=== PATIENT | male | born 1965 | race Hispanic/Latino ===

== ENCOUNTER 2018-10-14 06:51 | Emergency (ER) | payer MEDICARE ==
[2018-10-14] MEDS ORDERED: MIDAZOLAM HCL 2 MG/2 ML INJ ONE (07:15)
--- NOTE | 2018-10-14 07:24 | ER ---
Nurse's Notes [facility] Name: Deric Sheriff Age: 52 yrs Sex: Male : 1965 Arrival Date: 10/14/2018 Time: 06:52 Bed 4 Private MD: Diagnosis: Epileptic seizures related to external causes;Type 2 diabetes mellitus;Unspecified kidney failure;Essential (primary) hypertension;Fever, unspecified Presentation: 10/14 07:07 Presenting complaint: EMS states: Family was unable to wake up patient this morning, tl2 EMS reported pt may have had a seizure, given 2 mg Ativan. Pt unresponsive with snoring respirations. Transition of care: patient was not received from another setting of care. Onset of symptoms was October 14, 2018 at 06:00. Risk Assessment: Do you want to hurt yourself or someone else? Patient reports no desire to harm self or others. Initial Sepsis Screen: Does the patient meet any 2 criteria? Altered Mental Status. HR > 90 bpm. Does the patient have a suspected source of infection? No. Patient's initial sepsis screen is negative. Care prior to arrival: Placed on backboard. Medication(s) given: 2 mg ativan IV initiated. IO right humerus Glucose check: 167. 07:07 Method Of Arrival: EMS: [facility] tl2 07:07 Acuity: HODAN 1 tl2 Triage Assessment: 07:10 General: Appears ill, Behavior is unresponsive. Pain: Unable to use pain scale. Patient tl2 is unresponsive. Neuro: Level of Consciousness is unresponsive, Reaction to noxious stimuli is none. Neuro: Seizure activity noted at this time. Cardiovascular: Patient's skin is warm and dry. Rhythm is sinus tachycardia. Respiratory: Airway is compromised Respiratory effort is shallow, Respiratory pattern is snoring. GI: No signs and/or symptoms were reported involving the gastrointestinal system. Derm: Skin is pale. Historical: - Allergies: 07:10 lotril; tl2 - Home Meds: 09:00 tamsulosin 0.4 mg oral cp24 1 cap once daily [Active]; metoprolol tartrate 50 mg Oral sv tab 1 tab 2 times per day [Active]; enalapril maleate 20 mg Oral tab 1 tab once daily [Active]; baclofen 10 mg Oral tab 1 tab 3 times per day [Active]; clonidine HCl 0.1 mg Oral tab 1 tab 3 times per day [Active]; Plavix 75 mg Oral tab 1 tab once daily [Active]; atorvastatin 40 mg oral tab 1 tab once daily [Active]; citalopram 20 mg tab 1 tab once daily [Active]; aspirin 81 mg Oral chew 1 tab once daily [Active]; Natural Laxative oral 8.6 mg daily oral [Active]; - PMHx: 07:10 CVA; Diabetes - NIDDM; Hypertension; tl2 - Immunization history:: Adult Immunizations up to date. - Social history:: The patient lives with family, Patient/guardian denies using alcohol, street drugs, Smoking status: unknown. - Family history:: not pertinent. - Ebola Screening: : No symptoms or risks identified at this time. Screenin:22 Abuse screen: Denies threats or abuse. Nutritional screening: No deficits noted. tl2 Tuberculosis screening: No symptoms or risk factors identified. Fall Risk Secondary diagnosis (15 points) seizures, CVA, Assessment: 07:25 General: Appears unkempt, Behavior is unresponsive. General: Spouse reports that she sv tried to get him up around 0000 and he wasn't able to get up at that time. She went back to sleep and tried to get him up again around 0500 and still couldn't get him up and called 911. Spouse reports that he normally is A\T\O x3 and is able to walk and do things on his own but he walks with a cane at home since he's had left sided deficits.. Pain: Unable to use pain scale. Patient is intubated. Patient is unresponsive. Neuro: Level of Consciousness is unresponsive. Respiratory: Airway via oral intubation Respiratory effort is even, unlabored, Respiratory pattern is regular, symmetrical. GI: Parent/caregiver reports the patient having vomiting yesterday. : No signs and/or symptoms were reported regarding the genitourinary system. EENT: No signs and/or symptoms were reported regarding the EENT system. Derm: Skin is normal, Skin temperature is hot. Musculoskeletal: No signs and/or symptoms reported regarding the musculoskeletal system. Musculoskeletal: Parent/caregiver report the patient having left sided deficits from 2 CVAs in the past. 08:10 Reassessment: Patient appears in no apparent distress at this time. No changes from sv previously documented assessment. Pt remains intubated. 09:00 Reassessment: Patient appears in no apparent distress at this time. No changes from sv previously documented assessment. Pt remains intubated. 09:13 Reassessment: Patient appears in no apparent distress at this time. No changes from sv previously documented assessment. Spouse remains at the bedside. Pt remains intubated. 09:36 Reassessment: Patient appears in no apparent distress at this time. No changes from sv previously documented assessment. Pt remains intubated. Report given to León from EMS. Vital Signs: 06:50 BP 148 / 97; Pulse 100; Resp 18 A; Temp 99.9(C); Pulse Ox 98% on Non-rebreather mask; tl2 Weight 81.65 kg; Height 5 ft. 8 in. (172.72 cm); 06:56 BP 153 / 106; Pulse 108; Resp 20 A; Temp 99.9(C); Pulse Ox 99% on BVM; tl2 07:01 BP 124 / 84; Pulse 99; Resp 20 A; Pulse Ox 100% on ETT ambu; tl2 07:25 BP 103 / 72; Pulse 94; Resp 27; Temp 100.5(C); Pulse Ox 100% on ETT ambu; sv 07:40 BP 124 / 86; Pulse 108; Resp 27; Temp 100.6; Pulse Ox 100% on 100% FiO2 ETT vent; sv 07:50 BP 98 / 67; Pulse 96; Resp 26; Temp 100.6; Pulse Ox 100% on 100% FiO2 ETT vent; sv 08:05 BP 91 / 61; Pulse 88; Resp 22; Pulse Ox 100% on 100% FiO2 ETT vent; sv 08:15 BP 104 / 66; Pulse 91; Resp 22; Pulse Ox 100% on 100% FiO2 ETT vent; sv 08:30 BP 112 / 71; Pulse 95; Resp 23; Temp 100.3(C); Pulse Ox 100% on 100% FiO2 ETT vent; sv 08:45 BP 96 / 60; Pulse 98; Resp 25; Temp 99.8(C); Pulse Ox 100% on 100% FiO2 ETT vent; sv 09:00 BP 101 / 68; Pulse 98; Resp 22; Temp 99.7; Pulse Ox 100% on 100% FiO2 ETT vent; sv 09:15 BP 103 / 61; Pulse 95; Resp 21; Temp 99.9; Pulse Ox 96% on 100% FiO2 ETT vent; sv 09:25 BP 95 / 63; Pulse 91; Resp 22; Temp 100; Pulse Ox 97% on 60% FiO2 ETT vent; sv 06:50 Body Mass Index 27.37 (81.65 kg, 172.72 cm) tl2 [place] Coma Score: 07:10 Eye Response: none(1). Verbal Response: none(1). Motor Response: none(1). Total: 3. tl2 ED Course: 06:52 Patient arrived in ED. ds1 06:52 Inserted saline lock: 20 gauge in right antecubital area, using aseptic technique. ea Blood collected. 06:54 Inserted saline lock: 20 gauge in right antecubital area, using aseptic technique. tl2 Blood collected. placed by ASHLEY Gamboa. 06:55 Maintain EMS IV. Dressing intact. Site clean \T\ dry. Gauge \T\ site: IO to right humerus. tl 2 06:58 Assisted provider with intubation using 7.5 mm ETT via oral route. ET tube secured at tl2 24cm at the teeth. Set up intubation tray. Intubated by Millie Cazares MD Placement verified by CO2 detector w/ + color change, auscultating bilateral breath sounds. 07:00 Millie Cazares MD is Attending Physician. ma2 07:01 NGT: inserted 16 Fr. other orally verified placement of air over stomach, verified tl2 return of gastric contents, to intermittent suction. Returned gastric contents. 07:02 Elliott cath inserted, using sterile technique, 16 Fr., by ED staff, balloon inflated, to tl2 gravity drainage, urine specimen collected. 07:10 Triage completed. tl2 07:10 Arm band placed on right wrist. tl2 07:10 Seizure precautions initiated. tl2 07:18 Attending Physician role handed off by Millie Cazares MD alpesh 07:18 Gm Shaikh MD is Attending Physician. alpesh 07:22 Patient has correct armband on for positive identification. Bed in low position. Call tl2 light in reach. Side rails up X2. 07:24 CT Stroke Brain w/o Contrast In Process Unspecified. EDMS 07:24 C Spine Wo Con In Process Unspecified. EDMS 07:58 EKG done, by ED staff, reviewed by Gm Shaikh MD. [facility] 08:[address] Shaikh with Diego Willett RN decal transferrer at the [facility]/. 08:[address] Shaikh connected with for patient transfer consultation. 08:12 Chest Single View XRAY In Process Unspecified. EDMS 08:20 Rebecca Mayer, ASHLEY is Primary Nurse. sv 08:23 Flu Sent. sv 08:26 administrative approval given by Sarahy Duenas RN decal transferrer/ Dr. Najera has accepted the patient in transfer/ pt going to [address] [place] [address] bed 7516/ report to be called to [phone]. 09:38 Patient transferred, IV remains in place. intact. sv Administered Medications: 06:54 Drug: Etomidate 20 mg Route: IVP; Site: right antecubital; tl2 07:10 Follow up: Response: No adverse reaction sv 06:54 Drug: Succinylcholine 120 mg Route: IVP; Site: right antecubital; tl2 07:10 Follow up: Response: No adverse reaction sv 07:10 Drug: Versed 5 mg Route: IVP; Site: right antecubital; tl2 07:30 Follow up: Response: No adverse reaction sv 07:35 Drug: ProTONIX 80 mg Route: IVP; Site: left antecubital; iw 08:00 Follow up: Response: No adverse reaction sv 07:40 Drug: Thiamine 100 mg Route: IV; Rate: bolus; Site: left antecubital; iw 07:45 Follow up: Response: No adverse reaction; IV Status: Completed infusion sv 07:46 Drug: Fosphenytoin 1 grams Route: IVPB; Site: left antecubital; iw 08:05 Follow up: Response: No adverse reaction; IV Status: Completed infusion; IV Intake: sv 100ml 07:49 Not Given (Physician Discretion): Cefepime 1 grams IVPB at 200 ml/hr once over 30 mins; iw (mix in NS 100 mL) 08:01 Drug: Ativan 2 mg Route: IVP; Site: left upper arm; sv 09:15 Follow up: Response: No adverse reaction sv 08:20 Drug: Cefepime 2 grams Route: IVPB; Rate: 200 ml/hr; Infused Over: 30 mins; Site: right sv femoral; 09:12 Follow up: Response: No adverse reaction; IV Status: Completed infusion; IV Intake: sv 250ml 08:21 Drug: NS 0.9% (30 ml/kg) 30 ml/kg Route: IV; Rate: bolus; Site: right femoral; sv 08:21 Drug: vancoMYCIN 1 grams Route: IVPB; Infused Over: 2 hrs; Site: right femoral; sv 10:08 Follow up: Response: No adverse reaction; IV Status: Infusion continued upon transfer sv 08:25 CANCELLED (changed to MD): Acetaminophen 1000 mg PO once sv 08:29 Drug: Tylenol Suppository 650 mg Route: MD; la1 09:12 Follow up: Response: No adverse reaction; Temperature is decreased sv 09:12 Drug: NS 0.9% 1000 ml Route: IV; Rate: 125 ml/hr; Site: right femoral; sv 10:08 Follow up: Response: No adverse reaction; IV Status: Infusion continued upon transfer sv Point of Care Testing: Blood Glucose: 07:12 Blood Glucose: 169 mg/dL; ea 09:11 Blood Glucose: 148 mg/dL; sv Ranges: Intake: 08:05 IV: 100ml; Total: 100ml. sv 09:12 IV: 250ml; Total: 350ml. sv Outcome: 07:24 ER care complete, transfer ordered by . [facility] 09:15 Transferred by ground EMS to [facility], Transfer form completed. sv X-rays sent w/ patient. Note: [facility] to [facility] 09:15 Condition: stable 09:15 Instructed on the need for transfer. 10:08 Patient left the ED. eb Signatures: Dispatcher [employer] EDMS Rebecca Mayer RN RN sv Anderson, Corey, MD MD cha Sanford, Demi ds1 Indira Patel RN RN iw Attema, Lee, RN RN la1 Knox, Taylor, RN RN tl2 Martinez, Maria [facility] Bee Cabrera RN RN ea Alzahri, Mohammad, MD MD ma2 Botello, Elizabeth eb Corrections: (The following items were deleted from the chart) 07:17 06:50 Inserted saline lock: 20 gauge in right antecubital area, using aseptic ea technique. Blood collected. ea 07:22 07:10 BP 148 / 97; Pulse 100bpm; Resp 18bpm; Assisted; Pulse Ox 98% Non-rebreather tl2 mask; Temp 99.9F Catheter; 81.65 kg; Height 5 ft. 8 in.; BMI: 27.3; tl2
--- NOTE | 2018-10-14 07:24 | EDPHYS ---
Physician Documentation [facility] Name: Deric Sheriff Age: 52 yrs Sex: Male : 1965 Arrival Date: 10/14/2018 Time: 06:52 Bed 4 Private MD: ED Physician Gm Shaikh HPI: 10/14 07:04 This 52 yrs old Male presents to ER via Unassigned with complaints of Seizure. ri2 07:04 The patient presents with a history of multiple seizures. Seizure onset: just prior to [facility] arrival. Seizure Hx: it is unknown whether or not the patient has a previous seizure history. EMS care: Ativan. Current symptoms: confusion. The patient has experienced a previous episode. Historical: - Allergies: 07:10 lotril; tl2 - Home Meds: 09:00 tamsulosin 0.4 mg oral cp24 1 cap once daily [Active]; metoprolol tartrate 50 mg Oral sv tab 1 tab 2 times per day [Active]; enalapril maleate 20 mg Oral tab 1 tab once daily [Active]; baclofen 10 mg Oral tab 1 tab 3 times per day [Active]; clonidine HCl 0.1 mg Oral tab 1 tab 3 times per day [Active]; Plavix 75 mg Oral tab 1 tab once daily [Active]; atorvastatin 40 mg oral tab 1 tab once daily [Active]; citalopram 20 mg tab 1 tab once daily [Active]; aspirin 81 mg Oral chew 1 tab once daily [Active]; Natural Laxative oral 8.6 mg daily oral [Active]; - PMHx: 07:10 CVA; Diabetes - NIDDM; Hypertension; tl2 - Immunization history:: Adult Immunizations up to date. - Social history:: The patient lives with family, Patient/guardian denies using alcohol, street drugs, Smoking status: unknown. - Family history:: not pertinent. - Ebola Screening: : No symptoms or risks identified at this time. ROS: 08:55 Unable to obtain ROS due to obtunded state. alpesh Exam: 07:04 ENT: Nares patent. No nasal discharge, no septal abnormalities noted. Tympanic ma2 membranes are normal and external auditory canals are clear. Oropharynx with no redness, swelling, or masses, exudates, or evidence of obstruction, uvula midline. Mucous membranes moist. Chest/axilla: Normal chest wall appearance and motion. Nontender with no deformity. No lesions are appreciated. Cardiovascular: Regular rate and rhythm with a normal S1 and S2. No gallops, murmurs, or rubs. Normal PMI, no JVD. No pulse deficits. 07:04 Respiratory: Respirations: intubated for airway protection . 07:04 Neuro: Mentation: seizure activity, grand mal type is displayed, focal in nature is displayed by patient, Abnormal movements: pill rolling tremor, gcs 7. Vital Signs: 06:50 BP 148 / 97; Pulse 100; Resp 18 A; Temp 99.9(C); Pulse Ox 98% on Non-rebreather mask; tl2 Weight 81.65 kg; Height 5 ft. 8 in. (172.72 cm); 06:56 BP 153 / 106; Pulse 108; Resp 20 A; Temp 99.9(C); Pulse Ox 99% on BVM; tl2 07:01 BP 124 / 84; Pulse 99; Resp 20 A; Pulse Ox 100% on ETT ambu; tl2 07:25 BP 103 / 72; Pulse 94; Resp 27; Temp 100.5(C); Pulse Ox 100% on ETT ambu; sv 07:40 BP 124 / 86; Pulse 108; Resp 27; Temp 100.6; Pulse Ox 100% on 100% FiO2 ETT vent; sv 07:50 BP 98 / 67; Pulse 96; Resp 26; Temp 100.6; Pulse Ox 100% on 100% FiO2 ETT vent; sv 08:05 BP 91 / 61; Pulse 88; Resp 22; Pulse Ox 100% on 100% FiO2 ETT vent; sv 08:15 BP 104 / 66; Pulse 91; Resp 22; Pulse Ox 100% on 100% FiO2 ETT vent; sv 08:30 BP 112 / 71; Pulse 95; Resp 23; Temp 100.3(C); Pulse Ox 100% on 100% FiO2 ETT vent; sv 08:45 BP 96 / 60; Pulse 98; Resp 25; Temp 99.8(C); Pulse Ox 100% on 100% FiO2 ETT vent; sv 09:00 BP 101 / 68; Pulse 98; Resp 22; Temp 99.7; Pulse Ox 100% on 100% FiO2 ETT vent; sv 09:15 BP 103 / 61; Pulse 95; Resp 21; Temp 99.9; Pulse Ox 96% on 100% FiO2 ETT vent; sv 09:25 BP 95 / 63; Pulse 91; Resp 22; Temp 100; Pulse Ox 97% on 60% FiO2 ETT vent; sv 06:50 Body Mass Index 27.37 (81.65 kg, 172.72 cm) tl2 Winkelman Coma Score: 07:10 Eye Response: none(1). Verbal Response: none(1). Motor Response: none(1). Total: 3. tl2 Procedures: 07:04 Intubation: Ventilated with 100% NRB prior to procedure. with 7.5 mm ETT. Ventilated ma2 with Ambu bag. ventilator. Cricoid pressure applied during procedure. Tube secured with tape with ETT oropeza Placement verified by CO2 detector with (+) color change, Patient tolerated well. 07:22 Central Line: the site was prepped with Betadine, in sterile fashion, a triple lumen alpesh catheter was inserted, in the right femoral vein, in 1 attempts. placement was verified, by blood return, the site was dressed with using sterile technique, the patient tolerated the procedure, well. MDM: 07:04 Differential diagnosis: cerebral vascular accident, drug overdose, cardiac arrhythmia, ri2 seizure. 07:18 Patient medically screened. [facility] 07:22 Data reviewed: vital signs, nurses notes, lab test result(s), EKG, radiologic studies. [facility] 10/14 07:04 Order name: Bilirubin, Direct [facility] 10/14 07:04 Order name: C-Reactive Protein [facility] 10/14 07:04 Order name: D-Dimer [facility] 10/14 07:04 Order name: Sed Rate [facility] 10/14 07:04 Order name: Basic Metabolic Panel [facility] 10/14 07:04 Order name: Blood Culture Adult (2) [facility] 10/14 07:04 Order name: CBC with Diff [facility] 10/14 07:04 Order name: Ckmb; Complete Time: 08:05 [facility] 10/14 07:04 Order name: CPK; Complete Time: 08:05 [facility] 10/14 07:04 Order name: Lactate; Complete Time: 08:54 [facility] 10/14 07:04 Order name: LFT's; Complete Time: 08:05 [facility] 10/14 07:04 Order name: Lipase; Complete Time: 08:05 [facility] 10/14 07:04 Order name: Procalcitonin; Complete Time: 08:54 [facility] 10/14 07:04 Order name: Protime (+inr); Complete Time: 08:05 [facility] 10/14 07:04 Order name: Ptt, Activated; Complete Time: 08:05 [facility] 10/14 07:04 Order name: Troponin (emerg Dept Use Only); Complete Time: 08:05 [facility] 10/14 07:04 Order name: Urine Microscopic Only [facility] 10/14 07:04 Order name: Magnesium; Complete Time: 08:05 [facility] 10/14 07:04 Order name: Amylase, Serum; Complete Time: 08:05 [facility] 10/14 07:04 Order name: UDS [facility] 10/14 07:05 Order name: C-Reactive Protein; Complete Time: 08:05 [facility] 10/14 07:05 Order name: Sedimentation Rate, Westergren; Complete Time: 08:54 [facility] 10/14 07:05 Order name: Basic Metabolic Panel; Complete Time: 08:05 [facility] 10/14 07:05 Order name: Blood Culture [facility] 10/14 07:05 Order name: CBC with Automated Diff; Complete Time: 08:54 [facility] 10/14 07:21 Order name: NT PRO-BNP; Complete Time: 08:54 [facility] 10/14 07:25 Order name: Type And Screen [facility] 10/14 07:25 Order name: Acetaminophen; Complete Time: 08:54 [facility] 10/14 07:04 Order name: Chest Single View XRAY [facility] 10/14 07:04 Order name: Accucheck; Complete Time: 07:23 [facility] 10/14 07:04 Order name: Cardiac monitoring; Complete Time: 07:23 [facility] 10/14 07:04 Order name: EKG - Nurse/Tech; Complete Time: 07:59 [facility] 10/14 07:04 Order name: CT Stroke Brain w/o Contrast; Complete Time: 08:05 [facility] 10/14 07:04 Order name: EKG; Complete Time: 07:06 [facility] 10/14 07:20 Order name: C Spine Wo Con; Complete Time: 08:05 [facility] 10/14 07:25 Order name: ETOH Level; Complete Time: 08:54 [facility] 10/14 07:25 Order name: Salicylate; Complete Time: 08:54 [facility] 10/14 07:39 Order name: ABG; Complete Time: 08:54 10/14 07:49 Order name: Flu 10/14 07:49 Order name: Influenza Screen (A ; Complete Time: 08:54 [facility] 10/14 08:39 Order name: ABO/RH no charge; Complete Time: 08:54 [facility] 10/14 09:12 Order name: Glucose, Ancillary Testing [facility] 10/14 09:12 Order name: Glucose, Ancillary Testing [facility] 10/14 09:43 Order name: Urine Dipstick--Ancillary (enter results) 10/14 09:49 Order name: Urine Culture [facility] 10/14 07:04 Order name: IV Saline Lock - Large Bore; Complete Time: 07:23 [facility] 10/14 07:04 Order name: Labs collected and sent; Complete Time: 07:23 [facility] 10/14 07:04 Order name: O2 Per Protocol; Complete Time: 07:23 [facility] 10/14 07:04 Order name: O2 Sat Monitoring; Complete Time: 07:23 [facility] 10/14 07:04 Order name: Urine Dipstick-Ancillary (obtain specimen); Complete Time: 12:56 [facility] 10/14 07:04 Order name: IV Saline Lock; Complete Time: 08:25 [facility] 10/14 07:04 Order name: NPO; Complete Time: 12:56 [facility] 10/14 07:21 Order name: Elliott; Complete Time: 07:23 [facility] 10/14 09:06 Order name: Blood Glucose Level; Complete Time: 12:56 [facility] Administered Medications: 06:54 Drug: Etomidate 20 mg Route: IVP; Site: right antecubital; tl2 07:10 Follow up: Response: No adverse reaction sv 06:54 Drug: Succinylcholine 120 mg Route: IVP; Site: right antecubital; tl2 07:10 Follow up: Response: No adverse reaction sv 07:10 Drug: Versed 5 mg Route: IVP; Site: right antecubital; tl2 07:30 Follow up: Response: No adverse reaction sv 07:35 Drug: ProTONIX 80 mg Route: IVP; Site: left antecubital; iw 08:00 Follow up: Response: No adverse reaction sv 07:40 Drug: Thiamine 100 mg Route: IV; Rate: bolus; Site: left antecubital; iw 07:45 Follow up: Response: No adverse reaction; IV Status: Completed infusion sv 07:46 Drug: Fosphenytoin 1 grams Route: IVPB; Site: left antecubital; iw 08:05 Follow up: Response: No adverse reaction; IV Status: Completed infusion; IV Intake: sv 100ml 07:49 Not Given (Physician Discretion): Cefepime 1 grams IVPB at 200 ml/hr once over 30 mins; iw (mix in NS 100 mL) 08:01 Drug: Ativan 2 mg Route: IVP; Site: left upper arm; sv 09:15 Follow up: Response: No adverse reaction sv 08:20 Drug: Cefepime 2 grams Route: IVPB; Rate: 200 ml/hr; Infused Over: 30 mins; Site: right sv femoral; 09:12 Follow up: Response: No adverse reaction; IV Status: Completed infusion; IV Intake: sv 250ml 08:21 Drug: NS 0.9% (30 ml/kg) 30 ml/kg Route: IV; Rate: bolus; Site: right femoral; sv 08:21 Drug: vancoMYCIN 1 grams Route: IVPB; Infused Over: 2 hrs; Site: right femoral; sv 10:08 Follow up: Response: No adverse reaction; IV Status: Infusion continued upon transfer sv 08:25 CANCELLED (changed to NH): Acetaminophen 1000 mg PO once sv 08:29 Drug: Tylenol Suppository 650 mg Route: NH; la1 09:12 Follow up: Response: No adverse reaction; Temperature is decreased sv 09:12 Drug: NS 0.9% 1000 ml Route: IV; Rate: 125 ml/hr; Site: right femoral; sv 10:08 Follow up: Response: No adverse reaction; IV Status: Infusion continued upon transfer sv Point of Care Testing: Blood Glucose: 07:12 Blood Glucose: 169 mg/dL; ea 09:11 Blood Glucose: 148 mg/dL; sv Ranges: Critical Glucose Levels:Adult <50 mg/dl or >400 mg/dl <40 mg/dl or >180 mg/dl Disposition: 10/14/18 07:24 Transfer ordered to [facility]. Diagnosis are Epileptic seizures related to external causes, Type 2 diabetes mellitus, Unspecified kidney failure, Essential (primary) hypertension, Fever, unspecified. - Reason for transfer: Higher level of care. - Accepting physician is to [facility]. - Condition is Serious. - Problem is new. - Symptoms have improved. Signatures: Dispatcher [employer] EDMS Rebecca Mayer RN RN Gm Maynard MD MD cha Williams, Irene, RN RN iw Attema, Lee, RN RN la1 Janet Acosta RN RN tl2 Millie Cazares MD MD ma2 Botello, Elizabeth eb Corrections: (The following items were deleted from the chart) 07:07 07:05 Bilirubin Direct ordered. EDMS EDMS 07:20 07:06 Head C Spine MPR Wo Con+CT.RAD.BRZ ordered. EDMS EDMS 07:25 07:05 D-Dimer ordered. EDMS EDMS 08:06 07:24 10/14/2018 07:24 Transfer ordered to [facility]. Diagnosis is alpesh Epileptic seizures related to external causes; Type 2 diabetes mellitus. Reason for transfer: Higher level of care. Accepting physician is to [facility]. Condition is Serious. Problem is new. Symptoms have improved. [facility] 08:25 07:04 Acetaminophen 1000 mg PO once ordered. ri2 sv 08:25 07:04 Stroke Swallow Screen ordered. [facility] 08:55 08:06 10/14/2018 07:24 Transfer ordered to [facility]. Diagnosis is alpesh Epileptic seizures related to external causes; Type 2 diabetes mellitus; Unspecified kidney failure; Essential (primary) hypertension. Reason for transfer: Higher level of care. Accepting physician is to [facility]. Condition is Serious. Problem is new. Symptoms have improved. [facility] 10:08 08:55 10/14/2018 07:24 Transfer ordered to [facility]. Diagnosis is eb Epileptic seizures related to external causes; Type 2 diabetes mellitus; Unspecified kidney failure; Essential (primary) hypertension; Fever, unspecified. Reason for transfer: Higher level of care. Accepting physician is to [facility]. Condition is Serious. Problem is new. Symptoms have improved. alpesh
[2018-10-14 07:28] LABS: Absolute Lymphocytes (CBC) 1.1 K/uL (0.7-4.9); Absolute Monocytes 1.1 K/uL (0.1-1.3); Absolute Neutrophil 10.7 K/uL (1.8-8.0); Basophils % 0.3 % (0-1.3); Hematocrit 41.4 % (39.6-49.0); Lymphocytes % 8.6 % (15.3-44.8); MCH 29.7 pg (27.0-35.0); MCV 88.4 fL (80-100); MPV 10.1 fL (7.6-11.3); Monocytes % 8.9 % (3.3-12.3); RBC Red Blood Cell Count 4.68 M/uL (4.33-5.43)
--- NOTE | 2018-10-14 07:35 | RAD REPORT ---
EXAM DESCRIPTION: CT - Ct Stroke Brain Wo Cont - 10/14/2018 7:24 am CLINICAL HISTORY: PAIN CVA COMPARISON: Head Brain Wo Cont dated 12/12/2016 TECHNIQUE: All CT scans are performed using dose optimization technique as appropriate and may inclu de automated exposure control or mA/KV adjustment according to patient size. 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 The calvarium is intact. IMPRESSION: No acute intracranial abnormality. If there is continued clinical concern for CVA, MR i maging of the brain would be recommended.
--- NOTE | 2018-10-14 07:36 | RAD REPORT ---
EXAM DESCRIPTION: CT - C Spine Wo Con - 10/14/2018 7:24 am CLINICAL HISTORY: PAIN Neck pain, radiculopathy seizure COMPARISON: No comparisons FINDINGS: The cervical vertebral body heights and disc spaces are maintained. No evidence of acute cervical spine fracture or subluxation. Prevertebral soft tissues are normal in thickness. Endotracheal intubation noted. IMPRESSION: Negative for acute cervical spine abnormality. All CT scans are performed using dose optimization technique as appropriate and may include automated exposure control or mA/KV adjustment according to patient size.
[2018-10-14 07:39] LABS: Protime INR 1.13
[2018-10-14] MEDS ORDERED: NA CHLORIDE 0.9% 100 ML IV ONE (07:39)
[2018-10-14] MEDS ORDERED: PANTOPRAZOLE 40 MG INJ ONE (07:40)
[2018-10-14] MEDS ORDERED: FOSPHENYTOIN PE 500 MG/10 ML VIAL ONE (07:40)
[2018-10-14] MEDS ORDERED: THIAMINE 200 MG/2 ML INJ ONE (07:40)
[2018-10-14 07:51] LABS: ALT/SGPT 25 U/L (12-78); AST/SGOT 21 U/L (15-37); Albumin 3.2 g/dL (3.4-5.0); Alkaline Phosphatase 82 U/L (45-117); Amylase Level 103 U/L (25-115); BUN Blood Urea Nitrogen 26 mg/dL (7-18); Bicarbonate 21 mmol/L (21-32); Bilirubin Direct < 0.1 mg/dL (0-0.2); Bilirubin Total 0.4 mg/dL (0.2-1.0); CKMB Creatine Kinase MB < 1.0 ng/mL (0.3-3.6); Creatine Phosphokinase 73 U/L (39-308); Glucose Level 165 mg/dL (74-106); Lipase 101 U/L (73-393); Magnesium 1.8 mg/dL (1.8-2.4); Potassium 3.9 mmol/L (3.5-5.1); Protein, Total 7.6 g/dL (6.4-8.2); Sodium Level 141 mmol/L (136-145); Troponin (Emerg Dept Use Only) 0.03 ng/mL (0.0-0.045)
[2018-10-14] MEDS ORDERED: VANCOMYCIN 1 GM/250 ML BAG ONE (07:51)
[2018-10-14 07:57] LABS: Arterial Blood Carboxyhemoglob 0.4 % (0-1.5); Blood Gas Oxyhemoglobin 97.8 % (94-97); Blood O2 Saturation 99.4 % (92-98.5)
[2018-10-14] MEDS ORDERED: CEFEPIME 2 GM VIAL ONE (07:58)
[2018-10-14] MEDS ORDERED: NA CHLORIDE 0.9% 250 ML ONE (07:58)
[2018-10-14] MEDS ORDERED: LORazepam 2 MG/ML VIAL ONE (08:00)
[2018-10-14] MEDS ORDERED: ACETAMINOPHEN 650MG/RECT SUPP PR ONE (08:30)
[2018-10-14] MEDS ORDERED: NA CHLORIDE 0.9% 1,000 ML ONE (09:12)
[2018-10-14 09:47] LABS: Urine Bacteria >50 /HPF (NONE SEEN); Urine RBC <5 /HPF (NONE SEEN)
[2018-10-14 09:48] LABS: Urine Culture Reflex Order REFLEXED; Urine Sperm PRESENT (NONE SEEN)
[2018-10-14 10:42] LABS: Barbiturates NEGATIVE (NEGATIVE); Benzodiazepines POSITIVE (NEGATIVE); Cocaine NEGATIVE (NEGATIVE); METHAMPHETAM NEGATIVE (NEGATIVE); Methadone NEGATIVE (NEGATIVE); Opiates NEGATIVE (NEGATIVE); Phencyclidine NEGATIVE (NEGATIVE); THC Cannibis NEGATIVE (NEGATIVE)
[2018-10-14 11:21] LABS: Urine Blood 1+ (NEG); Urine Glucose NEGATIVE (NEG); Urine Protein 2+ (NEG); Urine pH 7.5 (5.0-7.0)
--- NOTE | 2018-10-14 13:16 | RAD REPORT ---
EXAM DESCRIPTION: RAD - Chest Single View - 10/14/2018 8:12 am CLINICAL HISTORY: COUGH Chest pain. COMPARISON: Chest Single View dated 12/12/2016; CHEST SINGLE VIEW dated 02/21/2011; CHEST SINGLE VIEW d ated 06/16/2010; CHEST SINGLE VIEW dated 07/29/2009 FINDINGS: Portable technique limits examination quality. The lungs are grossly clear. Tip the ET tube is above the schuyler. Enteric tube descends in the stomac h. The heart is mildly prominent in size.
--- NOTE | 2018-10-15 07:38 | EKG ---
Test Date: 2018-10-14 Test Time: 07:30:35 Site Controller: KUMAR MEASUREMENT RESULTS: Intervals: Rate: 98 MI: 114 QRSD: 74 QT: 406 QTc: 518 [place]: P: 61 MI: 114 QRS: -7 T: 22 INTERPRETIVE STATEMENTS: Normal sinus rhythm Possible Left atrial enlargement Inferior infarct, age undetermined Prolonged QT Abnormal ECG Compared to ECG 02/21/2011 10:45:25 Prolonged QT interval now present Myocardial infarct finding still present Electronically Signed On 10-15-18 07:38:09 ANESTHESIOLOGY RESIDENT by Kadeem Barnett
== END 2018-10-14 10:08 | disposition short-term general hospital (02) ==
LOC: ER 06:51
PROC: 06HM33Z Insertion of Infusion Device into Right Femoral Vein, Percutaneous Approach (ICD-10-PCS; principal; 2018-10-14)
DX: G40.509 Epileptic seizures related to external causes, not intractable, without status epilepticus (principal); R50.9 Fever, unspecified; I10 Essential (primary) hypertension; N19 Unspecified kidney failure; E11.9 Type 2 diabetes mellitus without complications; Z79.01 Long term (current) use of anticoagulants; Z79.82 Long term (current) use of aspirin; Z88.8 Allergy status to other drugs, medicaments and biological substances; Z86.73 Personal history of transient ischemic attack (TIA), and cerebral infarction without residual deficits
CPT/HCPCS: 31500; 36415; 36556; 51702; 70450; 71045; 72125; 80048; 80076; 80307 ×8; 80320; 80329 ×2; 82150; 82550; 82553; 82805; 82962 ×2; 83605; 83690; 83735; 83880; 84145; 84484; 85025; 85610; 85652; 85730; 86140; 86850; 86900; 86901; 87040 ×2; 87077; 87086; 87088; 87186; 87804 ×2; 93005; 94002; 99285; C9113; J0692; J2250; J3370; J3411; J7030; Q2009; 81003; 81015

== ENCOUNTER 2020-01-23 10:54 | Emergency (ER) | payer MEDICARE ==
--- OUTSIDE RECORDS SUMMARY | 2020-01-23 11:02 | XMS REPORT ---
:1965 [facility] [address] [place] [address] Care Team Providers Name Role Phone DONI CONWAY Unavailable Unavailable Problems This patient has no known problems. Allergies, Adverse Reactions, Alerts This patient has no known allergies or adverse reactions. Medications This patient has no known medications. Results Test Description Test Time Test Comments Text Results Atomic Results Result Comments VIRUS CULTURE 2018-11-05 07:31:00 Test Item Value Reference Range Comments CULTURE (BEAKER) (test dguc=1257) No virus isolated POCT-GLUCOSE [id number] 11:50:00 Test Item Value Reference Range Comments POC-GLUCOSE METER (BEAKER) 155 mg/dL 70-110 TESTED AT [address] (test ojra=8250) [facility] [address] POCT-GLUCOSE [id number] 08:22:00 Test Item Value Reference Range Comments POC-GLUCOSE METER (BEAKER) 124 mg/dL 70-110 TESTED AT [address] (test kzuo=4368) [facility] [address] BASIC METABOLIC [id number] 06:33:00 Test Item Value Reference Range Comments SODIUM (BEAKER) (test 139 meq/L 136-145 tjrg=457) POTASSIUM (BEAKER) (test 3.8 meq/L 3.5-5.1 cwxv=946) CHLORIDE (BEAKER) (test 109 meq/L 98-107 iwkp=245) CO2 (BEAKER) (test 23 meq/L 22-29 izvu=561) BLOOD UREA NITROGEN 14 mg/dL 7-21 (BEAKER) (test llwz=647) CREATININE (BEAKER) (test 0.79 mg/dL 0.57-1.25 vesl=231) GLUCOSE RANDOM (BEAKER) 114 mg/dL 70-105 (test naey=166) CALCIUM (BEAKER) (test 8.8 mg/dL 8.4-10.2 kssh=862) EGFR (BEAKER) (test 103 mL/min/1.73 sq m ESTIMATED GFR IS NOT tpie=6080) ACCURATE CREATININE CLEARANCE IN PREDICTING GLOMERULAR FILTRATION RATE. ESTIMATED GFR IS NOT APPLICABLE FOR DIALYSIS PATIENTS. CBC W/PLT COUNT & AUTO [id number] 05:27:00 Test Item Value Reference Range Comments WHITE BLOOD CELL COUNT (BEAKER) (test wfby=405) 8.7 K/ L 3.5-10.5 RED BLOOD CELL COUNT (BEAKER) (test qxye=512) 3.95 M/ L 4.63-6.08 HEMOGLOBIN (BEAKER) (test mgpj=708) 11.7 GM/DL 13.7-17.5 HEMATOCRIT (BEAKER) (test wntx=692) 35.6 % 40.1-51.0 MEAN CORPUSCULAR VOLUME (BEAKER) (test lumu=499) 90.1 fL 79.0-92.2 MEAN CORPUSCULAR HEMOGLOBIN (BEAKER) (test 29.6 pg 25.7-32.2 jbwe=413) MEAN CORPUSCULAR HEMOGLOBIN CONC (BEAKER) (test 32.9 GM/DL 32.3-36.5 wwvy=319) RED CELL DISTRIBUTION WIDTH (BEAKER) (test 14.3 % 11.6-14.4 cjsd=534) PLATELET COUNT (BEAKER) (test vjpy=175) 345 K/CU MM 150-450 MEAN PLATELET VOLUME (BEAKER) (test holr=007) 10.6 fL 9.4-12.4 NUCLEATED RED BLOOD CELLS (BEAKER) (test 0 /100 WBC 0-0 hgsy=615) NEUTROPHILS RELATIVE PERCENT (BEAKER) (test 56 % dusn=513) LYMPHOCYTES RELATIVE PERCENT (BEAKER) (test 31 % tadu=160) MONOCYTES RELATIVE PERCENT (BEAKER) (test 10 % umjl=212) EOSINOPHILS RELATIVE PERCENT (BEAKER) (test 2 % nuhx=326) BASOPHILS RELATIVE PERCENT (BEAKER) (test 0 % gtgz=985) NEUTROPHILS ABSOLUTE COUNT (BEAKER) (test 4.81 K/ L 1.78-5.38 dcch=268) LYMPHOCYTES ABSOLUTE COUNT (BEAKER) (test 2.65 K/ L 1.32-3.57 ksni=084) MONOCYTES ABSOLUTE COUNT (BEAKER) (test 0.90 K/ L 0.30-0.82 hseq=250) EOSINOPHILS ABSOLUTE COUNT (BEAKER) (test 0.19 K/ L 0.04-0.54 ngwz=799) BASOPHILS ABSOLUTE COUNT (BEAKER) (test 0.03 K/ L 0.01-0.08 plwf=203) IMMATURE GRANULOCYTES-RELATIVE PERCENT (BEAKER) 1 % 0-1 (test ynag=9273) POCT-GLUCOSE [id number] 22:10:00 Test Item Value Reference Range Comments POC-GLUCOSE METER (BEAKER) 149 mg/dL 70-110 TESTED AT [address] (test uvgn=4253) [place] [address] POCT-GLUCOSE [id number] 17:37:00 Test Item Value Reference Range Comments POC-GLUCOSE METER (BEAKER) 167 mg/dL 70-110 TESTED AT [address] (test chjj=4917) [place] [address] POCT-GLUCOSE [id number] 13:43:00 Test Item Value Reference Range Comments POC-GLUCOSE METER (BEAKER) 152 mg/dL 70-110 TESTED AT [address] (test ouup=8496) [place] [address] FL, ESOPH, SWALLOW FUNCTION, WITH CINE OR [id number] 10:29:00Reason for exam:->dysphagiaFINAL REPORT Modified barium swallow with speech pathology History: dysphagiaTechnique: Modified barium swallow was performed in conjunction with speech pathology. Examination utilized various textures of barium. Fluoroscopic observation was performed during swallowing. Total fluoroscopy time: 3.5 minutes Total number of films: 5 IMPRESSION: There is spillage of contrast into the piriform sinuses. There is no evidence of laryngeal penetration or aspiration. Please refer to the speech pathology report for further details. Signed: Ronnell Smith MDReport Verified Date/Time: 01/2018 10:29:46 Reading Location: [facility] Consult Reading Room BASIC METABOLIC [id number] 06:43:00 Test Item Value Reference Range Comments SODIUM (BEAKER) (test 138 meq/L 136-145 vzuz=688) POTASSIUM (BEAKER) (test 3.7 meq/L 3.5-5.1 baeo=053) CHLORIDE (BEAKER) (test 108 meq/L 98-107 swmw=059) CO2 (BEAKER) (test 22 meq/L 22-29 egzb=715) BLOOD UREA NITROGEN 15 mg/dL 7-21 (BEAKER) (test rhem=162) CREATININE (BEAKER) (test 0.75 mg/dL 0.57-1.25 dobw=883) GLUCOSE RANDOM (BEAKER) 126 mg/dL 70-105 (test pudw=350) CALCIUM (BEAKER) (test 8.9 mg/dL 8.4-10.2 kgcz=870) EGFR (BEAKER) (test 109 mL/min/1.73 sq m ESTIMATED GFR IS NOT bpjw=4733) ACCURATE CREATININE CLEARANCE IN PREDICTING GLOMERULAR FILTRATION RATE. ESTIMATED GFR IS NOT APPLICABLE FOR DIALYSIS PATIENTS. CBC W/PLT COUNT & AUTO [id number] 06:22:00 Test Item Value Reference Range Comments WHITE BLOOD CELL COUNT (BEAKER) (test mufk=092) 8.3 K/ L 3.5-10.5 RED BLOOD CELL COUNT (BEAKER) (test mrpj=852) 4.13 M/ L 4.63-6.08 HEMOGLOBIN (BEAKER) (test nvbl=554) 12.2 GM/DL 13.7-17.5 HEMATOCRIT (BEAKER) (test bcuv=784) 37.1 % 40.1-51.0 MEAN CORPUSCULAR VOLUME (BEAKER) (test icii=378) 89.8 fL 79.0-92.2 MEAN CORPUSCULAR HEMOGLOBIN (BEAKER) (test 29.5 pg 25.7-32.2 hfrs=184) MEAN CORPUSCULAR HEMOGLOBIN CONC (BEAKER) (test 32.9 GM/DL 32.3-36.5 axdl=499) RED CELL DISTRIBUTION WIDTH (BEAKER) (test 13.9 % 11.6-14.4 ctzn=201) PLATELET COUNT (BEAKER) (test nvry=516) 310 K/CU MM 150-450 MEAN PLATELET VOLUME (BEAKER) (test kaya=866) 10.5 fL 9.4-12.4 NUCLEATED RED BLOOD CELLS (BEAKER) (test 0 /100 WBC 0-0 ulbm=291) NEUTROPHILS RELATIVE PERCENT (BEAKER) (test 53 % vmpe=059) LYMPHOCYTES RELATIVE PERCENT (BEAKER) (test 33 % hvfs=012) MONOCYTES RELATIVE PERCENT (BEAKER) (test 11 % urdg=318) EOSINOPHILS RELATIVE PERCENT (BEAKER) (test 2 % koow=892) BASOPHILS RELATIVE PERCENT (BEAKER) (test 0 % seri=664) NEUTROPHILS ABSOLUTE COUNT (BEAKER) (test 4.41 K/ L 1.78-5.38 ptkk=608) LYMPHOCYTES ABSOLUTE COUNT (BEAKER) (test 2.69 K/ L 1.32-3.57 yltf=941) MONOCYTES ABSOLUTE COUNT (BEAKER) (test 0.89 K/ L 0.30-0.82 chzt=173) EOSINOPHILS ABSOLUTE COUNT (BEAKER) (test 0.20 K/ L 0.04-0.54 llrc=979) BASOPHILS ABSOLUTE COUNT (BEAKER) (test 0.03 K/ L 0.01-0.08 eyxu=623) IMMATURE GRANULOCYTES-RELATIVE PERCENT (BEAKER) 1 % 0-1 (test kyrn=0788) POCT-GLUCOSE [id number] 05:41:00 Test Item Value Reference Range Comments POC-GLUCOSE METER (BEAKER) 129 mg/dL 70-110 TESTED AT [address] (test seon=1648) [place] [address] POCT-GLUCOSE [id number] 00:06:00 Test Item Value Reference Range Comments POC-GLUCOSE METER (BEAKER) 151 mg/dL 70-110 TESTED AT [address] (test ebpg=2199) [place] [address] POCT-GLUCOSE [id number] 18:38:00 Test Item Value Reference Range Comments POC-GLUCOSE METER (BEAKER) 131 mg/dL 70-110 TESTED AT [address] (test bzbp=7918) [place] [address] POCT-GLUCOSE [id number] 13:34:00 Test Item Value Reference Range Comments POC-GLUCOSE METER (BEAKER) 134 mg/dL 70-110 TESTED AT [address] (test ubwq=9190) [place] [id number] HEMOGLOBIN [id number] 08:11:00 Test Item Value Reference Range Comments HEMOGLOBIN A1C (BEAKER) (test jylx=195) 6.5 % 4.3-6.1 BASIC METABOLIC [id number] 07:28:00 Test Item Value Reference Range Comments SODIUM (BEAKER) (test 138 meq/L 136-145 sksz=705) POTASSIUM (BEAKER) (test 3.5 meq/L 3.5-5.1 abyt=185) CHLORIDE (BEAKER) (test 108 meq/L 98-107 popw=780) CO2 (BEAKER) (test 23 meq/L 22-29 katf=728) BLOOD UREA NITROGEN 12 mg/dL 7-21 (BEAKER) (test ioqm=538) CREATININE (BEAKER) (test 0.72 mg/dL 0.57-1.25 axyo=600) GLUCOSE RANDOM (BEAKER) 136 mg/dL 70-105 (test fafa=578) CALCIUM (BEAKER) (test 8.4 mg/dL 8.4-10.2 lhio=771) EGFR (BEAKER) (test 114 mL/min/1.73 sq m ESTIMATED GFR IS NOT egsz=3421) ACCURATE CREATININE CLEARANCE IN PREDICTING GLOMERULAR FILTRATION RATE. ESTIMATED GFR IS NOT APPLICABLE FOR DIALYSIS PATIENTS. IRON, TIBC, % SAT. (WITHOUT FERRITIN)2018-10-21 06:43:00 Test Item Value Reference Range Comments IRON (BEAKER) (test bjrl=541) 44 ug/dL 40-160 TOTAL IRON BINDING CAPACITY (BEAKER) (test 190 ug/dL 250-450 mrbm=527) IRON % SATURATION (2) (BEAKER) (test jlhk=3157) 23 % 20-55 CBC W/PLT COUNT & AUTO [id number] 06:05:00 Test Item Value Reference Range Comments WHITE BLOOD CELL COUNT (BEAKER) (test numr=693) 8.1 K/ L 3.5-10.5 RED BLOOD CELL COUNT (BEAKER) (test fetd=437) 4.13 M/ L 4.63-6.08 HEMOGLOBIN (BEAKER) (test ycyq=075) 11.9 GM/DL 13.7-17.5 HEMATOCRIT (BEAKER) (test htij=712) 36.2 % 40.1-51.0 MEAN CORPUSCULAR VOLUME (BEAKER) (test fziy=789) 87.7 fL 79.0-92.2 MEAN CORPUSCULAR HEMOGLOBIN (BEAKER) (test 28.8 pg 25.7-32.2 lvdx=154) MEAN CORPUSCULAR HEMOGLOBIN CONC (BEAKER) (test 32.9 GM/DL 32.3-36.5 faio=992) RED CELL DISTRIBUTION WIDTH (BEAKER) (test 13.7 % 11.6-14.4 tflf=041) PLATELET COUNT (BEAKER) (test kglt=480) 279 K/CU MM 150-450 MEAN PLATELET VOLUME (BEAKER) (test yoef=657) 10.3 fL 9.4-12.4 NUCLEATED RED BLOOD CELLS (BEAKER) (test 0 /100 WBC 0-0 qmhx=274) NEUTROPHILS RELATIVE PERCENT (BEAKER) (test 57 % ywbc=128) LYMPHOCYTES RELATIVE PERCENT (BEAKER) (test 30 % yelh=127) MONOCYTES RELATIVE PERCENT (BEAKER) (test 10 % jarf=235) EOSINOPHILS RELATIVE PERCENT (BEAKER) (test 2 % ybkp=649) BASOPHILS RELATIVE PERCENT (BEAKER) (test 0 % coel=086) NEUTROPHILS ABSOLUTE COUNT (BEAKER) (test 4.62 K/ L 1.78-5.38 cmdd=939) LYMPHOCYTES ABSOLUTE COUNT (BEAKER) (test 2.41 K/ L 1.32-3.57 owka=787) MONOCYTES ABSOLUTE COUNT (BEAKER) (test 0.84 K/ L 0.30-0.82 bega=187) EOSINOPHILS ABSOLUTE COUNT (BEAKER) (test 0.14 K/ L 0.04-0.54 midw=390) BASOPHILS ABSOLUTE COUNT (BEAKER) (test 0.02 K/ L 0.01-0.08 lkwk=347) IMMATURE GRANULOCYTES-RELATIVE PERCENT (BEAKER) 0 % 0-1 (test ngzt=4255) POCT-GLUCOSE [id number] 05:52:00 Test Item Value Reference Range Comments POC-GLUCOSE METER (BEAKER) 139 mg/dL 70-110 TESTED AT [address] (test svom=3559) [facility] [address] POCT-GLUCOSE [id number] 00:36:00 Test Item Value Reference Range Comments POC-GLUCOSE METER (BEAKER) 130 mg/dL 70-110 TESTED AT [address] (test jgek=4905) [facility] [address] POCT-GLUCOSE [id number] 17:43:00 Test Item Value Reference Range Comments POC-GLUCOSE METER (BEAKER) 141 mg/dL 70-[address] [facility] [address] (test qwyz=8639) [place] [address] (CELLAVISION MANUAL DIFF)2018-10-20 14:30:00 Test Item Value Reference Range Comments NEUTROPHILS - REL (CELLAVISION)(BEAKER) (test 59 % dhwl=6037) LYMPHOCYTES - REL (CELLAVISION)(BEAKER) (test 26 % vxdl=4141) MONOCYTES - REL (CELLAVISION)(BEAKER) (test 8 % rwzo=5755) EOSINOPHILS - REL (CELLAVISION)(BEAKER) (test 3 % fvlx=1021) ATYPICAL LYMPHOCYTES - REL (CELLAVISION)(BEAKER) 4 % 0-0 (test owyw=1009) NEUTROPHILS - ABS (CELLAVISION)(BEAKER) (test 4.78 K/ul 1.78-5.38 qwpk=3856) LYMPHOCYTES - ABS (CELLAVISION)(BEAKER) (test 2.11 K/ul 1.32-3.57 zube=5884) MONOCYTES - ABS (CELLAVISION)(BEAKER) (test 0.65 K/uL 0.30-0.82 dhyf=6199) EOSINOPHILS - ABS (CELLAVISION)(BEAKER) (test 0.24 K/uL 0.04-0.54 wcld=0144) ATYPICAL LYMPHOCYTES - ABS (CELLAVISION)(BEAKER) 0.32 K/uL 0.00-0.00 (test cmzx=6229) TOTAL COUNTED (BEAKER) (test cdik=1609) 100 RBC MORPHOLOGY (BEAKER) (test zxfg=110) Normal WBC MORPHOLOGY (BEAKER) (test xwaf=299) Normal LARGE PLT(BEAKER) (test ufkk=0681) Present ARTIFACT (CELLAVISION)(BEAKER) (test jlcz=6935) Present PLATELET CONCENTRATION (CELLAVISION)(BEAKER) (test Adequate gnno=7530) Received comment: User comments: Slide comments:CBC W/PLT COUNT & AUTO [id number] 14:30:00 Test Item Value Reference Range Comments WHITE BLOOD CELL COUNT (BEAKER) (test bgoe=442) 8.1 K/ L 3.5-10.5 RED BLOOD CELL COUNT (BEAKER) (test aler=889) 4.10 M/ L 4.63-6.08 HEMOGLOBIN (BEAKER) (test kydf=698) 11.9 GM/DL 13.7-17.5 HEMATOCRIT (BEAKER) (test pwpq=767) 36.3 % 40.1-51.0 MEAN CORPUSCULAR VOLUME (BEAKER) (test bjra=731) 88.5 fL 79.0-92.2 MEAN CORPUSCULAR HEMOGLOBIN (BEAKER) (test 29.0 pg 25.7-32.2 wmvn=642) MEAN CORPUSCULAR HEMOGLOBIN CONC (BEAKER) (test 32.8 GM/DL 32.3-36.5 zdnl=987) RED CELL DISTRIBUTION WIDTH (BEAKER) (test 14.0 % 11.6-14.4 unfh=265) PLATELET COUNT (BEAKER) (test zrdw=610) 250 K/CU MM 150-450 MEAN PLATELET VOLUME (BEAKER) (test obcn=378) 10.8 fL 9.4-12.4 NUCLEATED RED BLOOD CELLS (BEAKER) (test 0 /100 WBC 0-0 thkm=086) POCT-GLUCOSE [id number] 12:27:00 Test Item Value Reference Range Comments POC-GLUCOSE METER (BEAKER) 162 mg/dL 70-[address] [facility] [address] [facility] (test xvyd=3859) [facility] [address] BASIC METABOLIC [id number] 08:34:00 Test Item Value Reference Range Comments SODIUM (BEAKER) (test 139 meq/L 136-145 jmum=944) POTASSIUM (BEAKER) (test 3.4 meq/L 3.5-5.1 nfkl=959) CHLORIDE (BEAKER) (test 108 meq/L 98-107 puqi=577) CO2 (BEAKER) (test 24 meq/L 22-29 yccg=089) BLOOD UREA NITROGEN 8 mg/dL 7-21 (BEAKER) (test mrbi=782) CREATININE (BEAKER) (test 0.68 mg/dL 0.57-1.25 uonb=278) GLUCOSE RANDOM (BEAKER) 115 mg/dL 70-105 (test rohq=179) CALCIUM (BEAKER) (test 8.5 mg/dL 8.4-10.2 ddlm=736) EGFR (BEAKER) (test 122 mL/min/1.73 sq m ESTIMATED GFR IS NOT eitw=1813) ACCURATE CREATININE CLEARANCE IN PREDICTING GLOMERULAR FILTRATION RATE. ESTIMATED GFR IS NOT APPLICABLE FOR DIALYSIS PATIENTS. POCT-GLUCOSE [id number] 06:02:00 Test Item Value Reference Range Comments POC-GLUCOSE METER (BEAKER) 147 mg/dL 70-110 TESTED AT [address] (test yloz=9555) [place] [address] POCT-GLUCOSE [id number] 00:43:00 Test Item Value Reference Range Comments POC-GLUCOSE METER (BEAKER) 122 mg/dL 70-110 TESTED AT [address] (test qxlx=5820) [place] [address] RAD, ABDOMEN/KUB, 1 VIEW [id number] 23:27:00Reason for exam:->feeding tube placementFINAL REPORT CLINICAL HISTORY: feeding tube placement TECHNIQUE: RAD, ABDOMEN/KUB, 1 VIEW AP COMPARISON: AP radiograph of the abdomen dated 10/16/2018. FINDINGS: Interval advancement of the weighted tip feeding tube now terminating in the first portion of the duodenum.Nonobstructive bowel gas pattern without distended loops of bowel. Otherwise unchanged appearance of the abdomen. Signed: Jose Antonio Rosales Verified Date/Time: 10/19/2018 23:27:13 Reading Location: [address] Transitional Reading Room CSF CULTURE + GRAM [id number] 18:01:00 Test Item Value Reference Range Comments CULTURE (BEAKER) (test ezov=4009) No growth GRAM STAIN RESULT (BEAKER) (test No WBCs odny=0616) GRAM STAIN RESULT (BEAKER) (test No organisms seen cvns=46851) POCT-GLUCOSE [id number] 17:33:00 Test Item Value Reference Range Comments POC-GLUCOSE METER (BEAKER) 105 mg/dL 70-110 TESTED AT [address] (test uoea=7190) [place] [address] BLOOD [id number] 17:01:00 Test Item Value Reference Range Comments CULTURE (BEAKER) (test icag=0628) No growth in 5 days BLOOD [id number] 17:01:00 Test Item Value Reference Range Comments CULTURE (BEAKER) (test dqfu=9505) No growth in 5 days HSV 1/2 PCR, [id number] 13:20:00 Test Item Value Reference Range Comments HSV BY PCR (BEAKER) (test roqu=529) NEGATIVE NEGATIVE Herpes Simplex Virus (HSV) not detected.These assays were performed by real- time PCR utilizing fluorogenic hydrolysis probe technology for the detection of Herpes Simplex Virus-1 and/or Herpes Simplex Virus-2 in approved specimens. A 154 base pair region of the HSV-1 and HSV-2 UL5 gene is amplified, and typing is achieved by using type specific probes. An internal control is used to confirm PCR amplification. Genetic variation and other factors can affect the accuracy of nucleic acid testing; therefore, the results should be interpreted in light of clinical data.This test was developed and its performance characteristics determined by the [facility] Pathology Department, Section of Molecular Pathology. It has not been cleared or approved by the U.S. Food and Drug Administration (FDA), as FDA approval is not required for clinical use of the test. Validation was done as required by the Clinical Laboratory Amendments of 1988.POCT-GLUCOSE [id number] 12:33:00 Test Item Value Reference Range Comments POC-GLUCOSE METER (BEAKER) 129 mg/dL 70-110 TESTED AT [address] (test sinm=9810) [facility] [address] CBC W/PLT COUNT & AUTO [id number] 08:06:00 Test Item Value Reference Range Comments WHITE BLOOD CELL COUNT (BEAKER) (test cjdc=916) 8.0 K/ L 3.5-10.5 RED BLOOD CELL COUNT (BEAKER) (test fahw=556) 3.72 M/ L 4.63-6.08 HEMOGLOBIN (BEAKER) (test moyi=766) 10.8 GM/DL 13.7-17.5 HEMATOCRIT (BEAKER) (test rnsm=245) 32.5 % 40.1-51.0 MEAN CORPUSCULAR VOLUME (BEAKER) (test qnek=615) 87.4 fL 79.0-92.2 MEAN CORPUSCULAR HEMOGLOBIN (BEAKER) (test 29.0 pg 25.7-32.2 ksyi=406) MEAN CORPUSCULAR HEMOGLOBIN CONC (BEAKER) (test 33.2 GM/DL 32.3-36.5 bgrd=209) RED CELL DISTRIBUTION WIDTH (BEAKER) (test 13.9 % 11.6-14.4 ssoh=365) PLATELET COUNT (BEAKER) (test fgyy=975) 214 K/CU MM 150-450 MEAN PLATELET VOLUME (BEAKER) (test acjj=066) 10.4 fL 9.4-12.4 NUCLEATED RED BLOOD CELLS (BEAKER) (test 0 /100 WBC 0-0 glqu=777) (CELLAVISION MANUAL DIFF)2018-10-19 08:06:00 Test Item Value Reference Range Comments NEUTROPHILS - REL (CELLAVISION)(BEAKER) (test 70 % jcxp=1333) LYMPHOCYTES - REL (CELLAVISION)(BEAKER) (test 24 % vggd=8126) MONOCYTES - REL (CELLAVISION)(BEAKER) (test 4 % upmx=8406) BANDS - REL (CELLAVISION)(BEAKER) (test hhgp=5714) 2 % 0-10 NEUTROPHILS - ABS (CELLAVISION)(BEAKER) (test 5.60 K/ul 1.78-5.38 gdqo=0324) LYMPHOCYTES - ABS (CELLAVISION)(BEAKER) (test 1.92 K/ul 1.32-3.57 cwks=6592) MONOCYTES - ABS (CELLAVISION)(BEAKER) (test 0.32 K/uL 0.30-0.82 wikm=6328) BANDS - ABS (CELLAVISION)(BEAKER) (test vodx=3935) 0.16 K/uL 0.00-0.80 TOTAL COUNTED (BEAKER) (test xgkz=2355) 100 RBC MORPHOLOGY (BEAKER) (test ijpa=750) Normal SMUDGE CELLS (BEAKER) (test qjad=8146) Present GIANT PLATELETS (BEAKER) (test yuhu=958) Present ARTIFACT (CELLAVISION)(BEAKER) (test rerg=1346) Present PLATELET CONCENTRATION (CELLAVISION)(BEAKER) (test Adequate cayp=9182) Received comment: User comments: Slide comments:POCT-GLUCOSE [id number] 06: 21:00 Test Item Value Reference Range Comments POC-GLUCOSE METER (BEAKER) 113 mg/dL 70-110 TESTED AT [address] (test osiu=6043) [facility] [address] [id number] 04:04:00 Test Item Value Reference Range Comments PHOSPHORUS (BEAKER) (test oflk=627) 2.0 mg/dL 2.3-4.7 [id number] 04:04:00 Test Item Value Reference Range Comments MAGNESIUM (BEAKER) (test lhgs=426) 2.1 mg/dL 1.6-2.6 BASIC METABOLIC [id number] 04:04:00 Test Item Value Reference Range Comments SODIUM (BEAKER) (test 143 meq/L 136-145 xsgw=559) POTASSIUM (BEAKER) (test 3.2 meq/L 3.5-5.1 xozl=336) CHLORIDE (BEAKER) (test 112 meq/L 98-107 rxab=707) CO2 (BEAKER) (test 26 meq/L 22-29 koyr=616) BLOOD UREA NITROGEN 9 mg/dL 7-21 (BEAKER) (test drln=131) CREATININE (BEAKER) (test 0.75 mg/dL 0.57-1.25 apnz=298) GLUCOSE RANDOM (BEAKER) 119 mg/dL 70-105 (test irgy=131) CALCIUM (BEAKER) (test 8.2 mg/dL 8.4-10.2 ufgv=340) EGFR (BEAKER) (test 109 mL/min/1.73 sq m ESTIMATED GFR IS NOT wbmq=2616) ACCURATE CREATININE CLEARANCE IN PREDICTING GLOMERULAR FILTRATION RATE. ESTIMATED GFR IS NOT APPLICABLE FOR DIALYSIS PATIENTS. POCT-GLUCOSE [id number] 23:53:00 Test Item Value Reference Range Comments POC-GLUCOSE METER (BEAKER) 122 mg/dL 70-110 TESTED AT [address] (test obqb=1516) [facility] [id number] POCT-GLUCOSE [id number] 18:17:00 Test Item Value Reference Range Comments POC-GLUCOSE METER (BEAKER) 110 mg/dL 70-110 TESTED AT [address] (test whqt=9443) [facility] [id number] POCT-GLUCOSE [id number] 12:36:00 Test Item Value Reference Range Comments POC-GLUCOSE METER (BEAKER) 80 mg/dL 70-110 TESTED AT [address] (test pera=7299) [facility] [address] CBC W/PLT COUNT & AUTO [id number] 10:31:00 Test Item Value Reference Range Comments WHITE BLOOD CELL COUNT (BEAKER) (test uysi=752) 7.4 K/ L 3.5-10.5 RED BLOOD CELL COUNT (BEAKER) (test uezh=572) 3.73 M/ L 4.63-6.08 HEMOGLOBIN (BEAKER) (test ldkv=268) 10.9 GM/DL 13.7-17.5 HEMATOCRIT (BEAKER) (test ibbc=904) 32.8 % 40.1-51.0 MEAN CORPUSCULAR VOLUME (BEAKER) (test rzsz=309) 87.9 fL 79.0-92.2 MEAN CORPUSCULAR HEMOGLOBIN (BEAKER) (test 29.2 pg 25.7-32.2 vmla=927) MEAN CORPUSCULAR HEMOGLOBIN CONC (BEAKER) (test 33.2 GM/DL 32.3-36.5 ytyo=732) RED CELL DISTRIBUTION WIDTH (BEAKER) (test 14.1 % 11.6-14.4 maah=406) PLATELET COUNT (BEAKER) (test elym=677) 192 K/CU MM 150-450 MEAN PLATELET VOLUME (BEAKER) (test crdt=624) 11.0 fL 9.4-12.4 NUCLEATED RED BLOOD CELLS (BEAKER) (test 0 /100 WBC 0-0 xzez=912) (CELLAVISION MANUAL DIFF)[id number] 10:31:00 Test Item Value Reference Range Comments NEUTROPHILS - REL (CELLAVISION)(BEAKER) (test 74 % nifh=6380) LYMPHOCYTES - REL (CELLAVISION)(BEAKER) (test 19 % mtwi=3184) MONOCYTES - REL (CELLAVISION)(BEAKER) (test 3 % kwhz=9824) EOSINOPHILS - REL (CELLAVISION)(BEAKER) (test 1 % lliq=0544) BANDS - REL (CELLAVISION)(BEAKER) (test ucer=7241) 2 % 0-10 ATYPICAL LYMPHOCYTES - REL (CELLAVISION)(BEAKER) 1 % 0-0 (test tjma=9729) NEUTROPHILS - ABS (CELLAVISION)(BEAKER) (test 5.48 K/ul 1.78-5.38 ltqn=8327) LYMPHOCYTES - ABS (CELLAVISION)(BEAKER) (test 1.41 K/ul 1.32-3.57 cxlm=9919) MONOCYTES - ABS (CELLAVISION)(BEAKER) (test 0.22 K/uL 0.30-0.82 zjjx=1048) EOSINOPHILS - ABS (CELLAVISION)(BEAKER) (test 0.07 K/uL 0.04-0.54 hyoh=9451) BANDS - ABS (CELLAVISION)(BEAKER) (test bbyp=0451) 0.15 K/uL 0.00-0.80 ATYPICAL LYMPHOCYTES - ABS (CELLAVISION)(BEAKER) 0.07 K/uL 0.00-0.00 (test ehxq=0735) TOTAL COUNTED (BEAKER) (test kcwy=0378) 100 RBC MORPHOLOGY (BEAKER) (test qizg=856) Normal WBC MORPHOLOGY (BEAKER) (test thub=860) Normal PLT MORPHOLOGY (BEAKER) (test obsw=523) Normal ARTIFACT (CELLAVISION)(BEAKER) (test tbfh=9528) Present PLATELET CONCENTRATION (CELLAVISION)(BEAKER) (test Adequate clvu=8224) Received comment: User comments: Slide comments:POCT-GLUCOSE [id number] 06: 27:00 Test Item Value Reference Range Comments POC-GLUCOSE METER (BEAKER) 96 mg/dL 70-[address] [facility] [address] [facility] (test rgjp=0432) [facility] [address] [id number] 05:32:00 Test Item Value Reference Range Comments PHOSPHORUS (BEAKER) (test yzdt=880) 2.8 mg/dL 2.3-4.7 [id number] 05:32:00 Test Item Value Reference Range Comments MAGNESIUM (BEAKER) (test drbs=692) 1.9 mg/dL 1.6-2.6 BASIC METABOLIC [id number] 05:32:00 Test Item Value Reference Range Comments SODIUM (BEAKER) (test 147 meq/L 136-145 iqzp=047) POTASSIUM (BEAKER) (test 3.2 meq/L 3.5-5.1 dfrc=008) CHLORIDE (BEAKER) (test 114 meq/L 98-107 rzbp=900) CO2 (BEAKER) (test 23 meq/L 22-29 cjex=412) BLOOD UREA NITROGEN 11 mg/dL 7-21 (BEAKER) (test jfxb=279) CREATININE (BEAKER) (test 0.75 mg/dL 0.57-1.25 pvke=463) GLUCOSE RANDOM (BEAKER) 80 mg/dL 70-105 (test peoh=585) CALCIUM (BEAKER) (test 8.2 mg/dL 8.4-10.2 ardq=974) EGFR (BEAKER) (test 109 mL/min/1.73 sq m ESTIMATED GFR IS NOT vwxq=1057) ACCURATE CREATININE CLEARANCE IN PREDICTING GLOMERULAR FILTRATION RATE. ESTIMATED GFR IS NOT APPLICABLE FOR DIALYSIS PATIENTS. BLOOD GAS, [id number] 05:08:00 Test Item Value Reference Range Comments PH ARTERIAL (BEAKER) (test vkvg=847) 7.46 7.35-7.45 PCO2 ARTERIAL (BEAKER) (test uzku=448) 30 mmHg 35-45 PO2 ARTERIAL (BEAKER) (test tjom=639) 91 mmHg 80-90 O2 SATURATION ARTERIAL (BEAKER) (test fmiy=138) 97.3 % 96.0-97.0 HCO3 ARTERIAL (BEAKER) (test piqr=161) 21 mmol/L 21-29 BASE EXCESS ARTERIAL (BEAKER) (test iade=265) -1.9 mmol/L -2.0-3.0 PATIENT TEMPERATURE (BEAKER) (test pagj=4411) 37.5 C FIO2 (BEAKER) (test jxfi=2093) 35.0 % POCT-GLUCOSE [id number] 00:02:00 Test Item Value Reference Range Comments POC-GLUCOSE METER (BEAKER) 98 mg/dL 70-110 TESTED AT [address] (test kwnb=9394) [facility] [address] VANCOMYCIN LEVEL, [id number] 19:23:00 Test Item Value Reference Range Comments VANCOMYCIN TROUGH (BEAKER) (test jlpg=832) 17.8 ug/mL 10.0-20.0 POCT-GLUCOSE [id number] 18:19:00 Test Item Value Reference Range Comments POC-GLUCOSE METER (BEAKER) 101 mg/dL 70-110 TESTED AT [address] (test cmos=5896) [place] [address] [id number] 17:29:00 Test Item Value Reference Range Comments POTASSIUM (BEAKER) (test ygcp=763) 3.4 meq/L 3.5-5.1 Check Serum Phosphorus level 4 hours after IV phosphorus replacement or 8 hours after PO replacementcompleted.Check Serum Potassium level 2 hours after oral potassium replacement completed or 30 min after intravenous potassium replacement.[id number] 17:29:00 Test Item Value Reference Range Comments PHOSPHORUS (BEAKER) (test zfyn=794) 1.9 mg/dL 2.3-4.7 Check Serum Phosphorus level 4 hours after IV phosphorus replacement or 8 hours after PO replacementcompleted.Check Serum Potassium level 2 hours after oral potassium replacement completed or 30 min after intravenous potassium replacement.[id number] 13:55:00 Test Item Value Reference Range Comments POTASSIUM (BEAKER) (test ahkv=229) 3.4 meq/L 3.5-5.1 POCT-GLUCOSE [id number] 13:13:00 Test Item Value Reference Range Comments POC-GLUCOSE METER (BEAKER) 95 mg/dL 70-110 TESTED AT [address] (test fcdm=4189) [place] [address] SPUTUM CULTURE + GRAM [id number] 11:07:00 Test Item Value Reference Range Comments CULTURE (BEAKER) (test STAPHYLOCOCCUS AUREUS 1+ Staphylococcus wjch=4699) aureus Clindamycin (test code=10) Erythromycin (test code=4) Linezolid (test code=40) Nitrofurantoin (test code=23) Oxacillin (test code=14) Rifampin (test code=43) Tetracycline (test code=2) Trimethoprim + Sulfamethoxazole (test code=47) Vancomycin (test code=13) GRAM STAIN RESULT 4+ WBCs (BEAKER) (test zudd=5275) GRAM STAIN RESULT 0-5 epithelial cells (BEAKER) (test facu=889525) GRAM STAIN RESULT 2+ gram positive cocci (BEAKER) (test in chains and pairs dfqq=485771) 4+ normal respiratory romelia presentPOCT-GLUCOSE [id number] 06:37:00 Test Item Value Reference Range Comments POC-GLUCOSE METER (BEAKER) 105 mg/dL 70-[address] [facility] [address] (test dzwj=0208) [facility] [address] RAD, CHEST, 1 VIEW, NON [id number] 03:39:00Reason for exam:-> intubatedShould this be performed at the bedside?->YesFINAL REPORT CLINICAL INDICATION: Support lines. Comparison: 10/16/2018 at 1147 hours The patient is rotated to the left. The cardiomediastinal contours are stable. Central pulmonary vascular congestion and bilateral parenchymal opacities are similar within variation of acquisition technique. There is no pneumothorax. A feeding tube traverses examination to the upper abdomen. Support lines are otherwise stable. Signed: Anirudh Ferrell MDReport Verified Date /Time: 10/17/2018 03:39:58 Reading Location: [address] Reading Room BLOOD GAS, [id number] 03:37:00 Test Item Value Reference Range Comments PH ARTERIAL (BEAKER) (test dftd=370) 7.46 7.35-7.45 PCO2 ARTERIAL (BEAKER) (test coop=253) 33 mmHg 35-45 PO2 ARTERIAL (BEAKER) (test pfll=973) 156 mmHg 80-90 O2 SATURATION ARTERIAL (BEAKER) (test xqxm=027) 99.1 % 96.0-97.0 HCO3 ARTERIAL (BEAKER) (test eyfg=524) 23 mmol/L 21-29 BASE EXCESS ARTERIAL (BEAKER) (test nwsb=528) -0.5 mmol/L -2.0-3.0 PATIENT TEMPERATURE (BEAKER) (test olhf=7831) 37.0 C FIO2 (BEAKER) (test tany=7524) 35.0 % [id number] 03:22:00 Test Item Value Reference Range Comments PHOSPHORUS (BEAKER) (test pfef=540) 0.8 mg/dL 2.3-4.7 BASIC METABOLIC [id number] 03:20:00 Test Item Value Reference Range Comments SODIUM (BEAKER) (test 144 meq/L 136-145 xyne=454) POTASSIUM (BEAKER) (test 3.4 meq/L 3.5-5.1 mtoe=345) CHLORIDE (BEAKER) (test 117 meq/L 98-107 htdv=775) CO2 (BEAKER) (test 20 meq/L 22-29 ewyj=936) BLOOD UREA NITROGEN 11 mg/dL 7-21 (BEAKER) (test uejy=200) CREATININE (BEAKER) (test 0.84 mg/dL 0.57-1.25 ynpx=448) GLUCOSE RANDOM (BEAKER) 112 mg/dL 70-105 (test unyp=070) CALCIUM (BEAKER) (test 7.8 mg/dL 8.4-10.2 qaqv=760) EGFR (BEAKER) (test 96 mL/min/1.73 sq m ESTIMATED GFR IS NOT zyth=7711) ACCURATE CREATININE CLEARANCE IN PREDICTING GLOMERULAR FILTRATION RATE. ESTIMATED GFR IS NOT APPLICABLE FOR DIALYSIS PATIENTS. [id number] 03:18:00 Test Item Value Reference Range Comments MAGNESIUM (BEAKER) (test jhtr=709) 1.8 mg/dL 1.6-2.6 CBC W/PLT COUNT & AUTO [id number] 03:02:00 Test Item Value Reference Range Comments WHITE BLOOD CELL COUNT (BEAKER) (test zwek=332) 7.7 K/ L 3.5-10.5 RED BLOOD CELL COUNT (BEAKER) (test snhy=899) 3.40 M/ L 4.63-6.08 HEMOGLOBIN (BEAKER) (test zeon=829) 10.1 GM/DL 13.7-17.5 HEMATOCRIT (BEAKER) (test kvdf=032) 30.1 % 40.1-51.0 MEAN CORPUSCULAR VOLUME (BEAKER) (test fyfu=131) 88.5 fL 79.0-92.2 MEAN CORPUSCULAR HEMOGLOBIN (BEAKER) (test 29.7 pg 25.7-32.2 jesj=085) MEAN CORPUSCULAR HEMOGLOBIN CONC (BEAKER) (test 33.6 GM/DL 32.3-36.5 gplk=535) RED CELL DISTRIBUTION WIDTH (BEAKER) (test 14.0 % 11.6-14.4 audw=633) PLATELET COUNT (BEAKER) (test mqzr=681) 161 K/CU MM 150-450 MEAN PLATELET VOLUME (BEAKER) (test bugc=953) 11.0 fL 9.4-12.4 NUCLEATED RED BLOOD CELLS (BEAKER) (test 0 /100 WBC 0-0 nhts=770) NEUTROPHILS RELATIVE PERCENT (BEAKER) (test 79 % ncay=196) LYMPHOCYTES RELATIVE PERCENT (BEAKER) (test 12 % smeh=762) MONOCYTES RELATIVE PERCENT (BEAKER) (test 8 % afji=741) EOSINOPHILS RELATIVE PERCENT (BEAKER) (test 0 % cpac=676) BASOPHILS RELATIVE PERCENT (BEAKER) (test 0 % dpbl=777) NEUTROPHILS ABSOLUTE COUNT (BEAKER) (test 6.07 K/ L 1.78-5.38 zsvt=078) LYMPHOCYTES ABSOLUTE COUNT (BEAKER) (test 0.94 K/ L 1.32-3.57 heqc=832) MONOCYTES ABSOLUTE COUNT (BEAKER) (test 0.60 K/ L 0.30-0.82 hvqk=108) EOSINOPHILS ABSOLUTE COUNT (BEAKER) (test 0.01 K/ L 0.04-0.54 hpra=179) BASOPHILS ABSOLUTE COUNT (BEAKER) (test 0.02 K/ L 0.01-0.08 lgog=448) IMMATURE GRANULOCYTES-RELATIVE PERCENT (BEAKER) 1 % 0-1 (test ssou=0430) POCT-GLUCOSE [id number] 23:37:00 Test Item Value Reference Range Comments POC-GLUCOSE METER (BEAKER) 106 mg/dL 70-[address] [facility] [address] [facility] (test unna=6615) [facility] [address] RAD, ABDOMEN/KUB, 1 VIEW [id number] 22:14:00Reason for exam:->Confirm corpak placementShould this be performed at the bedside?->YesFINAL REPORT Abdomen one view Comparison: Abdominal radiograph 2017.. Reason for exam: Confirm corpak placement Findings: Supine view of the abdomen demonstrates a Corpak tube with tip in the mid gastric body. There is no bowel obstruction. There is left lower lobe opacity which may represent pneumonia and/or atelectasis. There is a small left pleural effusion. There has been interval removal of right inferior approach central venous catheter. Surgical clips overlie the pelvis. There are vascular calcifications in the pelvis. Signed: Messi Ibarra MDReport Verified Date/Time: 10/16/2018 22:14:17 Reading [facility] CT Body Reading Room [id number] 21:14:00 Test Item Value Reference Range Comments POTASSIUM (BEAKER) (test bpun=391) 3.5 meq/L 3.5-5.1 [id number] 19:12:00 Test Item Value Reference Range Comments PROCALCITONIN (BEAKER) (test izjg=3056) 0.99 ng/mL <0.05 SEPSIS RISK (ng/mL)Low: 0.05-0.50Intermediate: 0.51-2.00High: & gt;=2.01POCT-GLUCOSE [id number] 18:15:00 Test Item Value Reference Range Comments POC-GLUCOSE METER (BEAKER) 124 mg/dL 70-[address] [facility] [address] [facility] (test rnct=2615) [facility] [address] CSF CELL COUNT [id number] 15:55:00 Test Item Value Reference Range Comments APPEARANCE CSF (BEAKER) (test suxy=783) Clear Clear COLOR CSF (BEAKER) (test kbvk=057) Colorless Colorless RBC CSF (BEAKER) (test lsqj=159) 190 /cu mm 0-5 WBC CSF (BEAKER) (test cgfn=6766) 1 /cu mm <=5 RBCS FRESH (BEAKER) (test gmtp=6118) 100% Fresh NUMBER OF CELLS DIFF'D (BEAKER) (test ucrc=1953) 50 NEUTROPHIL, CSF (BEAKER) (test jjqk=998) 6 % 0-5 LYMPHS CSF (BEAKER) (test paso=428) 78 % 40-80 MONO/MACROPHAGE CSF (BEAKER) (test xywl=901) 16 % 15-45 EOSINOPHILS CSF (BEAKER) (test rydk=096) 0 % <=0 BASO CSF (BEAKER) (test lxhn=693) 0 % <=0 TUBE NUMBER CSF (BEAKER) (test zlcc=2209) 2 GLUCOSE, [id number] 15:37:00 Test Item Value Reference Range Comments GLUCOSE CSF (BEAKER) (test sacu=718) 75 mg/dL 40-70 Save tube for future studies if neededSave tubes for further studies if neededPROTEIN, [id number] 15:37:00 Test Item Value Reference Range Comments PROTEIN CSF (BEAKER) (test hsqa=996) 41 mg/dL 15-45 Save tube for future studies if neededSave tubes for further studies if neededPOCT-GLUCOSE [id number] 12:32:00 Test Item Value Reference Range Comments POC-GLUCOSE METER (BEAKER) 118 mg/dL 70-[address] [facility] [address] (test mkbv=5490) [facility] [address] RAD, CHEST, 1 VIEW, NON [id number] 12:07:00Reason for exam:->ETT positionShould this be performed at the bedside?->YesFINAL REPORT RAD, CHEST, 1 VIEW, NON DEPT INDICATION: ETT position COMPARISON: Eight hours prior FINDINGS: Portable frontal view of the chest. IMPRESSION: Support Lines: Endotracheal tube has been advanced, now terminating 3 cm above the schuyler. Remaining support hardware is stable. Lungs and pleura: No new consolidation. Subsegmental atelectasis at the left base and/or small effusion. No pneumothorax.Heart and mediastinum: Stable contours. Additional findings: None. Signed: JR Ana Lilia, Phoebe Maurer Verified Date/Time: 10/16/2018 12:07:46 Reading Location: [facility] Radiology Reading Room MR, BRAIN , WITHOUT [id number] 11:28:00FINAL REPORT MRI Brain without contrast Clinical History: Decreased alertnessTechnique: MRI of the brain utilizing axial T2, FLAIR, GRE, DWI; sagittal and coronal T1-weighted images. Comparisons: None Findings: There is a punctate acute infarct in the left frontal centrum semiovale. There is a punctate acute infarct in the posterior left cingulate gyrus. There is a punctate acute infarct in the dorsal right medulla. There is no acute hemorrhage. There is a large chronic encephalomalacic infarct involving the right frontal, parietal, and temporal occipital lobes with hemosiderin staining. There are chronic bilateral basal ganglia and thalamic infarcts with hemosiderin staining. There are small chronic right cerebellar infarcts. There is moderate periventricular and subcortical white matter T2 hyperintensity, which is nonspecific but compatible with chronic microvascular ischemic change, including in the zari. There is asymmetric volume loss of the right-sided corticospinal tracts, compatible with Wallerian degeneration. There is generalized parenchymal volume loss without hydrocephalus or midline shift. There are no extra-axial fluid collections. There is loss of the right intradural vertebral artery flow void. IMPRESSION: Punctate acute infarcts in the deep left frontal white matter, left posterior cingulate gyrus, and dorsal right medulla. No acute hemorrhage. Multifocal chronic infarction with remote hemorrhage. Loss of the right vertebral artery flow void. Further evaluation with MRA head and neck may be helpful for further evaluation Signed: Teodoro Yee MDReport Verified Date/Time: 10/16/2018 11:28: 39 Reading Location: [facility] Neuro Reading Room URINE [id number] 09:42:00 Test Item Value Reference Range Comments CULTURE (BEAKER) (test lccs=9982) No growth POCT-GLUCOSE [id number] 06:44:00 Test Item Value Reference Range Comments POC-GLUCOSE METER (BEAKER) 128 mg/dL 70-[address] [facility] [address] [facility] (test rrbe=5579) [facility] [address] BASIC METABOLIC [id number] 06:11:00 Test Item Value Reference Range Comments SODIUM (BEAKER) (test 145 meq/L 136-145 rwha=111) POTASSIUM (BEAKER) (test 3.3 meq/L 3.5-5.1 bomn=856) CHLORIDE (BEAKER) (test 116 meq/L 98-107 dluo=094) CO2 (BEAKER) (test 22 meq/L 22-29 gpdh=104) BLOOD UREA NITROGEN 13 mg/dL 7-21 (BEAKER) (test ciug=693) CREATININE (BEAKER) (test 1.02 mg/dL 0.57-1.25 mvaz=432) GLUCOSE RANDOM (BEAKER) 114 mg/dL 70-105 (test ijfa=495) CALCIUM (BEAKER) (test 8.4 mg/dL 8.4-10.2 kgir=006) EGFR (BEAKER) (test 76 mL/min/1.73 sq m ESTIMATED GFR IS NOT vlhn=7904) ACCURATE CREATININE CLEARANCE IN PREDICTING GLOMERULAR FILTRATION RATE. ESTIMATED GFR IS NOT APPLICABLE FOR DIALYSIS PATIENTS. LACTIC ACID, VENOUS, WHOLE [id number] 06:11:00 Test Item Value Reference Range Comments LACTATE BLOOD VENOUS (2) 1.3 mmol/L 0.5-2.2 Specimen slightly hemolyzed (BEAKER) (test wypb=7814) VANCOMYCIN LEVEL, [id number] 06:10:00 Test Item Value Reference Range Comments VANCOMYCIN TROUGH (BEAKER) (test mgzb=968) 16.7 ug/mL 10.0-20.0 Draw 30 min prior to scheduled dose, HOLD if level > 20 mcg/mL, inform MD.CBC W/PLT COUNT & AUTO [id number] 06:09:00 Test Item Value Reference Range Comments WHITE BLOOD CELL COUNT (BEAKER) (test rkog=830) 15.0 K/ L 3.5-10.5 RED BLOOD CELL COUNT (BEAKER) (test ywod=011) 3.72 M/ L 4.63-6.08 HEMOGLOBIN (BEAKER) (test xdqz=675) 10.9 GM/DL 13.7-17.5 HEMATOCRIT (BEAKER) (test afii=920) 32.7 % 40.1-51.0 MEAN CORPUSCULAR VOLUME (BEAKER) (test vyep=483) 87.9 fL 79.0-92.2 MEAN CORPUSCULAR HEMOGLOBIN (BEAKER) (test 29.3 pg 25.7-32.2 byze=326) MEAN CORPUSCULAR HEMOGLOBIN CONC (BEAKER) (test 33.3 GM/DL 32.3-36.5 bepm=421) RED CELL DISTRIBUTION WIDTH (BEAKER) (test 13.6 % 11.6-14.4 ywek=679) PLATELET COUNT (BEAKER) (test hjos=295) 187 K/CU MM 150-450 MEAN PLATELET VOLUME (BEAKER) (test kour=408) 11.6 fL 9.4-12.4 NUCLEATED RED BLOOD CELLS (BEAKER) (test 0 /100 WBC 0-0 whtq=517) NEUTROPHILS RELATIVE PERCENT (BEAKER) (test 88 % erux=852) LYMPHOCYTES RELATIVE PERCENT (BEAKER) (test 7 % czdq=363) MONOCYTES RELATIVE PERCENT (BEAKER) (test 5 % cwpw=782) EOSINOPHILS RELATIVE PERCENT (BEAKER) (test 0 % ffbr=307) BASOPHILS RELATIVE PERCENT (BEAKER) (test 0 % wdlj=322) NEUTROPHILS ABSOLUTE COUNT (BEAKER) (test 13.13 K/ L 1.78-5.38 qayh=720) LYMPHOCYTES ABSOLUTE COUNT (BEAKER) (test 1.04 K/ L 1.32-3.57 wroy=192) MONOCYTES ABSOLUTE COUNT (BEAKER) (test 0.69 K/ L 0.30-0.82 uswd=229) EOSINOPHILS ABSOLUTE COUNT (BEAKER) (test 0.00 K/ L 0.04-0.54 tbah=915) BASOPHILS ABSOLUTE COUNT (BEAKER) (test 0.03 K/ L 0.01-0.08 xgvw=653) IMMATURE GRANULOCYTES-RELATIVE PERCENT (BEAKER) 1 % 0-1 (test pacv=5018) BLOOD GAS, [id number] 05:49:00 Test Item Value Reference Range Comments PH ARTERIAL (BEAKER) (test eqak=474) 7.41 7.35-7.45 PCO2 ARTERIAL (BEAKER) (test rlzj=425) 37 mmHg 35-45 PO2 ARTERIAL (BEAKER) (test fafr=182) 68 mmHg 80-90 O2 SATURATION ARTERIAL (BEAKER) (test zsbk=647) 93.4 % 96.0-97.0 HCO3 ARTERIAL (BEAKER) (test jfft=545) 23 mmol/L 21-29 BASE EXCESS ARTERIAL (BEAKER) (test wgmk=238) -1.2 mmol/L -2.0-3.0 PATIENT TEMPERATURE (BEAKER) (test hikw=5045) 37.5 C FIO2 (BEAKER) (test bkyn=7193) 40.0 % RAD, CHEST, 1 VIEW, NON [id number] 03:52:00Reason for exam:-> intubatedShould this be performed at the bedside?->YesFINAL REPORT Chest one view. Clinical history: intubated Comparison: Chest radiograph 10/15/2018. Technique: A single frontal view of the chest was obtained. Findings:Endotracheal and feeding tubes are in satisfactory positions. Again seen is a left PICC line with tip in the right atrium which should be retracted approximately 4 cm.The heart is normal in size. The aorta is atherosclerotic. There is a left lower lobe opacity which may represent pneumonia and/or atelectasis. There is a small left pleural effusion. There is no pneumothorax. Signed: Messi Ibarra MDRfreemanort Verified Date/Time: 10/16/2018 03:52:10 Reading Location: [facility] B1 C013Y CT Body Reading Room POCT-GLUCOSE [id number] 02:45:00 Test Item Value Reference Range Comments POC-GLUCOSE METER (BEAKER) 115 mg/dL 70-110 TESTED AT [address] (test bkof=1391) [place] [address] RAD, CHEST, 1 VIEW, NON [id number] 20:47:00Reason for exam:->check picc placement Should this be performed at the bedside?->YesFINAL REPORT Chest one view AP 10/15/2018 8:46 PM CLINICAL INDICATION: check picc placement COMPARISON: 10/15/2018 at 0449 IMPRESSION: The tip of a left PICC projects over the right atrium and should be retracted 3 cm. Remaining support catheters are in satisfactory radiographicposition. Cardiomediastinal contours are stable. There is central pulmonary vasculature congestion without remarkable peripheral edema. Patchy opacity in the left lung base is concerning for pneumonia.There is a suspected trace left pleural effusion. There is linear atelectasis in the right lung base. Signed: Blaine Floyd Verified Date/Time: 10/15/2018 20:47:08 Reading Location: [facility] Radiology Reading Room POCT-GLUCOSE [id number] 17:50:00 Test Item Value Reference Range Comments POC-GLUCOSE METER (BEAKER) 141 mg/dL 70-110 TESTED AT [address] (test iqbl=0888) [place] [address] BASIC METABOLIC [id number] 17:22:00 Test Item Value Reference Range Comments SODIUM (BEAKER) (test 143 meq/L 136-145 rovx=274) POTASSIUM (BEAKER) (test 3.3 meq/L 3.5-5.1 timu=153) CHLORIDE (BEAKER) (test 115 meq/L 98-107 iisx=020) CO2 (BEAKER) (test 22 meq/L 22-29 yxcr=595) BLOOD UREA NITROGEN 15 mg/dL 7-21 (BEAKER) (test lkef=563) CREATININE (BEAKER) (test 1.17 mg/dL 0.57-1.25 evep=786) GLUCOSE RANDOM (BEAKER) 138 mg/dL 70-105 (test htle=631) CALCIUM (BEAKER) (test 8.2 mg/dL 8.4-10.2 qxki=638) EGFR (BEAKER) (test 65 mL/min/1.73 sq m ESTIMATED GFR IS NOT kerb=5110) ACCURATE CREATININE CLEARANCE IN PREDICTING GLOMERULAR FILTRATION RATE. ESTIMATED GFR IS NOT APPLICABLE FOR DIALYSIS PATIENTS. CORTISOL,60 [id number] 16:54:00 Test Item Value Reference Range Comments CORTISOL BASELINE NETWORKED (BEAKER) (test 16.3 mcg/dL daoi=2899) CORTISOL 30 MINUTE NETWORKED (BEAKER) (test 24.1 mcg/dL yckb=1088) CORTISOL, 60 MINUTE (BEAKER) (test xzhz=4215) 29.7 ug/dL ACTH STIMULATION TEST INTERPRETATION GUIDELINES(Synonyms: Cortrosyn Test, Cosyntropin or Corticotropin Stimulation Test)Adenocorticotropic hormone (ACTH) is a tropic hormone, made in the pituitary gland, which travels trhough the bloodstream and stimulates the cortex of the adrenal glands to release cortisol. Cortisol is a primary hormone, which aids the body's metabolism of fats, carbohydrates, and protein as well as sodium and potassium regulation.ACTH Stimulation Test: Exogenous administrationof biologically active ACTH stimulates the secretion of cortisol from the adrenal gland. This test is used to evaluate adrenal function by measuring cortisol levels at baseline and at 30 and 60 minutesafter the administration of 250 micrograms of cosyntropin (Cortrosyn). Patients who have received exogenous corticosteroids immediately prior to performing the ACTH Stimulation Test will often have elevated baseline cortisol levels, which may lead to erroneous interpretation of test results. The notable exception is with dexamethasone.Normal Response: An increase in cortisol after stimulation by ACTHis normal. Post-stimulation cortisol concentration should be greater than 20 mcg/dL or the rate of rise from baseline cortisol should be greater than or equal to 9 mcg/dL.Patients with sepsis or septicshock: According to a study by Peng et al (RONI 2000,283( 8):4738-45), the ACTH Stimulation Test provides important prognostic information. This study defined 3 groups of patients with sepsis or septic shock : 1. Good Survival: Low basal cortisol (<or=34 mcg/dL) and high ACTH response (>9mcg/dL) 2. Intermediate Survival: Low basal cortisol (< 34 mcg/dL) and low response to ACTH (<or=9 mcg/dL) OR High basal cortisol (>34 mcg/dL) or high ACTH response (>9 mcg/dL) 3.Poor Survival: High basal cortisol (>34 mcg/dL) and low ACTH response (<or=9 mcg/dL) .Treatment of patients with relative adrenal dysfunction may be indicated based on test results and the clinical condition of the patient. Additional information, including treatment recommendations, is available in critically ill patients, approved by the Pharmacy, Nutrition, and Therapeutics Committee on 10/29/2004 and available through the Pharmacy Policy and Procedure Section on The Source.Do not run this test if systemic hydrocortisone, methylprednisolone, prednisolone or prednisone has been administered within the past 24 hours. Draw baseline cortisol level just prior to cosyntropin administration. Administer cosyntropin 0.25 mg diluted in 2-5 mL of normal saline slow IV Push over a period of 2 minutes. Draw serum cortisol level 30 minutes after cosyntropin administration. Draw serum cortisollevel 60 minutes after cosyntropin administration.CORTISOL,30 [id number] 16:07:00 Test Item Value Reference Range Comments CORTISOL BASELINE NETWORKED (BEAKER) (test 16.3 mcg/dL dywv=9975) CORTISOL, 30 MINUTE (BEAKER) (test xdxq=9783) 24.1 ug/dL ACTH STIMULATION TEST INTERPRETATION GUIDELINES(Synonyms: Cortrosyn Test, Cosyntropin or Corticotropin Stimulation Test)Adenocorticotropic hormone (ACTH) is a tropic hormone, made in the pituitary gland, which travels trhough the bloodstream and stimulates the cortex of the adrenal glands to release cortisol. Cortisol is a primary hormone, which aids the body's metabolism of fats, carbohydrates, and protein as well as sodium and potassium regulation.ACTH Stimulation Test: Exogenous administrationof biologically active ACTH stimulates the secretion of cortisol from the adrenal gland. This test is used to evaluate adrenal function by measuring cortisol levels at baseline and at 30 and 60 minutesafter the administration of 250 micrograms of cosyntropin (Cortrosyn). Patients who have received exogenous corticosteroids immediately prior to performing the ACTH Stimulation Test will often have elevated baseline cortisol levels, which may lead to erroneous interpretation of test results. The notable exception is with dexamethasone.Normal Response: An increase in cortisol after stimulation by ACTHis normal. Post-stimulation cortisol concentration should be greater than 20 mcg/dL or the rate of rise from baseline cortisol should be greater than or equal to 9 mcg/dL.Patients with sepsis or septicshock: According to a study by Peng et al (RONI 2000,283( 8):1038-45), the ACTH Stimulation Test provides important prognostic information. This study defined 3 groups of patients with sepsis or septic shock : 1. Good Survival: Low basal cortisol (<or=34 mcg/dL) and high ACTH response (>9mcg/dL) 2. Intermediate Survival: Low basal cortisol (< 34 mcg/dL) and low response to ACTH (<or=9 mcg/dL) OR High basal cortisol (>34 mcg/dL) or high ACTH response (>9 mcg/dL) 3.Poor Survival: High basal cortisol (>34 mcg/dL) and low ACTH response (<or=9 mcg/dL) .Treatment of patients with relative adrenal dysfunction may be indicated based on test results and the clinical condition of the patient. Additional information, including treatment recommendations, is available in critically ill patients, approved by the Pharmacy, Nutrition, and Therapeutics Committee on 10/29/2004 and available through the Pharmacy Policy and Procedure Section on The Source.Do not run this test if systemic hydrocortisone, methylprednisolone, prednisolone or prednisone has been administered within the past 24 hours. Draw baseline cortisol level just prior to cosyntropin administration. Administer cosyntropin 0.25 mg diluted in 2-5 mL of normal saline slow IV Push over a period of 2 minutes. Draw serum cortisol level 30 minutes after cosyntropin administration. Draw serum cortisollevel 60 minutes after cosyntropin administration.CORTISOL,[id number] 15:25:00 Test Item Value Reference Range Comments CORTISOL, BASELINE (MISSY) (test vqgi=7126) 16.3 ug/dL ACTH STIMULATION TEST INTERPRETATION GUIDELINES(Synonyms: Cortrosyn Test, Cosyntropin or Corticotropin Stimulation Test)Adenocorticotropic hormone (ACTH) is a tropic hormone, made in the pituitary gland, which travels trhough the bloodstream and stimulates the cortex of the adrenal glands to release cortisol. Cortisol is a primary hormone, which aids the body's metabolism of fats, carbohydrates, and protein as well as sodium and potassium regulation.ACTH Stimulation Test: Exogenous administrationof biologically active ACTH stimulates the secretion of cortisol from the adrenal gland. This test is used to evaluate adrenal function by measuring cortisol levels at baseline and at 30 and 60 minutesafter the administration of 250 micrograms of cosyntropin (Cortrosyn). Patients who have received exogenous corticosteroids immediately prior to performing the ACTH Stimulation Test will often have elevated baseline cortisol levels, which may lead to erroneous interpretation of test results. The notable exception is with dexamethasone.Normal Response: An increase in cortisol after stimulation by ACTHis normal. Post-stimulation cortisol concentration should be greater than 20 mcg/dL or the rate of rise from baseline cortisol should be greater than or equal to 9 mcg/dL.Patients with sepsis or septicshock: According to a study by Peng et al (RONI 2000,283( 8):1038-45), the ACTH Stimulation Test provides important prognostic information. This study defined 3 groups of patients with sepsis or septic shock : 1. Good Survival: Low basal cortisol (<or=34 mcg/dL) and high ACTH response (>9mcg/dL) 2. Intermediate Survival: Low basal cortisol (< 34 mcg/dL) and low response to ACTH (<or=9 mcg/dL) OR High basal cortisol (>34 mcg/dL) or high ACTH response (>9 mcg/dL) 3.Poor Survival: High basal cortisol (>34 mcg/dL) and low ACTH response (<or=9 mcg/dL) .Treatment of patients with relative adrenal dysfunction may be indicated based on test results and the clinical condition of the patient. Additional information, including treatment recommendations, is available in critically ill patients, approved by the Pharmacy, Nutrition, and Therapeutics Committee on 10/29/2004 and available through the Pharmacy Policy and Procedure Section on The Source.Do not run this test if systemic hydrocortisone, methylprednisolone, prednisolone or prednisone has been administered within the past 24 hours. Draw baseline cortisol level just prior to cosyntropin administration. Administer cosyntropin 0.25 mg diluted in 2-5 mL of normal saline slow IV Push over a period of 2 minutes. Draw serum cortisol level 30 minutes after cosyntropin administration. Draw serum cortisollevel 60 minutes after cosyntropin administration.BASIC METABOLIC [id number] 15:04:00 Test Item Value Reference Range Comments SODIUM (BEAKER) (test 144 meq/L 136-145 ebfk=816) POTASSIUM (BEAKER) (test 3.2 meq/L 3.5-5.1 yqxa=227) CHLORIDE (BEAKER) (test 115 meq/L 98-107 ngft=358) CO2 (BEAKER) (test 22 meq/L 22-29 esvl=723) BLOOD UREA NITROGEN 16 mg/dL 7-21 (BEAKER) (test lxcu=364) CREATININE (BEAKER) (test 1.22 mg/dL 0.57-1.25 hacr=883) GLUCOSE RANDOM (BEAKER) 144 mg/dL 70-105 (test twoi=072) CALCIUM (BEAKER) (test 8.0 mg/dL 8.4-10.2 haiq=680) EGFR (BEAKER) (test mL/min/1.73 sq m INSUFFICIENT CLINICAL DATA wphe=2413) TO CALCULATE ESTIMATED GFR. 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 MEDICATIONS THAT COULD AFFECT EEG: aspirin, citalopram, levetiracetam, metoprolol TECHNICAL SUMMARY: This is a digital EEG recorded with 32 input channels reviewed with bipolar and referential montages using the modified combinatorial systemnomenclature. DESCRIPTION OF RECORD: During the maximally alert state , there is neither a posterior dominant rhythm nor an anterior to posterior amplitude or frequency gradient. The background primarily consists of generalized 4-6 Hz theta activity with intermittent admixed 1.5-3 Hz delta activitywhich is minimally reactive spontaneously or to external stimulation. There is some admixed diffuse 8-14 Hz activity. There are frequent electrode artifacts over both fronto-temporal leads that at times appear as 1.5-3 Hz polymorphic delta activity which at times becomes nearly continuous and more prominent on the left. Stage II sleep architecture was not recorded. HV: Hyperventilation was not performed. PHOTIC STIMULATION: Flash stimulation was not done. IMPRESSION: Abnormal EEG in coma/sleep due to: 1. Moderate to severe generalized theta and delta slowing of background rhythms with minimal reactivity. CLINICAL CORRELATION: Moderate to severe generalized slowing is consistent with severe degree of encephalopathy could be secondary to non-specific etiology (hypoxia, structural injury, medications). Absence of epileptiform discharges including electrographic seizure does not preclude the diagnosis of epilepsy. This EEG study is similar to baseline study done on . Kristel Boyd MDNeurophysiology Fellow Felice Pinedo M.D., [facility] Professor of Neurology [facility] [employer] Director, [facility] Head, [facility] RAD, PELVIS, 1 OR 2 [id number] 14:11:00Reason for exam:->MRI clearanceShould this be performed at the bedside?->YesFINAL REPORT RAD, PELVIS , 1 OR 2 VIEWS CLINICAL INDICATION: MRI clearance COMPARISON: None TECHNIQUE: Single frontal view of the pelvis. IMPRESSION:No fracture is identified. 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 Periarticular fat stripes are in place. Moderate stool burden noted in the rectal vault. Right femoral central venous catheter terminates at the L4-5 level. Signed: JR Sung Robert MDReport Verified Date/Time: 2017 14:11:06 Reading Location: [facility] Consult Reading Room RAD, SKULL, LESS THAN 4 [id number] 14:08:00Reason for exam:->MRI clearanceShould this be performed at the bedside?->YesFINAL REPORT RAD, SKULL, LESS THAN 4 VIEWS INDICATION: MRI clearance COMPARISON : None TECHNIQUE: Frontal and lateral views of the skull. IMPRESSION: There is no radiopaque or metallic foreign object within the calvarium, skull base or orbits. Included paranasal sinuses are grossly clear. Mandible is intact. Signed : JR Sung Robert MDReport Verified Date/Time: 10/15/2018 14:08:11 Reading Location: [address] Consult Reading Room RAD, ABDOMEN/KUB, 1 VIEW [id number] 14:05:00Reason for exam:->clear for MRIShould this be performed at the bedside?->YesFINAL REPORT RAD, ABDOMEN/KUB, 1 VIEW AP CLINICAL INDICATION: clear for MRI COMPARISON: None TECHNIQUE: Two frontal radiographs of the abdomen. IMPRESSION:The bowel gas pattern is nonspecific, but nonobstructive. No abnormal mass or ascites is detected. Enteric tube is appropriately positioned. The regional skeleton is intact. A femoral approach central venous catheter terminates at the level of the lumbosacral junction. Signed: JR Sung Robert MDReport Verified Date/Time: 10/15/2018 14:05: 30 Reading Location: [address] Consult Reading Room TROPONIN [id number] 13:07:00 Test Item Value Reference Range Comments TROPONIN I (BEAKER) (test rkoy=339) 0.05 ng/mL 0.00-0.03 POCT-GLUCOSE [id number] 12:51:00 Test Item Value Reference Range Comments POC-GLUCOSE METER (BEAKER) 166 mg/dL 70-[address] [facility] [address] [place] [address] (test amot=2687) [facility] [address] U/S, RENAL, [id number] 12:22:00Reason for exam:->alayna, UTI, sepsisShould this be performed at the bedside?->YesFINAL REPORT History: Acute kidney injury, urinary tract infection, sepsis. FINDINGS: No comparisons are available. Real-time sonographic examination reveals normal size kidneys measuring up to 9.8 x 5.0 x 4.8 and 11.1 x 6.2 x 4.7 cm in greatest dimensions on the right and left,respectively. Renal echogenicity appears normal. There are no sonographically detectable masses, cysts, stones or evidence for obstruction. No perinephric fluid collections are identified. Renal cortical thickness measures 12 mm on the right and 17 mm on the left. Urinary bladder contains a Elliott catheter balloon is decompressed but otherwise unremarkable. IMPRESSION: 1. Normal renal sonogram. If there is a strong clinical suspicion for pyelonephritis, CT would be a more sensitive examination. Signed: Linda Hooverort Verified Date/Time: 10/15/2018 12: 22:41 Reading Location: [address] Ultrasound Reading Room RESPIRATORY PANEL [id number] 12:09:00 Test Item Value Reference Range Comments HUMAN METAPNEUMOVIRUS Not detected Not detected, (BEAKER) (test yyzx=4797) Equivocal RHINOVIRUS (BEAKER) (test Not detected Not detected, yeyu=5850) Equivocal INFLUENZA A (BEAKER) (test Not detected Not detected, cssj=2151) Equivocal INFLUENZA A (NO SUBTYPE) Not detected, (test hets=1655) Equivocal INFLUENZA A SUBTYPE H1 Not detected, (BEAKER) (test uxom=4216) Equivocal INFLUENZA A SUBTYPE H3 Not detected, (BEAKER) (test jrbx=0093) Equivocal INFLUENZA A SUBTYPE Not detected, H1-2009 (BEAKER) (test Equivocal jwjt=5365) INFLUENZA B (BEAKER) (test Not detected Not detected, ecky=3179) Equivocal RESPIRATORY SYNCYTIAL Detected Not detected, Assay is not able VIRUS (BEAKER) (test Equivocal differentiate between RSV zohy=3593) A and RSV B.Contact isolation if immunosuppressed or young children. Consider stopping antibiotics. PARAINFLUENZA VIRUS 1 Not detected Not detected, (BEAKER) (test humi=0727) Equivocal PARAINFLUENZA VIRUS 2 Not detected Not detected, (BEAKER) (test askx=6198) Equivocal PARAINFLUENZA VIRUS 3 Not detected Not detected, (BEAKER) (test mdel=7925) Equivocal PARAINFLUENZA VIRUS 4 Not detected Not detected, (BEAKER) (test rear=5665) Equivocal ADENOVIRUS (BEAKER) (test Not detected Not detected, ksij=2755) Equivocal CORONAVIRUS 229E (BEAKER) Not detected Not detected, (test jlne=1437) Equivocal CORONAVIRUS HKU1 (BEAKER) Not detected Not detected, (test ppdp=2920) Equivocal CORONAVIRUS NL63 (BEAKER) Not detected Not detected, (test poux=5052) Equivocal CORONAVIRUS OC43 (BEAKER) Not detected Not detected, (test cfix=3098) Equivocal BORDETELLA PERTUSSIS Not detected Not detected, (BEAKER) (test cbin=7717) Equivocal CHLAMYDOPHILA PNEUMONIAE Not detected Not detected, (BEAKER) (test lpnk=1466) Equivocal MYCOPLASMA PNEUMONIAE Not detected Not detected, (BEAKER) (test qxwd=0607) Equivocal Other viruses and bacteria not targeted by this PCR panel cannot be excluded; therefore clinical correlation and follow up of serology, culture results, and other molecular studies is required. The results are not intended to be used as the sole means for clinical diagnosis or patient management decisions. This sample was tested at the [facility] Molecular Diagnostics Laboratory using the ApogenixArray Respiratory Panel. It is FDA cleared and has been verified and approved by the [facility] Molecular Diagnostics Laboratory for clinical use on nasal swab specimens. It is not FDA-cleared for use on bronchial wash/lavage samples. However, for this sample type, validation was performed and test characteristics were determined and approved, by [facility] laboratory for clinical use under the Clinical Laboratory Improvement Amendments (CLIA) of 1988 requirements. Therefore, FDA clearance isnot required. This laboratory is CLIA-certified and [employer] (CAP)-accredited to perform high complexity testing.CREATINE KINASE (CK)2018-10-15 09:33:00 Test Item Value Reference Range Comments CREATINE KINASE TOTAL (BEAKER) (test dzzr=415) 1362 U/L 29-200 BLOOD GAS, [id number] 09:14:00 Test Item Value Reference Range Comments PH VENOUS (BEAKER) (test tepu=143) 7.39 7.32-7.42 PCO2 VENOUS (BEAKER) (test skww=006) 36 mmHg 41-51 PO2 VENOUS (BEAKER) (test jvxl=241) 66 mmHg 25-40 O2 SATURATION VENOUS (BEAKER) (test uhmz=805) 93.1 % 40.0-70.0 HCO3 VENOUS (BEAKER) (test qocx=810) 21 mmol/L 21-29 BASE EXCESS VENOUS (BEAKER) (test gksl=316) -3.3 mmol/L -2.0-3.0 PATIENT TEMPERATURE (BEAKER) (test wrjm=7000) 37.0 C FIO2 (BEAKER) (test stai=4489) 21.0 % RAPID DRUG SCREEN, [id number] 08:24:00 Test Item Value Reference Range Comments BARBITURATE URINE (BEAKER) (test uybi=207) Negative Negative BENZODIAZEPINE SCREEN URINE (BEAKER) (test Positive Negative epkr=555) COCAINE (METAB.) SCREEN (BEAKER) (test tify=1503) Negative Negative METHADONE SCREEN (BEAKER) (test mmmw=3646) Negative Negative OPIATE SCREEN URINE (BEAKER) (test wukn=135) Negative Negative CANNABINOID SCREEN URINE (BEAKER) (test ttwi=823) Negative Negative AMPH/METHAMPH SCREEN (BEAKER) (test uimg=2002) Negative Negative PHENCYCLIDINE SCREEN URINE (BEAKER) (test jjtl=499) Negative Negative OXYCODONE SCREEN URINE (BEAKER) (test ncrr=9144) Negative Negative DRUG CUTOFF CONC.Cocaine 300 ng/mL Cannabinoid 50 ng/mL Benzodiazepine 200 ng/mLBarbiturate 200 ng/ mLPhencyclidine 25 ng/mLOpiate 300 ng/mLMethadone 300 ng/mLAmphetamine/ 1000 ng/mL MethamphetamineOxycodone 300 ng/mLThis assay provides an unconfirmed qualitative test result for the clinical management of patients in emergency situations. Chain of custody not maintained. Some rzie-ehl-dhqzyuc medications, as well as adulterants, may cause inaccurate results. Clinical correlation should be applied. A more comprehensive drug screen or confirmation of a detected drug may be performed upon request.RAD, CHEST, 1 VIEW, NON [id number] 06:31:00Reason for exam:-&gt ;intubatedShould this be performed at the bedside?->YesFINAL REPORT Chest one view. Clinical history: intubated Comparison: Chest radiograph 10/14/18 Technique: A single frontal view of the chest was obtained. Findings:Endotrachealand feeding tubes are in satisfactory positions. The heart is normal in size. The aorta is tortuous and atherosclerotic.The cardiomediastinal contours are normal. There is a persistent small left pleural effusion. There is a persistent retrocardiac opacity which may represent pneumonia and/or atelectasis. Again seen is a right infrahilar opacity which may represent atelectasis and/or pneumonia however a mass cannot be excluded. There is no pneumothorax. Signed: Messi Ibarra MDReport Verified Date/Time : 10/15/2018 06:31:32 Reading Location: [facility] C013Y CT Body Reading Room LEGIONELLA ANTIGEN, [id number] 05:37:00 Test Item Value Reference Range Comments L. PNEUMOPHILA SEROGP 1 Negative - see Negative for L. UR AG (BEAKER) (test comment pneumophila serogroup 1 ldxb=9395) antigen, suggesting no recent or current infection with this serogroup. Legionellosis cannot be ruled out since other serogroups and species may cause disease. STREP PNEUMONIAE [id number] 05:36:00 Test Item Value Reference Range Comments STREP PNEUMONIAE ANTIGEN Presumptive negative for Presumptive negative for (BEAKER) (test pneumococcal pneumonia - pneumococcal pneumonia - kqru=2582) see comment see commen Presumptive negative for pneumococcal pneumonia, suggesting no current or recent pneumococcal infection. Infection due to S. pneumoniae cannot be ruled out since the antigen present in the sample may be below the detection limit of the test.BLOOD GAS, [id number] 05:18:00 Test Item Value Reference Range Comments PH ARTERIAL (BEAKER) (test gyxl=150) 7.41 7.35-7.45 PCO2 ARTERIAL (BEAKER) (test fbgq=624) 36 mmHg 35-45 PO2 ARTERIAL (BEAKER) (test piaj=580) 114 mmHg 80-90 O2 SATURATION ARTERIAL (BEAKER) (test gqft=580) 98.1 % 96.0-97.0 HCO3 ARTERIAL (BEAKER) (test ngsw=861) 22 mmol/L 21-29 BASE EXCESS ARTERIAL (BEAKER) (test qiyq=168) -1.9 mmol/L -2.0-3.0 PATIENT TEMPERATURE (BEAKER) (test ohjw=2592) 38.0 C FIO2 (BEAKER) (test cpsw=7052) 40.0 % TROPONIN [id number] 04:26:00 Test Item Value Reference Range Comments TROPONIN I (BEAKER) (test vhfu=005) 0.05 ng/mL 0.00-0.03 BASIC METABOLIC [id number] 04:23:00 Test Item Value Reference Range Comments SODIUM (BEAKER) (test 140 meq/L 136-145 sfmw=059) POTASSIUM (BEAKER) (test 3.4 meq/L 3.5-5.1 msyh=028) CHLORIDE (BEAKER) (test 112 meq/L 98-107 uwjt=499) CO2 (BEAKER) (test 20 meq/L 22-29 digl=523) BLOOD UREA NITROGEN 20 mg/dL 7-21 (BEAKER) (test bapb=931) CREATININE (BEAKER) (test 1.55 mg/dL 0.57-1.25 rpyo=963) GLUCOSE RANDOM (BEAKER) 154 mg/dL 70-105 (test tjwg=951) CALCIUM (BEAKER) (test 7.9 mg/dL 8.4-10.2 ommp=565) EGFR (BEAKER) (test mL/min/1.73 sq m INSUFFICIENT CLINICAL DATA biyr=1891) TO CALCULATE ESTIMATED GFR. [id number] 04:23:00 Test Item Value Reference Range Comments LIPASE (BEAKER) (test ssid=448) < U/L 8-78 B-TYPE NATRIURETIC FACTOR (BNP)2018-10-15 04:21:00 Test Item Value Reference Range Comments B-TYPE NATRIURETIC PEPTIDE (BEAKER) (test 136 pg/mL 0-100 pvxk=596) [id number] 04:19:00 Test Item Value Reference Range Comments MAGNESIUM (BEAKER) (test hcga=143) 1.4 mg/dL 1.6-2.6 [id number] 04:19:00 Test Item Value Reference Range Comments PHOSPHORUS (BEAKER) (test qalj=046) 2.2 mg/dL 2.3-4.7 HEPATIC FUNCTION [id number] 04:19:00 Test Item Value Reference Range Comments TOTAL PROTEIN (BEAKER) (test ksmr=609) 6.0 gm/dL 6.0-8.3 ALBUMIN (BEAKER) (test gsfm=9887) 3.0 g/dL 3.5-5.0 BILIRUBIN TOTAL (BEAKER) (test hdou=794) 0.5 mg/dL 0.2-1.2 BILIRUBIN DIRECT (BEAKER) (test cejm=821) 0.3 mg/dL 0.1-0.5 ALKALINE PHOSPHATASE (BEAKER) (test gxtj=237) 60 U/L 40-150 AST (SGOT) (BEAKER) (test wdlf=296) 36 U/L 5-34 ALT (SGPT) (BEAKER) (test knlj=937) 19 U/L 6-55 VANCOMYCIN LEVEL, [id number] 04:18:00 Test Item Value Reference Range Comments VANCOMYCIN RANDOM (BEAKER) (test djaw=836) 11.8 ug/mL Reference Range: No NormalsLACTIC ACID, VENOUS, WHOLE [id number] 04:12:00 Test Item Value Reference Range Comments LACTATE BLOOD VENOUS (2) (BEAKER) (test 1.4 mmol/L 0.5-2.2 dqmo=9358) CBC W/PLT COUNT & AUTO [id number] 04:02:00 Test Item Value Reference Range Comments WHITE BLOOD CELL COUNT (BEAKER) (test drzs=741) 22.0 K/ L 3.5-10.5 RED BLOOD CELL COUNT (BEAKER) (test dwdx=667) 3.81 M/ L 4.63-6.08 HEMOGLOBIN (BEAKER) (test hbjl=018) 11.2 GM/DL 13.7-17.5 HEMATOCRIT (BEAKER) (test jfjs=171) 33.8 % 40.1-51.0 MEAN CORPUSCULAR VOLUME (BEAKER) (test pzhg=382) 88.7 fL 79.0-92.2 MEAN CORPUSCULAR HEMOGLOBIN (BEAKER) (test 29.4 pg 25.7-32.2 egzc=570) MEAN CORPUSCULAR HEMOGLOBIN CONC (BEAKER) (test 33.1 GM/DL 32.3-36.5 qlkn=613) RED CELL DISTRIBUTION WIDTH (BEAKER) (test 13.3 % 11.6-14.4 bnsp=745) PLATELET COUNT (BEAKER) (test uczf=446) 165 K/CU MM 150-450 MEAN PLATELET VOLUME (BEAKER) (test gtli=090) 11.2 fL 9.4-12.4 NUCLEATED RED BLOOD CELLS (BEAKER) (test 0 /100 WBC 0-0 abqr=072) NEUTROPHILS RELATIVE PERCENT (BEAKER) (test 87 % yfmk=628) LYMPHOCYTES RELATIVE PERCENT (BEAKER) (test 7 % wbxf=058) MONOCYTES RELATIVE PERCENT (BEAKER) (test 5 % mpma=182) EOSINOPHILS RELATIVE PERCENT (BEAKER) (test 0 % zfka=237) BASOPHILS RELATIVE PERCENT (BEAKER) (test 0 % xrpa=268) NEUTROPHILS ABSOLUTE COUNT (BEAKER) (test 19.12 K/ L 1.78-5.38 ltsj=071) LYMPHOCYTES ABSOLUTE COUNT (BEAKER) (test 1.61 K/ L 1.32-3.57 jsvp=573) MONOCYTES ABSOLUTE COUNT (BEAKER) (test 1.05 K/ L 0.30-0.82 wuyx=376) EOSINOPHILS ABSOLUTE COUNT (BEAKER) (test 0.00 K/ L 0.04-0.54 tfzt=592) BASOPHILS ABSOLUTE COUNT (BEAKER) (test 0.04 K/ L 0.01-0.08 keaw=461) IMMATURE GRANULOCYTES-RELATIVE PERCENT (BEAKER) 1 % 0-1 (test xxoc=8986) POCT-GLUCOSE [id number] 00:56:00 Test Item Value Reference Range Comments POC-GLUCOSE METER (BEAKER) 149 mg/dL 70-[address] [facility] [address] [facility] (test eczp=8750) [facility] [address] TROPONIN [id number] 21:23:00 Test Item Value Reference Range Comments TROPONIN I (BEAKER) (test yrnn=297) 0.06 ng/mL 0.00-0.03 LACTIC ACID, VENOUS, WHOLE [id number] 18:53:00 Test Item Value Reference Range Comments LACTATE BLOOD VENOUS (2) 1.7 mmol/L 0.5-2.2 Specimen slightly hemolyzed (BEAKER) (test olmx=9675) EEG RECORDING IN COMA/SLEEP [id number] 18:51:00Reason for exam:->concern for seizuresShould this be performed at the bedside?->YesDATE OF REPORT: ACC: [id number] Start time: 17:28 Stop time: 17:48 ICD-10: R56.9 CPT Code: 23259 HISTORY: 52 yo male with DM, HTN, prior strokes with left sided deficits presented with alteration of mental status. MEDICATIONS THAT COULD AFFECT EEG: aspirin, citalopram, levetiracetam,metoprolol TECHNICAL SUMMARY: This is a digital EEG recorded with 32 input channels reviewed with bipolar and referential montages using the modified combinatorial system nomenclature. DESCRIPTION OF RECORD: During the maximally alert state , there is no posterior dominant rhythm. The background consists of generalized 4-6 Hz theta activity with intermittent admixed 1.5-3Hz delta activity which is minimally reactive spontaneously or to external stimulation. There is some admixed generalized 8-14 Hz alpha activity. There is superimposed bilateral fronto-temporal 1.5-3 Hz polymorphic delta activity which at times is near continuous and more prominent on the left. Stage II sleep architecture was not recorded. HV: Hyperventilation was not performed. PHOTIC STIMULATION: Flash stimulation was not done. IMPRESSION: Abnormal EEG in coma/sleep due to : 1. Severe generalized slowing of background rhythm 2. Superimposed bilateral fronto-temporal focal slowing, more prominent on left. 3. Absent posterior dominant rhythm CLINICAL CORRELATION: Severe generalized slowing is consistent with severe degree of encephalopathy could be secondary to non- specific etiology (hypoxia, structural injury, medications). Superimposed bilateral fronto-temporal focal slowing is consistent with underlying structural cortical dysfunction. Absence of epileptiform discharges does not preclude the diagnosis of epilepsy. If suspicion for epilepsy persists, consider further EEG recording. Filiberto Underwood MD Neurophysiology Fellow Felice Pinedo M.D., R[facility] Professor of Neurology [facility] [employer] [facility] Director, [facility] Head, [facility] Electronically signed by: FELICE PINEDO on 10/14 06:51 PMPOCT-GLUCOSE [id number] 17:46:00 Test Item Value Reference Range Comments POC-GLUCOSE METER (BEAKER) 130 mg/dL 70-[address] [facility] [address] [place] [address] (test unsq=6285) [facility] [address] LACTIC ACID, VENOUS, WHOLE [id number] 16:36:00 Test Item Value Reference Range Comments LACTATE BLOOD VENOUS (2) 2.4 mmol/L 0.5-2.2 Specimen slightly hemolyzed (BEAKER) (test cxyl=6737) FIBRIN SOLUBLE [id number] 15:35:00 Test Item Value Reference Range Comments FIBRIN SOLUBLE MONOMER (BEAKER) (test kipk=6834) Negative [id number] 14:51:00 Test Item Value Reference Range Comments PROCALCITONIN (BEAKER) (test slit=3644) 1.71 ng/mL <0.05 SEPSIS RISK (ng/mL)Low: 0.05-0.50Intermediate: 0.51-2.00High: & gt;=2.01TROPONIN [id number] 14:44:00 Test Item Value Reference Range Comments TROPONIN I (BEAKER) (test vyul=023) 0.04 ng/mL 0.00-0.03 BASIC METABOLIC [id number] 14:39:00 Test Item Value Reference Range Comments SODIUM (BEAKER) (test 142 meq/L 136-145 ertc=839) POTASSIUM (BEAKER) (test 3.5 meq/L 3.5-5.1 yxzc=342) CHLORIDE (BEAKER) (test 112 meq/L 98-107 rcgs=872) CO2 (BEAKER) (test 20 meq/L 22-29 gudm=649) BLOOD UREA NITROGEN 23 mg/dL 7-21 (BEAKER) (test sepe=649) CREATININE (BEAKER) (test 2.14 mg/dL 0.57-1.25 igjq=104) GLUCOSE RANDOM (BEAKER) 177 mg/dL 70-105 (test vxil=882) CALCIUM (BEAKER) (test 8.1 mg/dL 8.4-10.2 oslz=953) EGFR (BEAKER) (test mL/min/1.73 sq m INSUFFICIENT CLINICAL DATA svlu=5976) TO CALCULATE ESTIMATED GFR. [id number] 14:38:00 Test Item Value Reference Range Comments PHOSPHORUS (BEAKER) (test xhix=417) 2.4 mg/dL 2.3-4.7 [id number] 14:38:00 Test Item Value Reference Range Comments MAGNESIUM (BEAKER) (test dxwa=395) 1.6 mg/dL 1.6-2.6 HEPATIC FUNCTION [id number] 14:38:00 Test Item Value Reference Range Comments TOTAL PROTEIN (BEAKER) (test qqql=651) 6.5 gm/dL 6.0-8.3 ALBUMIN (BEAKER) (test diwh=9255) 3.3 g/dL 3.5-5.0 BILIRUBIN TOTAL (BEAKER) (test nsci=346) 0.6 mg/dL 0.2-1.2 BILIRUBIN DIRECT (BEAKER) (test nyow=463) 0.3 mg/dL 0.1-0.5 ALKALINE PHOSPHATASE (BEAKER) (test jnqw=130) 64 U/L 40-150 AST (SGOT) (BEAKER) (test tehl=561) 24 U/L 5-34 ALT (SGPT) (BEAKER) (test tidb=371) 18 U/L 6-55 [id number] 14:38:00 Test Item Value Reference Range Comments LIPASE (BEAKER) (test sbid=791) 8 U/L 8-78 LACTIC ACID, VENOUS, WHOLE [id number] 14:32:00 Test Item Value Reference Range Comments LACTATE BLOOD VENOUS (2) (BEAKER) (test 1.6 mmol/L 0.5-2.2 tmrf=1535) PROTHROMBIN TIME/[id number] 14:24:00 Test Item Value Reference Range Comments PROTIME (BEAKER) (test bbtv=948) 15.3 seconds 11.7-14.7 INR (BEAKER) (test quou=570) 1.2 <=5.9 RECOMMENDED COUMADIN/WARFARIN INR THERAPY RANGESSTANDARD DOSE: 2.0 - 3.0 Includes: PROPHYLAXIS forvenous thrombosis, systemic embolization; TREATMENT for venous thrombosis and/or pulmonary embolus.HIGH RISK: Target INR is 2.5-3.5 for patients with mechanical heart valves.[id number] 14:24:00 Test Item Value Reference Range Comments FIBRINOGEN LEVEL (BEAKER) (test fgvn=908) 453 mg/dl 225-434 [id number] 14:24:00 Test Item Value Reference Range Comments PARTIAL THROMBOPLASTIN TIME (BEAKER) (test 37.8 seconds 22.5-36.0 ancg=299) BLOOD GAS, [id number] 14:14:00 Test Item Value Reference Range Comments PH ARTERIAL (BEAKER) (test zxtt=668) 7.43 7.35-7.45 PCO2 ARTERIAL (BEAKER) (test adim=610) 31 mmHg 35-45 PO2 ARTERIAL (BEAKER) (test brwm=324) 105 mmHg 80-90 O2 SATURATION ARTERIAL (BEAKER) (test hsrd=236) 97.9 % 96.0-97.0 HCO3 ARTERIAL (BEAKER) (test yika=691) 20 mmol/L 21-29 BASE EXCESS ARTERIAL (BEAKER) (test vaqy=706) -3.2 mmol/L -2.0-3.0 PATIENT TEMPERATURE (BEAKER) (test lodk=9644) 37.5 C FIO2 (BEAKER) (test jblq=2871) 40.0 % OXYGEN SATURATION, [id number] 13:58:00 Test Item Value Reference Range Comments O2 SATURATION (MEASURED) (BEAKER) (test kzca=8932) 89.6 % If patient has internal jugular ( IJ) or subclavian central line or PICC line. Draw from distal port. Label as central venous oxygen.RAD, CHEST, 1 VIEW, NON [id number] 13:52:00Reason for exam:->sputum, coughShould this be performed at the bedside?->YesFINAL REPORT INDICATION : sputum, cough COMPARISON:None. TECHNIQUE: Chest radiograph, single view, portable technique. FINDINGS / IMPRESSION: There is a questionable right infrahilar opacity and a left retrocardiac opacity, pneumonia, aspiration, atelectasis, and even mass considered. Endotracheal tube appears in good position. Nasogastric tube with the tip projecting over the duodenal bulb. No pneumothorax or pulmonary venous congestion. Probable left pleural effusion. Signed: Dileep Deleon MDReport Verified Date/Time: 10/14/2018 13:52:33 Reading Location: [address] Consult Reading Room URINALYSIS W/ [id number] 12:43:00 Test Item Value Reference Range Comments COLOR (BEAKER) (test qalx=459) Yellow CLARITY (BEAKER) (test yahn=514) Hazy SPECIFIC GRAVITY UA (BEAKER) (test lxso=450) 1.016 1.001-1.035 PH UA (BEAKER) (test nzba=640) 6.0 5.0-8.0 PROTEIN UA (BEAKER) (test unet=808) 70 mg/dL Negative GLUCOSE UA (BEAKER) (test kzei=704) 50 mg/dL Negative KETONES UA (BEAKER) (test wdxm=992) Negative Negative BILIRUBIN UA (BEAKER) (test mgqy=430) Negative Negative BLOOD UA (BEAKER) (test vyqr=597) Moderate Negative NITRITE UA (BEAKER) (test mbzv=431) Negative Negative LEUKOCYTE ESTERASE UA (BEAKER) (test uunl=528) Large Negative UROBILINOGEN UA (BEAKER) (test goxe=745) 0.2 mg/dL 0.2-1.0 RBC UA (BEAKER) (test dgzj=440) 8 /HPF WBC UA (BEAKER) (test wxpd=165) 79 /HPF BACTERIA (BEAKER) (test ldjy=529) Moderate MUCUS (BEAKER) (test xgse=8443) Rare SQUAMOUS EPITHELIAL (BEAKER) (test wgqh=364) 4 /HPF CALCIUM OXALATE CRYSTALS (BEAKER) (test Rare myis=831) SOURCE(BEAKER) (test lioy=8650) Urine, Elliott
--- NOTE | 2020-01-23 11:40 | RAD REPORT ---
EXAM DESCRIPTION: Aries Single View01/23/2020 11:22 am CLINICAL HISTORY: Shortness of breath COMPARISON: 2017 FINDINGS: The lungs appear clear of acute infiltrate. The heart is borderline enlarged IMPRESSION: No acute abnormalities displayed
[2020-01-23 12:10] LABS: Absolute Lymphocytes (CBC) 1.7 K/uL (0.7-4.9); Basophils % 1.1 % (0-1.3); Hematocrit 39.1 % (39.6-49.0); Lymphocytes % 28.8 % (15.3-44.8); MPV 9.4 fL (7.6-11.3); RBC Red Blood Cell Count 4.37 M/uL (4.33-5.43)
[2020-01-23 12:21] LABS: Protime INR 0.98
[2020-01-23 12:27] LABS: ALT/SGPT 21 U/L (12-78); AST/SGOT 13 U/L (15-37); Alkaline Phosphatase 90 U/L (45-117); BUN Blood Urea Nitrogen 15 mg/dL (7-18); Bicarbonate 29 mmol/L (21-32); Bilirubin Direct < 0.1 mg/dL (0-0.2); Bilirubin Total 0.4 mg/dL (0.2-1.0); Glucose Level 98 mg/dL (74-106); Magnesium 2.4 mg/dL (1.8-2.4); NT PRO-BNP 249 pg/mL (<125); Potassium 4.6 mmol/L (3.5-5.1); Protein, Total 7.7 g/dL (6.4-8.2); Sodium Level 142 mmol/L (136-145); Troponin (Emerg Dept Use Only) < 0.02 ng/mL (0.0-0.045)
[2020-01-23 13:19] LABS: Urine Blood TRACE (NEG); Urine Glucose NEGATIVE (NEG); Urine Protein NEGATIVE (NEG)
[2020-01-23 13:36] LABS: Urine Bacteria 20-50 /HPF (NONE SEEN); Urine RBC <5 /HPF (NONE SEEN)
--- NOTE | 2020-01-23 14:10 | RAD REPORT ---
EXAM DESCRIPTION: CT - Head Brain Wo Cont - 01/23/2020 1:34 pm CLINICAL HISTORY: CVA/weakness COMPARISON: 2018 TECHNIQUE: Computed axial tomography of the head was obtained. IV contrast was not requested. All CT scans are performed using dose optimization technique as appropriate and may include automated exposure control or mA/KV adjustment according to patient size. FINDINGS: An intracranial bleed is not seen . The ventricles are normal in caliber. No extra-axial fluid collection is noted. 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 The. Small old left thala nilesh infarct. Fluid within the sinuses/ mastoids is not seen. IMPRESSION: No acute intracranial abnormality is seen. If patient's symptoms persist MRI of the bra in would be recommended.
--- NOTE | 2020-01-23 14:52 | EDPHYS ---
Physician Documentation [facility] Name: Deric Sheriff Age: 54 yrs Sex: Male : 1965 Arrival Date: 01/23/2020 Time: 11:00 Bed 20 Private MD: ED Physician Bg Mckeon HPI: 01/22 11:04 This 54 yrs old Male presents to ER via Ambulatory with complaints of jmm weakness, cough. 11:04 The patient or guardian reports cough. Onset: The symptoms/episode began/occurred jmm gradually. Modifying factors: The symptoms are alleviated by nothing. the symptoms are aggravated by nothing. Associated signs and symptoms: Pertinent negatives: fever. This is a 54 year old male with a history of DM, htn, that presents to the ED with complaints of cough beginning last night with generalized weakness. Denies fever. Denies unilateral weakness. . Historical: - Allergies: 12:06 lotril; ca1 - Home Meds: 12:06 aspirin 81 mg Oral chew 1 tab once daily [Active]; atorvastatin 40 mg Oral tab 1 tab ca1 once daily [Active]; baclofen 10 mg Oral tab 1 tab 3 times per day [Active]; citalopram 20 mg tab 1 tab once daily [Active]; clonidine HCl 0.1 mg Oral tab 1 tab 3 times per day [Active]; enalapril maleate 20 mg Oral tab 1 tab once daily [Active]; metoprolol tartrate 50 mg Oral tab 1 tab 2 times per day [Active]; tamsulosin 0.4 mg Oral cp24 1 cap once daily [Active]; Plavix 75 mg Oral tab 1 tab once daily [Active]; Natural Laxative 8.6 mg daily Oral once daily [Active]; levetiracetam 750 mg oral tab 1 tab 2 times per day [Active]; lisinopril 20 mg Oral tab 1 tab twice a day [Active]; senna 8.6 mg oral cap once daily [Active]; melatonin 3 mg Oral tab 1 mg nightly [Active]; - PMHx: 12:06 CVA; Diabetes - NIDDM; Hypertension; ca1 - Immunization history:: Adult Immunizations up to date, Flu vaccine is not up to date. - Social history:: Smoking status: Patient denies any tobacco usage or history of. ROS: 11:04 Cardiovascular: Negative for chest pain, palpitations, and edema. [facility] 11:04 Constitutional: Positive for fatigue. 11:04 Respiratory: Positive for cough. 11:04 All other systems are negative. Exam: 11:04 Constitutional: This is a well developed, well nourished patient who is awake, alert, jmm and in no acute distress. Head/Face: atraumatic. ENT: Moist Mucus Membranes Neck: Trachea midline, Supple Chest/axilla: Normal chest wall appearance and motion. Cardiovascular: Regular rate and rhythm. No edema appreciated Respiratory: Normal respirations, no respiratory distress appreciated Abdomen/GI: Non distended, soft Back: Normal ROM Skin: General appearance color normal 11:04 Respiratory: the patient does not display signs of respiratory distress, Respirations: normal, Breath sounds: are clear throughout. 11:04 Musculoskeletal/extremity: LUE contracted. 11:04 Skin: Appearance: Color: normal in color. 11:04 Neuro: Orientation: is normal, Mentation: is normal, Memory: is normal. Vital Signs: 11:01 BP 147 / 103; Pulse 55; Resp 17 S; Temp 97.1(TE); Pulse Ox 100% on R/A; Weight 61.23 kg ca1 (R); Height 5 ft. 3 in. (160.02 cm) (R); Pain 0/10; 12:08 BP 179 / 114; Pulse 54; Resp 15 S; Pulse Ox 100% on R/A; ca1 13:07 BP 170 / 107; Pulse 52; Resp 13 S; Pulse Ox 100% on R/A; ca1 14:15 BP 134 / 114; Pulse 52; Resp 14 S; Pulse Ox 100% on R/A; ca1 15:18 BP 177 / 108; Pulse 62; Resp 14 S; Pulse Ox 100% on R/A; ca1 16:00 BP 184 / 121; Pulse 61; Resp 15 S; Pulse Ox 100% on R/A; ca1 16:29 BP 186 / 106; Pulse 60; Resp 16 S; Pulse Ox 100% on R/A; ca1 11:01 Body Mass Index 23.91 (61.23 kg, 160.02 cm) ca1 MDM: 11:10 Patient medically screened. [facility] 14:49 Data reviewed: vital signs, nurses notes. Counseling: I had a detailed discussion with ej the patient and/or guardian regarding: the historical points, exam findings, and any diagnostic results supporting the discharge/admit diagnosis, lab results, radiology results, the need for outpatient follow up, to return to the emergency department if symptoms worsen or persist or if there are any questions or concerns that arise at home. ED course: Patient is alert and non toxic in appearance in the ED. UA concerning for UTI. Will treat with oral abx. Patient otherwise given strict return precautions. Patient understood and agrees with the plan of care. . 01/22 11:04 Order name: Basic Metabolic Panel; Complete Time: 12:44 [facility] 01/22 11:04 Order name: CBC with Diff; Complete Time: 12:44 [facility] 01/22 11:04 Order name: LFT's; Complete Time: 12:44 [facility] 01/22 11:04 Order name: Magnesium; Complete Time: 12:44 [facility] 01/22 11:04 Order name: NT PRO-BNP; Complete Time: 12:44 [facility] 01/22 11:04 Order name: PT-INR; Complete Time: 12:44 [facility] 01/22 11:04 Order name: Troponin (emerg Dept Use Only); Complete Time: 12:44 [facility] 01/22 11:04 Order name: XRAY Chest (1 view); Complete Time: 12:01 [facility] 01/22 11:04 Order name: AMMONIA; Complete Time: 12:44 [facility] 01/22 12:06 Order name: Flu; Complete Time: 12:56 [facility] 01/22 13:05 Order name: Urine Microscopic Only; Complete Time: 13:38 [facility] 01/22 13:05 Order name: Urine Culture [facility] 01/22 13:09 Order name: Urine Dipstick--Ancillary (enter results); Complete Time: 13:34 em1 01/22 13:17 Order name: CT Head Brain wo Cont; Complete Time: 14:28 [facility] 01/22 11:04 Order name: EKG; Complete Time: 11:05 [facility] 01/22 11:04 Order name: Cardiac monitoring; Complete Time: 12:19 [facility] 01/22 11:04 Order name: EKG - Nurse/Tech; Complete Time: 12:20 [facility] 01/22 11:04 Order name: IV Saline Lock; Complete Time: 12:20 [facility] 01/22 11:04 Order name: Labs collected and sent; Complete Time: 12:20 [facility] 01/22 11:04 Order name: O2 Per Protocol; Complete Time: 12:20 [facility] 01/22 11:04 Order name: O2 Sat Monitoring; Complete Time: 12:20 [facility] 01/22 11:04 Order name: Urine Dipstick-Ancillary (obtain specimen); Complete Time: 13:07 [facility] Administered Medications: 15:08 Drug: Rocephin 1 grams Route: IV; Rate: calculated rate; Site: right antecubital; ca1 16:12 Follow up: Response: No adverse reaction; IV Status: Completed infusion ca1 16:19 Drug: cloNIDine 0.1 mg Route: PO; ca1 Disposition: 17:17 Co-signature as Attending Physician, Bg Mckeon MD I agree with the assessment and kdr plan of care. Disposition: 01/23/20 14:51 Discharged to Home. Impression: Cough, Weakness, Urinary Tract Infection. - Condition is Stable. - Discharge Instructions: Urinary Tract Infection, Adult, Cough, Adult. - Prescriptions for Cephalexin 500 mg Oral Capsule - take 1 capsule by ORAL route every 12 hours for 10 days; 20 capsule. - Medication Reconciliation Form, Thank You Letter, Antibiotic Education, Prescription Opioid Use form. - Follow up: Private Physician; When: 2 - 3 days; Reason: Recheck today's complaints, Continuance of care, Re-evaluation by your physician. Signatures: Dispatcher [employer] EDMI Bg Mckeon MD MD kdr Mickail, Joel, PA PA jmm Acob, Cheryl RN RN ca1 Corrections: (The following items were deleted from the chart) 16:44 14:51 01/23/2020 14:51 Discharged to Home. Impression: Cough; Weakness; Urinary Tract ca1 Infection. Condition is Stable. Forms are Medication Reconciliation Form, Thank You Letter, Antibiotic Education, Prescription Opioid Use. Follow up: Private Physician; When: 2 - 3 days; Reason: Recheck today's complaints, Continuance of care, Re-evaluation by your physician. [facility]
--- NOTE | 2020-01-23 14:52 | ER ---
Nurse's Notes [facility] Name: Deric Sheriff Age: 54 yrs Sex: Male : 1965 Arrival Date: 01/23/2020 Time: 11:00 Bed 20 Private MD: Diagnosis: Cough;Weakness;Urinary Tract Infection Presentation: 01/22 11:01 Chief complaint: EMS states: not feeling well today. c/o nausea. Denies vomiting. ca1 Initially called for a lift assist, pt was sliding off his wheelchair. History of CVA x 2 with obvious deficits on the L side. Coronavirus screen: The patient has NOT traveled to a country currently being monitored by the [facility] within the last 14 days. The patient has NOT had contact with any known and/or suspected case of coronavirus. Ebola Screen: Patient negative for fever greater than or equal to 101.5 degrees Fahrenheit, and additional compatible Ebola Virus Disease symptoms Patient denies exposure to infectious person. Patient denies travel to an Ebola-affected area in the 21 days before illness onset. No symptoms or risks identified at this time. Initial Sepsis Screen: Does the patient meet any 2 criteria? No. Patient's initial sepsis screen is negative. Does the patient have a suspected source of infection? No. Patient's initial sepsis screen is negative. Risk Assessment: Do you want to hurt yourself or someone else? Patient reports no desire to harm self or others. Onset of symptoms was January 23, 2020. Care prior to arrival: Medication(s) given: zofran 4 mg. 11:01 Method Of Arrival: Ambulatory ca1 11: Acuity: HODAN 3 ca1 Historical: - Allergies: 12:06 lotril; ca1 - Home Meds: 12:06 aspirin 81 mg Oral chew 1 tab once daily [Active]; atorvastatin 40 mg Oral tab 1 tab ca1 once daily [Active]; baclofen 10 mg Oral tab 1 tab 3 times per day [Active]; citalopram 20 mg tab 1 tab once daily [Active]; clonidine HCl 0.1 mg Oral tab 1 tab 3 times per day [Active]; enalapril maleate 20 mg Oral tab 1 tab once daily [Active]; metoprolol tartrate 50 mg Oral tab 1 tab 2 times per day [Active]; tamsulosin 0.4 mg Oral cp24 1 cap once daily [Active]; Plavix 75 mg Oral tab 1 tab once daily [Active]; Natural Laxative 8.6 mg daily Oral once daily [Active]; levetiracetam 750 mg oral tab 1 tab 2 times per day [Active]; lisinopril 20 mg Oral tab 1 tab twice a day [Active]; senna 8.6 mg oral cap once daily [Active]; melatonin 3 mg Oral tab 1 mg nightly [Active]; - PMHx: 12:06 CVA; Diabetes - NIDDM; Hypertension; ca1 - Immunization history:: Adult Immunizations up to date, Flu vaccine is not up to date. - Social history:: Smoking status: Patient denies any tobacco usage or history of. Screenin:10 Abuse screen: Denies threats or abuse. Denies injuries from another. Nutritional ca1 screening: No deficits noted. Tuberculosis screening: No symptoms or risk factors identified. Fall Risk Fall in past 12 months (25 points). Secondary diagnosis (15 points) impaired mobility, CVA, IV access (20 points). Ambulatory Aid- None/Bed Rest/Nurse Assist (0 pts). Gait- Impaired (20 pts.). Total Jain Fall Scale indicates High Risk Score (45 or more points). Fall prevention measures have been instituted. Side Rails Up X 2 Frequent Obs/Assessments Occuring Family Present and informed to notify staff if the need to leave the bedside As available patient and family educated on Fall Prevention Program and Strategies. Assessment: 11:10 General: Appears in no apparent distress. comfortable, Behavior is calm, cooperative, ca1 appropriate for age, Reports fatigue for 12-24 hours. Pain: Denies pain. Neuro: Level of Consciousness is awake, alert, obeys commands, Oriented to person, place, time, situation, Appropriate for age. Cardiovascular: Heart tones S1 S2 present Capillary refill < 3 seconds Patient's skin is warm and dry. Rhythm is sinus bradycardia. Respiratory: Airway is patent Respiratory effort is even, unlabored, Respiratory pattern is regular, symmetrical, Breath sounds are clear bilaterally. GI: Abdomen is round non-distended, Bowel sounds Abd is soft and non tender X 4 quads. : No signs and/or symptoms were reported regarding the genitourinary system. EENT: No signs and/or symptoms were reported regarding the EENT system. Derm: Skin is intact, Skin is pink, warm \\T\\ dry. Musculoskeletal: Circulation, motion, and sensation intact. Capillary refill < 3 seconds. 12:30 Reassessment: Patient appears in no apparent distress at this time. No changes from ca1 previously documented assessment. Patient and/or family updated on plan of care and expected duration. Pain level reassessed. Patient is alert, oriented x 3, equal unlabored respirations, skin warm/dry/pink. 13:07 Reassessment: Patient appears in no apparent distress at this time. Patient and/or ca1 family updated on plan of care and expected duration. Pain level reassessed. Patient is alert, oriented x 3, equal unlabored respirations, skin warm/dry/pink. 14:15 Reassessment: Patient appears in no apparent distress at this time. Patient and/or ca1 family updated on plan of care and expected duration. Pain level reassessed. Patient is alert, oriented x 3, equal unlabored respirations, skin warm/dry/pink. 15:18 Reassessment: Patient appears in no apparent distress at this time. Patient and/or ca1 family updated on plan of care and expected duration. Pain level reassessed. Patient is alert, oriented x 3, equal unlabored respirations, skin warm/dry/pink. 15:20 Reassessment: PO challenge completed. Able to tolerate water. ca1 16:10 Reassessment: BP elevated. Pt states, "I have not taken my BP meds today". Notified ca1 provider. Med ordered and administered. 16:38 Reassessment: Awaiting ambulance for transport to home. Reassessment: Patient appears ca1 in no apparent distress at this time. Patient is alert, oriented x 3, equal unlabored respirations, skin warm/dry/pink. Vital Signs: 11:01 BP 147 / 103; Pulse 55; Resp 17 S; Temp 97.1(TE); Pulse Ox 100% on R/A; Weight 61.23 kg ca1 (R); Height 5 ft. 3 in. (160.02 cm) (R); Pain 0/10; 12:08 BP 179 / 114; Pulse 54; Resp 15 S; Pulse Ox 100% on R/A; ca1 13:07 BP 170 / 107; Pulse 52; Resp 13 S; Pulse Ox 100% on R/A; ca1 14:15 BP 134 / 114; Pulse 52; Resp 14 S; Pulse Ox 100% on R/A; ca1 15:18 BP 177 / 108; Pulse 62; Resp 14 S; Pulse Ox 100% on R/A; ca1 16:00 BP 184 / 121; Pulse 61; Resp 15 S; Pulse Ox 100% on R/A; ca1 16:29 BP 186 / 106; Pulse 60; Resp 16 S; Pulse Ox 100% on R/A; ca1 11:01 Body Mass Index 23.91 (61.23 kg, 160.02 cm) ca1 ED Course: 11:00 Patient arrived in ED. iw 11:01 Odalys Kraft, RN is Primary Nurse. ca1 11:03 Ramsey Jeronimo PA is PHCP. jmm 11:03 Bg Mckeon MD is Attending Physician. jmm 11:05 Triage completed. ca1 11:05 Arm band placed on right wrist. ca1 11:10 Patient has correct armband on for positive identification. Placed in gown. Bed in low ca1 position. Call light in reach. Side rails up X2. Adult w/ patient. ham trimmer on. Pulse ox on. NIBP on. Warm blanket given. 11:10 No provider procedures requiring assistance completed. ca1 11:46 XRAY Chest (1 view) In Process Unspecified. EDMS 11:56 Initial lab(s) drawn, by me, sent to lab. Inserted saline lock: 20 gauge in right dh3 antecubital area, using aseptic technique. Blood collected. 13:38 CT Head Brain wo Cont In Process Unspecified. EDMS 16:41 IV discontinued, intact, bleeding controlled, No redness/swelling at site. Pressure ca1 dressing applied. Administered Medications: 15:08 Drug: Rocephin 1 grams Route: IV; Rate: calculated rate; Site: right antecubital; ca1 16:12 Follow up: Response: No adverse reaction; IV Status: Completed infusion ca1 16:19 Drug: cloNIDine 0.1 mg Route: PO; ca1 Outcome: 14:51 Discharge ordered by . [facility] 16:44 Discharged to home via ambulance, with family. ca1 16:44 Condition: stable 16:44 Discharge instructions given to patient, significant other, Instructed on discharge instructions, follow up and referral plans. medication usage, Demonstrated understanding of instructions, follow-up care, medications, Prescriptions given X 1. 16:44 Patient left the ED. ca1 Addendum: 01/26/2020 07:26 Addendum: Culture Results: Positive urine culture. No further action required. Bacteria e b sensitive to prescribed antibiotic. Signatures: Dispatcher [employer] Ramsey Shaffer PA PA jmm Williams, Irene, RN RN Kylee Muñiz 3 Christina Marcum Cheryl RN RN ca1
[2020-01-23] MEDS ORDERED: CEFTRIAXONE/SWI 1gm 0 GM/0 ML SYR ONE (15:06)
[2020-01-23] MEDS ORDERED: CEFTRIAXONE/SWI 1gm 1 GM/10 ML SYR ONE (15:12)
[2020-01-23] MEDS ORDERED: cloNIDine HCL 0.1 MG TAB ONE (16:18)
--- NOTE | 2020-01-23 16:45 | EKG ---
Test Date: 2020-01-23 Test Time: 11:52:07 Bar Roller: GARETH MEASUREMENT RESULTS: Intervals: Rate: 54 [place]: 164 QRSD: 74 QT: 428 QTc: 405 [place]: P: 43 [place]: 164 QRS: -14 T: -1 INTERPRETIVE STATEMENTS: Sinus bradycardia Moderate voltage criteria for LVH, may be normal variant Borderline ECG Compared to ECG 10/14/2018 07:30:35 Left ventricular hypertrophy now present Sinus rhythm no longer present Myocardial infarct finding no longer present Prolonged QT interval no longer present Electronically Signed On 01-23-20 16:45:02 BALL WORKER by Kadeem Barnett
[2020-01-23 16:53] VITALS: TEMP 97.1; O2SAT 100
[2020-01-23 17:02] VITALS: BP 186/106
== END 2020-01-23 16:44 | disposition home or self-care (01) ==
LOC: ER 10:54
DX: N39.0 Urinary tract infection, site not specified (principal); R51 Headache; I10 Essential (primary) hypertension; E11.9 Type 2 diabetes mellitus without complications; Z79.01 Long term (current) use of anticoagulants; Z79.82 Long term (current) use of aspirin; Z88.8 Allergy status to other drugs, medicaments and biological substances
CPT/HCPCS: 96365; 93005; 87088; 85025; 87086; 80048; 36415; 82140; 83735; 85610; 80076; 87077; 87186; 84484; 83880; 87804 ×2; 70450; 71045; 99284; J0696; 81003; 81015

== ENCOUNTER 2020-02-18 22:48 | Emergency (ER) | payer MEDICARE ==
--- OUTSIDE RECORDS SUMMARY | 2020-02-18 22:53 | XMS REPORT ---
:1965 [facility] [address] [place] [address] Care Team Providers Name Role Phone DONI CONWAY Unavailable Unavailable Problems This patient has no known problems. Allergies, Adverse Reactions, Alerts This patient has no known allergies or adverse reactions. Medications This patient has no known medications. Results Test Description Test Time Test Comments Text Results Atomic Results Result Comments VIRUS CULTURE 2018-11-05 07:31:00 Test Item Value Reference Range Comments CULTURE (BEAKER) (test ghvi=2111) No virus isolated POCT-GLUCOSE [id number] 11:50:00 Test Item Value Reference Range Comments POC-GLUCOSE METER (BEAKER) 155 mg/dL 70-110 TESTED AT [address] (test xbbr=4996) [facility] [address] POCT-GLUCOSE [id number] 08:22:00 Test Item Value Reference Range Comments POC-GLUCOSE METER (BEAKER) 124 mg/dL 70-110 TESTED AT [address] (test pthw=8695) [facility] [address] BASIC METABOLIC [id number] 06:33:00 Test Item Value Reference Range Comments SODIUM (BEAKER) (test 139 meq/L 136-145 fzyx=393) POTASSIUM (BEAKER) (test 3.8 meq/L 3.5-5.1 vyes=400) CHLORIDE (BEAKER) (test 109 meq/L 98-107 rzat=103) CO2 (BEAKER) (test 23 meq/L 22-29 cfff=977) BLOOD UREA NITROGEN 14 mg/dL 7-21 (BEAKER) (test fhhg=030) CREATININE (BEAKER) (test 0.79 mg/dL 0.57-1.25 ouer=638) GLUCOSE RANDOM (BEAKER) 114 mg/dL 70-105 (test mxic=955) CALCIUM (BEAKER) (test 8.8 mg/dL 8.4-10.2 zttn=736) EGFR (BEAKER) (test 103 mL/min/1.73 sq m ESTIMATED GFR IS NOT pwfz=9114) ACCURATE CREATININE CLEARANCE IN PREDICTING GLOMERULAR FILTRATION RATE. ESTIMATED GFR IS NOT APPLICABLE FOR DIALYSIS PATIENTS. CBC W/PLT COUNT & AUTO [id number] 05:27:00 Test Item Value Reference Range Comments WHITE BLOOD CELL COUNT (BEAKER) (test ktsc=170) 8.7 K/ L 3.5-10.5 RED BLOOD CELL COUNT (BEAKER) (test advn=526) 3.95 M/ L 4.63-6.08 HEMOGLOBIN (BEAKER) (test eadn=438) 11.7 GM/DL 13.7-17.5 HEMATOCRIT (BEAKER) (test ltyg=214) 35.6 % 40.1-51.0 MEAN CORPUSCULAR VOLUME (BEAKER) (test ptau=078) 90.1 fL 79.0-92.2 MEAN CORPUSCULAR HEMOGLOBIN (BEAKER) (test 29.6 pg 25.7-32.2 kpdv=497) MEAN CORPUSCULAR HEMOGLOBIN CONC (BEAKER) (test 32.9 GM/DL 32.3-36.5 wyig=271) RED CELL DISTRIBUTION WIDTH (BEAKER) (test 14.3 % 11.6-14.4 bjhg=012) PLATELET COUNT (BEAKER) (test epnc=982) 345 K/CU MM 150-450 MEAN PLATELET VOLUME (BEAKER) (test icid=211) 10.6 fL 9.4-12.4 NUCLEATED RED BLOOD CELLS (BEAKER) (test 0 /100 WBC 0-0 megd=340) NEUTROPHILS RELATIVE PERCENT (BEAKER) (test 56 % orlg=022) LYMPHOCYTES RELATIVE PERCENT (BEAKER) (test 31 % ciml=293) MONOCYTES RELATIVE PERCENT (BEAKER) (test 10 % ijhi=839) EOSINOPHILS RELATIVE PERCENT (BEAKER) (test 2 % zpos=357) BASOPHILS RELATIVE PERCENT (BEAKER) (test 0 % vvkj=232) NEUTROPHILS ABSOLUTE COUNT (BEAKER) (test 4.81 K/ L 1.78-5.38 etpf=996) LYMPHOCYTES ABSOLUTE COUNT (BEAKER) (test 2.65 K/ L 1.32-3.57 prvg=242) MONOCYTES ABSOLUTE COUNT (BEAKER) (test 0.90 K/ L 0.30-0.82 zozo=574) EOSINOPHILS ABSOLUTE COUNT (BEAKER) (test 0.19 K/ L 0.04-0.54 ncwj=305) BASOPHILS ABSOLUTE COUNT (BEAKER) (test 0.03 K/ L 0.01-0.08 bfxo=020) IMMATURE GRANULOCYTES-RELATIVE PERCENT (BEAKER) 1 % 0-1 (test kccz=4918) POCT-GLUCOSE [id number] 22:10:00 Test Item Value Reference Range Comments POC-GLUCOSE METER (BEAKER) 149 mg/dL 70-110 TESTED AT [address] (test mymk=5955) [place] [address] POCT-GLUCOSE [id number] 17:37:00 Test Item Value Reference Range Comments POC-GLUCOSE METER (BEAKER) 167 mg/dL 70-110 TESTED AT [address] (test duus=4703) [place] [address] POCT-GLUCOSE [id number] 13:43:00 Test Item Value Reference Range Comments POC-GLUCOSE METER (BEAKER) 152 mg/dL 70-110 TESTED AT [address] (test nlrz=8695) [place] [address] FL, ESOPH, SWALLOW FUNCTION, WITH CINE OR [id number] 10:29:00Reason for exam:->dysphagiaFINAL REPORT Modified barium swallow [...] MDReport Verified Date/Time: 01/2018 10:29:46 Reading Location: [facility] [id number] [facility] Consult Reading Room BASIC METABOLIC [id number] 06:43:00 Test Item Value Reference Range Comments SODIUM (BEAKER) (test 138 meq/L 136-145 xnvi=259) POTASSIUM (BEAKER) (test 3.7 meq/L 3.5-5.1 tnll=044) CHLORIDE (BEAKER) (test 108 meq/L 98-107 gskp=773) CO2 (BEAKER) (test 22 meq/L 22-29 baqr=627) BLOOD UREA NITROGEN 15 mg/dL 7-21 (BEAKER) (test ynby=687) CREATININE (BEAKER) (test 0.75 mg/dL 0.57-1.25 fwgu=162) GLUCOSE RANDOM (BEAKER) 126 mg/dL 70-105 (test hbuo=106) CALCIUM (BEAKER) (test 8.9 mg/dL 8.4-10.2 qkmg=502) EGFR (BEAKER) (test 109 mL/min/1.73 sq m ESTIMATED GFR IS NOT lxda=5794) ACCURATE CREATININE CLEARANCE IN PREDICTING GLOMERULAR FILTRATION RATE. ESTIMATED GFR IS NOT APPLICABLE FOR DIALYSIS PATIENTS. CBC W/PLT COUNT & AUTO [id number] 06:22:00 Test Item Value Reference Range Comments WHITE BLOOD CELL COUNT (BEAKER) (test aubj=548) 8.3 K/ L 3.5-10.5 RED BLOOD CELL COUNT (BEAKER) (test jnca=260) 4.13 M/ L 4.63-6.08 HEMOGLOBIN (BEAKER) (test cgso=822) 12.2 GM/DL 13.7-17.5 HEMATOCRIT (BEAKER) (test bsih=409) 37.1 % 40.1-51.0 MEAN CORPUSCULAR VOLUME (BEAKER) (test pefd=293) 89.8 fL 79.0-92.2 MEAN CORPUSCULAR HEMOGLOBIN (BEAKER) (test 29.5 pg 25.7-32.2 knfb=677) MEAN CORPUSCULAR HEMOGLOBIN CONC (BEAKER) (test 32.9 GM/DL 32.3-36.5 veoi=046) RED CELL DISTRIBUTION WIDTH (BEAKER) (test 13.9 % 11.6-14.4 lgqc=321) PLATELET COUNT (BEAKER) (test kkcu=466) 310 K/CU MM 150-450 MEAN PLATELET VOLUME (BEAKER) (test joev=729) 10.5 fL 9.4-12.4 NUCLEATED RED BLOOD CELLS (BEAKER) (test 0 /100 WBC 0-0 klbn=795) NEUTROPHILS RELATIVE PERCENT (BEAKER) (test 53 % ehdq=183) LYMPHOCYTES RELATIVE PERCENT (BEAKER) (test 33 % ueza=190) MONOCYTES RELATIVE PERCENT (BEAKER) (test 11 % ioxr=811) EOSINOPHILS RELATIVE PERCENT (BEAKER) (test 2 % dojn=900) BASOPHILS RELATIVE PERCENT (BEAKER) (test 0 % vnua=187) NEUTROPHILS ABSOLUTE COUNT (BEAKER) (test 4.41 K/ L 1.78-5.38 ijpa=784) LYMPHOCYTES ABSOLUTE COUNT (BEAKER) (test 2.69 K/ L 1.32-3.57 hqpt=599) MONOCYTES ABSOLUTE COUNT (BEAKER) (test 0.89 K/ L 0.30-0.82 navg=429) EOSINOPHILS ABSOLUTE COUNT (BEAKER) (test 0.20 K/ L 0.04-0.54 gsoe=541) BASOPHILS ABSOLUTE COUNT (BEAKER) (test 0.03 K/ L 0.01-0.08 ftdr=259) IMMATURE GRANULOCYTES-RELATIVE PERCENT (BEAKER) 1 % 0-1 (test jnal=4558) POCT-GLUCOSE [id number] 05:41:00 Test Item Value Reference Range Comments POC-GLUCOSE METER (BEAKER) 129 mg/dL 70-110 TESTED AT [address] (test zmry=3033) [place] [address] POCT-GLUCOSE [id number] 00:06:00 Test Item Value Reference Range Comments POC-GLUCOSE METER (BEAKER) 151 mg/dL 70-110 TESTED AT [address] (test tqum=9139) [place] [address] POCT-GLUCOSE [id number] 18:38:00 Test Item Value Reference Range Comments POC-GLUCOSE METER (BEAKER) 131 mg/dL 70-110 TESTED AT [address] (test dhtv=4266) [place] [address] POCT-GLUCOSE [id number] 13:34:00 Test Item Value Reference Range Comments POC-GLUCOSE METER (BEAKER) 134 mg/dL 70-110 TESTED AT [address] (test isdp=3711) [place] [id number] HEMOGLOBIN [id number] 08:11:00 Test Item Value Reference Range Comments HEMOGLOBIN A1C (BEAKER) (test gyoa=271) 6.5 % 4.3-6.1 BASIC METABOLIC [id number] 07:28:00 Test Item Value Reference Range Comments SODIUM (BEAKER) (test 138 meq/L 136-145 iony=786) POTASSIUM (BEAKER) (test 3.5 meq/L 3.5-5.1 wkrc=492) CHLORIDE (BEAKER) (test 108 meq/L 98-107 hqiv=485) CO2 (BEAKER) (test 23 meq/L 22-29 irje=465) BLOOD UREA NITROGEN 12 mg/dL 7-21 (BEAKER) (test zyqe=281) CREATININE (BEAKER) (test 0.72 mg/dL 0.57-1.25 tiek=753) GLUCOSE RANDOM (BEAKER) 136 mg/dL 70-105 (test kios=595) CALCIUM (BEAKER) (test 8.4 mg/dL 8.4-10.2 lqih=203) EGFR (BEAKER) (test 114 mL/min/1.73 sq m ESTIMATED GFR IS NOT yayb=9023) ACCURATE CREATININE CLEARANCE IN PREDICTING GLOMERULAR FILTRATION RATE. ESTIMATED GFR IS NOT APPLICABLE FOR DIALYSIS PATIENTS. IRON, TIBC, % SAT. (WITHOUT FERRITIN)2018-10-21 06:43:00 Test Item Value Reference Range Comments IRON (BEAKER) (test xlfd=413) 44 ug/dL 40-160 TOTAL IRON BINDING CAPACITY (BEAKER) (test 190 ug/dL 250-450 rwsm=879) IRON % SATURATION (2) (BEAKER) (test giur=9754) 23 % 20-55 CBC W/PLT COUNT & AUTO [id number] 06:05:00 Test Item Value Reference Range Comments WHITE BLOOD CELL COUNT (BEAKER) (test ujuv=474) 8.1 K/ L 3.5-10.5 RED BLOOD CELL COUNT (BEAKER) (test dqcp=957) 4.13 M/ L 4.63-6.08 HEMOGLOBIN (BEAKER) (test fdtg=858) 11.9 GM/DL 13.7-17.5 HEMATOCRIT (BEAKER) (test qeco=550) 36.2 % 40.1-51.0 MEAN CORPUSCULAR VOLUME (BEAKER) (test pmqd=363) 87.7 fL 79.0-92.2 MEAN CORPUSCULAR HEMOGLOBIN (BEAKER) (test 28.8 pg 25.7-32.2 vdjh=438) MEAN CORPUSCULAR HEMOGLOBIN CONC (BEAKER) (test 32.9 GM/DL 32.3-36.5 uskr=714) RED CELL DISTRIBUTION WIDTH (BEAKER) (test 13.7 % 11.6-14.4 tkbv=933) PLATELET COUNT (BEAKER) (test hdge=794) 279 K/CU MM 150-450 MEAN PLATELET VOLUME (BEAKER) (test vnpl=639) 10.3 fL 9.4-12.4 NUCLEATED RED BLOOD CELLS (BEAKER) (test 0 /100 WBC 0-0 xbar=117) NEUTROPHILS RELATIVE PERCENT (BEAKER) (test 57 % vejr=620) LYMPHOCYTES RELATIVE PERCENT (BEAKER) (test 30 % cvbh=273) MONOCYTES RELATIVE PERCENT (BEAKER) (test 10 % twoz=677) EOSINOPHILS RELATIVE PERCENT (BEAKER) (test 2 % qdnw=645) BASOPHILS RELATIVE PERCENT (BEAKER) (test 0 % gmul=275) NEUTROPHILS ABSOLUTE COUNT (BEAKER) (test 4.62 K/ L 1.78-5.38 giey=010) LYMPHOCYTES ABSOLUTE COUNT (BEAKER) (test 2.41 K/ L 1.32-3.57 wavi=765) MONOCYTES ABSOLUTE COUNT (BEAKER) (test 0.84 K/ L 0.30-0.82 izus=307) EOSINOPHILS ABSOLUTE COUNT (BEAKER) (test 0.14 K/ L 0.04-0.54 sdpr=832) BASOPHILS ABSOLUTE COUNT (BEAKER) (test 0.02 K/ L 0.01-0.08 pjtc=349) IMMATURE GRANULOCYTES-RELATIVE PERCENT (BEAKER) 0 % 0-1 (test xpwh=8606) POCT-GLUCOSE [id number] 05:52:00 Test Item Value Reference Range Comments POC-GLUCOSE METER (BEAKER) 139 mg/dL 70-110 TESTED AT [address] (test txht=0479) [facility] [address] POCT-GLUCOSE [id number] 00:36:00 Test Item Value Reference Range Comments POC-GLUCOSE METER (BEAKER) 130 mg/dL 70-110 TESTED AT [address] (test ddie=1364) [facility] [address] POCT-GLUCOSE [id number] 17:43:00 Test Item Value Reference Range Comments POC-GLUCOSE METER (BEAKER) 141 mg/dL 70-110 TESTED AT [facility] [address] (test pugk=8192) [place] [address] (CELLAVISION MANUAL DIFF)2018-10-20 14:30:00 Test Item Value Reference Range Comments NEUTROPHILS - REL (CELLAVISION)(BEAKER) (test 59 % jpss=5377) LYMPHOCYTES - REL (CELLAVISION)(BEAKER) (test 26 % uhfb=7065) MONOCYTES - REL (CELLAVISION)(BEAKER) (test 8 % nseq=0876) EOSINOPHILS - REL (CELLAVISION)(BEAKER) (test 3 % nled=9501) ATYPICAL LYMPHOCYTES - REL (CELLAVISION)(BEAKER) 4 % 0-0 (test lywn=7664) NEUTROPHILS - ABS (CELLAVISION)(BEAKER) (test 4.78 K/ul 1.78-5.38 scyo=7958) LYMPHOCYTES - ABS (CELLAVISION)(BEAKER) (test 2.11 K/ul 1.32-3.57 nqjk=4690) MONOCYTES - ABS (CELLAVISION)(BEAKER) (test 0.65 K/uL 0.30-0.82 fyzr=9131) EOSINOPHILS - ABS (CELLAVISION)(BEAKER) (test 0.24 K/uL 0.04-0.54 kvuh=3638) ATYPICAL LYMPHOCYTES - ABS (CELLAVISION)(BEAKER) 0.32 K/uL 0.00-0.00 (test tmgu=1633) TOTAL COUNTED (BEAKER) (test yqmn=8886) 100 RBC MORPHOLOGY (BEAKER) (test yzbc=433) Normal WBC MORPHOLOGY (BEAKER) (test bdhe=659) Normal LARGE PLT(BEAKER) (test alvw=0277) Present ARTIFACT (CELLAVISION)(BEAKER) (test kqpg=2728) Present PLATELET CONCENTRATION (CELLAVISION)(BEAKER) (test Adequate sutg=8412) Received comment: User comments: Slide comments:CBC W/PLT COUNT & AUTO [id number] 14:30:00 Test Item Value Reference Range Comments WHITE BLOOD CELL COUNT (BEAKER) (test yyzq=302) 8.1 K/ L 3.5-10.5 RED BLOOD CELL COUNT (BEAKER) (test ucvg=365) 4.10 M/ L 4.63-6.08 HEMOGLOBIN (BEAKER) (test rtup=284) 11.9 GM/DL 13.7-17.5 HEMATOCRIT (BEAKER) (test blab=491) 36.3 % 40.1-51.0 MEAN CORPUSCULAR VOLUME (BEAKER) (test yhpe=359) 88.5 fL 79.0-92.2 MEAN CORPUSCULAR HEMOGLOBIN (BEAKER) (test 29.0 pg 25.7-32.2 ipji=401) MEAN CORPUSCULAR HEMOGLOBIN CONC (BEAKER) (test 32.8 GM/DL 32.3-36.5 wnyd=415) RED CELL DISTRIBUTION WIDTH (BEAKER) (test 14.0 % 11.6-14.4 okkd=839) PLATELET COUNT (BEAKER) (test yfkd=109) 250 K/CU MM 150-450 MEAN PLATELET VOLUME (BEAKER) (test wxsu=758) 10.8 fL 9.4-12.4 NUCLEATED RED BLOOD CELLS (BEAKER) (test 0 /100 WBC 0-0 abjy=517) POCT-GLUCOSE [id number] 12:27:00 Test Item Value Reference Range Comments POC-GLUCOSE METER (BEAKER) 162 mg/dL 70-110 TESTED AT [facility] [address] [facility] (test zpjn=7528) [facility] [address] BASIC METABOLIC [id number] 08:34:00 Test Item Value Reference Range Comments SODIUM (BEAKER) (test 139 meq/L 136-145 urim=787) POTASSIUM (BEAKER) (test 3.4 meq/L 3.5-5.1 iqbg=321) CHLORIDE (BEAKER) (test 108 meq/L 98-107 qsfg=107) CO2 (BEAKER) (test 24 meq/L 22-29 wtav=195) BLOOD UREA NITROGEN 8 mg/dL 7-21 (BEAKER) (test cozc=157) CREATININE (BEAKER) (test 0.68 mg/dL 0.57-1.25 cajd=580) GLUCOSE RANDOM (BEAKER) 115 mg/dL 70-105 (test ugkk=304) CALCIUM (BEAKER) (test 8.5 mg/dL 8.4-10.2 ikpg=369) EGFR (BEAKER) (test 122 mL/min/1.73 sq m ESTIMATED GFR IS NOT ccur=5615) ACCURATE CREATININE CLEARANCE IN PREDICTING GLOMERULAR FILTRATION RATE. ESTIMATED GFR IS NOT APPLICABLE FOR DIALYSIS PATIENTS. POCT-GLUCOSE [id number] 06:02:00 Test Item Value Reference Range Comments POC-GLUCOSE METER (BEAKER) 147 mg/dL 70-110 TESTED AT [address] (test oysv=2757) [place] [address] POCT-GLUCOSE [id number] 00:43:00 Test Item Value Reference Range Comments POC-GLUCOSE METER (BEAKER) 122 mg/dL 70-110 TESTED AT [address] (test amyb=6484) [place] [address] RAD, ABDOMEN/KUB, 1 VIEW [id number] 23:27:00Reason for exam:->feeding tube placementFINAL REPORT CLINICAL [...] Rosales Verified Date/Time: 10/19/2018 23:27:13 Reading Location: [address] Transitional Reading Room CSF CULTURE + GRAM [id number] 18:01:00 Test Item Value Reference Range Comments CULTURE (BEAKER) (test qehw=6926) No growth GRAM STAIN RESULT (BEAKER) (test No WBCs wiom=7412) GRAM STAIN RESULT (BEAKER) (test No organisms seen kzyu=68814) POCT-GLUCOSE [id number] 17:33:00 Test Item Value Reference Range Comments POC-GLUCOSE METER (BEAKER) 105 mg/dL 70-110 TESTED AT [address] (test hsbw=9693) [place] [address] BLOOD [id number] 17:01:00 Test Item Value Reference Range Comments CULTURE (BEAKER) (test bbem=0988) No growth in 5 days BLOOD [id number] 17:01:00 Test Item Value Reference Range Comments CULTURE (BEAKER) (test wwfw=2899) No growth in 5 days HSV 1/2 PCR, [id number] 13:20:00 Test Item Value Reference Range Comments HSV BY PCR (BEAKER) (test xxbd=614) NEGATIVE NEGATIVE Herpes Simplex Virus (HSV) not [...] and its performance characteristics determined by the [facility] Pathology Department, Section of Molecular Pathology. It has not been cleared or approved by the U.S. Food and Drug Administration (FDA), as FDA approval is not required for clinical use of the test. Validation was done as required by the Clinical Laboratory Amendments of 1988.POCT-GLUCOSE [id number] 12:33:00 Test Item Value Reference Range Comments POC-GLUCOSE METER (BEAKER) 129 mg/dL 70-110 TESTED AT [address] (test ypht=6432) [facility] [address] CBC W/PLT COUNT & AUTO [id number] 08:06:00 Test Item Value Reference Range Comments WHITE BLOOD CELL COUNT (BEAKER) (test tvoz=861) 8.0 K/ L 3.5-10.5 RED BLOOD CELL COUNT (BEAKER) (test prgx=413) 3.72 M/ L 4.63-6.08 HEMOGLOBIN (BEAKER) (test ubym=408) 10.8 GM/DL 13.7-17.5 HEMATOCRIT (BEAKER) (test lxni=118) 32.5 % 40.1-51.0 MEAN CORPUSCULAR VOLUME (BEAKER) (test kudv=965) 87.4 fL 79.0-92.2 MEAN CORPUSCULAR HEMOGLOBIN (BEAKER) (test 29.0 pg 25.7-32.2 pdjx=887) MEAN CORPUSCULAR HEMOGLOBIN CONC (BEAKER) (test 33.2 GM/DL 32.3-36.5 ezgq=739) RED CELL DISTRIBUTION WIDTH (BEAKER) (test 13.9 % 11.6-14.4 lfdc=244) PLATELET COUNT (BEAKER) (test cabe=201) 214 K/CU MM 150-450 MEAN PLATELET VOLUME (BEAKER) (test xgan=100) 10.4 fL 9.4-12.4 NUCLEATED RED BLOOD CELLS (BEAKER) (test 0 /100 WBC 0-0 xwva=795) (CELLAVISION MANUAL DIFF)2018-10-19 08:06:00 Test Item Value Reference Range Comments NEUTROPHILS - REL (CELLAVISION)(BEAKER) (test 70 % xwsf=6147) LYMPHOCYTES - REL (CELLAVISION)(BEAKER) (test 24 % ppaz=1528) MONOCYTES - REL (CELLAVISION)(BEAKER) (test 4 % fkcc=6389) BANDS - REL (CELLAVISION)(BEAKER) (test bsiw=4049) 2 % 0-10 NEUTROPHILS - ABS (CELLAVISION)(BEAKER) (test 5.60 K/ul 1.78-5.38 dtfv=9982) LYMPHOCYTES - ABS (CELLAVISION)(BEAKER) (test 1.92 K/ul 1.32-3.57 gtwp=9416) MONOCYTES - ABS (CELLAVISION)(BEAKER) (test 0.32 K/uL 0.30-0.82 mfvg=7699) BANDS - ABS (CELLAVISION)(BEAKER) (test bjry=6461) 0.16 K/uL 0.00-0.80 TOTAL COUNTED (BEAKER) (test xoxu=2923) 100 RBC MORPHOLOGY (BEAKER) (test qiew=848) Normal SMUDGE CELLS (BEAKER) (test dvvg=3833) Present GIANT PLATELETS (BEAKER) (test ttkp=572) Present ARTIFACT (CELLAVISION)(BEAKER) (test grwg=5324) Present PLATELET CONCENTRATION (CELLAVISION)(BEAKER) (test Adequate lxlo=2756) Received comment: User comments: Slide comments:POCT-GLUCOSE [id number] 06: 21:00 Test Item Value Reference Range Comments POC-GLUCOSE METER (BEAKER) 113 mg/dL 70-110 TESTED AT [address] (test ahkq=7390) [facility] [address] [id number] 04:04:00 Test Item Value Reference Range Comments PHOSPHORUS (BEAKER) (test vela=119) 2.0 mg/dL 2.3-4.7 [id number] 04:04:00 Test Item Value Reference Range Comments MAGNESIUM (BEAKER) (test fogu=302) 2.1 mg/dL 1.6-2.6 BASIC METABOLIC [id number] 04:04:00 Test Item Value Reference Range Comments SODIUM (BEAKER) (test 143 meq/L 136-145 oaha=577) POTASSIUM (BEAKER) (test 3.2 meq/L 3.5-5.1 mugc=761) CHLORIDE (BEAKER) (test 112 meq/L 98-107 kwcj=024) CO2 (BEAKER) (test 26 meq/L 22-29 eypq=197) BLOOD UREA NITROGEN 9 mg/dL 7-21 (BEAKER) (test yxxc=112) CREATININE (BEAKER) (test 0.75 mg/dL 0.57-1.25 xlnm=241) GLUCOSE RANDOM (BEAKER) 119 mg/dL 70-105 (test vxkx=352) CALCIUM (BEAKER) (test 8.2 mg/dL 8.4-10.2 mhvj=883) EGFR (BEAKER) (test 109 mL/min/1.73 sq m ESTIMATED GFR IS NOT fiml=8831) ACCURATE CREATININE CLEARANCE IN PREDICTING GLOMERULAR FILTRATION RATE. ESTIMATED GFR IS NOT APPLICABLE FOR DIALYSIS PATIENTS. POCT-GLUCOSE [id number] 23:53:00 Test Item Value Reference Range Comments POC-GLUCOSE METER (BEAKER) 122 mg/dL 70-110 TESTED AT [address] (test iuwl=8937) [facility] [address] POCT-GLUCOSE [id number] 18:17:00 Test Item Value Reference Range Comments POC-GLUCOSE METER (BEAKER) 110 mg/dL 70-110 TESTED AT [address] (test qdsr=8460) [facility] [address] POCT-GLUCOSE [id number] 12:36:00 Test Item Value Reference Range Comments POC-GLUCOSE METER (BEAKER) 80 mg/dL 70-110 TESTED AT [address] (test xozp=6871) [facility] [address] CBC W/PLT COUNT & AUTO [id number] 10:31:00 Test Item Value Reference Range Comments WHITE BLOOD CELL COUNT (BEAKER) (test ajiv=866) 7.4 K/ L 3.5-10.5 RED BLOOD CELL COUNT (BEAKER) (test beuu=214) 3.73 M/ L 4.63-6.08 HEMOGLOBIN (BEAKER) (test nqfw=435) 10.9 GM/DL 13.7-17.5 HEMATOCRIT (BEAKER) (test ujop=271) 32.8 % 40.1-51.0 MEAN CORPUSCULAR VOLUME (BEAKER) (test lfcy=908) 87.9 fL 79.0-92.2 MEAN CORPUSCULAR HEMOGLOBIN (BEAKER) (test 29.2 pg 25.7-32.2 kwjf=426) MEAN CORPUSCULAR HEMOGLOBIN CONC (BEAKER) (test 33.2 GM/DL 32.3-36.5 ljxp=876) RED CELL DISTRIBUTION WIDTH (BEAKER) (test 14.1 % 11.6-14.4 zkcl=220) PLATELET COUNT (BEAKER) (test gzgx=832) 192 K/CU MM 150-450 MEAN PLATELET VOLUME (BEAKER) (test voon=397) 11.0 fL 9.4-12.4 NUCLEATED RED BLOOD CELLS (BEAKER) (test 0 /100 WBC 0-0 gjjl=493) (CELLAVISION MANUAL DIFF)[id number] 10:31:00 Test Item Value Reference Range Comments NEUTROPHILS - REL (CELLAVISION)(BEAKER) (test 74 % ikrf=3453) LYMPHOCYTES - REL (CELLAVISION)(BEAKER) (test 19 % rvbo=7161) MONOCYTES - REL (CELLAVISION)(BEAKER) (test 3 % ncih=3790) EOSINOPHILS - REL (CELLAVISION)(BEAKER) (test 1 % htzc=8230) BANDS - REL (CELLAVISION)(BEAKER) (test skdo=2624) 2 % 0-10 ATYPICAL LYMPHOCYTES - REL (CELLAVISION)(BEAKER) 1 % 0-0 (test kfwm=8792) NEUTROPHILS - ABS (CELLAVISION)(BEAKER) (test 5.48 K/ul 1.78-5.38 fgri=4210) LYMPHOCYTES - ABS (CELLAVISION)(BEAKER) (test 1.41 K/ul 1.32-3.57 oeaa=0795) MONOCYTES - ABS (CELLAVISION)(BEAKER) (test 0.22 K/uL 0.30-0.82 yspy=7074) EOSINOPHILS - ABS (CELLAVISION)(BEAKER) (test 0.07 K/uL 0.04-0.54 gsdl=9623) BANDS - ABS (CELLAVISION)(BEAKER) (test tudr=1793) 0.15 K/uL 0.00-0.80 ATYPICAL LYMPHOCYTES - ABS (CELLAVISION)(BEAKER) 0.07 K/uL 0.00-0.00 (test jbmc=1229) TOTAL COUNTED (BEAKER) (test xjts=4379) 100 RBC MORPHOLOGY (BEAKER) (test twdy=769) Normal WBC MORPHOLOGY (BEAKER) (test tsoq=498) Normal PLT MORPHOLOGY (BEAKER) (test hdnz=927) Normal ARTIFACT (CELLAVISION)(BEAKER) (test zgxc=1008) Present PLATELET CONCENTRATION (CELLAVISION)(BEAKER) (test Adequate fcql=6296) Received comment: User comments: Slide comments:POCT-GLUCOSE [id number] 06: 27:00 Test Item Value Reference Range Comments POC-GLUCOSE METER (BEAKER) 96 mg/dL 70-110 TESTED AT [facility] [address] [facility] (test jvus=3464) [facility] [address] [id number] 05:32:00 Test Item Value Reference Range Comments PHOSPHORUS (BEAKER) (test dobl=287) 2.8 mg/dL 2.3-4.7 [id number] 05:32:00 Test Item Value Reference Range Comments MAGNESIUM (BEAKER) (test jxki=428) 1.9 mg/dL 1.6-2.6 BASIC METABOLIC [id number] 05:32:00 Test Item Value Reference Range Comments SODIUM (BEAKER) (test 147 meq/L 136-145 zqnj=038) POTASSIUM (BEAKER) (test 3.2 meq/L 3.5-5.1 naku=221) CHLORIDE (BEAKER) (test 114 meq/L 98-107 lwgj=542) CO2 (BEAKER) (test 23 meq/L 22-29 jacp=452) BLOOD UREA NITROGEN 11 mg/dL 7-21 (BEAKER) (test uyso=654) CREATININE (BEAKER) (test 0.75 mg/dL 0.57-1.25 mebc=149) GLUCOSE RANDOM (BEAKER) 80 mg/dL 70-105 (test gmgs=000) CALCIUM (BEAKER) (test 8.2 mg/dL 8.4-10.2 trcy=797) EGFR (BEAKER) (test 109 mL/min/1.73 sq m ESTIMATED GFR IS NOT zroi=0138) ACCURATE CREATININE CLEARANCE IN PREDICTING GLOMERULAR FILTRATION RATE. ESTIMATED GFR IS NOT APPLICABLE FOR DIALYSIS PATIENTS. BLOOD GAS, [id number] 05:08:00 Test Item Value Reference Range Comments PH ARTERIAL (BEAKER) (test gxty=171) 7.46 7.35-7.45 PCO2 ARTERIAL (BEAKER) (test iwob=925) 30 mmHg 35-45 PO2 ARTERIAL (BEAKER) (test lqlg=186) 91 mmHg 80-90 O2 SATURATION ARTERIAL (BEAKER) (test webd=212) 97.3 % 96.0-97.0 HCO3 ARTERIAL (BEAKER) (test hzme=360) 21 mmol/L 21-29 BASE EXCESS ARTERIAL (BEAKER) (test bbvf=646) -1.9 mmol/L -2.0-3.0 PATIENT TEMPERATURE (BEAKER) (test ebjy=0307) 37.5 C FIO2 (BEAKER) (test wdtm=0626) 35.0 % POCT-GLUCOSE [id number] 00:02:00 Test Item Value Reference Range Comments POC-GLUCOSE METER (BEAKER) 98 mg/dL 70-110 TESTED AT [address] (test yzhd=6788) [facility] [address] VANCOMYCIN LEVEL, [id number] 19:23:00 Test Item Value Reference Range Comments VANCOMYCIN TROUGH (BEAKER) (test rbfr=782) 17.8 ug/mL 10.0-20.0 POCT-GLUCOSE [id number] 18:19:00 Test Item Value Reference Range Comments POC-GLUCOSE METER (BEAKER) 101 mg/dL 70-110 TESTED AT [address] (test uzpm=3227) [place] [address] [id number] 17:29:00 Test Item Value Reference Range Comments POTASSIUM (BEAKER) (test ahmn=636) 3.4 meq/L 3.5-5.1 Check Serum Phosphorus level 4 hours after IV phosphorus replacement or 8 hours after PO replacementcompleted.Check Serum Potassium level 2 hours after oral potassium replacement completed or 30 min after intravenous potassium replacement.[id number] 17:29:00 Test Item Value Reference Range Comments PHOSPHORUS (BEAKER) (test xcds=660) 1.9 mg/dL 2.3-4.7 Check Serum Phosphorus level 4 hours after IV phosphorus replacement or 8 hours after PO replacementcompleted.Check Serum Potassium level 2 hours after oral potassium replacement completed or 30 min after intravenous potassium replacement.[id number] 13:55:00 Test Item Value Reference Range Comments POTASSIUM (BEAKER) (test iqus=355) 3.4 meq/L 3.5-5.1 POCT-GLUCOSE [id number] 13:13:00 Test Item Value Reference Range Comments POC-GLUCOSE METER (BEAKER) 95 mg/dL 70-110 TESTED AT [address] (test lnjy=8248) [place] [address] SPUTUM CULTURE + GRAM [id number] 11:07:00 Test Item Value Reference Range Comments CULTURE (BEAKER) (test STAPHYLOCOCCUS AUREUS 1+ Staphylococcus bvrg=5220) aureus Clindamycin (test code=10) Erythromycin (test code=4) Linezolid (test code=40) Nitrofurantoin (test code=23) Oxacillin (test code=14) Rifampin (test code=43) Tetracycline (test code=2) Trimethoprim + Sulfamethoxazole (test code=47) Vancomycin (test code=13) GRAM STAIN RESULT 4+ WBCs (BEAKER) (test bvwh=8071) GRAM STAIN RESULT 0-5 epithelial cells (BEAKER) (test ghvd=111084) GRAM STAIN RESULT 2+ gram positive cocci (BEAKER) (test in chains and pairs taje=270448) 4+ normal respiratory romelia presentPOCT-GLUCOSE [id number] 06:37:00 Test Item Value Reference Range Comments POC-GLUCOSE METER (BEAKER) 105 mg/dL 70-110 TESTED AT [facility] [address] (test aiov=0838) [facility] [address] RAD, CHEST, 1 VIEW, NON [id number] 03:39:00Reason for exam:-> intubatedShould this be performed [...] Verified Date /Time: 10/17/2018 03:39:58 Reading Location: [address] Reading Room BLOOD GAS, [id number] 03:37:00 Test Item Value Reference Range Comments PH ARTERIAL (BEAKER) (test bcel=412) 7.46 7.35-7.45 PCO2 ARTERIAL (BEAKER) (test vepl=857) 33 mmHg 35-45 PO2 ARTERIAL (BEAKER) (test vitv=936) 156 mmHg 80-90 O2 SATURATION ARTERIAL (BEAKER) (test obbx=199) 99.1 % 96.0-97.0 HCO3 ARTERIAL (BEAKER) (test yduq=783) 23 mmol/L 21-29 BASE EXCESS ARTERIAL (BEAKER) (test fhcs=766) -0.5 mmol/L -2.0-3.0 PATIENT TEMPERATURE (BEAKER) (test hxyw=6386) 37.0 C FIO2 (BEAKER) (test wvgd=8820) 35.0 % [id number] 03:22:00 Test Item Value Reference Range Comments PHOSPHORUS (BEAKER) (test cvhg=513) 0.8 mg/dL 2.3-4.7 BASIC METABOLIC [id number] 03:20:00 Test Item Value Reference Range Comments SODIUM (BEAKER) (test 144 meq/L 136-145 fril=645) POTASSIUM (BEAKER) (test 3.4 meq/L 3.5-5.1 auxk=814) CHLORIDE (BEAKER) (test 117 meq/L 98-107 uleo=673) CO2 (BEAKER) (test 20 meq/L 22-29 kohu=312) BLOOD UREA NITROGEN 11 mg/dL 7-21 (BEAKER) (test oyrk=191) CREATININE (BEAKER) (test 0.84 mg/dL 0.57-1.25 sdfw=005) GLUCOSE RANDOM (BEAKER) 112 mg/dL 70-105 (test bgjs=648) CALCIUM (BEAKER) (test 7.8 mg/dL 8.4-10.2 sgfe=537) EGFR (BEAKER) (test 96 mL/min/1.73 sq m ESTIMATED GFR IS NOT dfom=1542) ACCURATE CREATININE CLEARANCE IN PREDICTING GLOMERULAR FILTRATION RATE. ESTIMATED GFR IS NOT APPLICABLE FOR DIALYSIS PATIENTS. [id number] 03:18:00 Test Item Value Reference Range Comments MAGNESIUM (BEAKER) (test eegp=266) 1.8 mg/dL 1.6-2.6 CBC W/PLT COUNT & AUTO [id number] 03:02:00 Test Item Value Reference Range Comments WHITE BLOOD CELL COUNT (BEAKER) (test osdw=033) 7.7 K/ L 3.5-10.5 RED BLOOD CELL COUNT (BEAKER) (test isyc=066) 3.40 M/ L 4.63-6.08 HEMOGLOBIN (BEAKER) (test gnqd=604) 10.1 GM/DL 13.7-17.5 HEMATOCRIT (BEAKER) (test jawi=471) 30.1 % 40.1-51.0 MEAN CORPUSCULAR VOLUME (BEAKER) (test ibku=636) 88.5 fL 79.0-92.2 MEAN CORPUSCULAR HEMOGLOBIN (BEAKER) (test 29.7 pg 25.7-32.2 xfwb=271) MEAN CORPUSCULAR HEMOGLOBIN CONC (BEAKER) (test 33.6 GM/DL 32.3-36.5 iuae=613) RED CELL DISTRIBUTION WIDTH (BEAKER) (test 14.0 % 11.6-14.4 muqj=968) PLATELET COUNT (BEAKER) (test rxxg=380) 161 K/CU MM 150-450 MEAN PLATELET VOLUME (BEAKER) (test fmrz=500) 11.0 fL 9.4-12.4 NUCLEATED RED BLOOD CELLS (BEAKER) (test 0 /100 WBC 0-0 nyrx=344) NEUTROPHILS RELATIVE PERCENT (BEAKER) (test 79 % kovh=025) LYMPHOCYTES RELATIVE PERCENT (BEAKER) (test 12 % xjso=214) MONOCYTES RELATIVE PERCENT (BEAKER) (test 8 % qboo=350) EOSINOPHILS RELATIVE PERCENT (BEAKER) (test 0 % mlmm=194) BASOPHILS RELATIVE PERCENT (BEAKER) (test 0 % xyfg=170) NEUTROPHILS ABSOLUTE COUNT (BEAKER) (test 6.07 K/ L 1.78-5.38 egvt=981) LYMPHOCYTES ABSOLUTE COUNT (BEAKER) (test 0.94 K/ L 1.32-3.57 tqsx=352) MONOCYTES ABSOLUTE COUNT (BEAKER) (test 0.60 K/ L 0.30-0.82 ntgw=571) EOSINOPHILS ABSOLUTE COUNT (BEAKER) (test 0.01 K/ L 0.04-0.54 jdva=470) BASOPHILS ABSOLUTE COUNT (BEAKER) (test 0.02 K/ L 0.01-0.08 xdbh=014) IMMATURE GRANULOCYTES-RELATIVE PERCENT (BEAKER) 1 % 0-1 (test mfyv=6474) POCT-GLUCOSE [id number] 23:37:00 Test Item Value Reference Range Comments POC-GLUCOSE METER (BEAKER) 106 mg/dL 70-110 TESTED AT [facility] [address] [facility] (test yhtu=2353) [facility] [address] RAD, ABDOMEN/KUB, 1 VIEW [id number] 22:14:00Reason for exam:->Confirm corpak placementShould this be [...] MDReport Verified Date/Time: 10/16/2018 22:14:17 Reading Location: [facility] C0[facility] CT Body Reading Room [id number] 21:14:00 Test Item Value Reference Range Comments POTASSIUM (BEAKER) (test efuw=566) 3.5 meq/L 3.5-5.1 [id number] 19:12:00 Test Item Value Reference Range Comments PROCALCITONIN (BEAKER) (test rjss=1811) 0.99 ng/mL <0.05 SEPSIS RISK (ng/mL)Low: 0.05-0.50Intermediate: 0.51-2.00High: & gt;=2.01POCT-GLUCOSE [id number] 18:15:00 Test Item Value Reference Range Comments POC-GLUCOSE METER (BEAKER) 124 mg/dL 70-110 TESTED AT [facility] [address] [facility] (test aqvj=4973) [facility] [address] CSF CELL COUNT [id number] 15:55:00 Test Item Value Reference Range Comments APPEARANCE CSF (BEAKER) (test rxvt=571) Clear Clear COLOR CSF (BEAKER) (test aqbz=263) Colorless Colorless RBC CSF (BEAKER) (test vpig=067) 190 /cu mm 0-5 WBC CSF (BEAKER) (test yxzo=9276) 1 /cu mm <=5 RBCS FRESH (BEAKER) (test zvlc=4338) 100% Fresh NUMBER OF CELLS DIFF'D (BEAKER) (test efak=3278) 50 NEUTROPHIL, CSF (BEAKER) (test njso=977) 6 % 0-5 LYMPHS CSF (BEAKER) (test lxxj=674) 78 % 40-80 MONO/MACROPHAGE CSF (BEAKER) (test fjyd=332) 16 % 15-45 EOSINOPHILS CSF (BEAKER) (test ketv=242) 0 % <=0 BASO CSF (BEAKER) (test mhir=897) 0 % <=0 TUBE NUMBER CSF (BEAKER) (test tjkd=2759) 2 GLUCOSE, [id number] 15:37:00 Test Item Value Reference Range Comments GLUCOSE CSF (BEAKER) (test ajcq=425) 75 mg/dL 40-70 Save tube for future studies if neededSave tubes for further studies if neededPROTEIN, [id number] 15:37:00 Test Item Value Reference Range Comments PROTEIN CSF (BEAKER) (test qezp=523) 41 mg/dL 15-45 Save tube for future studies if neededSave tubes for further studies if neededPOCT-GLUCOSE [id number] 12:32:00 Test Item Value Reference Range Comments POC-GLUCOSE METER (BEAKER) 118 mg/dL 70-110 TESTED AT [facility] [address] (test bxhe=9988) [facility] [address] RAD, CHEST, 1 VIEW, NON [id number] 12:07:00Reason for exam:->ETT positionShould this be performed [...] Radiology Reading Room MR, BRAIN , WITHOUT [id number] 11:28:00FINAL REPORT MRI Brain without contrast Clinical [...] Verified Date/Time: 10/16/2018 11:28: 39 Reading Location: [facility] C0[facility] Neuro Reading Room URINE [id number] 09:42:00 Test Item Value Reference Range Comments CULTURE (BEAKER) (test kfls=4456) No growth POCT-GLUCOSE [id number] 06:44:00 Test Item Value Reference Range Comments POC-GLUCOSE METER (BEAKER) 128 mg/dL 70-110 TESTED AT [facility] [address] [facility] (test qzeq=4913) [facility] [address] BASIC METABOLIC [id number] 06:11:00 Test Item Value Reference Range Comments SODIUM (BEAKER) (test 145 meq/L 136-145 cwhc=101) POTASSIUM (BEAKER) (test 3.3 meq/L 3.5-5.1 oemb=734) CHLORIDE (BEAKER) (test 116 meq/L 98-107 wcdc=243) CO2 (BEAKER) (test 22 meq/L 22-29 qmlu=292) BLOOD UREA NITROGEN 13 mg/dL 7-21 (BEAKER) (test iupp=083) CREATININE (BEAKER) (test 1.02 mg/dL 0.57-1.25 uvkw=545) GLUCOSE RANDOM (BEAKER) 114 mg/dL 70-105 (test syqr=008) CALCIUM (BEAKER) (test 8.4 mg/dL 8.4-10.2 viqm=900) EGFR (BEAKER) (test 76 mL/min/1.73 sq m ESTIMATED GFR IS NOT edgx=0495) ACCURATE CREATININE CLEARANCE IN PREDICTING GLOMERULAR FILTRATION RATE. ESTIMATED GFR IS NOT APPLICABLE FOR DIALYSIS PATIENTS. LACTIC ACID, VENOUS, WHOLE [id number] 06:11:00 Test Item Value Reference Range Comments LACTATE BLOOD VENOUS (2) 1.3 mmol/L 0.5-2.2 Specimen slightly hemolyzed (BEAKER) (test pbxp=1243) VANCOMYCIN LEVEL, [id number] 06:10:00 Test Item Value Reference Range Comments VANCOMYCIN TROUGH (BEAKER) (test cszw=365) 16.7 ug/mL 10.0-20.0 Draw 30 min prior to scheduled dose, HOLD if level > 20 mcg/mL, inform MD.CBC W/PLT COUNT & AUTO [id number] 06:09:00 Test Item Value Reference Range Comments WHITE BLOOD CELL COUNT (BEAKER) (test nqya=064) 15.0 K/ L 3.5-10.5 RED BLOOD CELL COUNT (BEAKER) (test tuxh=854) 3.72 M/ L 4.63-6.08 HEMOGLOBIN (BEAKER) (test gwrb=427) 10.9 GM/DL 13.7-17.5 HEMATOCRIT (BEAKER) (test soyv=461) 32.7 % 40.1-51.0 MEAN CORPUSCULAR VOLUME (BEAKER) (test vtoi=690) 87.9 fL 79.0-92.2 MEAN CORPUSCULAR HEMOGLOBIN (BEAKER) (test 29.3 pg 25.7-32.2 avfu=286) MEAN CORPUSCULAR HEMOGLOBIN CONC (BEAKER) (test 33.3 GM/DL 32.3-36.5 hdwi=553) RED CELL DISTRIBUTION WIDTH (BEAKER) (test 13.6 % 11.6-14.4 ujxw=692) PLATELET COUNT (BEAKER) (test urgc=595) 187 K/CU MM 150-450 MEAN PLATELET VOLUME (BEAKER) (test qnak=692) 11.6 fL 9.4-12.4 NUCLEATED RED BLOOD CELLS (BEAKER) (test 0 /100 WBC 0-0 rnvx=810) NEUTROPHILS RELATIVE PERCENT (BEAKER) (test 88 % imbz=913) LYMPHOCYTES RELATIVE PERCENT (BEAKER) (test 7 % ktlb=946) MONOCYTES RELATIVE PERCENT (BEAKER) (test 5 % nkgx=608) EOSINOPHILS RELATIVE PERCENT (BEAKER) (test 0 % iguq=517) BASOPHILS RELATIVE PERCENT (BEAKER) (test 0 % oqif=400) NEUTROPHILS ABSOLUTE COUNT (BEAKER) (test 13.13 K/ L 1.78-5.38 gjcj=331) LYMPHOCYTES ABSOLUTE COUNT (BEAKER) (test 1.04 K/ L 1.32-3.57 soqj=890) MONOCYTES ABSOLUTE COUNT (BEAKER) (test 0.69 K/ L 0.30-0.82 juld=232) EOSINOPHILS ABSOLUTE COUNT (BEAKER) (test 0.00 K/ L 0.04-0.54 skal=167) BASOPHILS ABSOLUTE COUNT (BEAKER) (test 0.03 K/ L 0.01-0.08 kkye=693) IMMATURE GRANULOCYTES-RELATIVE PERCENT (BEAKER) 1 % 0-1 (test nvyy=0458) BLOOD GAS, [id number] 05:49:00 Test Item Value Reference Range Comments PH ARTERIAL (BEAKER) (test wsch=576) 7.41 7.35-7.45 PCO2 ARTERIAL (BEAKER) (test vspd=834) 37 mmHg 35-45 PO2 ARTERIAL (BEAKER) (test uuat=100) 68 mmHg 80-90 O2 SATURATION ARTERIAL (BEAKER) (test dxoo=466) 93.4 % 96.0-97.0 HCO3 ARTERIAL (BEAKER) (test lnrj=546) 23 mmol/L 21-29 BASE EXCESS ARTERIAL (BEAKER) (test rwhl=651) -1.2 mmol/L -2.0-3.0 PATIENT TEMPERATURE (BEAKER) (test gvja=9900) 37.5 C FIO2 (BEAKER) (test wmrb=8419) 40.0 % RAD, CHEST, 1 VIEW, NON [id number] 03:52:00Reason for exam:-> intubatedShould this be performed [...] MDRfreemanort Verified Date/Time: 10/16/2018 03:52:10 Reading Location: [facility] B1 C013Y CT Body Reading Room POCT-GLUCOSE [id number] 02:45:00 Test Item Value Reference Range Comments POC-GLUCOSE METER (BEAKER) 115 mg/dL 70-110 TESTED AT [address] (test hsel=8475) [place] [address] RAD, CHEST, 1 VIEW, NON [id number] 20:47:00Reason for exam:->check picc placement Should this [...] [facility] Radiology Reading Room POCT-GLUCOSE [id number] 17:50:00 Test Item Value Reference Range Comments POC-GLUCOSE METER (BEAKER) 141 mg/dL 70-110 TESTED AT [address] (test mpnx=2554) [place] [address] BASIC METABOLIC [id number] 17:22:00 Test Item Value Reference Range Comments SODIUM (BEAKER) (test 143 meq/L 136-145 hcoz=849) POTASSIUM (BEAKER) (test 3.3 meq/L 3.5-5.1 fzmb=163) CHLORIDE (BEAKER) (test 115 meq/L 98-107 kpim=228) CO2 (BEAKER) (test 22 meq/L 22-29 ezeq=739) BLOOD UREA NITROGEN 15 mg/dL 7-21 (BEAKER) (test roiv=657) CREATININE (BEAKER) (test 1.17 mg/dL 0.57-1.25 gqiq=735) GLUCOSE RANDOM (BEAKER) 138 mg/dL 70-105 (test ehqj=844) CALCIUM (BEAKER) (test 8.2 mg/dL 8.4-10.2 vzsu=387) EGFR (BEAKER) (test 65 mL/min/1.73 sq m ESTIMATED GFR IS NOT ugcr=1621) ACCURATE CREATININE CLEARANCE IN PREDICTING GLOMERULAR FILTRATION RATE. ESTIMATED GFR IS NOT APPLICABLE FOR DIALYSIS PATIENTS. CORTISOL,60 [id number] 16:54:00 Test Item Value Reference Range Comments CORTISOL BASELINE NETWORKED (BEAKER) (test 16.3 mcg/dL nbyj=8347) CORTISOL 30 MINUTE NETWORKED (BEAKER) (test 24.1 mcg/dL breb=4318) CORTISOL, 60 MINUTE (BEAKER) (test swwf=2120) 29.7 ug/dL ACTH STIMULATION TEST INTERPRETATION GUIDELINES(Synonyms: [...] study by Peng et al (RONI 2000,283( 8):7635-45), the ACTH Stimulation Test provides important prognostic [...] serum cortisollevel 60 minutes after cosyntropin administration.CORTISOL,30 [id number] 16:07:00 Test Item Value Reference Range Comments CORTISOL BASELINE NETWORKED (BEAKER) (test 16.3 mcg/dL ksjd=3937) CORTISOL, 30 MINUTE (BEAKER) (test cyyx=3940) 24.1 ug/dL ACTH STIMULATION TEST INTERPRETATION GUIDELINES(Synonyms: [...] Draw serum cortisollevel 60 minutes after cosyntropin administration.CORTISOL,[id number] 15:25:00 Test Item Value Reference Range Comments CORTISOL, BASELINE (MISSY) (test pxvd=2480) 16.3 ug/dL ACTH STIMULATION TEST INTERPRETATION GUIDELINES(Synonyms: [...] cortisollevel 60 minutes after cosyntropin administration.BASIC METABOLIC [id number] 15:04:00 Test Item Value Reference Range Comments SODIUM (BEAKER) (test 144 meq/L 136-145 dlaf=671) POTASSIUM (BEAKER) (test 3.2 meq/L 3.5-5.1 aoyk=376) CHLORIDE (BEAKER) (test 115 meq/L 98-107 dydj=589) CO2 (BEAKER) (test 22 meq/L 22-29 cvtf=285) BLOOD UREA NITROGEN 16 mg/dL 7-21 (BEAKER) (test suqt=404) CREATININE (BEAKER) (test 1.22 mg/dL 0.57-1.25 jdij=208) GLUCOSE RANDOM (BEAKER) 144 mg/dL 70-105 (test hnon=612) CALCIUM (BEAKER) (test 8.0 mg/dL 8.4-10.2 iuex=177) EGFR (BEAKER) (test mL/min/1.73 sq m INSUFFICIENT CLINICAL DATA avaq=2771) TO CALCULATE ESTIMATED GFR. EEG MONITORING WITH VIDEO RECORDING EACH 24 [id number] 14:33:00For STAT EEG - after 5 PM weekdays, weekends and holidays, page the on-call knockdown man Reason for exam:->concern for seizuresDATE OF REPORT: 10/15/2018 ACC: [id number]: [id number] time: 17:48 on 10/14/18top time: 09:44 on10/15/18ICD-10: R56.9 CPT Code: 70252 HISTORY: 52 y/o male with DM, HTN, [...] Kristel Boyd MDNeurophysiology Fellow Felice Pinedo M.D., [facility] Professor of Neurology [facility] [employer] Director, [facility] Head, [facility] Neurophysiology Lab RAD, PELVIS, 1 OR 2 [id number] 14:11:00Reason for exam:->MRI clearanceShould this be performed [...] MDReport Verified Date/Time: 2017 14:11:06 Reading Location: [facility] C013W Consult Reading Room RAD, SKULL, LESS THAN 4 [id number] 14:08:00Reason for exam:->MRI clearanceShould this be performed [...] MDReport Verified Date/Time: 10/15/2018 14:08:11 Reading Location: [address] Consult Reading Room RAD, ABDOMEN/KUB, 1 VIEW [id number] 14:05:00Reason for exam:->clear for MRIShould this be [...] Verified Date/Time: 10/15/2018 14:05: 30 Reading Location: [address] Consult Reading Room TROPONIN [id number] 13:07:00 Test Item Value Reference Range Comments TROPONIN I (BEAKER) (test fpqf=328) 0.05 ng/mL 0.00-0.03 POCT-GLUCOSE [id number] 12:51:00 Test Item Value Reference Range Comments POC-GLUCOSE METER (BEAKER) 166 mg/dL 70-110 TESTED AT [facility] [address] [place] [address] (test gitx=6625) [facility] [address] U/S, RENAL, [id number] 12:22:00Reason for exam:->alayna, UTI, sepsisShould this be [...] Verified Date/Time: 10/15/2018 12: 22:41 Reading Location: [address] Ultrasound Reading Room RESPIRATORY PANEL [id number] 12:09:00 Test Item Value Reference Range Comments HUMAN METAPNEUMOVIRUS Not detected Not detected, (BEAKER) (test whbj=3568) Equivocal RHINOVIRUS (BEAKER) (test Not detected Not detected, rxih=8613) Equivocal INFLUENZA A (BEAKER) (test Not detected Not detected, ahxh=6401) Equivocal INFLUENZA A (NO SUBTYPE) Not detected, (test iehp=8502) Equivocal INFLUENZA A SUBTYPE H1 Not detected, (BEAKER) (test xguz=9224) Equivocal INFLUENZA A SUBTYPE H3 Not detected, (BEAKER) (test etpw=4024) Equivocal INFLUENZA A SUBTYPE Not detected, H1-2009 (BEAKER) (test Equivocal mdrz=8484) INFLUENZA B (BEAKER) (test Not detected Not detected, euuj=0867) Equivocal RESPIRATORY SYNCYTIAL Detected Not detected, Assay is not able VIRUS (BEAKER) (test Equivocal differentiate between RSV atsl=5975) A and RSV B.Contact isolation if immunosuppressed or young children. Consider stopping antibiotics. PARAINFLUENZA VIRUS 1 Not detected Not detected, (BEAKER) (test dqik=8329) Equivocal PARAINFLUENZA VIRUS 2 Not detected Not detected, (BEAKER) (test buwg=0628) Equivocal PARAINFLUENZA VIRUS 3 Not detected Not detected, (BEAKER) (test aqms=4647) Equivocal PARAINFLUENZA VIRUS 4 Not detected Not detected, (BEAKER) (test fagm=6516) Equivocal ADENOVIRUS (BEAKER) (test Not detected Not detected, hgek=1129) Equivocal CORONAVIRUS 229E (BEAKER) Not detected Not detected, (test jrll=0876) Equivocal CORONAVIRUS HKU1 (BEAKER) Not detected Not detected, (test ahlg=1461) Equivocal CORONAVIRUS NL63 (BEAKER) Not detected Not detected, (test nynu=1792) Equivocal CORONAVIRUS OC43 (BEAKER) Not detected Not detected, (test poec=2507) Equivocal BORDETELLA PERTUSSIS Not detected Not detected, (BEAKER) (test oijp=0369) Equivocal CHLAMYDOPHILA PNEUMONIAE Not detected Not detected, (BEAKER) (test wgvm=1161) Equivocal MYCOPLASMA PNEUMONIAE Not detected Not detected, (BEAKER) (test yzdz=5310) Equivocal Other viruses and bacteria not targeted by this PCR panel cannot be excluded; therefore clinical correlation and follow up of serology, culture results, and other molecular studies is required. The results are not intended to be used as the sole means for clinical diagnosis or patient management decisions. This sample was tested at the [facility] Molecular Diagnostics Laboratory using the [employer] Respiratory Panel. It is FDA cleared and has been verified and approved by the [facility] for clinical use on nasal swab specimens. It is not FDA-cleared for use on bronchial wash/lavage samples. However, for this sample type, validation was performed and test characteristics were determined and approved, by [facility] [employer] [facility] laboratory for clinical use under the Clinical Laboratory Improvement Amendments (CLIA) of 1988 requirements. Therefore, FDA clearance isnot required. This laboratory is CLIA-certified and [employer] [place] [employer] (CAP)-accredited to perform high complexity testing.CREATINE KINASE (CK)2018-10-15 09:33:00 Test Item Value Reference Range Comments CREATINE KINASE TOTAL (BEAKER) (test wniv=579) 1362 U/L 29-200 BLOOD GAS, [id number] 09:14:00 Test Item Value Reference Range Comments PH VENOUS (BEAKER) (test dnua=059) 7.39 7.32-7.42 PCO2 VENOUS (BEAKER) (test ymiq=912) 36 mmHg 41-51 PO2 VENOUS (BEAKER) (test bhzu=531) 66 mmHg 25-40 O2 SATURATION VENOUS (BEAKER) (test hsyj=988) 93.1 % 40.0-70.0 HCO3 VENOUS (BEAKER) (test ryth=306) 21 mmol/L 21-29 BASE EXCESS VENOUS (BEAKER) (test zcci=538) -3.3 mmol/L -2.0-3.0 PATIENT TEMPERATURE (BEAKER) (test kolo=1628) 37.0 C FIO2 (BEAKER) (test gxdo=7909) 21.0 % RAPID DRUG SCREEN, [id number] 08:24:00 Test Item Value Reference Range Comments BARBITURATE URINE (BEAKER) (test vmzd=731) Negative Negative BENZODIAZEPINE SCREEN URINE (BEAKER) (test Positive Negative dzio=652) COCAINE (METAB.) SCREEN (BEAKER) (test xqsl=9573) Negative Negative METHADONE SCREEN (BEAKER) (test thur=5606) Negative Negative OPIATE SCREEN URINE (BEAKER) (test mypg=991) Negative Negative CANNABINOID SCREEN URINE (BEAKER) (test ogbg=285) Negative Negative AMPH/METHAMPH SCREEN (BEAKER) (test pkuy=3645) Negative Negative PHENCYCLIDINE SCREEN URINE (BEAKER) (test kfax=461) Negative Negative OXYCODONE SCREEN URINE (BEAKER) (test xjqb=2619) Negative Negative DRUG CUTOFF CONC.Cocaine 300 ng/mL Cannabinoid 50 ng/mL Benzodiazepine 200 ng/mLBarbiturate 200 ng/ mLPhencyclidine 25 ng/mLOpiate 300 ng/mLMethadone 300 ng/mLAmphetamine/ 1000 ng/mL MethamphetamineOxycodone 300 ng/mLThis assay provides an unconfirmed qualitative test result for the clinical management of patients in emergency situations. Chain of custody not maintained. Some vkkv-opu-vnybiin medications, as well as adulterants, may cause inaccurate results. Clinical correlation should be applied. A more comprehensive drug screen or confirmation of a detected drug may be performed upon request.RAD, CHEST, 1 VIEW, NON [id number] 06:31:00Reason for exam:-&gt ;intubatedShould this be performed [...] Verified Date/Time : 10/15/2018 06:31:32 Reading Location: [facility] C013Y CT Body Reading Room LEGIONELLA ANTIGEN, [id number] 05:37:00 Test Item Value Reference Range Comments L. PNEUMOPHILA SEROGP 1 Negative - see Negative for L. UR AG (BEAKER) (test comment pneumophila serogroup 1 flux=8884) antigen, suggesting no recent or current infection with this serogroup. Legionellosis cannot be ruled out since other serogroups and species may cause disease. STREP PNEUMONIAE [id number] 05:36:00 Test Item Value Reference Range Comments STREP PNEUMONIAE ANTIGEN Presumptive negative for Presumptive negative for (BEAKER) (test pneumococcal pneumonia - pneumococcal pneumonia - rzpk=6752) see comment see commen Presumptive negative for pneumococcal pneumonia, suggesting no current or recent pneumococcal infection. Infection due to S. pneumoniae cannot be ruled out since the antigen present in the sample may be below the detection limit of the test.BLOOD GAS, [id number] 05:18:00 Test Item Value Reference Range Comments PH ARTERIAL (BEAKER) (test cwgc=930) 7.41 7.35-7.45 PCO2 ARTERIAL (BEAKER) (test dhoh=484) 36 mmHg 35-45 PO2 ARTERIAL (BEAKER) (test vljt=398) 114 mmHg 80-90 O2 SATURATION ARTERIAL (BEAKER) (test cnih=915) 98.1 % 96.0-97.0 HCO3 ARTERIAL (BEAKER) (test lyrz=989) 22 mmol/L 21-29 BASE EXCESS ARTERIAL (BEAKER) (test uwgb=266) -1.9 mmol/L -2.0-3.0 PATIENT TEMPERATURE (BEAKER) (test knes=4662) 38.0 C FIO2 (BEAKER) (test bene=7266) 40.0 % TROPONIN [id number] 04:26:00 Test Item Value Reference Range Comments TROPONIN I (BEAKER) (test huhm=101) 0.05 ng/mL 0.00-0.03 BASIC METABOLIC [id number] 04:23:00 Test Item Value Reference Range Comments SODIUM (BEAKER) (test 140 meq/L 136-145 buda=331) POTASSIUM (BEAKER) (test 3.4 meq/L 3.5-5.1 rstv=836) CHLORIDE (BEAKER) (test 112 meq/L 98-107 rkhu=466) CO2 (BEAKER) (test 20 meq/L 22-29 btam=883) BLOOD UREA NITROGEN 20 mg/dL 7-21 (BEAKER) (test dsjd=623) CREATININE (BEAKER) (test 1.55 mg/dL 0.57-1.25 aafd=742) GLUCOSE RANDOM (BEAKER) 154 mg/dL 70-105 (test ujkp=829) CALCIUM (BEAKER) (test 7.9 mg/dL 8.4-10.2 lpag=851) EGFR (BEAKER) (test mL/min/1.73 sq m INSUFFICIENT CLINICAL DATA yxns=7081) TO CALCULATE ESTIMATED GFR. [id number] 04:23:00 Test Item Value Reference Range Comments LIPASE (BEAKER) (test gofj=461) < U/L 8-78 B-TYPE NATRIURETIC FACTOR (BNP)2018-10-15 04:21:00 Test Item Value Reference Range Comments B-TYPE NATRIURETIC PEPTIDE (BEAKER) (test 136 pg/mL 0-100 fwyn=875) [id number] 04:19:00 Test Item Value Reference Range Comments MAGNESIUM (BEAKER) (test ujuj=789) 1.4 mg/dL 1.6-2.6 [id number] 04:19:00 Test Item Value Reference Range Comments PHOSPHORUS (BEAKER) (test qecc=891) 2.2 mg/dL 2.3-4.7 HEPATIC FUNCTION [id number] 04:19:00 Test Item Value Reference Range Comments TOTAL PROTEIN (BEAKER) (test peco=060) 6.0 gm/dL 6.0-8.3 ALBUMIN (BEAKER) (test zgrk=5690) 3.0 g/dL 3.5-5.0 BILIRUBIN TOTAL (BEAKER) (test tuhv=836) 0.5 mg/dL 0.2-1.2 BILIRUBIN DIRECT (BEAKER) (test ozff=798) 0.3 mg/dL 0.1-0.5 ALKALINE PHOSPHATASE (BEAKER) (test hhlo=140) 60 U/L 40-150 AST (SGOT) (BEAKER) (test krhx=671) 36 U/L 5-34 ALT (SGPT) (BEAKER) (test ilec=720) 19 U/L 6-55 VANCOMYCIN LEVEL, [id number] 04:18:00 Test Item Value Reference Range Comments VANCOMYCIN RANDOM (BEAKER) (test ukxp=052) 11.8 ug/mL Reference Range: No NormalsLACTIC ACID, VENOUS, WHOLE [id number] 04:12:00 Test Item Value Reference Range Comments LACTATE BLOOD VENOUS (2) (BEAKER) (test 1.4 mmol/L 0.5-2.2 mtre=5703) CBC W/PLT COUNT & AUTO [id number] 04:02:00 Test Item Value Reference Range Comments WHITE BLOOD CELL COUNT (BEAKER) (test vkyn=023) 22.0 K/ L 3.5-10.5 RED BLOOD CELL COUNT (BEAKER) (test khou=517) 3.81 M/ L 4.63-6.08 HEMOGLOBIN (BEAKER) (test rhex=405) 11.2 GM/DL 13.7-17.5 HEMATOCRIT (BEAKER) (test vohc=614) 33.8 % 40.1-51.0 MEAN CORPUSCULAR VOLUME (BEAKER) (test eiln=828) 88.7 fL 79.0-92.2 MEAN CORPUSCULAR HEMOGLOBIN (BEAKER) (test 29.4 pg 25.7-32.2 fopt=939) MEAN CORPUSCULAR HEMOGLOBIN CONC (BEAKER) (test 33.1 GM/DL 32.3-36.5 tmkz=868) RED CELL DISTRIBUTION WIDTH (BEAKER) (test 13.3 % 11.6-14.4 zfro=488) PLATELET COUNT (BEAKER) (test cwin=334) 165 K/CU MM 150-450 MEAN PLATELET VOLUME (BEAKER) (test gssr=784) 11.2 fL 9.4-12.4 NUCLEATED RED BLOOD CELLS (BEAKER) (test 0 /100 WBC 0-0 ahqa=317) NEUTROPHILS RELATIVE PERCENT (BEAKER) (test 87 % rhye=552) LYMPHOCYTES RELATIVE PERCENT (BEAKER) (test 7 % itvq=508) MONOCYTES RELATIVE PERCENT (BEAKER) (test 5 % bpjo=102) EOSINOPHILS RELATIVE PERCENT (BEAKER) (test 0 % hjvb=008) BASOPHILS RELATIVE PERCENT (BEAKER) (test 0 % vhoy=265) NEUTROPHILS ABSOLUTE COUNT (BEAKER) (test 19.12 K/ L 1.78-5.38 rwqo=543) LYMPHOCYTES ABSOLUTE COUNT (BEAKER) (test 1.61 K/ L 1.32-3.57 jnxh=908) MONOCYTES ABSOLUTE COUNT (BEAKER) (test 1.05 K/ L 0.30-0.82 gpdi=610) EOSINOPHILS ABSOLUTE COUNT (BEAKER) (test 0.00 K/ L 0.04-0.54 qqcg=424) BASOPHILS ABSOLUTE COUNT (BEAKER) (test 0.04 K/ L 0.01-0.08 uxcs=859) IMMATURE GRANULOCYTES-RELATIVE PERCENT (BEAKER) 1 % 0-1 (test jugv=2889) POCT-GLUCOSE [id number] 00:56:00 Test Item Value Reference Range Comments POC-GLUCOSE METER (BEAKER) 149 mg/dL 70-110 TESTED AT [facility] [address] [facility] (test bdgr=3039) [facility] [address] TROPONIN [id number] 21:23:00 Test Item Value Reference Range Comments TROPONIN I (BEAKER) (test fnwk=656) 0.06 ng/mL 0.00-0.03 LACTIC ACID, VENOUS, WHOLE [id number] 18:53:00 Test Item Value Reference Range Comments LACTATE BLOOD VENOUS (2) 1.7 mmol/L 0.5-2.2 Specimen slightly hemolyzed (BEAKER) (test qklr=5498) EEG RECORDING IN COMA/SLEEP [id number] 18:51:00Reason for exam:->concern for seizuresShould this be performed at the bedside?->YesDATE OF REPORT: ACC: [id number] Start time: 17:28 Stop time: 17:48 ICD-10: R56.9 CPT Code: 44384 HISTORY: 52 yo male with DM, HTN, [...] Felice Pinedo M.D., RICH Professor of Neurology [facility] [employer] [facility] Director, [facility] Head, [facility] Electronically signed by: FELICE PINEDO on 10/14 06:51 PMPOCT-GLUCOSE [id number] 17:46:00 Test Item Value Reference Range Comments POC-GLUCOSE METER (BEAKER) 130 mg/dL 70-110 TESTED AT [facility] [address] [place] [address] (test bbqx=4521) [facility] [address] LACTIC ACID, VENOUS, WHOLE [id number] 16:36:00 Test Item Value Reference Range Comments LACTATE BLOOD VENOUS (2) 2.4 mmol/L 0.5-2.2 Specimen slightly hemolyzed (BEAKER) (test pfme=4576) FIBRIN SOLUBLE [id number] 15:35:00 Test Item Value Reference Range Comments FIBRIN SOLUBLE MONOMER (BEAKER) (test wtev=9563) Negative [id number] 14:51:00 Test Item Value Reference Range Comments PROCALCITONIN (BEAKER) (test imrn=3004) 1.71 ng/mL <0.05 SEPSIS RISK (ng/mL)Low: 0.05-0.50Intermediate: 0.51-2.00High: & gt;=2.01TROPONIN [id number] 14:44:00 Test Item Value Reference Range Comments TROPONIN I (BEAKER) (test zgjy=506) 0.04 ng/mL 0.00-0.03 BASIC METABOLIC [id number] 14:39:00 Test Item Value Reference Range Comments SODIUM (BEAKER) (test 142 meq/L 136-145 rabu=694) POTASSIUM (BEAKER) (test 3.5 meq/L 3.5-5.1 ssfy=417) CHLORIDE (BEAKER) (test 112 meq/L 98-107 jyyp=942) CO2 (BEAKER) (test 20 meq/L 22-29 xsiu=928) BLOOD UREA NITROGEN 23 mg/dL 7-21 (BEAKER) (test wxlz=877) CREATININE (BEAKER) (test 2.14 mg/dL 0.57-1.25 duch=698) GLUCOSE RANDOM (BEAKER) 177 mg/dL 70-105 (test vqnf=177) CALCIUM (BEAKER) (test 8.1 mg/dL 8.4-10.2 dyaz=751) EGFR (BEAKER) (test mL/min/1.73 sq m INSUFFICIENT CLINICAL DATA utdo=5974) TO CALCULATE ESTIMATED GFR. [id number] 14:38:00 Test Item Value Reference Range Comments PHOSPHORUS (BEAKER) (test ezak=518) 2.4 mg/dL 2.3-4.7 [id number] 14:38:00 Test Item Value Reference Range Comments MAGNESIUM (BEAKER) (test vakh=412) 1.6 mg/dL 1.6-2.6 HEPATIC FUNCTION [id number] 14:38:00 Test Item Value Reference Range Comments TOTAL PROTEIN (BEAKER) (test znfy=765) 6.5 gm/dL 6.0-8.3 ALBUMIN (BEAKER) (test snrb=2025) 3.3 g/dL 3.5-5.0 BILIRUBIN TOTAL (BEAKER) (test wqjy=400) 0.6 mg/dL 0.2-1.2 BILIRUBIN DIRECT (BEAKER) (test gabo=116) 0.3 mg/dL 0.1-0.5 ALKALINE PHOSPHATASE (BEAKER) (test wpkv=505) 64 U/L 40-150 AST (SGOT) (BEAKER) (test mtll=139) 24 U/L 5-34 ALT (SGPT) (BEAKER) (test ijfv=197) 18 U/L 6-55 [id number] 14:38:00 Test Item Value Reference Range Comments LIPASE (BEAKER) (test hlic=152) 8 U/L 8-78 LACTIC ACID, VENOUS, WHOLE [id number] 14:32:00 Test Item Value Reference Range Comments LACTATE BLOOD VENOUS (2) (BEAKER) (test 1.6 mmol/L 0.5-2.2 aqhn=7471) PROTHROMBIN [id number] 14:24:00 Test Item Value Reference Range Comments PROTIME (BEAKER) (test kgkr=242) 15.3 seconds 11.7-14.7 INR (BEAKER) (test iwph=722) 1.2 <=5.9 RECOMMENDED COUMADIN/WARFARIN INR THERAPY RANGESSTANDARD DOSE: 2.0 - 3.0 Includes: PROPHYLAXIS forvenous thrombosis, systemic embolization; TREATMENT for venous thrombosis and/or pulmonary embolus.HIGH RISK: Target INR is 2.5-3.5 for patients with mechanical heart valves.[id number] 14:24:00 Test Item Value Reference Range Comments FIBRINOGEN LEVEL (BEAKER) (test peeu=477) 453 mg/dl 225-434 [id number] 14:24:00 Test Item Value Reference Range Comments PARTIAL THROMBOPLASTIN TIME (BEAKER) (test 37.8 seconds 22.5-36.0 nood=111) BLOOD GAS, [id number] 14:14:00 Test Item Value Reference Range Comments PH ARTERIAL (BEAKER) (test rdae=719) 7.43 7.35-7.45 PCO2 ARTERIAL (BEAKER) (test czkc=865) 31 mmHg 35-45 PO2 ARTERIAL (BEAKER) (test hekt=421) 105 mmHg 80-90 O2 SATURATION ARTERIAL (BEAKER) (test nthp=751) 97.9 % 96.0-97.0 HCO3 ARTERIAL (BEAKER) (test lwgh=474) 20 mmol/L 21-29 BASE EXCESS ARTERIAL (BEAKER) (test xpvc=351) -3.2 mmol/L -2.0-3.0 PATIENT TEMPERATURE (BEAKER) (test yuwk=3835) 37.5 C FIO2 (BEAKER) (test ibxz=3097) 40.0 % OXYGEN SATURATION, [id number] 13:58:00 Test Item Value Reference Range Comments O2 SATURATION (MEASURED) (BEAKER) (test uxtp=6165) 89.6 % If patient has internal jugular ( IJ) or subclavian central line or PICC line. Draw from distal port. Label as central venous oxygen.RAD, CHEST, 1 VIEW, NON [id number] 13:52:00Reason for exam:->sputum, coughShould this be performed [...] MDReport Verified Date/Time: 10/14/2018 13:52:33 Reading Location: [address] Consult Reading Room URINALYSIS W/ [id number] 12:43:00 Test Item Value Reference Range Comments COLOR (BEAKER) (test fvba=781) Yellow CLARITY (BEAKER) (test lacp=052) Hazy SPECIFIC GRAVITY UA (BEAKER) (test pahz=626) 1.016 1.001-1.035 PH UA (BEAKER) (test umma=771) 6.0 5.0-8.0 PROTEIN UA (BEAKER) (test zfzz=162) 70 mg/dL Negative GLUCOSE UA (BEAKER) (test ktcw=672) 50 mg/dL Negative KETONES UA (BEAKER) (test bpdu=486) Negative Negative BILIRUBIN UA (BEAKER) (test emeb=081) Negative Negative BLOOD UA (BEAKER) (test whcl=907) Moderate Negative NITRITE UA (BEAKER) (test vhjc=641) Negative Negative LEUKOCYTE ESTERASE UA (BEAKER) (test jqsx=263) Large Negative UROBILINOGEN UA (BEAKER) (test ukqy=235) 0.2 mg/dL 0.2-1.0 RBC UA (BEAKER) (test zykx=238) 8 /HPF WBC UA (BEAKER) (test tphn=404) 79 /HPF BACTERIA (BEAKER) (test pryq=802) Moderate MUCUS (BEAKER) (test cbgh=1313) Rare SQUAMOUS EPITHELIAL (BEAKER) (test ngdo=559) 4 /HPF CALCIUM OXALATE CRYSTALS (BEAKER) (test Rare rgqt=440) SOURCE(BEAKER) (test pegn=2674) Urine, Elliott
[2020-02-18] MEDS ORDERED: NA CHLORIDE 0.9% 1,000 ML ONE (23:26)
[2020-02-18] MEDS ORDERED: cloNIDine HCL 0.1 MG TAB ONE (23:26)
[2020-02-18 23:38] LABS: Basophils % 0.8 % (0-1.3); Hematocrit 38.1 % (39.6-49.0); Lymphocytes % 27.3 % (15.3-44.8); MPV 9.7 fL (7.6-11.3); RBC Red Blood Cell Count 4.28 M/uL (4.33-5.43)
[2020-02-18 23:48] LABS: Albumin 3.3 g/dL (3.4-5.0); Bilirubin Direct 0.1 mg/dL (0-0.2); Bilirubin Total 0.4 mg/dL (0.2-1.0); Potassium 3.2 mmol/L (3.5-5.1)
--- NOTE | 2020-02-18 23:56 | EDPHYS ---
Physician Documentation [facility] Name: Deric Sheriff Age: 54 yrs Sex: Male : 1965 Arrival Date: 02/18/2020 Time: 22:49 Bed 7 Private MD: ED Physician Ernesto Dominguez HPI: 02/18 03:46 This 54 yrs old Male presents to ER via EMS with complaints of Diarrhea. tw4 03:46 The patient presents to the emergency department with diarrhea. Onset: The tw4 symptoms/episode began/occurred yesterday. Possible causes: unknown. The symptoms are aggravated by nothing. The symptoms are alleviated by nothing. Associated signs and symptoms: The patient has no apparent associated signs or symptoms. Severity of symptoms: At their worst the symptoms were moderate in the emergency department the symptoms are unchanged. The patient has not experienced similar symptoms in the past. Historical: - Allergies: 02/17 23:09 Lotrel; lp1 - Home Meds: 23:09 tamsulosin 0.4 mg Oral cp24 1 cap nightly [Active]; metoprolol tartrate 50 mg Oral tab lp1 1 tab 2 times per day [Active]; enalapril maleate 20 mg Oral tab 1 tab once daily [Active]; baclofen 10 mg Oral tab 1 tab 3 times per day [Active]; clonidine HCl 0.1 mg Oral tab 1 tab 3 times per day [Active]; Plavix 75 mg Oral tab 1 tab once daily [Active]; atorvastatin 40 mg Oral tab 1 tab nightly [Active]; citalopram 20 mg tab 1 tab once daily [Active]; aspirin 81 mg Oral chew 1 tab once daily [Active]; levetiracetam 750 mg Oral tab 1 tab 2 times per day [Active]; lisinopril 20 mg Oral tab 1 tab twice a day [Active]; senna 8.6 mg Oral cap nightly [Active]; - PMHx: 23:09 CVA; Diabetes - NIDDM; Hypertension; Seizures; lp1 - Immunization history:: Adult Immunizations unknown. - Social history:: Smoking status: Patient denies any tobacco usage or history of. ROS: 02/18 03:46 Constitutional: Negative for fever, chills, and weight loss, Eyes: Negative for injury, tw4 pain, redness, and discharge, Cardiovascular: Negative for chest pain, palpitations, and edema, Respiratory: Negative for shortness of breath, cough, wheezing, and pleuritic chest pain, Back: Negative for injury and pain, MS/Extremity: Negative for injury and deformity, Skin: Negative for injury, rash, and discoloration, Neuro: Negative for headache, weakness, numbness, tingling, and seizure. Abdomen/GI: Positive for diarrhea, Negative for abdominal pain, nausea and vomiting, nausea, vomiting, and diarrhea, nausea, vomiting, constipation, abdominal cramps, abdominal distension, anorexia, dysphagia, hematemesis, black/tarry stool, rectal pain, rectal bleeding. Exam: 03:46 Constitutional: This is a well developed, well nourished patient who is awake, alert, tw4 and in no acute distress. Head/Face: Normocephalic, atraumatic. Chest/axilla: Normal chest wall appearance and motion. Nontender with no deformity. No lesions are appreciated. Cardiovascular: Regular rate and rhythm with a normal S1 and S2. No gallops, murmurs, or rubs. Normal PMI, no JVD. No pulse deficits. Respiratory: Lungs have equal breath sounds bilaterally, clear to auscultation and percussion. No rales, rhonchi or wheezes noted. No increased work of breathing, no retractions or nasal flaring. Abdomen/GI: Soft, non-tender, with normal bowel sounds. No distension or tympany. No guarding or rebound. No evidence of tenderness throughout. Back: No spinal tenderness. No costovertebral tenderness. Full range of motion. MS/ Extremity: Pulses equal, no cyanosis. Neurovascular intact. Full, normal range of motion. Neuro: Awake and alert, GCS 15, oriented to person, place, time, and situation. Cranial nerves II-XII grossly intact. Motor strength 5/5 in all extremities. Sensory grossly intact. Cerebellar exam normal. Normal gait. Vital Signs: 02/17 22:59 BP 190 / 112; Pulse 89; Resp 16; Temp 98.5(O); Pulse Ox 100% on R/A; Weight 65.77 kg; lp1 23:11 BP 183 / 117; Pulse 74; Resp 17; Pulse Ox 98% on R/A; lp1 23:30 BP 195 / 111; Pulse 75; Resp 20; Pulse Ox 100% on R/A; lp1 02/18 00:00 BP 185 / 111; Pulse 81; Resp 20; Pulse Ox 96% on R/A; lp1 00:30 BP 176 / 110; Pulse 80; Resp 16; Pulse Ox 97% on R/A; lp1 00:45 BP 163 / 101; Pulse 77; Resp 19; Pulse Ox 97% on R/A; lp1 01:05 BP 146 / 98; Pulse 84; Resp 20; Pulse Ox 97% on R/A; lp1 01:35 BP 157 / 97; Pulse 76; Resp 16; Pulse Ox 98% on R/A; lp1 02:15 BP 147 / 92; Pulse 71; Resp 13; Pulse Ox 97% ; Pain 0/10; lp1 MDM: 02/17 22:52 Patient medically screened. tw4 02/18 03:46 Differential diagnosis: Nonspecific abd pain, gastritis, cholecystitis, pancreatitis. tw4 Data reviewed: vital signs, nurses notes. Data interpreted: Pulse oximetry: Interpretation: normal. Counseling: I had a detailed discussion with the patient and/or guardian regarding: the historical points, exam findings, and any diagnostic results supporting the discharge/admit diagnosis. Medication response: lomotil. Response to treatment: the patient's symptoms have markedly improved after treatment, and as a result, I will discharge patient. Special discussion: I discussed with the patient/guardian in detail that at this point there is no indication for admission to the hospital. It is understood, however, that if the symptoms persist or worsen the patient needs to return immediately for re-evaluation. 06:46 Data reviewed: lab test result(s), CBC, electrolytes, urinalysis. Test interpretation: tw4 by ED physician or midlevel provider: not applicable. 02/17 23:08 Order name: Basic Metabolic Panel; Complete Time: 23:50 tw4 02/17 23:50 Interpretation: Normal except: NA 148; K 3.2; CL 113; GLUC 107; BUN 25; GFR 76. tw4 02/17 23:08 Order name: CBC with Diff; Complete Time: 23:53 tw4 02/17 23:53 Interpretation: Normal except: RBC 4.28; HCT 38.1; HGB 12.5. tw4 02/17 23:08 Order name: Creatinine for Radiology; Complete Time: 23:50 tw4 02/17 23:50 Interpretation: Normal except: CRE 0.95. tw4 02/17 23:08 Order name: Hepatic Function; Complete Time: 23:50 tw4 02/17 23:50 Interpretation: Normal except: ALB 3.3; GLOB 4.7; A/G 0.7; AST 50. tw4 02/17 23:08 Order name: Lipase; Complete Time: 23:50 tw4 02/17 23:50 Interpretation: Within normal limits: LIP 132. tw4 02/17 23:30 Order name: Glucose, Ancillary Testing; Complete Time: 23:50 EDMS 02/17 23:08 Order name: IV Saline Lock; Complete Time: 23:25 tw4 02/17 23:08 Order name: Labs collected and sent; Complete Time: 23:25 tw4 Administered Medications: 02/17 23:28 Drug: NS 0.9% 1000 ml Route: IV; Rate: 1 bolus; Site: right antecubital; lp1 02/18 00:45 Follow up: IV Status: Completed infusion; IV Intake: 1000ml lp1 02/17 23:29 Drug: cloNIDine 0.2 mg Route: PO; lp1 02/18 00:30 Follow up: Response: No change in condition lp1 00:43 Drug: hydrALAZINE 10 mg Route: IV; Rate: bolus; Site: right antecubital; lp1 01:06 Follow up: Response: Blood pressure is lowered; IV Status: Completed infusion lp1 01:20 Drug: Potassium Effervescent Tablet 50 mEq Route: PO; lp1 02:43 Follow up: Response: No adverse reaction lp1 01:35 Not Given (Patient denies diarrhea ): LoMOTIL 2 tabs PO once lp1 Disposition: 02/18/20 23:54 Discharged to Home. Impression: Diarrhea, unspecified. - Condition is Stable. - Discharge Instructions: Food Choices to Help Relieve Diarrhea, Adult, Diarrhea, Adult. - Prescriptions for Lomotil 2.5- 0.025 mg Oral Tablet - take 2 tablet by ORAL route once daily As needed; 20 tablet. - Medication Reconciliation Form, Thank You Letter, Antibiotic Education, Prescription Opioid Use form. - Follow up: Private Physician; When: Upon discharge from the Emergency Department; Reason: Recheck today's complaints, Continuance of care, Re-evaluation by your physician. - Problem is new. - Symptoms have improved. Signatures: Dispatcher [employer] EDMS Janina Price RN RN lp1 Lucia Flynn RN RN Ernesto Dominguez MD MD tw4 Corrections: (The following items were deleted from the chart) 09:43 02/17 23:54 02/18/2020 23:54 Discharged to Home. Impression: Diarrhea, unspecified. hb Condition is Stable. Forms are Medication Reconciliation Form, Thank You Letter, Antibiotic Education, Prescription Opioid Use. Follow up: Private Physician; When: Upon discharge from the Emergency Department; Reason: Recheck today's complaints, Continuance of care, Re-evaluation by your physician. Problem is new. Symptoms have improved. tw4
--- NOTE | 2020-02-18 23:56 | ER ---
Nurse's Notes [facility] Name: Deric Sheriff Age: 54 yrs Sex: Male : 1965 Arrival Date: 02/18/2020 Time: 22:49 Bed 7 Private MD: Diagnosis: Diarrhea, unspecified Presentation: 02/17 22:59 Chief complaint: EMS states: Called for patient not feeling well; complaint of lp1 diarrhea; Denies any cough, shortness of breath, pain; Per EMS, patient hypertensive at 200/123; Patient is paraplegic due to CVA. Coronavirus screen: Patient denies fever greater than 100.4F, cough, shortness of breath, or difficulty breathing. Ebola Screen: No symptoms or risks identified at this time. Initial Sepsis Screen: Does the patient meet any 2 criteria? No. Patient's initial sepsis screen is negative. Does the patient have a suspected source of infection? No. Patient's initial sepsis screen is negative. Risk Assessment: Do you want to hurt yourself or someone else? Patient reports no desire to harm self or others. Onset of symptoms was February 18, 2020. Care prior to arrival: IV initiated. 20 GA, in the right antecubital area. 22:59 Method Of Arrival: EMS: [facility] lp1 22:59 Acuity: HODAN 3 lp1 Historical: - Allergies: 23:09 Lotrel; lp1 - Home Meds: 23:09 tamsulosin 0.4 mg Oral cp24 1 cap nightly [Active]; metoprolol tartrate 50 mg Oral tab lp1 1 tab 2 times per day [Active]; enalapril maleate 20 mg Oral tab 1 tab once daily [Active]; baclofen 10 mg Oral tab 1 tab 3 times per day [Active]; clonidine HCl 0.1 mg Oral tab 1 tab 3 times per day [Active]; Plavix 75 mg Oral tab 1 tab once daily [Active]; atorvastatin 40 mg Oral tab 1 tab nightly [Active]; citalopram 20 mg tab 1 tab once daily [Active]; aspirin 81 mg Oral chew 1 tab once daily [Active]; levetiracetam 750 mg Oral tab 1 tab 2 times per day [Active]; lisinopril 20 mg Oral tab 1 tab twice a day [Active]; senna 8.6 mg Oral cap nightly [Active]; - PMHx: 23:09 CVA; Diabetes - NIDDM; Hypertension; Seizures; lp1 - Immunization history:: Adult Immunizations unknown. - Social history:: Smoking status: Patient denies any tobacco usage or history of. Screenin:11 Abuse screen: Denies threats or abuse. Denies injuries from another. Nutritional lp1 screening: No deficits noted. Tuberculosis screening: No symptoms or risk factors identified. Fall Risk Total Jain Fall Scale indicates High Risk Score (45 or more points). Fall prevention measures have been instituted. Side Rails Up X 2 Frequent Obs/Assessments Occuring. Assessment: 23:09 General: Appears in no apparent distress. Behavior is calm, cooperative. Pain: Denies lp1 pain. Neuro: Level of Consciousness is awake, alert, obeys commands, Oriented to person, place, Blue Print Control Clerk are weak on left Paralysis in left leg(s) Speech is normal, Pupils are PERRLA. Cardiovascular: Capillary refill < 3 seconds in bilateral fingers Patient's skin is warm and dry. Respiratory: Airway is patent Respiratory effort is even, unlabored, Breath sounds are clear bilaterally. GI: Abdomen is flat, Bowel sounds present X 4 quads. Abd is soft and non tender X 4 quads. Reports diarrhea. : No signs and/or symptoms were reported regarding the genitourinary system. EENT: No signs and/or symptoms were reported regarding the EENT system. Derm: Skin is intact, Skin is dry, Skin is normal. Musculoskeletal: Capillary refill < 3 seconds, in bilateral fingers. toes. 23:15 Reassessment: Patient states having diarrhea yesterday, denies any episodes today. lp1 02/18 00:31 Reassessment: Patient resting, eyes closed, respirations even, unlabored; continuing to lp1 monitor BP. 01:00 Reassessment: Patient given orange juice at this time. lp1 01:00 Neuro: Level of Consciousness is awake, alert, obeys commands. lp1 01:30 Reassessment: Patient's brief changed at this time; urine noted; Skin breakdown to left lp1 lower buttock and upper posterior left thigh, stage 1;. 02:30 Reassessment: called for patient for discharge; states she does not have lp1 transportation to picker/puller patient, can come to get patient at 0800 in the morning. 04:00 Reassessment: Patient appears in no apparent distress at this time. Patient resting, lp1 comfortably, juice given; no further needs. 06:40 Reassessment: Patient resting, eyes closed, respirations even, unlabored. lp1 Vital Signs: 02/17 22:59 BP 190 / 112; Pulse 89; Resp 16; Temp 98.5(O); Pulse Ox 100% on R/A; Weight 65.77 kg; lp1 23:11 BP 183 / 117; Pulse 74; Resp 17; Pulse Ox 98% on R/A; lp1 23:30 BP 195 / 111; Pulse 75; Resp 20; Pulse Ox 100% on R/A; lp1 02/18 00:00 BP 185 / 111; Pulse 81; Resp 20; Pulse Ox 96% on R/A; lp1 00:30 BP 176 / 110; Pulse 80; Resp 16; Pulse Ox 97% on R/A; lp1 00:45 BP 163 / 101; Pulse 77; Resp 19; Pulse Ox 97% on R/A; lp1 01:05 BP 146 / 98; Pulse 84; Resp 20; Pulse Ox 97% on R/A; lp1 01:35 BP 157 / 97; Pulse 76; Resp 16; Pulse Ox 98% on R/A; lp1 02:15 BP 147 / 92; Pulse 71; Resp 13; Pulse Ox 97% ; Pain 0/10; lp1 ED Course: 02/17 22:49 Patient arrived in ED. ds1 22:52 Ernesto Dominguez MD is Attending Physician. tw4 22:59 Janina Price, ASHLEY is Primary Nurse. lp1 23:02 Triage completed. lp1 23:02 Arm band placed on right wrist. lp1 23:09 Patient has correct armband on for positive identification. Placed in gown. Bed in low lp1 position. Call light in reach. Side rails up X2. court monitor on. Pulse ox on. NIBP on. 23:15 Maintain EMS IV. Dressing intact. Good blood return noted. Site clean \T\ dry. Gauge \T\ lp 1 site: 20g to R AC. 23:25 Basic Metabolic Panel Sent. ds4 23:25 CBC with Diff Sent. ds4 23:26 Hepatic Function Sent. ds4 23:26 Lipase Sent. ds4 23:26 Creatinine for Radiology Sent. ds4 02/18 00:55 No provider procedures requiring assistance completed. lp1 02:15 IV discontinued, No redness/swelling at site. Pressure dressing applied. lp1 Administered Medications: 02/17 23:28 Drug: NS 0.9% 1000 ml Route: IV; Rate: 1 bolus; Site: right antecubital; lp1 02/18 00:45 Follow up: IV Status: Completed infusion; IV Intake: 1000ml lp1 02/17 23:29 Drug: cloNIDine 0.2 mg Route: PO; lp1 02/18 00:30 Follow up: Response: No change in condition lp1 00:43 Drug: hydrALAZINE 10 mg Route: IV; Rate: bolus; Site: right antecubital; lp1 01:06 Follow up: Response: Blood pressure is lowered; IV Status: Completed infusion lp1 01:20 Drug: Potassium Effervescent Tablet 50 mEq Route: PO; lp1 02:43 Follow up: Response: No adverse reaction lp1 01:35 Not Given (Patient denies diarrhea ): LoMOTIL 2 tabs PO once lp1 Intake: 00:45 IV: 1000ml; Total: 1000ml. lp1 Outcome: 02/17 23:54 Discharge ordered by . tw4 02/18 02:20 Condition: good lp1 Discharge instructions given to patient. 09:43 Patient left the ED. Signatures: Swetha Allison ds1 Janina Price RN RN lp1 Markell Porter ds4 Lucia Flynn RN RN Ernesto Dominguez MD MD tw4
[2020-02-19] MEDS ORDERED: HYDRALAZINE HCL 20 MG/ML VIAL ONE (00:45)
[2020-02-19] MEDS ORDERED: POTASSIUM 25 MEQ EFFERV TAB ONE (01:15)
[2020-02-19] MEDS ORDERED: DIPHENOX/ATROP SULF 1 TAB PO ONE (01:15)
[2020-02-19 10:05] VITALS: TEMP 98.5
[2020-02-19 10:18] VITALS: BP 147/92; O2SAT 97
== END 2020-02-19 09:43 | disposition home or self-care (01) ==
LOC: ER 22:48
DX: R19.7 Diarrhea, unspecified (principal); I10 Essential (primary) hypertension; G40.909 Epilepsy, unspecified, not intractable, without status epilepticus; E11.9 Type 2 diabetes mellitus without complications; Z79.01 Long term (current) use of anticoagulants; Z79.82 Long term (current) use of aspirin; Z88.8 Allergy status to other drugs, medicaments and biological substances
CPT/HCPCS: 96365; 96361; 85025; 80048; 36415; 82947; 80076; 83690; 99284; J0360; J7030

== ENCOUNTER 2020-02-22 10:40 | Inpatient (IN) | payer MEDICARE ==
--- OUTSIDE RECORDS SUMMARY | 2020-02-22 10:47 | XMS REPORT ---
:1965 [facility] Address [address] [place] [address] Care Team Providers Name Role Phone DONI CONWAY Unavailable Unavailable Problems This patient has no known problems. Allergies, Adverse Reactions, Alerts This patient has no known allergies or adverse reactions. Medications This patient has no known medications. Results Test Description Test Time Test Comments Text Results Atomic Results Result Comments VIRUS CULTURE 2018-11-05 07:31:00 Test Item Value Reference Range Comments CULTURE (BEAKER) (test tmle=5536) No virus isolated POCT-GLUCOSE [id number] 11:50:00 Test Item Value Reference Range Comments POC-GLUCOSE METER (BEAKER) 155 mg/dL 70-110 TESTED AT [address] (test zdep=3923) [facility] [address] POCT-GLUCOSE [id number] 08:22:00 Test Item Value Reference Range Comments POC-GLUCOSE METER (BEAKER) 124 mg/dL 70-110 TESTED AT [address] (test dylq=1463) [facility] [address] BASIC METABOLIC [id number] 06:33:00 Test Item Value Reference Range Comments SODIUM (BEAKER) (test 139 meq/L 136-145 ycgx=989) POTASSIUM (BEAKER) (test 3.8 meq/L 3.5-5.1 hqkq=519) CHLORIDE (BEAKER) (test 109 meq/L 98-107 iasc=850) CO2 (BEAKER) (test 23 meq/L 22-29 evby=878) BLOOD UREA NITROGEN 14 mg/dL 7-21 (BEAKER) (test srok=223) CREATININE (BEAKER) (test 0.79 mg/dL 0.57-1.25 pntz=808) GLUCOSE RANDOM (BEAKER) 114 mg/dL 70-105 (test vmcs=871) CALCIUM (BEAKER) (test 8.8 mg/dL 8.4-10.2 wdro=386) EGFR (BEAKER) (test 103 mL/min/1.73 sq m ESTIMATED GFR IS NOT xzwh=1051) ACCURATE CREATININE CLEARANCE IN PREDICTING GLOMERULAR FILTRATION RATE. ESTIMATED GFR IS NOT APPLICABLE FOR DIALYSIS PATIENTS. CBC W/PLT COUNT & AUTO [id number] 05:27:00 Test Item Value Reference Range Comments WHITE BLOOD CELL COUNT (BEAKER) (test caxu=893) 8.7 K/ L 3.5-10.5 RED BLOOD CELL COUNT (BEAKER) (test gbtv=808) 3.95 M/ L 4.63-6.08 HEMOGLOBIN (BEAKER) (test oeaw=323) 11.7 GM/DL 13.7-17.5 HEMATOCRIT (BEAKER) (test kxss=514) 35.6 % 40.1-51.0 MEAN CORPUSCULAR VOLUME (BEAKER) (test tpea=274) 90.1 fL 79.0-92.2 MEAN CORPUSCULAR HEMOGLOBIN (BEAKER) (test 29.6 pg 25.7-32.2 whrr=348) MEAN CORPUSCULAR HEMOGLOBIN CONC (BEAKER) (test 32.9 GM/DL 32.3-36.5 exvw=877) RED CELL DISTRIBUTION WIDTH (BEAKER) (test 14.3 % 11.6-14.4 aksk=736) PLATELET COUNT (BEAKER) (test yrqy=774) 345 K/CU MM 150-450 MEAN PLATELET VOLUME (BEAKER) (test oijk=598) 10.6 fL 9.4-12.4 NUCLEATED RED BLOOD CELLS (BEAKER) (test 0 /100 WBC 0-0 kabu=295) NEUTROPHILS RELATIVE PERCENT (BEAKER) (test 56 % lawf=171) LYMPHOCYTES RELATIVE PERCENT (BEAKER) (test 31 % ebdk=584) MONOCYTES RELATIVE PERCENT (BEAKER) (test 10 % mfwc=748) EOSINOPHILS RELATIVE PERCENT (BEAKER) (test 2 % ggmm=742) BASOPHILS RELATIVE PERCENT (BEAKER) (test 0 % kwki=647) NEUTROPHILS ABSOLUTE COUNT (BEAKER) (test 4.81 K/ L 1.78-5.38 ixys=385) LYMPHOCYTES ABSOLUTE COUNT (BEAKER) (test 2.65 K/ L 1.32-3.57 vdii=536) MONOCYTES ABSOLUTE COUNT (BEAKER) (test 0.90 K/ L 0.30-0.82 verq=742) EOSINOPHILS ABSOLUTE COUNT (BEAKER) (test 0.19 K/ L 0.04-0.54 lkyb=532) BASOPHILS ABSOLUTE COUNT (BEAKER) (test 0.03 K/ L 0.01-0.08 lrui=053) IMMATURE GRANULOCYTES-RELATIVE PERCENT (BEAKER) 1 % 0-1 (test kkef=5189) POCT-GLUCOSE [id number] 22:10:00 Test Item Value Reference Range Comments POC-GLUCOSE METER (BEAKER) 149 mg/dL 70-110 TESTED AT [address] (test mbdd=2726) [place] [address] POCT-GLUCOSE [id number] 17:37:00 Test Item Value Reference Range Comments POC-GLUCOSE METER (BEAKER) 167 mg/dL 70-110 TESTED AT [address] (test iutm=5675) [place] [address] POCT-GLUCOSE [id number] 13:43:00 Test Item Value Reference Range Comments POC-GLUCOSE METER (BEAKER) 152 mg/dL 70-110 TESTED AT [address] (test pdal=7851) [place] [address] FL, ESOPH, SWALLOW FUNCTION, WITH CINE OR [id number] 10:29:00Reason for exam:->dysphagiaFINAL REPORT Modified barium swallow [...] MDReport Verified Date/Time: 01/2018 10:29:46 Reading Location: [facility] C013X [facility] Consult Reading Room BASIC METABOLIC [id number] 06:43:00 Test Item Value Reference Range Comments SODIUM (BEAKER) (test 138 meq/L 136-145 jkny=978) POTASSIUM (BEAKER) (test 3.7 meq/L 3.5-5.1 qiov=073) CHLORIDE (BEAKER) (test 108 meq/L 98-107 kubr=275) CO2 (BEAKER) (test 22 meq/L 22-29 djbg=964) BLOOD UREA NITROGEN 15 mg/dL 7-21 (BEAKER) (test bkki=085) CREATININE (BEAKER) (test 0.75 mg/dL 0.57-1.25 xlfc=441) GLUCOSE RANDOM (BEAKER) 126 mg/dL 70-105 (test vbro=167) CALCIUM (BEAKER) (test 8.9 mg/dL 8.4-10.2 usmg=842) EGFR (BEAKER) (test 109 mL/min/1.73 sq m ESTIMATED GFR IS NOT vclh=1764) ACCURATE CREATININE CLEARANCE IN PREDICTING GLOMERULAR FILTRATION RATE. ESTIMATED GFR IS NOT APPLICABLE FOR DIALYSIS PATIENTS. CBC W/PLT COUNT & AUTO [id number] 06:22:00 Test Item Value Reference Range Comments WHITE BLOOD CELL COUNT (BEAKER) (test vsad=015) 8.3 K/ L 3.5-10.5 RED BLOOD CELL COUNT (BEAKER) (test rksf=887) 4.13 M/ L 4.63-6.08 HEMOGLOBIN (BEAKER) (test grdz=529) 12.2 GM/DL 13.7-17.5 HEMATOCRIT (BEAKER) (test xazj=045) 37.1 % 40.1-51.0 MEAN CORPUSCULAR VOLUME (BEAKER) (test cxdu=915) 89.8 fL 79.0-92.2 MEAN CORPUSCULAR HEMOGLOBIN (BEAKER) (test 29.5 pg 25.7-32.2 tfdc=255) MEAN CORPUSCULAR HEMOGLOBIN CONC (BEAKER) (test 32.9 GM/DL 32.3-36.5 vtcw=927) RED CELL DISTRIBUTION WIDTH (BEAKER) (test 13.9 % 11.6-14.4 iqsq=371) PLATELET COUNT (BEAKER) (test hrzv=464) 310 K/CU MM 150-450 MEAN PLATELET VOLUME (BEAKER) (test mglg=051) 10.5 fL 9.4-12.4 NUCLEATED RED BLOOD CELLS (BEAKER) (test 0 /100 WBC 0-0 eltf=604) NEUTROPHILS RELATIVE PERCENT (BEAKER) (test 53 % ahrd=141) LYMPHOCYTES RELATIVE PERCENT (BEAKER) (test 33 % qgyo=876) MONOCYTES RELATIVE PERCENT (BEAKER) (test 11 % iskf=335) EOSINOPHILS RELATIVE PERCENT (BEAKER) (test 2 % ubfo=218) BASOPHILS RELATIVE PERCENT (BEAKER) (test 0 % mecp=784) NEUTROPHILS ABSOLUTE COUNT (BEAKER) (test 4.41 K/ L 1.78-5.38 xhus=725) LYMPHOCYTES ABSOLUTE COUNT (BEAKER) (test 2.69 K/ L 1.32-3.57 pujz=988) MONOCYTES ABSOLUTE COUNT (BEAKER) (test 0.89 K/ L 0.30-0.82 vkah=402) EOSINOPHILS ABSOLUTE COUNT (BEAKER) (test 0.20 K/ L 0.04-0.54 qfkw=014) BASOPHILS ABSOLUTE COUNT (BEAKER) (test 0.03 K/ L 0.01-0.08 vond=864) IMMATURE GRANULOCYTES-RELATIVE PERCENT (BEAKER) 1 % 0-1 (test fvnz=5167) POCT-GLUCOSE [id number] 05:41:00 Test Item Value Reference Range Comments POC-GLUCOSE METER (BEAKER) 129 mg/dL 70-110 TESTED AT [address] (test wofn=8862) [place] [address] POCT-GLUCOSE [id number] 00:06:00 Test Item Value Reference Range Comments POC-GLUCOSE METER (BEAKER) 151 mg/dL 70-110 TESTED AT [address] (test khkn=9293) [place] [address] POCT-GLUCOSE [id number] 18:38:00 Test Item Value Reference Range Comments POC-GLUCOSE METER (BEAKER) 131 mg/dL 70-110 TESTED AT [address] (test pnmk=7189) [place] [address] POCT-GLUCOSE [id number] 13:34:00 Test Item Value Reference Range Comments POC-GLUCOSE METER (BEAKER) 134 mg/dL 70-110 TESTED AT [address] (test ptqi=1825) [place] [id number] HEMOGLOBIN [id number] 08:11:00 Test Item Value Reference Range Comments HEMOGLOBIN A1C (BEAKER) (test hxeb=563) 6.5 % 4.3-6.1 BASIC METABOLIC [id number] 07:28:00 Test Item Value Reference Range Comments SODIUM (BEAKER) (test 138 meq/L 136-145 hecs=976) POTASSIUM (BEAKER) (test 3.5 meq/L 3.5-5.1 sapa=508) CHLORIDE (BEAKER) (test 108 meq/L 98-107 mkxw=765) CO2 (BEAKER) (test 23 meq/L 22-29 gpjz=784) BLOOD UREA NITROGEN 12 mg/dL 7-21 (BEAKER) (test ufsr=897) CREATININE (BEAKER) (test 0.72 mg/dL 0.57-1.25 pdsz=440) GLUCOSE RANDOM (BEAKER) 136 mg/dL 70-105 (test qkpk=638) CALCIUM (BEAKER) (test 8.4 mg/dL 8.4-10.2 oazu=274) EGFR (BEAKER) (test 114 mL/min/1.73 sq m ESTIMATED GFR IS NOT hbpo=7682) ACCURATE CREATININE CLEARANCE IN PREDICTING GLOMERULAR FILTRATION RATE. ESTIMATED GFR IS NOT APPLICABLE FOR DIALYSIS PATIENTS. IRON, TIBC, % SAT. (WITHOUT FERRITIN)2018-10-21 06:43:00 Test Item Value Reference Range Comments IRON (BEAKER) (test daqj=042) 44 ug/dL 40-160 TOTAL IRON BINDING CAPACITY (BEAKER) (test 190 ug/dL 250-450 raur=390) IRON % SATURATION (2) (BEAKER) (test rbjg=8147) 23 % 20-55 CBC W/PLT COUNT & AUTO [id number] 06:05:00 Test Item Value Reference Range Comments WHITE BLOOD CELL COUNT (BEAKER) (test fjti=343) 8.1 K/ L 3.5-10.5 RED BLOOD CELL COUNT (BEAKER) (test nuov=359) 4.13 M/ L 4.63-6.08 HEMOGLOBIN (BEAKER) (test kmlo=197) 11.9 GM/DL 13.7-17.5 HEMATOCRIT (BEAKER) (test smol=245) 36.2 % 40.1-51.0 MEAN CORPUSCULAR VOLUME (BEAKER) (test tvof=560) 87.7 fL 79.0-92.2 MEAN CORPUSCULAR HEMOGLOBIN (BEAKER) (test 28.8 pg 25.7-32.2 axis=536) MEAN CORPUSCULAR HEMOGLOBIN CONC (BEAKER) (test 32.9 GM/DL 32.3-36.5 qmze=779) RED CELL DISTRIBUTION WIDTH (BEAKER) (test 13.7 % 11.6-14.4 wpmn=389) PLATELET COUNT (BEAKER) (test hgnp=517) 279 K/CU MM 150-450 MEAN PLATELET VOLUME (BEAKER) (test hjvg=141) 10.3 fL 9.4-12.4 NUCLEATED RED BLOOD CELLS (BEAKER) (test 0 /100 WBC 0-0 pvay=187) NEUTROPHILS RELATIVE PERCENT (BEAKER) (test 57 % dyiw=304) LYMPHOCYTES RELATIVE PERCENT (BEAKER) (test 30 % vxrw=767) MONOCYTES RELATIVE PERCENT (BEAKER) (test 10 % hdai=044) EOSINOPHILS RELATIVE PERCENT (BEAKER) (test 2 % sjfx=700) BASOPHILS RELATIVE PERCENT (BEAKER) (test 0 % dxze=366) NEUTROPHILS ABSOLUTE COUNT (BEAKER) (test 4.62 K/ L 1.78-5.38 fyei=850) LYMPHOCYTES ABSOLUTE COUNT (BEAKER) (test 2.41 K/ L 1.32-3.57 oowq=619) MONOCYTES ABSOLUTE COUNT (BEAKER) (test 0.84 K/ L 0.30-0.82 mzor=165) EOSINOPHILS ABSOLUTE COUNT (BEAKER) (test 0.14 K/ L 0.04-0.54 qnqx=678) BASOPHILS ABSOLUTE COUNT (BEAKER) (test 0.02 K/ L 0.01-0.08 eahi=770) IMMATURE GRANULOCYTES-RELATIVE PERCENT (BEAKER) 0 % 0-1 (test ufhj=8640) POCT-GLUCOSE [id number] 05:52:00 Test Item Value Reference Range Comments POC-GLUCOSE METER (BEAKER) 139 mg/dL 70-110 TESTED AT [address] (test plgs=9750) [facility] [address] POCT-GLUCOSE [id number] 00:36:00 Test Item Value Reference Range Comments POC-GLUCOSE METER (BEAKER) 130 mg/dL 70-110 TESTED AT [address] (test gfvt=5764) [facility] [address] POCT-GLUCOSE [id number] 17:43:00 Test Item Value Reference Range Comments POC-GLUCOSE METER (BEAKER) 141 mg/dL 70-110 TESTED AT [facility] [address] (test hyza=2106) [place] [address] (CELLAVISION MANUAL DIFF)2018-10-20 14:30:00 Test Item Value Reference Range Comments NEUTROPHILS - REL (CELLAVISION)(BEAKER) (test 59 % fltl=6014) LYMPHOCYTES - REL (CELLAVISION)(BEAKER) (test 26 % ileg=0357) MONOCYTES - REL (CELLAVISION)(BEAKER) (test 8 % jbyy=2190) EOSINOPHILS - REL (CELLAVISION)(BEAKER) (test 3 % fepr=8826) ATYPICAL LYMPHOCYTES - REL (CELLAVISION)(BEAKER) 4 % 0-0 (test gylx=9705) NEUTROPHILS - ABS (CELLAVISION)(BEAKER) (test 4.78 K/ul 1.78-5.38 doaq=9775) LYMPHOCYTES - ABS (CELLAVISION)(BEAKER) (test 2.11 K/ul 1.32-3.57 rmqp=4917) MONOCYTES - ABS (CELLAVISION)(BEAKER) (test 0.65 K/uL 0.30-0.82 nfpz=0393) EOSINOPHILS - ABS (CELLAVISION)(BEAKER) (test 0.24 K/uL 0.04-0.54 enra=9505) ATYPICAL LYMPHOCYTES - ABS (CELLAVISION)(BEAKER) 0.32 K/uL 0.00-0.00 (test hdps=8999) TOTAL COUNTED (BEAKER) (test rbzj=5215) 100 RBC MORPHOLOGY (BEAKER) (test mtbr=002) Normal WBC MORPHOLOGY (BEAKER) (test pvll=215) Normal LARGE PLT(BEAKER) (test mruh=9688) Present ARTIFACT (CELLAVISION)(BEAKER) (test xdov=4897) Present PLATELET CONCENTRATION (CELLAVISION)(BEAKER) (test Adequate cugw=2846) Received comment: User comments: Slide comments:CBC W/PLT COUNT & AUTO [id number] 14:30:00 Test Item Value Reference Range Comments WHITE BLOOD CELL COUNT (BEAKER) (test dcns=844) 8.1 K/ L 3.5-10.5 RED BLOOD CELL COUNT (BEAKER) (test udvp=488) 4.10 M/ L 4.63-6.08 HEMOGLOBIN (BEAKER) (test qkuv=299) 11.9 GM/DL 13.7-17.5 HEMATOCRIT (BEAKER) (test gydg=950) 36.3 % 40.1-51.0 MEAN CORPUSCULAR VOLUME (BEAKER) (test bcoc=695) 88.5 fL 79.0-92.2 MEAN CORPUSCULAR HEMOGLOBIN (BEAKER) (test 29.0 pg 25.7-32.2 fgue=506) MEAN CORPUSCULAR HEMOGLOBIN CONC (BEAKER) (test 32.8 GM/DL 32.3-36.5 gmeu=286) RED CELL DISTRIBUTION WIDTH (BEAKER) (test 14.0 % 11.6-14.4 fsjd=967) PLATELET COUNT (BEAKER) (test lrwu=414) 250 K/CU MM 150-450 MEAN PLATELET VOLUME (BEAKER) (test hxrd=306) 10.8 fL 9.4-12.4 NUCLEATED RED BLOOD CELLS (BEAKER) (test 0 /100 WBC 0-0 dxjz=151) POCT-GLUCOSE [id number] 12:27:00 Test Item Value Reference Range Comments POC-GLUCOSE METER (BEAKER) 162 mg/dL 70-110 TESTED AT [facility] [address] [facility] (test wtbt=8262) [facility] [address] BASIC METABOLIC [id number] 08:34:00 Test Item Value Reference Range Comments SODIUM (BEAKER) (test 139 meq/L 136-145 giao=184) POTASSIUM (BEAKER) (test 3.4 meq/L 3.5-5.1 dvtr=535) CHLORIDE (BEAKER) (test 108 meq/L 98-107 nkdt=565) CO2 (BEAKER) (test 24 meq/L 22-29 tjwo=021) BLOOD UREA NITROGEN 8 mg/dL 7-21 (BEAKER) (test qcqy=938) CREATININE (BEAKER) (test 0.68 mg/dL 0.57-1.25 pmen=328) GLUCOSE RANDOM (BEAKER) 115 mg/dL 70-105 (test xzzr=860) CALCIUM (BEAKER) (test 8.5 mg/dL 8.4-10.2 aaku=275) EGFR (BEAKER) (test 122 mL/min/1.73 sq m ESTIMATED GFR IS NOT dunr=3392) ACCURATE CREATININE CLEARANCE IN PREDICTING GLOMERULAR FILTRATION RATE. ESTIMATED GFR IS NOT APPLICABLE FOR DIALYSIS PATIENTS. POCT-GLUCOSE [id number] 06:02:00 Test Item Value Reference Range Comments POC-GLUCOSE METER (BEAKER) 147 mg/dL 70-110 TESTED AT [address] (test wkld=8186) [place] [address] POCT-GLUCOSE [id number] 00:43:00 Test Item Value Reference Range Comments POC-GLUCOSE METER (BEAKER) 122 mg/dL 70-110 TESTED AT [address] (test enrq=0580) [place] [address] RAD, ABDOMEN/KUB, 1 VIEW [id number] 23:27:00Reason for exam:->feeding tube placementFINAL REPORT CLINICAL [...] Rosales Verified Date/Time: 10/19/2018 23:27:13 Reading Location: [address] Transitional Reading Room CSF CULTURE + GRAM [id number] 18:01:00 Test Item Value Reference Range Comments CULTURE (BEAKER) (test dclg=6712) No growth GRAM STAIN RESULT (BEAKER) (test No WBCs eump=0766) GRAM STAIN RESULT (BEAKER) (test No organisms seen wicc=44705) POCT-GLUCOSE [id number] 17:33:00 Test Item Value Reference Range Comments POC-GLUCOSE METER (BEAKER) 105 mg/dL 70-110 TESTED AT [address] (test kwfo=4035) [place] [address] BLOOD [id number] 17:01:00 Test Item Value Reference Range Comments CULTURE (BEAKER) (test sdwc=6067) No growth in 5 days BLOOD [id number] 17:01:00 Test Item Value Reference Range Comments CULTURE (BEAKER) (test pwsq=3206) No growth in 5 days HSV 1/2 PCR, [id number] 13:20:00 Test Item Value Reference Range Comments HSV BY PCR (BEAKER) (test vbkk=688) NEGATIVE NEGATIVE Herpes Simplex Virus (HSV) not [...] and its performance characteristics determined by the [facility] Pathology Department, Section of Molecular Pathology. It has not been cleared or approved by the U.S. Food and Drug Administration (FDA), as FDA approval is not required for clinical use of the test. Validation was done as required by the Clinical Laboratory Amendments of 1988.POCT-GLUCOSE [id number] 12:33:00 Test Item Value Reference Range Comments POC-GLUCOSE METER (BEAKER) 129 mg/dL 70-110 TESTED AT [address] (test mydq=3051) [facility] [address] CBC W/PLT COUNT & AUTO [id number] 08:06:00 Test Item Value Reference Range Comments WHITE BLOOD CELL COUNT (BEAKER) (test oirp=212) 8.0 K/ L 3.5-10.5 RED BLOOD CELL COUNT (BEAKER) (test yazt=764) 3.72 M/ L 4.63-6.08 HEMOGLOBIN (BEAKER) (test tngn=032) 10.8 GM/DL 13.7-17.5 HEMATOCRIT (BEAKER) (test pomv=487) 32.5 % 40.1-51.0 MEAN CORPUSCULAR VOLUME (BEAKER) (test osaq=987) 87.4 fL 79.0-92.2 MEAN CORPUSCULAR HEMOGLOBIN (BEAKER) (test 29.0 pg 25.7-32.2 qksz=725) MEAN CORPUSCULAR HEMOGLOBIN CONC (BEAKER) (test 33.2 GM/DL 32.3-36.5 yyys=108) RED CELL DISTRIBUTION WIDTH (BEAKER) (test 13.9 % 11.6-14.4 igrx=786) PLATELET COUNT (BEAKER) (test gwlz=185) 214 K/CU MM 150-450 MEAN PLATELET VOLUME (BEAKER) (test nmpw=544) 10.4 fL 9.4-12.4 NUCLEATED RED BLOOD CELLS (BEAKER) (test 0 /100 WBC 0-0 jmss=104) (CELLAVISION MANUAL DIFF)2018-10-19 08:06:00 Test Item Value Reference Range Comments NEUTROPHILS - REL (CELLAVISION)(BEAKER) (test 70 % jkzc=7129) LYMPHOCYTES - REL (CELLAVISION)(BEAKER) (test 24 % cgux=8783) MONOCYTES - REL (CELLAVISION)(BEAKER) (test 4 % mnhe=9592) BANDS - REL (CELLAVISION)(BEAKER) (test retc=2438) 2 % 0-10 NEUTROPHILS - ABS (CELLAVISION)(BEAKER) (test 5.60 K/ul 1.78-5.38 nqmb=1940) LYMPHOCYTES - ABS (CELLAVISION)(BEAKER) (test 1.92 K/ul 1.32-3.57 hqba=8153) MONOCYTES - ABS (CELLAVISION)(BEAKER) (test 0.32 K/uL 0.30-0.82 ejmc=9696) BANDS - ABS (CELLAVISION)(BEAKER) (test gsdg=6501) 0.16 K/uL 0.00-0.80 TOTAL COUNTED (BEAKER) (test kdwg=3167) 100 RBC MORPHOLOGY (BEAKER) (test rtga=255) Normal SMUDGE CELLS (BEAKER) (test zkqy=6008) Present GIANT PLATELETS (BEAKER) (test fsok=131) Present ARTIFACT (CELLAVISION)(BEAKER) (test awcy=3872) Present PLATELET CONCENTRATION (CELLAVISION)(BEAKER) (test Adequate ggbd=7086) Received comment: User comments: Slide comments:POCT-GLUCOSE [id number] 06: 21:00 Test Item Value Reference Range Comments POC-GLUCOSE METER (BEAKER) 113 mg/dL 70-110 TESTED AT [address] (test wgow=6693) [facility] [address] [id number] 04:04:00 Test Item Value Reference Range Comments PHOSPHORUS (BEAKER) (test pcuo=965) 2.0 mg/dL 2.3-4.7 [id number] 04:04:00 Test Item Value Reference Range Comments MAGNESIUM (BEAKER) (test pbkk=316) 2.1 mg/dL 1.6-2.6 BASIC METABOLIC [id number] 04:04:00 Test Item Value Reference Range Comments SODIUM (BEAKER) (test 143 meq/L 136-145 spuo=885) POTASSIUM (BEAKER) (test 3.2 meq/L 3.5-5.1 xihh=818) CHLORIDE (BEAKER) (test 112 meq/L 98-107 lcrm=746) CO2 (BEAKER) (test 26 meq/L 22-29 tqcj=145) BLOOD UREA NITROGEN 9 mg/dL 7-21 (BEAKER) (test yblj=759) CREATININE (BEAKER) (test 0.75 mg/dL 0.57-1.25 zogm=692) GLUCOSE RANDOM (BEAKER) 119 mg/dL 70-105 (test cxtj=790) CALCIUM (BEAKER) (test 8.2 mg/dL 8.4-10.2 tzwn=966) EGFR (BEAKER) (test 109 mL/min/1.73 sq m ESTIMATED GFR IS NOT bhof=4211) ACCURATE CREATININE CLEARANCE IN PREDICTING GLOMERULAR FILTRATION RATE. ESTIMATED GFR IS NOT APPLICABLE FOR DIALYSIS PATIENTS. POCT-GLUCOSE [id number] 23:53:00 Test Item Value Reference Range Comments POC-GLUCOSE METER (BEAKER) 122 mg/dL 70-110 TESTED AT [address] (test pkhe=4462) [facility] [address] POCT-GLUCOSE [id number] 18:17:00 Test Item Value Reference Range Comments POC-GLUCOSE METER (BEAKER) 110 mg/dL 70-110 TESTED AT [address] (test otme=2470) [facility] [address] POCT-GLUCOSE [id number] 12:36:00 Test Item Value Reference Range Comments POC-GLUCOSE METER (BEAKER) 80 mg/dL 70-110 TESTED AT [address] (test ooav=1687) [facility] [address] CBC W/PLT COUNT & AUTO [id number] 10:31:00 Test Item Value Reference Range Comments WHITE BLOOD CELL COUNT (BEAKER) (test peqs=247) 7.4 K/ L 3.5-10.5 RED BLOOD CELL COUNT (BEAKER) (test wgll=649) 3.73 M/ L 4.63-6.08 HEMOGLOBIN (BEAKER) (test ensp=914) 10.9 GM/DL 13.7-17.5 HEMATOCRIT (BEAKER) (test qgzw=908) 32.8 % 40.1-51.0 MEAN CORPUSCULAR VOLUME (BEAKER) (test pznu=439) 87.9 fL 79.0-92.2 MEAN CORPUSCULAR HEMOGLOBIN (BEAKER) (test 29.2 pg 25.7-32.2 whan=007) MEAN CORPUSCULAR HEMOGLOBIN CONC (BEAKER) (test 33.2 GM/DL 32.3-36.5 zfhh=912) RED CELL DISTRIBUTION WIDTH (BEAKER) (test 14.1 % 11.6-14.4 gasu=714) PLATELET COUNT (BEAKER) (test affs=850) 192 K/CU MM 150-450 MEAN PLATELET VOLUME (BEAKER) (test wzag=655) 11.0 fL 9.4-12.4 NUCLEATED RED BLOOD CELLS (BEAKER) (test 0 /100 WBC 0-0 mctt=043) (CELLAVISION MANUAL DIFF)[id number] 10:31:00 Test Item Value Reference Range Comments NEUTROPHILS - REL (CELLAVISION)(BEAKER) (test 74 % vhvh=4660) LYMPHOCYTES - REL (CELLAVISION)(BEAKER) (test 19 % gibs=2846) MONOCYTES - REL (CELLAVISION)(BEAKER) (test 3 % csta=3415) EOSINOPHILS - REL (CELLAVISION)(BEAKER) (test 1 % mfyj=6031) BANDS - REL (CELLAVISION)(BEAKER) (test uqmq=4387) 2 % 0-10 ATYPICAL LYMPHOCYTES - REL (CELLAVISION)(BEAKER) 1 % 0-0 (test gqqc=7323) NEUTROPHILS - ABS (CELLAVISION)(BEAKER) (test 5.48 K/ul 1.78-5.38 jkhy=2552) LYMPHOCYTES - ABS (CELLAVISION)(BEAKER) (test 1.41 K/ul 1.32-3.57 hxxy=1293) MONOCYTES - ABS (CELLAVISION)(BEAKER) (test 0.22 K/uL 0.30-0.82 qgfe=3950) EOSINOPHILS - ABS (CELLAVISION)(BEAKER) (test 0.07 K/uL 0.04-0.54 lodg=6074) BANDS - ABS (CELLAVISION)(BEAKER) (test tzet=5578) 0.15 K/uL 0.00-0.80 ATYPICAL LYMPHOCYTES - ABS (CELLAVISION)(BEAKER) 0.07 K/uL 0.00-0.00 (test wdvy=2307) TOTAL COUNTED (BEAKER) (test taqq=3012) 100 RBC MORPHOLOGY (BEAKER) (test tbai=276) Normal WBC MORPHOLOGY (BEAKER) (test alht=548) Normal PLT MORPHOLOGY (BEAKER) (test abqz=744) Normal ARTIFACT (CELLAVISION)(BEAKER) (test kwki=0219) Present PLATELET CONCENTRATION (CELLAVISION)(BEAKER) (test Adequate unge=6071) Received comment: User comments: Slide comments:POCT-GLUCOSE [id number] 06: 27:00 Test Item Value Reference Range Comments POC-GLUCOSE METER (BEAKER) 96 mg/dL 70-110 TESTED AT [facility] [address] [facility] (test mfnh=1938) [facility] [address] [id number] 05:32:00 Test Item Value Reference Range Comments PHOSPHORUS (BEAKER) (test vgaf=754) 2.8 mg/dL 2.3-4.7 [id number] 05:32:00 Test Item Value Reference Range Comments MAGNESIUM (BEAKER) (test vcqt=424) 1.9 mg/dL 1.6-2.6 BASIC METABOLIC [id number] 05:32:00 Test Item Value Reference Range Comments SODIUM (BEAKER) (test 147 meq/L 136-145 hbba=099) POTASSIUM (BEAKER) (test 3.2 meq/L 3.5-5.1 utcn=547) CHLORIDE (BEAKER) (test 114 meq/L 98-107 gzop=152) CO2 (BEAKER) (test 23 meq/L 22-29 cnli=120) BLOOD UREA NITROGEN 11 mg/dL 7-21 (BEAKER) (test odsw=054) CREATININE (BEAKER) (test 0.75 mg/dL 0.57-1.25 dbib=726) GLUCOSE RANDOM (BEAKER) 80 mg/dL 70-105 (test vwpy=984) CALCIUM (BEAKER) (test 8.2 mg/dL 8.4-10.2 oqpu=463) EGFR (BEAKER) (test 109 mL/min/1.73 sq m ESTIMATED GFR IS NOT ocaa=8242) ACCURATE CREATININE CLEARANCE IN PREDICTING GLOMERULAR FILTRATION RATE. ESTIMATED GFR IS NOT APPLICABLE FOR DIALYSIS PATIENTS. BLOOD GAS, [id number] 05:08:00 Test Item Value Reference Range Comments PH ARTERIAL (BEAKER) (test mszw=127) 7.46 7.35-7.45 PCO2 ARTERIAL (BEAKER) (test tirw=879) 30 mmHg 35-45 PO2 ARTERIAL (BEAKER) (test xsie=969) 91 mmHg 80-90 O2 SATURATION ARTERIAL (BEAKER) (test zlxz=303) 97.3 % 96.0-97.0 HCO3 ARTERIAL (BEAKER) (test nsgv=025) 21 mmol/L 21-29 BASE EXCESS ARTERIAL (BEAKER) (test hcrk=002) -1.9 mmol/L -2.0-3.0 PATIENT TEMPERATURE (BEAKER) (test rtop=3151) 37.5 C FIO2 (BEAKER) (test wewf=1808) 35.0 % POCT-GLUCOSE [id number] 00:02:00 Test Item Value Reference Range Comments POC-GLUCOSE METER (BEAKER) 98 mg/dL 70-110 TESTED AT [address] (test dkix=0670) [facility] [address] VANCOMYCIN LEVEL, [id number] 19:23:00 Test Item Value Reference Range Comments VANCOMYCIN TROUGH (BEAKER) (test ubkn=889) 17.8 ug/mL 10.0-20.0 POCT-GLUCOSE [id number] 18:19:00 Test Item Value Reference Range Comments POC-GLUCOSE METER (BEAKER) 101 mg/dL 70-110 TESTED AT [address] (test dmlb=3484) [place] [address] [id number] 17:29:00 Test Item Value Reference Range Comments POTASSIUM (BEAKER) (test mmtk=903) 3.4 meq/L 3.5-5.1 Check Serum Phosphorus level 4 hours after IV phosphorus replacement or 8 hours after PO replacementcompleted.Check Serum Potassium level 2 hours after oral potassium replacement completed or 30 min after intravenous potassium replacement.[id number] 17:29:00 Test Item Value Reference Range Comments PHOSPHORUS (BEAKER) (test hjku=617) 1.9 mg/dL 2.3-4.7 Check Serum Phosphorus level 4 hours after IV phosphorus replacement or 8 hours after PO replacementcompleted.Check Serum Potassium level 2 hours after oral potassium replacement completed or 30 min after intravenous potassium replacement.[id number] 13:55:00 Test Item Value Reference Range Comments POTASSIUM (BEAKER) (test tssl=559) 3.4 meq/L 3.5-5.1 POCT-GLUCOSE [id number] 13:13:00 Test Item Value Reference Range Comments POC-GLUCOSE METER (BEAKER) 95 mg/dL 70-110 TESTED AT [address] (test jvhh=4606) [place] [address] SPUTUM CULTURE + GRAM [id number] 11:07:00 Test Item Value Reference Range Comments CULTURE (BEAKER) (test STAPHYLOCOCCUS AUREUS 1+ Staphylococcus qgva=5496) aureus Clindamycin (test code=10) Erythromycin (test code=4) Linezolid (test code=40) Nitrofurantoin (test code=23) Oxacillin (test code=14) Rifampin (test code=43) Tetracycline (test code=2) Trimethoprim + Sulfamethoxazole (test code=47) Vancomycin (test code=13) GRAM STAIN RESULT 4+ WBCs (BEAKER) (test qwxt=2785) GRAM STAIN RESULT 0-5 epithelial cells (BEAKER) (test pmaq=003398) GRAM STAIN RESULT 2+ gram positive cocci (BEAKER) (test in chains and pairs hxrb=134216) 4+ normal respiratory romelia presentPOCT-GLUCOSE [id number] 06:37:00 Test Item Value Reference Range Comments POC-GLUCOSE METER (BEAKER) 105 mg/dL 70-110 TESTED AT [facility] [address] (test mddm=1189) [facility] [address] RAD, CHEST, 1 VIEW, NON [id number] 03:39:00Reason for exam:-> intubatedShould this be performed [...] Verified Date /Time: 10/17/2018 03:39:58 Reading Location: [address] Reading Room BLOOD GAS, [id number] 03:37:00 Test Item Value Reference Range Comments PH ARTERIAL (BEAKER) (test whrh=755) 7.46 7.35-7.45 PCO2 ARTERIAL (BEAKER) (test zhuw=096) 33 mmHg 35-45 PO2 ARTERIAL (BEAKER) (test iofa=148) 156 mmHg 80-90 O2 SATURATION ARTERIAL (BEAKER) (test gilo=261) 99.1 % 96.0-97.0 HCO3 ARTERIAL (BEAKER) (test axgj=145) 23 mmol/L 21-29 BASE EXCESS ARTERIAL (BEAKER) (test ypxu=067) -0.5 mmol/L -2.0-3.0 PATIENT TEMPERATURE (BEAKER) (test dejz=2883) 37.0 C FIO2 (BEAKER) (test bmdc=5269) 35.0 % [id number] 03:22:00 Test Item Value Reference Range Comments PHOSPHORUS (BEAKER) (test bmzp=955) 0.8 mg/dL 2.3-4.7 BASIC METABOLIC [id number] 03:20:00 Test Item Value Reference Range Comments SODIUM (BEAKER) (test 144 meq/L 136-145 dttq=455) POTASSIUM (BEAKER) (test 3.4 meq/L 3.5-5.1 bqnu=818) CHLORIDE (BEAKER) (test 117 meq/L 98-107 gqoe=145) CO2 (BEAKER) (test 20 meq/L 22-29 iecy=784) BLOOD UREA NITROGEN 11 mg/dL 7-21 (BEAKER) (test cquz=878) CREATININE (BEAKER) (test 0.84 mg/dL 0.57-1.25 nggz=336) GLUCOSE RANDOM (BEAKER) 112 mg/dL 70-105 (test juey=178) CALCIUM (BEAKER) (test 7.8 mg/dL 8.4-10.2 iwbi=859) EGFR (BEAKER) (test 96 mL/min/1.73 sq m ESTIMATED GFR IS NOT tqrt=7752) ACCURATE CREATININE CLEARANCE IN PREDICTING GLOMERULAR FILTRATION RATE. ESTIMATED GFR IS NOT APPLICABLE FOR DIALYSIS PATIENTS. [id number] 03:18:00 Test Item Value Reference Range Comments MAGNESIUM (BEAKER) (test uvjt=990) 1.8 mg/dL 1.6-2.6 CBC W/PLT COUNT & AUTO [id number] 03:02:00 Test Item Value Reference Range Comments WHITE BLOOD CELL COUNT (BEAKER) (test zmbt=924) 7.7 K/ L 3.5-10.5 RED BLOOD CELL COUNT (BEAKER) (test iipq=904) 3.40 M/ L 4.63-6.08 HEMOGLOBIN (BEAKER) (test ruga=934) 10.1 GM/DL 13.7-17.5 HEMATOCRIT (BEAKER) (test yopc=606) 30.1 % 40.1-51.0 MEAN CORPUSCULAR VOLUME (BEAKER) (test weak=708) 88.5 fL 79.0-92.2 MEAN CORPUSCULAR HEMOGLOBIN (BEAKER) (test 29.7 pg 25.7-32.2 azvj=333) MEAN CORPUSCULAR HEMOGLOBIN CONC (BEAKER) (test 33.6 GM/DL 32.3-36.5 mukc=888) RED CELL DISTRIBUTION WIDTH (BEAKER) (test 14.0 % 11.6-14.4 cokq=954) PLATELET COUNT (BEAKER) (test hnhv=709) 161 K/CU MM 150-450 MEAN PLATELET VOLUME (BEAKER) (test gcuk=083) 11.0 fL 9.4-12.4 NUCLEATED RED BLOOD CELLS (BEAKER) (test 0 /100 WBC 0-0 hizv=968) NEUTROPHILS RELATIVE PERCENT (BEAKER) (test 79 % gfkf=096) LYMPHOCYTES RELATIVE PERCENT (BEAKER) (test 12 % yeuv=269) MONOCYTES RELATIVE PERCENT (BEAKER) (test 8 % psgl=016) EOSINOPHILS RELATIVE PERCENT (BEAKER) (test 0 % ldes=603) BASOPHILS RELATIVE PERCENT (BEAKER) (test 0 % lotz=715) NEUTROPHILS ABSOLUTE COUNT (BEAKER) (test 6.07 K/ L 1.78-5.38 qotd=964) LYMPHOCYTES ABSOLUTE COUNT (BEAKER) (test 0.94 K/ L 1.32-3.57 wglz=388) MONOCYTES ABSOLUTE COUNT (BEAKER) (test 0.60 K/ L 0.30-0.82 bylu=484) EOSINOPHILS ABSOLUTE COUNT (BEAKER) (test 0.01 K/ L 0.04-0.54 eudw=577) BASOPHILS ABSOLUTE COUNT (BEAKER) (test 0.02 K/ L 0.01-0.08 exmi=911) IMMATURE GRANULOCYTES-RELATIVE PERCENT (BEAKER) 1 % 0-1 (test vznz=1405) POCT-GLUCOSE [id number] 23:37:00 Test Item Value Reference Range Comments POC-GLUCOSE METER (BEAKER) 106 mg/dL 70-110 TESTED AT [facility] [address] [facility] (test lloj=8407) [facility] [address] RAD, ABDOMEN/KUB, 1 VIEW [id number] 22:14:00Reason for exam:->Confirm corpak placementShould this be [...] MDReport Verified Date/Time: 10/16/2018 22:14:17 Reading Location: [facility] C0[facility] CT Body Reading Room [id number] 21:14:00 Test Item Value Reference Range Comments POTASSIUM (BEAKER) (test wruz=019) 3.5 meq/L 3.5-5.1 [id number] 19:12:00 Test Item Value Reference Range Comments PROCALCITONIN (BEAKER) (test yrht=3718) 0.99 ng/mL <0.05 SEPSIS RISK (ng/mL)Low: 0.05-0.50Intermediate: 0.51-2.00High: & gt;=2.01POCT-GLUCOSE [id number] 18:15:00 Test Item Value Reference Range Comments POC-GLUCOSE METER (BEAKER) 124 mg/dL 70-110 TESTED AT [facility] [address] [facility] (test xswz=0588) [facility] [address] CSF CELL COUNT [id number] 15:55:00 Test Item Value Reference Range Comments APPEARANCE CSF (BEAKER) (test yyjr=957) Clear Clear COLOR CSF (BEAKER) (test gshw=028) Colorless Colorless RBC CSF (BEAKER) (test nqag=029) 190 /cu mm 0-5 WBC CSF (BEAKER) (test epzt=3412) 1 /cu mm <=5 RBCS FRESH (BEAKER) (test khdm=9526) 100% Fresh NUMBER OF CELLS DIFF'D (BEAKER) (test jszu=8053) 50 NEUTROPHIL, CSF (BEAKER) (test usfo=454) 6 % 0-5 LYMPHS CSF (BEAKER) (test anzy=117) 78 % 40-80 MONO/MACROPHAGE CSF (BEAKER) (test jnvh=658) 16 % 15-45 EOSINOPHILS CSF (BEAKER) (test cwnh=254) 0 % <=0 BASO CSF (BEAKER) (test fdbz=816) 0 % <=0 TUBE NUMBER CSF (BEAKER) (test zemc=5117) 2 GLUCOSE, [id number] 15:37:00 Test Item Value Reference Range Comments GLUCOSE CSF (BEAKER) (test xscf=592) 75 mg/dL 40-70 Save tube for future studies if neededSave tubes for further studies if neededPROTEIN, [id number] 15:37:00 Test Item Value Reference Range Comments PROTEIN CSF (BEAKER) (test tetk=305) 41 mg/dL 15-45 Save tube for future studies if neededSave tubes for further studies if neededPOCT-GLUCOSE [id number] 12:32:00 Test Item Value Reference Range Comments POC-GLUCOSE METER (BEAKER) 118 mg/dL 70-110 TESTED AT [facility] [address] (test ndeu=7630) [facility] [address] RAD, CHEST, 1 VIEW, NON [id number] 12:07:00Reason for exam:->ETT positionShould this be performed [...] Maurer Verified Date/Time: 10/16/2018 12:07:46 Reading Location: [facility] Radiology Reading Room MR, BRAIN , WITHOUT [id number] 11:28:00FINAL REPORT MRI Brain without contrast Clinical [...] Verified Date/Time: 10/16/2018 11:28: 39 Reading Location: [facility] C0[facility] Neuro Reading Room URINE [id number] 09:42:00 Test Item Value Reference Range Comments CULTURE (BEAKER) (test pfgi=5479) No growth POCT-GLUCOSE [id number] 06:44:00 Test Item Value Reference Range Comments POC-GLUCOSE METER (BEAKER) 128 mg/dL 70-110 TESTED AT [facility] [address] [facility] (test dame=8151) [facility] [address] BASIC METABOLIC [id number] 06:11:00 Test Item Value Reference Range Comments SODIUM (BEAKER) (test 145 meq/L 136-145 eyex=379) POTASSIUM (BEAKER) (test 3.3 meq/L 3.5-5.1 ydoq=482) CHLORIDE (BEAKER) (test 116 meq/L 98-107 gtlq=038) CO2 (BEAKER) (test 22 meq/L 22-29 xgzk=437) BLOOD UREA NITROGEN 13 mg/dL 7-21 (BEAKER) (test pshc=453) CREATININE (BEAKER) (test 1.02 mg/dL 0.57-1.25 ixjw=640) GLUCOSE RANDOM (BEAKER) 114 mg/dL 70-105 (test qmay=763) CALCIUM (BEAKER) (test 8.4 mg/dL 8.4-10.2 hkwa=235) EGFR (BEAKER) (test 76 mL/min/1.73 sq m ESTIMATED GFR IS NOT uipe=5697) ACCURATE CREATININE CLEARANCE IN PREDICTING GLOMERULAR FILTRATION RATE. ESTIMATED GFR IS NOT APPLICABLE FOR DIALYSIS PATIENTS. LACTIC ACID, VENOUS, WHOLE [id number] 06:11:00 Test Item Value Reference Range Comments LACTATE BLOOD VENOUS (2) 1.3 mmol/L 0.5-2.2 Specimen slightly hemolyzed (BEAKER) (test fljl=1461) VANCOMYCIN LEVEL, [id number] 06:10:00 Test Item Value Reference Range Comments VANCOMYCIN TROUGH (BEAKER) (test ytyp=107) 16.7 ug/mL 10.0-20.0 Draw 30 min prior to scheduled dose, HOLD if level > 20 mcg/mL, inform MD.CBC W/PLT COUNT & AUTO [id number] 06:09:00 Test Item Value Reference Range Comments WHITE BLOOD CELL COUNT (BEAKER) (test haqb=730) 15.0 K/ L 3.5-10.5 RED BLOOD CELL COUNT (BEAKER) (test hfnt=714) 3.72 M/ L 4.63-6.08 HEMOGLOBIN (BEAKER) (test ejaw=931) 10.9 GM/DL 13.7-17.5 HEMATOCRIT (BEAKER) (test uqvk=603) 32.7 % 40.1-51.0 MEAN CORPUSCULAR VOLUME (BEAKER) (test xhmq=439) 87.9 fL 79.0-92.2 MEAN CORPUSCULAR HEMOGLOBIN (BEAKER) (test 29.3 pg 25.7-32.2 oalo=526) MEAN CORPUSCULAR HEMOGLOBIN CONC (BEAKER) (test 33.3 GM/DL 32.3-36.5 onyw=943) RED CELL DISTRIBUTION WIDTH (BEAKER) (test 13.6 % 11.6-14.4 acxt=646) PLATELET COUNT (BEAKER) (test futj=146) 187 K/CU MM 150-450 MEAN PLATELET VOLUME (BEAKER) (test vxlc=807) 11.6 fL 9.4-12.4 NUCLEATED RED BLOOD CELLS (BEAKER) (test 0 /100 WBC 0-0 qpju=261) NEUTROPHILS RELATIVE PERCENT (BEAKER) (test 88 % jhob=611) LYMPHOCYTES RELATIVE PERCENT (BEAKER) (test 7 % yxsn=715) MONOCYTES RELATIVE PERCENT (BEAKER) (test 5 % ncxi=981) EOSINOPHILS RELATIVE PERCENT (BEAKER) (test 0 % afsx=756) BASOPHILS RELATIVE PERCENT (BEAKER) (test 0 % aqvc=938) NEUTROPHILS ABSOLUTE COUNT (BEAKER) (test 13.13 K/ L 1.78-5.38 vfoe=382) LYMPHOCYTES ABSOLUTE COUNT (BEAKER) (test 1.04 K/ L 1.32-3.57 qgin=211) MONOCYTES ABSOLUTE COUNT (BEAKER) (test 0.69 K/ L 0.30-0.82 xcxb=521) EOSINOPHILS ABSOLUTE COUNT (BEAKER) (test 0.00 K/ L 0.04-0.54 ulvs=216) BASOPHILS ABSOLUTE COUNT (BEAKER) (test 0.03 K/ L 0.01-0.08 zejm=471) IMMATURE GRANULOCYTES-RELATIVE PERCENT (BEAKER) 1 % 0-1 (test qsrf=9408) BLOOD GAS, [id number] 05:49:00 Test Item Value Reference Range Comments PH ARTERIAL (BEAKER) (test qizv=324) 7.41 7.35-7.45 PCO2 ARTERIAL (BEAKER) (test nuzp=745) 37 mmHg 35-45 PO2 ARTERIAL (BEAKER) (test bbec=080) 68 mmHg 80-90 O2 SATURATION ARTERIAL (BEAKER) (test iimk=614) 93.4 % 96.0-97.0 HCO3 ARTERIAL (BEAKER) (test sjpv=307) 23 mmol/L 21-29 BASE EXCESS ARTERIAL (BEAKER) (test qwkr=336) -1.2 mmol/L -2.0-3.0 PATIENT TEMPERATURE (BEAKER) (test hsuf=4272) 37.5 C FIO2 (BEAKER) (test rmnv=4603) 40.0 % RAD, CHEST, 1 VIEW, NON [id number] 03:52:00Reason for exam:-> intubatedShould this be performed [...] MDRfreemanort Verified Date/Time: 10/16/2018 03:52:10 Reading Location: [facility] B1 C013Y CT Body Reading Room POCT-GLUCOSE [id number] 02:45:00 Test Item Value Reference Range Comments POC-GLUCOSE METER (BEAKER) 115 mg/dL 70-110 TESTED AT [address] (test uoaw=1695) [place] [address] RAD, CHEST, 1 VIEW, NON [id number] 20:47:00Reason for exam:->check picc placement Should this [...] Floyd Verified Date/Time: 10/15/2018 20:47:08 Reading Location: [facility] Radiology Reading Room POCT-GLUCOSE [id number] 17:50:00 Test Item Value Reference Range Comments POC-GLUCOSE METER (BEAKER) 141 mg/dL 70-110 TESTED AT [address] (test yobq=4393) [place] [address] BASIC METABOLIC [id number] 17:22:00 Test Item Value Reference Range Comments SODIUM (BEAKER) (test 143 meq/L 136-145 vfug=632) POTASSIUM (BEAKER) (test 3.3 meq/L 3.5-5.1 oggp=923) CHLORIDE (BEAKER) (test 115 meq/L 98-107 wipl=389) CO2 (BEAKER) (test 22 meq/L 22-29 nzcn=239) BLOOD UREA NITROGEN 15 mg/dL 7-21 (BEAKER) (test vqhs=297) CREATININE (BEAKER) (test 1.17 mg/dL 0.57-1.25 ezck=888) GLUCOSE RANDOM (BEAKER) 138 mg/dL 70-105 (test hhaq=395) CALCIUM (BEAKER) (test 8.2 mg/dL 8.4-10.2 ktkr=785) EGFR (BEAKER) (test 65 mL/min/1.73 sq m ESTIMATED GFR IS NOT ydfk=0503) ACCURATE CREATININE CLEARANCE IN PREDICTING GLOMERULAR FILTRATION RATE. ESTIMATED GFR IS NOT APPLICABLE FOR DIALYSIS PATIENTS. CORTISOL,60 [id number] 16:54:00 Test Item Value Reference Range Comments CORTISOL BASELINE NETWORKED (BEAKER) (test 16.3 mcg/dL sqnc=7095) CORTISOL 30 MINUTE NETWORKED (BEAKER) (test 24.1 mcg/dL xbms=5295) CORTISOL, 60 MINUTE (BEAKER) (test yjdi=1873) 29.7 ug/dL ACTH STIMULATION TEST INTERPRETATION GUIDELINES(Synonyms: [...] study by Peng et al (RONI 2000,283( 8):6336-45), the ACTH Stimulation Test provides important prognostic [...] serum cortisollevel 60 minutes after cosyntropin administration.CORTISOL,30 [id number] 16:07:00 Test Item Value Reference Range Comments CORTISOL BASELINE NETWORKED (BEAKER) (test 16.3 mcg/dL tsub=4845) CORTISOL, 30 MINUTE (BEAKER) (test lmjt=4064) 24.1 ug/dL ACTH STIMULATION TEST INTERPRETATION GUIDELINES(Synonyms: [...] Draw serum cortisollevel 60 minutes after cosyntropin administration.CORTISOL,[id number] 15:25:00 Test Item Value Reference Range Comments CORTISOL, BASELINE (MISSY) (test cgti=7295) 16.3 ug/dL ACTH STIMULATION TEST INTERPRETATION GUIDELINES(Synonyms: [...] cortisollevel 60 minutes after cosyntropin administration.BASIC METABOLIC [id number] 15:04:00 Test Item Value Reference Range Comments SODIUM (BEAKER) (test 144 meq/L 136-145 wgnw=514) POTASSIUM (BEAKER) (test 3.2 meq/L 3.5-5.1 dmxi=453) CHLORIDE (BEAKER) (test 115 meq/L 98-107 dmba=380) CO2 (BEAKER) (test 22 meq/L 22-29 ffqf=523) BLOOD UREA NITROGEN 16 mg/dL 7-21 (BEAKER) (test ttgd=158) CREATININE (BEAKER) (test 1.22 mg/dL 0.57-1.25 tjpt=880) GLUCOSE RANDOM (BEAKER) 144 mg/dL 70-105 (test cduy=621) CALCIUM (BEAKER) (test 8.0 mg/dL 8.4-10.2 jasw=217) EGFR (BEAKER) (test mL/min/1.73 sq m INSUFFICIENT CLINICAL DATA hbnz=8186) TO CALCULATE ESTIMATED GFR. EEG MONITORING WITH VIDEO RECORDING EACH 24 [id number] 14:33:00For STAT EEG - after 5 PM weekdays, weekends and holidays, page the on-call profile trimmer Reason for exam:->concern for seizuresDATE OF REPORT: 10/15/2018 ACC: [id number]: [id number] time: 17:48 on 10/14/18top time: 09:44 on10/15/18ICD-10: R56.9 CPT Code: 93004 HISTORY: 52 y/o male with DM, HTN, [...] Kristel Boyd MDNeurophysiology Fellow Felice Pinedo M.D., [facility] Professor of Neurology [facility] [employer] Director, [facility] Head, [facility] Neurophysiology Lab RAD, PELVIS, 1 OR 2 [id number] 14:11:00Reason for exam:->MRI clearanceShould this be performed [...] MDReport Verified Date/Time: 2017 14:11:06 Reading Location: [facility] C013W Consult Reading Room RAD, SKULL, LESS THAN 4 [id number] 14:08:00Reason for exam:->MRI clearanceShould this be performed [...] MDReport Verified Date/Time: 10/15/2018 14:08:11 Reading Location: [address] Consult Reading Room RAD, ABDOMEN/KUB, 1 VIEW [id number] 14:05:00Reason for exam:->clear for MRIShould this be [...] Verified Date/Time: 10/15/2018 14:05: 30 Reading Location: [address] Consult Reading Room TROPONIN [id number] 13:07:00 Test Item Value Reference Range Comments TROPONIN I (BEAKER) (test hugr=713) 0.05 ng/mL 0.00-0.03 POCT-GLUCOSE [id number] 12:51:00 Test Item Value Reference Range Comments POC-GLUCOSE METER (BEAKER) 166 mg/dL 70-110 TESTED AT [facility] [address] [place] [address] (test qvrd=8435) [facility] [address] U/S, RENAL, [id number] 12:22:00Reason for exam:->alayna, UTI, sepsisShould this be [...] Verified Date/Time: 10/15/2018 12: 22:41 Reading Location: [address] Ultrasound Reading Room RESPIRATORY PANEL [id number] 12:09:00 Test Item Value Reference Range Comments HUMAN METAPNEUMOVIRUS Not detected Not detected, (BEAKER) (test qqzd=1218) Equivocal RHINOVIRUS (BEAKER) (test Not detected Not detected, uhaj=2804) Equivocal INFLUENZA A (BEAKER) (test Not detected Not detected, steb=7623) Equivocal INFLUENZA A (NO SUBTYPE) Not detected, (test bgxa=0461) Equivocal INFLUENZA A SUBTYPE H1 Not detected, (BEAKER) (test bggm=5620) Equivocal INFLUENZA A SUBTYPE H3 Not detected, (BEAKER) (test ggpu=4754) Equivocal INFLUENZA A SUBTYPE Not detected, H1-2009 (BEAKER) (test Equivocal aqau=8960) INFLUENZA B (BEAKER) (test Not detected Not detected, sibm=1483) Equivocal RESPIRATORY SYNCYTIAL Detected Not detected, Assay is not able VIRUS (BEAKER) (test Equivocal differentiate between RSV qotq=7124) A and RSV B.Contact isolation if immunosuppressed or young children. Consider stopping antibiotics. PARAINFLUENZA VIRUS 1 Not detected Not detected, (BEAKER) (test tzln=0406) Equivocal PARAINFLUENZA VIRUS 2 Not detected Not detected, (BEAKER) (test iqxn=1609) Equivocal PARAINFLUENZA VIRUS 3 Not detected Not detected, (BEAKER) (test slsz=2892) Equivocal PARAINFLUENZA VIRUS 4 Not detected Not detected, (BEAKER) (test xtfw=0460) Equivocal ADENOVIRUS (BEAKER) (test Not detected Not detected, yqhe=4783) Equivocal CORONAVIRUS 229E (BEAKER) Not detected Not detected, (test gphi=3769) Equivocal CORONAVIRUS HKU1 (BEAKER) Not detected Not detected, (test spdh=7008) Equivocal CORONAVIRUS NL63 (BEAKER) Not detected Not detected, (test nssc=7327) Equivocal CORONAVIRUS OC43 (BEAKER) Not detected Not detected, (test qnun=2666) Equivocal BORDETELLA PERTUSSIS Not detected Not detected, (BEAKER) (test dizf=4175) Equivocal CHLAMYDOPHILA PNEUMONIAE Not detected Not detected, (BEAKER) (test pfdk=5685) Equivocal MYCOPLASMA PNEUMONIAE Not detected Not detected, (BEAKER) (test jmxs=3825) Equivocal Other viruses and bacteria not targeted by this PCR panel cannot be excluded; therefore clinical correlation and follow up of serology, culture results, and other molecular studies is required. The results are not intended to be used as the sole means for clinical diagnosis or patient management decisions. This sample was tested at the [facility] Molecular Diagnostics Laboratory using the [employer] Technologies[employer] Respiratory Panel. It is FDA cleared and has been verified and approved by the [facility] Molecular Diagnostics Laboratory for clinical use on nasal swab specimens. It is not FDA-cleared for use on bronchial wash/lavage samples. However, for this sample type, validation was performed and test characteristics were determined and approved, by [facility] [employer] [facility] laboratory for clinical use under the Clinical Laboratory Improvement Amendments (CLIA) of 1988 requirements. Therefore, FDA clearance isnot required. This laboratory is CLIA-certified and [employer] (CAP)-accredited to perform high complexity testing.CREATINE KINASE (CK)2018-10-15 09:33:00 Test Item Value Reference Range Comments CREATINE KINASE TOTAL (BEAKER) (test rmtc=868) 1362 U/L 29-200 BLOOD GAS, [id number] 09:14:00 Test Item Value Reference Range Comments PH VENOUS (BEAKER) (test tugz=274) 7.39 7.32-7.42 PCO2 VENOUS (BEAKER) (test fdrl=601) 36 mmHg 41-51 PO2 VENOUS (BEAKER) (test gicq=295) 66 mmHg 25-40 O2 SATURATION VENOUS (BEAKER) (test iacm=003) 93.1 % 40.0-70.0 HCO3 VENOUS (BEAKER) (test eaxn=023) 21 mmol/L 21-29 BASE EXCESS VENOUS (BEAKER) (test ogga=500) -3.3 mmol/L -2.0-3.0 PATIENT TEMPERATURE (BEAKER) (test hodu=6256) 37.0 C FIO2 (BEAKER) (test gnkp=0215) 21.0 % RAPID DRUG SCREEN, [id number] 08:24:00 Test Item Value Reference Range Comments BARBITURATE URINE (BEAKER) (test ztqz=726) Negative Negative BENZODIAZEPINE SCREEN URINE (BEAKER) (test Positive Negative qlra=177) COCAINE (METAB.) SCREEN (BEAKER) (test lzsa=0556) Negative Negative METHADONE SCREEN (BEAKER) (test hqgu=6383) Negative Negative OPIATE SCREEN URINE (BEAKER) (test hghl=532) Negative Negative CANNABINOID SCREEN URINE (BEAKER) (test qozx=770) Negative Negative AMPH/METHAMPH SCREEN (BEAKER) (test rduv=1015) Negative Negative PHENCYCLIDINE SCREEN URINE (BEAKER) (test cyhv=017) Negative Negative OXYCODONE SCREEN URINE (BEAKER) (test exdt=2948) Negative Negative DRUG CUTOFF CONC.Cocaine 300 ng/mL Cannabinoid 50 ng/mL Benzodiazepine 200 ng/mLBarbiturate 200 ng/ mLPhencyclidine 25 ng/mLOpiate 300 ng/mLMethadone 300 ng/mLAmphetamine/ 1000 ng/mL MethamphetamineOxycodone 300 ng/mLThis assay provides an unconfirmed qualitative test result for the clinical management of patients in emergency situations. Chain of custody not maintained. Some bgda-rgv-mtjkxbe medications, as well as adulterants, may cause inaccurate results. Clinical correlation should be applied. A more comprehensive drug screen or confirmation of a detected drug may be performed upon request.RAD, CHEST, 1 VIEW, NON [id number] 06:31:00Reason for exam:-&gt ;intubatedShould this be performed [...] Verified Date/Time : 10/15/2018 06:31:32 Reading Location: [facility] C013Y CT Body Reading Room LEGIONELLA ANTIGEN, [id number] 05:37:00 Test Item Value Reference Range Comments L. PNEUMOPHILA SEROGP 1 Negative - see Negative for L. UR AG (BEAKER) (test comment pneumophila serogroup 1 wmaa=5023) antigen, suggesting no recent or current infection with this serogroup. Legionellosis cannot be ruled out since other serogroups and species may cause disease. STREP PNEUMONIAE [id number] 05:36:00 Test Item Value Reference Range Comments STREP PNEUMONIAE ANTIGEN Presumptive negative for Presumptive negative for (BEAKER) (test pneumococcal pneumonia - pneumococcal pneumonia - mjut=1034) see comment see commen Presumptive negative for pneumococcal pneumonia, suggesting no current or recent pneumococcal infection. Infection due to S. pneumoniae cannot be ruled out since the antigen present in the sample may be below the detection limit of the test.BLOOD GAS, [id number] 05:18:00 Test Item Value Reference Range Comments PH ARTERIAL (BEAKER) (test aobd=063) 7.41 7.35-7.45 PCO2 ARTERIAL (BEAKER) (test kmzw=038) 36 mmHg 35-45 PO2 ARTERIAL (BEAKER) (test yyms=344) 114 mmHg 80-90 O2 SATURATION ARTERIAL (BEAKER) (test uzmf=248) 98.1 % 96.0-97.0 HCO3 ARTERIAL (BEAKER) (test crfm=180) 22 mmol/L 21-29 BASE EXCESS ARTERIAL (BEAKER) (test ugwm=633) -1.9 mmol/L -2.0-3.0 PATIENT TEMPERATURE (BEAKER) (test ojad=7547) 38.0 C FIO2 (BEAKER) (test ouig=2463) 40.0 % TROPONIN [id number] 04:26:00 Test Item Value Reference Range Comments TROPONIN I (BEAKER) (test plie=393) 0.05 ng/mL 0.00-0.03 BASIC METABOLIC [id number] 04:23:00 Test Item Value Reference Range Comments SODIUM (BEAKER) (test 140 meq/L 136-145 eagl=912) POTASSIUM (BEAKER) (test 3.4 meq/L 3.5-5.1 vqgg=563) CHLORIDE (BEAKER) (test 112 meq/L 98-107 fntg=506) CO2 (BEAKER) (test 20 meq/L 22-29 gzgv=127) BLOOD UREA NITROGEN 20 mg/dL 7-21 (BEAKER) (test eshl=441) CREATININE (BEAKER) (test 1.55 mg/dL 0.57-1.25 dqre=046) GLUCOSE RANDOM (BEAKER) 154 mg/dL 70-105 (test ynil=461) CALCIUM (BEAKER) (test 7.9 mg/dL 8.4-10.2 xvqm=405) EGFR (BEAKER) (test mL/min/1.73 sq m INSUFFICIENT CLINICAL DATA zmbj=7684) TO CALCULATE ESTIMATED GFR. [id number] 04:23:00 Test Item Value Reference Range Comments LIPASE (BEAKER) (test wgmz=447) < U/L 8-78 B-TYPE NATRIURETIC FACTOR (BNP)2018-10-15 04:21:00 Test Item Value Reference Range Comments B-TYPE NATRIURETIC PEPTIDE (BEAKER) (test 136 pg/mL 0-100 juma=157) [id number] 04:19:00 Test Item Value Reference Range Comments MAGNESIUM (BEAKER) (test ynmj=367) 1.4 mg/dL 1.6-2.6 [id number] 04:19:00 Test Item Value Reference Range Comments PHOSPHORUS (BEAKER) (test dxlv=401) 2.2 mg/dL 2.3-4.7 HEPATIC FUNCTION [id number] 04:19:00 Test Item Value Reference Range Comments TOTAL PROTEIN (BEAKER) (test htpz=039) 6.0 gm/dL 6.0-8.3 ALBUMIN (BEAKER) (test rpzg=4821) 3.0 g/dL 3.5-5.0 BILIRUBIN TOTAL (BEAKER) (test gbbr=467) 0.5 mg/dL 0.2-1.2 BILIRUBIN DIRECT (BEAKER) (test lkmt=358) 0.3 mg/dL 0.1-0.5 ALKALINE PHOSPHATASE (BEAKER) (test dxck=931) 60 U/L 40-150 AST (SGOT) (BEAKER) (test metg=987) 36 U/L 5-34 ALT (SGPT) (BEAKER) (test qawa=838) 19 U/L 6-55 VANCOMYCIN LEVEL, [id number] 04:18:00 Test Item Value Reference Range Comments VANCOMYCIN RANDOM (BEAKER) (test ptpe=132) 11.8 ug/mL Reference Range: No NormalsLACTIC ACID, VENOUS, WHOLE [id number] 04:12:00 Test Item Value Reference Range Comments LACTATE BLOOD VENOUS (2) (BEAKER) (test 1.4 mmol/L 0.5-2.2 brma=6548) CBC W/PLT COUNT & AUTO [id number] 04:02:00 Test Item Value Reference Range Comments WHITE BLOOD CELL COUNT (BEAKER) (test qwch=389) 22.0 K/ L 3.5-10.5 RED BLOOD CELL COUNT (BEAKER) (test zdgp=044) 3.81 M/ L 4.63-6.08 HEMOGLOBIN (BEAKER) (test hdjy=210) 11.2 GM/DL 13.7-17.5 HEMATOCRIT (BEAKER) (test kjhw=550) 33.8 % 40.1-51.0 MEAN CORPUSCULAR VOLUME (BEAKER) (test ikir=877) 88.7 fL 79.0-92.2 MEAN CORPUSCULAR HEMOGLOBIN (BEAKER) (test 29.4 pg 25.7-32.2 mqdp=489) MEAN CORPUSCULAR HEMOGLOBIN CONC (BEAKER) (test 33.1 GM/DL 32.3-36.5 udpw=254) RED CELL DISTRIBUTION WIDTH (BEAKER) (test 13.3 % 11.6-14.4 emqr=444) PLATELET COUNT (BEAKER) (test dutn=917) 165 K/CU MM 150-450 MEAN PLATELET VOLUME (BEAKER) (test gvau=160) 11.2 fL 9.4-12.4 NUCLEATED RED BLOOD CELLS (BEAKER) (test 0 /100 WBC 0-0 qfib=809) NEUTROPHILS RELATIVE PERCENT (BEAKER) (test 87 % ndfv=330) LYMPHOCYTES RELATIVE PERCENT (BEAKER) (test 7 % tivl=807) MONOCYTES RELATIVE PERCENT (BEAKER) (test 5 % cfwn=903) EOSINOPHILS RELATIVE PERCENT (BEAKER) (test 0 % uzek=891) BASOPHILS RELATIVE PERCENT (BEAKER) (test 0 % tpag=740) NEUTROPHILS ABSOLUTE COUNT (BEAKER) (test 19.12 K/ L 1.78-5.38 mset=749) LYMPHOCYTES ABSOLUTE COUNT (BEAKER) (test 1.61 K/ L 1.32-3.57 jwoz=429) MONOCYTES ABSOLUTE COUNT (BEAKER) (test 1.05 K/ L 0.30-0.82 ofgp=039) EOSINOPHILS ABSOLUTE COUNT (BEAKER) (test 0.00 K/ L 0.04-0.54 gnbq=895) BASOPHILS ABSOLUTE COUNT (BEAKER) (test 0.04 K/ L 0.01-0.08 nevf=389) IMMATURE GRANULOCYTES-RELATIVE PERCENT (BEAKER) 1 % 0-1 (test xnjj=5085) POCT-GLUCOSE [id number] 00:56:00 Test Item Value Reference Range Comments POC-GLUCOSE METER (BEAKER) 149 mg/dL 70-110 TESTED AT [facility] [address] [facility] (test crcw=3380) [facility] [address] TROPONIN [id number] 21:23:00 Test Item Value Reference Range Comments TROPONIN I (BEAKER) (test bgxy=927) 0.06 ng/mL 0.00-0.03 LACTIC ACID, VENOUS, WHOLE [id number] 18:53:00 Test Item Value Reference Range Comments LACTATE BLOOD VENOUS (2) 1.7 mmol/L 0.5-2.2 Specimen slightly hemolyzed (BEAKER) (test uatw=2409) EEG RECORDING IN COMA/SLEEP [id number] 18:51:00Reason for exam:->concern for seizuresShould this be performed at the bedside?->YesDATE OF REPORT: ACC: [id number] Start time: 17:28 Stop time: 17:48 ICD-10: R56.9 CPT Code: 06120 HISTORY: 52 yo male with DM, HTN, [...] Felice Pinedo M.D., RICH Professor of Neurology [facility] [employer] [facility] Director, [facility] Head, [facility] Electronically signed by: FELICE PINEDO on 10/14 06:51 PMPOCT-GLUCOSE [id number] 17:46:00 Test Item Value Reference Range Comments POC-GLUCOSE METER (BEAKER) 130 mg/dL 70-110 TESTED AT [facility] [address] [place] [address] (test mwgf=2104) [facility] [address] LACTIC ACID, VENOUS, WHOLE [id number] 16:36:00 Test Item Value Reference Range Comments LACTATE BLOOD VENOUS (2) 2.4 mmol/L 0.5-2.2 Specimen slightly hemolyzed (BEAKER) (test qfrs=7488) FIBRIN SOLUBLE [id number] 15:35:00 Test Item Value Reference Range Comments FIBRIN SOLUBLE MONOMER (BEAKER) (test rppm=4946) Negative [id number] 14:51:00 Test Item Value Reference Range Comments PROCALCITONIN (BEAKER) (test zzhi=4349) 1.71 ng/mL <0.05 SEPSIS RISK (ng/mL)Low: 0.05-0.50Intermediate: 0.51-2.00High: & gt;=2.01TROPONIN [id number] 14:44:00 Test Item Value Reference Range Comments TROPONIN I (BEAKER) (test livi=864) 0.04 ng/mL 0.00-0.03 BASIC METABOLIC [id number] 14:39:00 Test Item Value Reference Range Comments SODIUM (BEAKER) (test 142 meq/L 136-145 yrej=593) POTASSIUM (BEAKER) (test 3.5 meq/L 3.5-5.1 neey=566) CHLORIDE (BEAKER) (test 112 meq/L 98-107 cosk=261) CO2 (BEAKER) (test 20 meq/L 22-29 gnqv=102) BLOOD UREA NITROGEN 23 mg/dL 7-21 (BEAKER) (test eywf=793) CREATININE (BEAKER) (test 2.14 mg/dL 0.57-1.25 cgyh=248) GLUCOSE RANDOM (BEAKER) 177 mg/dL 70-105 (test oqty=121) CALCIUM (BEAKER) (test 8.1 mg/dL 8.4-10.2 qcka=082) EGFR (BEAKER) (test mL/min/1.73 sq m INSUFFICIENT CLINICAL DATA mwwl=1575) TO CALCULATE ESTIMATED GFR. [id number] 14:38:00 Test Item Value Reference Range Comments PHOSPHORUS (BEAKER) (test jswe=155) 2.4 mg/dL 2.3-4.7 [id number] 14:38:00 Test Item Value Reference Range Comments MAGNESIUM (BEAKER) (test yysa=349) 1.6 mg/dL 1.6-2.6 HEPATIC FUNCTION [id number] 14:38:00 Test Item Value Reference Range Comments TOTAL PROTEIN (BEAKER) (test ucuf=267) 6.5 gm/dL 6.0-8.3 ALBUMIN (BEAKER) (test nxyf=1969) 3.3 g/dL 3.5-5.0 BILIRUBIN TOTAL (BEAKER) (test sdmd=760) 0.6 mg/dL 0.2-1.2 BILIRUBIN DIRECT (BEAKER) (test ffqw=476) 0.3 mg/dL 0.1-0.5 ALKALINE PHOSPHATASE (BEAKER) (test lkro=874) 64 U/L 40-150 AST (SGOT) (BEAKER) (test usdu=512) 24 U/L 5-34 ALT (SGPT) (BEAKER) (test kigy=945) 18 U/L 6-55 [id number] 14:38:00 Test Item Value Reference Range Comments LIPASE (BEAKER) (test vrvf=176) 8 U/L 8-78 LACTIC ACID, VENOUS, WHOLE [id number] 14:32:00 Test Item Value Reference Range Comments LACTATE BLOOD VENOUS (2) (BEAKER) (test 1.6 mmol/L 0.5-2.2 sjnc=5605) PROTHROMBIN [id number] 14:24:00 Test Item Value Reference Range Comments PROTIME (BEAKER) (test eyao=628) 15.3 seconds 11.7-14.7 INR (BEAKER) (test zxtc=835) 1.2 <=5.9 RECOMMENDED COUMADIN/WARFARIN INR THERAPY RANGESSTANDARD DOSE: 2.0 - 3.0 Includes: PROPHYLAXIS forvenous thrombosis, systemic embolization; TREATMENT for venous thrombosis and/or pulmonary embolus.HIGH RISK: Target INR is 2.5-3.5 for patients with mechanical heart valves.[id number] 14:24:00 Test Item Value Reference Range Comments FIBRINOGEN LEVEL (BEAKER) (test gdpw=744) 453 mg/dl 225-434 [id number] 14:24:00 Test Item Value Reference Range Comments PARTIAL THROMBOPLASTIN TIME (BEAKER) (test 37.8 seconds 22.5-36.0 rcch=765) BLOOD GAS, [id number] 14:14:00 Test Item Value Reference Range Comments PH ARTERIAL (BEAKER) (test ggsk=289) 7.43 7.35-7.45 PCO2 ARTERIAL (BEAKER) (test afgn=847) 31 mmHg 35-45 PO2 ARTERIAL (BEAKER) (test jxca=646) 105 mmHg 80-90 O2 SATURATION ARTERIAL (BEAKER) (test ebmz=209) 97.9 % 96.0-97.0 HCO3 ARTERIAL (BEAKER) (test mgfe=855) 20 mmol/L 21-29 BASE EXCESS ARTERIAL (BEAKER) (test bmxs=161) -3.2 mmol/L -2.0-3.0 PATIENT TEMPERATURE (BEAKER) (test oels=1423) 37.5 C FIO2 (BEAKER) (test wcxu=8877) 40.0 % OXYGEN SATURATION, [id number] 13:58:00 Test Item Value Reference Range Comments O2 SATURATION (MEASURED) (BEAKER) (test akje=1464) 89.6 % If patient has internal jugular ( IJ) or subclavian central line or PICC line. Draw from distal port. Label as central venous oxygen.RAD, CHEST, 1 VIEW, NON [id number] 13:52:00Reason for exam:->sputum, coughShould this be performed [...] MDReport Verified Date/Time: 10/14/2018 13:52:33 Reading Location: [address] Consult Reading Room URINALYSIS W/ [id number] 12:43:00 Test Item Value Reference Range Comments COLOR (BEAKER) (test ifmc=921) Yellow CLARITY (BEAKER) (test lufk=502) Hazy SPECIFIC GRAVITY UA (BEAKER) (test zvmp=819) 1.016 1.001-1.035 PH UA (BEAKER) (test qttx=045) 6.0 5.0-8.0 PROTEIN UA (BEAKER) (test uduk=658) 70 mg/dL Negative GLUCOSE UA (BEAKER) (test ujpy=935) 50 mg/dL Negative KETONES UA (BEAKER) (test crao=606) Negative Negative BILIRUBIN UA (BEAKER) (test bidy=283) Negative Negative BLOOD UA (BEAKER) (test mnun=773) Moderate Negative NITRITE UA (BEAKER) (test xtkc=980) Negative Negative LEUKOCYTE ESTERASE UA (BEAKER) (test fuvv=459) Large Negative UROBILINOGEN UA (BEAKER) (test mlbz=793) 0.2 mg/dL 0.2-1.0 RBC UA (BEAKER) (test vsil=719) 8 /HPF WBC UA (BEAKER) (test jgnh=476) 79 /HPF BACTERIA (BEAKER) (test hbto=459) Moderate MUCUS (BEAKER) (test vqwi=0023) Rare SQUAMOUS EPITHELIAL (BEAKER) (test nqex=181) 4 /HPF CALCIUM OXALATE CRYSTALS (BEAKER) (test Rare bxbv=168) SOURCE(BEAKER) (test lhay=9210) Urine, Elliott
[2020-02-22 11:16] LABS: Absolute Lymphocytes (CBC) 1.7 K/uL (0.7-4.9); Basophils % 0.7 % (0-1.3); Hematocrit 38.7 % (39.6-49.0); Lymphocytes % 20.6 % (15.3-44.8); MPV 9.4 fL (7.6-11.3); RBC Red Blood Cell Count 4.35 M/uL (4.33-5.43)
[2020-02-22] MEDS ORDERED: NA CHLORIDE 0.9% 500 ML ONE (11:18)
[2020-02-22 11:30] LABS: Potassium 3.9 mmol/L (3.5-5.1)
[2020-02-22 12:34] LABS: Urine Blood NEGATIVE (NEG); Urine Glucose NEGATIVE (NEG); Urine Protein NEGATIVE (NEG); Urine pH 7.5 (5.0-7.0)
[2020-02-22 12:47] LABS: Urine Bacteria LOADED /HPF (NONE SEEN); Urine Culture Reflex Order NOT NEEDED; Urine RBC <5 /HPF (NONE SEEN)
--- NOTE | 2020-02-22 13:03 | ER ---
Nurse's Notes [facility] Name: Deric Sheriff Age: 54 yrs Sex: Male : 1965 Arrival Date: 02/22/2020 Time: 10:46 Bed 19 Private MD: Diagnosis: Weakness;Altered mental status, unspecified;Urinary tract infection, site not specified Presentation: 02/21 10:46 Chief complaint: EMS states: Family reported he's weak and dizzy, pt appears to be jl7 baseline to previous runs on him. Coronavirus screen: Patient denies fever greater than 100.4F, cough, shortness of breath, or difficulty breathing. Proceed with normal triage process. Ebola Screen: No symptoms or risks identified at this time. Initial Sepsis Screen: Does the patient meet any 2 criteria? No. Patient's initial sepsis screen is negative. Does the patient have a suspected source of infection? No. Patient's initial sepsis screen is negative. Risk Assessment: Do you want to hurt yourself or someone else? Patient reports no desire to harm self or others. Onset of symptoms is unknown. Care prior to arrival: None. 10:46 Method Of Arrival: EMS: [facility] jl7 10:46 Acuity: HODAN 3 jl7 Historical: - Allergies: 10:48 Lotrel; jl7 - Home Meds: 10:48 aspirin 81 mg Oral chew 1 tab once daily [Active]; atorvastatin 40 mg Oral tab 1 tab jl7 nightly [Active]; baclofen 10 mg Oral tab 1 tab 3 times per day [Active]; citalopram 20 mg tab 1 tab once daily [Active]; clonidine HCl 0.1 mg Oral tab 1 tab 3 times per day [Active]; enalapril maleate 20 mg Oral tab 1 tab once daily [Active]; levetiracetam 750 mg Oral tab 1 tab 2 times per day [Active]; lisinopril 20 mg Oral tab 1 tab twice a day [Active]; metoprolol tartrate 50 mg Oral tab 1 tab 2 times per day [Active]; Plavix 75 mg Oral tab 1 tab once daily [Active]; senna 8.6 mg Oral cap nightly [Active]; tamsulosin 0.4 mg Oral cp24 1 cap nightly [Active]; - PMHx: 10:48 CVA; Diabetes - NIDDM; Hypertension; Seizures; jl7 - Immunization history:: Adult Immunizations unknown. - Social history:: Smoking status: unknown. - Family history:: not pertinent. - Hospitalizations: : No recent hospitalization is reported. Screenin:48 Abuse screen: no apparent signs noted. em 10:48 Nutritional screening: No deficits noted. Tuberculosis screening: No symptoms or risk em factors identified. Fall Risk Secondary diagnosis (15 points) impaired mobility, CVA, IV access (20 points). Total Jain Fall Scale indicates High Risk Score (45 or more points). Side Rails Up X 2 Placed Close to Nursing Station Frequent Obs/Assessments Occuring. Assessment: 10:48 General: Appears in no apparent distress. comfortable, Behavior is calm, cooperative, em appropriate for age, Denies fever. Pain: Denies pain. Neuro: Level of Consciousness is awake, alert, obeys commands, Oriented to person, place, Weakness in left arm(s) leg(s) left sided weakness . Denies. Cardiovascular: Capillary refill < 3 seconds Patient's skin is warm and dry. Respiratory: Airway is patent Respiratory effort is even, unlabored, Respiratory pattern is regular, symmetrical. GI: Abdomen is flat, Patient currently denies diarrhea, nausea, vomiting. : Urine is cloudy, Genitalia appear normal. Derm: Skin is intact, is fragile, Skin is pink, warm \T\ dry. Wound noted back and buttocks. Musculoskeletal: Range of motion: contractures noted to the left arm and left leg, pt reports having previous stroke. 12:16 General: Appears in no apparent distress. comfortable, malnourished, Behavior is calm, em cooperative, Denies fever. Pain: Denies pain. Neuro: Level of Consciousness is awake, alert, obeys commands, Oriented to person, place. 13:05 Reassessment: Patient appears in no apparent distress at this time. Patient and/or em family updated on plan of care and expected duration. Pain level reassessed. Patient is alert, oriented x 3, equal unlabored respirations, skin warm/dry/pink. 14:10 Reassessment: Patient appears in no apparent distress at this time. pt soiled self, em changed linen and applied new brief. Vital Signs: 10:48 BP 142 / 94; Pulse 53; Resp 16; Temp 98.1(O); Pulse Ox 100% on R/A; em 12:15 BP 144 / 91; Pulse 57; Resp 18; Pulse Ox 99% on R/A; Pain 0/10; em 13:00 BP 145 / 102; Pulse 50; Resp 18; Pulse Ox 99% on R/A; em 13:42 BP 157 / 95; Pulse 52; Resp 18; Temp 98.0(O); Pulse Ox 100% on R/A; Pain 0/10; em ED Course: 10:46 Patient arrived in ED. jl7 10:47 Triage completed. jl7 10:47 Yariel Orozco MD is Attending Physician. rn 10:48 Jaime Rdz RN is Primary Nurse. em 10:48 Arm band placed on right wrist. jl7 10:48 Patient has correct armband on for positive identification. Bed in low position. Call em light in reach. Side rails up X2. Pulse ox on. NIBP on. 11:09 Initial lab(s) drawn, by me, sent to lab. Inserted saline lock: 20 gauge in right em antecubital area, using aseptic technique. Blood collected. 11:25 Straight cath inserted, using sterile technique, 16 Fr. Specimen obtained. Returned em cloudy urine. Patient tolerated well. 11:30 Urine collected: straight cath specimen, cloudy, Amount Returned: 120mL. em 13:01 Salome Jolley MD is Hospitalizing Provider. rn 14:04 No provider procedures requiring assistance completed. Patient admitted, IV remains in em place. Administered Medications: 11:20 Drug: NS 0.9% 500 ml Route: IV; Rate: bolus; Site: right antecubital; em 12:00 Follow up: IV Status: Completed infusion; IV Intake: 500ml em 13:38 Drug: Ampicillin 1 grams Route: IVPB; Infused Over: 30 mins; Site: right antecubital; em 14:10 Follow up: Response: No adverse reaction; IV Status: Completed infusion; IV Intake: em 100ml Intake: 12:00 IV: 500ml; Total: 500ml. em 14:10 IV: 100ml; Total: 600ml. em Outcome: 13:03 Decision to Hospitalize by Provider. rn 14:07 Admitted to Med/surg accompanied by tech, via stretcher, room 208, with chart, Report em called to ASHLEY Ruffin 14:07 Condition: good 14:07 Instructed on the need for admit, Demonstrated understanding of instructions. 14:25 Patient left the ED. em Signatures: Jaime Rdz, RN Yariel Khan MD MD rn Leal, Jahala, RN RN jl7
--- NOTE | 2020-02-22 13:04 | EDPHYS ---
Physician Documentation [facility] Name: Deric Sheriff Age: 54 yrs Sex: Male : 1965 Arrival Date: 02/22/2020 Time: 10:46 Bed 19 Private MD: ED Physician Yariel Orozco HPI: 02/21 10:54 This 54 yrs old Male presents to ER via EMS with complaints of generalized rn weakness. 10:54 Per EMS, family called 911 for generalized weakness, seen here recently for diarrhea. rn Has had stroke at baseline. EMS reports normal vitals. Patient awakens to stimulation and denies diarrhea or vomiting. Denies pain. . Onset: The symptoms/episode began/occurred at an unknown time. Severity of symptoms:. It is unknown whether or not the patient has had similar symptoms in the past. The patient has been recently seen at the [facility] Emergency Department. Historical: - Allergies: 10:48 Lotrel; jl7 - Home Meds: 10:48 aspirin 81 mg Oral chew 1 tab once daily [Active]; atorvastatin 40 mg Oral tab 1 tab jl7 nightly [Active]; baclofen 10 mg Oral tab 1 tab 3 times per day [Active]; citalopram 20 mg tab 1 tab once daily [Active]; clonidine HCl 0.1 mg Oral tab 1 tab 3 times per day [Active]; enalapril maleate 20 mg Oral tab 1 tab once daily [Active]; levetiracetam 750 mg Oral tab 1 tab 2 times per day [Active]; lisinopril 20 mg Oral tab 1 tab twice a day [Active]; metoprolol tartrate 50 mg Oral tab 1 tab 2 times per day [Active]; Plavix 75 mg Oral tab 1 tab once daily [Active]; senna 8.6 mg Oral cap nightly [Active]; tamsulosin 0.4 mg Oral cp24 1 cap nightly [Active]; - PMHx: 10:48 CVA; Diabetes - NIDDM; Hypertension; Seizures; jl7 - Immunization history:: Adult Immunizations unknown. - Social history:: Smoking status: unknown. - Family history:: not pertinent. - Hospitalizations: : No recent hospitalization is reported. ROS: 10:54 Constitutional: Negative for fever, chills, and weight loss, Eyes: Negative for injury, rn pain, redness, and discharge, Neck: Negative for injury, pain, and swelling, Cardiovascular: Negative for chest pain, palpitations, and edema, Respiratory: Negative for shortness of breath, cough, wheezing, and pleuritic chest pain, Abdomen/GI: Negative for abdominal pain, nausea, vomiting, diarrhea, and constipation, MS/Extremity: Negative for injury and deformity, Skin: Negative for injury, rash, and discoloration, Neuro: Negative for headache, numbness, tingling, and seizure. Exam: 10:54 Constitutional: Thin male, contracted, no acute distress, sleepy but arousable rn Head/Face: Normocephalic, atraumatic. ENT: dry MM Cardiovascular: Regular rate and rhythm. No pulse deficits. Respiratory: No increased work of breathing, no retractions or nasal flaring. Abdomen/GI: soft, non-tender Skin: + superficial breka down of back/buttocks skin but no evidence of infection MS/ Extremity: Pulses equal, no cyanosis. Neuro: Somnolent but arousable, + baseline left side paralysis Vital Signs: 10:48 BP 142 / 94; Pulse 53; Resp 16; Temp 98.1(O); Pulse Ox 100% on R/A; em 12:15 BP 144 / 91; Pulse 57; Resp 18; Pulse Ox 99% on R/A; Pain 0/10; em 13:00 BP 145 / 102; Pulse 50; Resp 18; Pulse Ox 99% on R/A; em 13:42 BP 157 / 95; Pulse 52; Resp 18; Temp 98.0(O); Pulse Ox 100% on R/A; Pain 0/10; em MDM: 10:47 Patient medically screened. rn 12:59 Differential Diagnosis sepsis, UTI. Data reviewed: vital signs, nurses notes, lab test rn result(s), and as a result, I will admit patient. Counseling: I had a detailed discussion with the patient and/or guardian regarding: the historical points, exam findings, and any diagnostic results supporting the discharge/admit diagnosis, lab results, the need for further work-up and treatment in the hospital. Admission orders: after a detailed discussion of the patient's condition and case, the admit orders are written by me. ED course: Spoke with on phone, states much weaker than normal, doesn't normally walk but can assist her with things, lately somnolent and not able to assist. She feels like hasn't gotten over UTI.. 02/21 10:53 Order name: CBC with Diff; Complete Time: 11:29 rn 02/21 10:53 Order name: Basic Metabolic Panel; Complete Time: 12:01 rn 02/21 10:53 Order name: Procalcitonin; Complete Time: 12:01 rn 02/21 10:53 Order name: Urine Culture rn 02/21 10:53 Order name: Urine Microscopic Only; Complete Time: 12:53 rn 02/21 11:37 Order name: Urine Dipstick--Ancillary (enter results); Complete Time: 12:43 iw 02/21 10:53 Order name: IV Start; Complete Time: 11:50 rn 02/21 10:53 Order name: Urine Dipstick-Ancillary (obtain specimen); Complete Time: 11:36 rn Administered Medications: 11:20 Drug: NS 0.9% 500 ml Route: IV; Rate: bolus; Site: right antecubital; em 12:00 Follow up: IV Status: Completed infusion; IV Intake: 500ml em 13:38 Drug: Ampicillin 1 grams Route: IVPB; Infused Over: 30 mins; Site: right antecubital; em 14:10 Follow up: Response: No adverse reaction; IV Status: Completed infusion; IV Intake: em 100ml Disposition: 02/22/20 13:03 Hospitalization ordered by Salome Jolley for Inpatient Admission. Preliminary diagnosis are Weakness, Altered mental status, unspecified, Urinary tract infection, site not specified. - Bed requested for Telemetry/MedSurg (Inpatient). - Status is Inpatient Admission. em - Condition is Stable. - Problem is new. - Symptoms are unchanged. Signatures: Dispatcher [employer] EDJaime Bartholomew RN RN em Yariel Orozco MD MD rn Leal, Jahala, RN RN [id number] Christina Marcum Corrections: (The following items were deleted from the chart) 11:02 10:54 Constitutional: Thin male, contracted, no acute distress, sleepy but arousable rn Head/Face: Normocephalic, atraumatic. ENT: dry MM Cardiovascular: Regular rate and rhythm. No pulse deficits. Respiratory: No increased work of breathing, no retractions or nasal flaring. Abdomen/GI: soft, non-tender Skin: + superficial breka down of back/buttocks skin but no evidence of infection MS/ Extremity: Pulses equal, no cyanosis. rn 13:34 13:03 Hospitalization Ordered by Salome Jolley MD for Inpatient Admission. Preliminary eb diagnosis is Weakness; Altered mental status, unspecified; Urinary tract infection, site not specified. Bed requested for Telemetry/MedSurg (Inpatient). Status is Inpatient Admission. Condition is Stable. Problem is new. Symptoms are unchanged. rn 14:25 13:34 02/22/2020 13:03 Hospitalization Ordered by Salome Jolley MD for Inpatient em Admission. Preliminary diagnosis is Weakness; Altered mental status, unspecified; Urinary tract infection, site not specified. Bed requested for Telemetry/MedSurg (Inpatient). Status is Inpatient Admission. Condition is Stable. Problem is new. Symptoms are unchanged. eb
--- NOTE | 2020-02-22 13:43 | P.HP ---
Certification for Inpatient Patient admitted to: Inpatient With expected LOS: >2 Midnights Practitioner: I am a practitioner with admitting privileges, knowledge of patient current condition, hospital course, and medical plan of care. Services: Services provided to patient in accordance with Admission requirements found in Title 42 Section 412.3 of the Code of Federal Regulations Patient History Date of Service: 02/22/20 Reason for admission: UTI History of Present Illness: Patient is a 54-year-old male with past medical history of CVA; Diabetes - NIDDM ; Hypertension; Seizures who was in his usual state of health until the day of admission when the patient was brought in due to generalize weakness by the family. Patient's symptoms are constant moderate progressively worsening. Patient is confused and is unable to provide history. Unknown this is his baseline. Patient's workup revealed Allergies lotril Allergy (Uncoded 12/12/16 20:29) Unknown - Past Medical/Surgical History -: Hypertension -: CVA -: Seizures -: Diabetes mellitus type 2 Past Surgical History: Unable to obtain - Family History Family History: Reviewed- Non-Contributory (No premature coronary artery disease ) - Social History Smoking Status: Unknown if ever smoked Place of Residence: Home Review of Systems is unable to be obtained Physical Examination - Vital Signs Temperature: 98.1 F Blood Pressure: 142/94 Pulse: 53 Respirations: 16 Pulse Ox (%): 100 - Physical Exam General: Alert, In no apparent distress, Oriented x1, Other (Ill-appearing male) HEENT: Atraumatic, PERRLA, Mucous membr. moist/pink, EOMI, Sclerae nonicteric Neck: Supple, JVD not distended, No LAD Respiratory: Clear to auscultation bilaterally, Normal air movement Cardiovascular: No edema, Normal pulses, Regular rate/rhythm, Normal S1 S2 Gastrointestinal: Normal bowel sounds, Soft and benign, Non-distended, No tenderness Musculoskeletal: No tenderness Integumentary: No rashes Neurological: Normal gait, Normal tone, Normal affect, Abnormal speech, Abnormal strength (Left sided weakness) - Studies Laboratory Data (last 24 hrs) 02/22/20 11:09: Sodium 146 H, Potassium 3.9, BUN 18, Creatinine 0.95, Glucose 101 02/22/20 11:09: WBC 8.3 D, Hgb 12.5 L, Hct 38.7 L, Plt Count 246 Assessment and Plan - Plan #Acute cystitis without hematuria failed outpatient treatment. Will start on IV cefepime. Follow up on urine cultures. Patient is not septic. # acute metabolic encephalopathy baseline unknown. Could be secondary to UTI will continue with treatment. No seizure-type activity noted #essential hypertension stable will resume home medications # diabetes mellitus type 2 [id number] with hyperglycemia continue sliding-scale insulin. Monitor blood glucose levels # history of CVA with left-sided weakness continue home medications. # seizure disorder continue with seizure precautions DVT prophylaxis with Lovenox Likely Dc home the next 24-48 hr depending on culture results and clinical stability Discharge Plan: Home Plan to discharge in: 48 Hours - Advance Directives Does patient have a Living Will: No Does patient have a Durable POA for Healthcare: No
[2020-02-22] MEDS ORDERED: AMPICILLIN SODIUM 1 GM in NA CHLORIDE 0.9% 100 ML IVPB ONE (14:00)
[2020-02-22] MEDS ORDERED: D50W 25 GM/50 ML SYRINGE/VIAL IV PRN (14:41)
[2020-02-22] MEDS ORDERED: ACETAMINOPHEN 500 MG TAB PO PRN (14:41)
[2020-02-22] MEDS ORDERED: ONDANSETRON 4 MG/2 ML VIAL IV PRN (14:41)
[2020-02-22] MEDS ORDERED: GLUCAGON 1 MG/VIAL IM PRN (14:41)
[2020-02-22] MEDS: NA CHLORIDE 0.9% 1,000 ML IV SCH (15:19)
[2020-02-22] MEDS: INSULIN -REGULAR HUMAN 50 UNIT/0.5 ML ML SQ SCH ×2 (16:30→21:00)
[2020-02-22] MEDS: METOPROLOL TAR 50 MG TAB PO SCH (17:28)
[2020-02-22] MEDS: LEVETIRACETAM 375 MG PO SCH (21:00)
[2020-02-22] MEDS ORDERED: CEFEPIME 2 GM VIAL IV SCH (21:00)
[2020-02-22] MEDS: ATORVASTATIN 20 MG TAB PO SCH (21:21)
[2020-02-22] MEDS: TAMSULOSIN 0.4 MG SR CAP PO SCH (21:22)
[2020-02-22] MEDS: cloNIDine HCL 0.1 MG TAB PO SCH (21:22)
[2020-02-22] MEDS: CEFEPIME/SWI 2gm 2 GM/20 ML SYR IVP SCH (21:23)
[2020-02-23] MEDS: NA CHLORIDE 0.9% 1,000 ML IV SCH ×3 (01:53→20:23)
[2020-02-23] MEDS: MELATONIN 3 MG TABLET PO PRN (01:54)
[2020-02-23] MEDS: METOPROLOL TAR 50 MG TAB PO SCH ×2 (06:06→17:58)
[2020-02-23 06:40] LABS: Absolute Lymphocytes (CBC) 2.4 K/uL (0.7-4.9); Hematocrit 38.1 % (39.6-49.0); Lymphocytes % 36.8 % (15.3-44.8); MPV 9.7 fL (7.6-11.3); RBC Red Blood Cell Count 4.27 M/uL (4.33-5.43)
[2020-02-23 06:55] LABS: ALT/SGPT 22 U/L (12-78); AST/SGOT 15 U/L (15-37); Albumin 2.7 g/dL (3.4-5.0); Alkaline Phosphatase 71 U/L (45-117); BUN Blood Urea Nitrogen 13 mg/dL (7-18); Bicarbonate 22 mmol/L (21-32); Bilirubin Total 0.5 mg/dL (0.2-1.0); Glucose Level 77 mg/dL (74-106); Potassium 3.5 mmol/L (3.5-5.1); Protein, Total 6.6 g/dL (6.4-8.2); Sodium Level 141 mmol/L (136-145)
[2020-02-23] MEDS: INSULIN -REGULAR HUMAN 50 UNIT/0.5 ML ML SQ SCH ×4 (07:30→20:24)
--- NOTE | 2020-02-23 07:38 | P.PN ---
Subjective Date of Service: 02/23/20 Chief Complaint: UTI Subjective: Improving Patient seen and examined chart reviewed and case discussed with RN. Patient much more awake and alert. Answered questions appropriately. Now oriented to time and place. Denies any pain Review of Systems 10-point ROS is otherwise unremarkable Neurological: As per HPI Physical Examination - Vital Signs Temperature: 97.6 F Blood Pressure: 130/84 Pulse: 68 Respirations: 16 Pulse Ox (%): 100 - Physical Exam General: Alert, In no apparent distress, Oriented x2, Other (Ill-appearing male) HEENT: Atraumatic, PERRLA, EOMI Neck: Supple, JVD not distended Respiratory: Clear to auscultation bilaterally, Normal air movement Cardiovascular: No edema, Normal pulses, Regular rate/rhythm, Normal S1 S2 Gastrointestinal: Normal bowel sounds, Soft and benign, Non-distended, No tenderness Musculoskeletal: No tenderness Integumentary: No rashes Neurological: Normal speech, Normal tone, Normal affect, Abnormal strength (Left -sided weakness) - Studies Laboratory Data (last 24 hrs) 02/22/20 11:09: Sodium 146 H, Potassium 3.9, BUN 18, Creatinine 0.95, Glucose 101 02/22/20 11:09: WBC 8.3 D, Hgb 12.5 L, Hct 38.7 L, Plt Count 246 Microbiology Data (last 24 hrs): Urine culture pending Medications List Reviewed: Yes Assessment And Plan - Plan #Acute cystitis without hematuria failed outpatient treatment. Continue IV cefepime. Follow up on urine cultures. Patient is not septic. # acute metabolic encephalopathy baseline unknown. Could be secondary to UTI will continue with treatment. No seizure-type activity noted. now oriented x2 will reach out to family to figure out his baseline. #essential hypertension stable . Continue home medications # diabetes mellitus type 2 [id number] with hyperglycemia continue sliding-scale insulin. Monitor blood glucose levels # history of CVA with left-sided weakness continue home medications. # seizure disorder continue with seizure precautions DVT prophylaxis with Lovenox Likely Dc home the next 24-48 hr depending on culture results and clinical stability
[2020-02-23] MEDS: LEVETIRACETAM 375 MG PO SCH ×2 (09:00→20:23)
[2020-02-23] MEDS: CEFEPIME/SWI 2gm 2 GM/20 ML SYR IVP SCH ×2 (09:25→20:23)
[2020-02-23] MEDS: SENOSIDES 8.6 MG TAB PO SCH (09:26)
[2020-02-23] MEDS: ASPIRIN EC 81 MG TAB PO SCH (09:26)
[2020-02-23] MEDS: CLOPIDOGREL 75 MG TABLET PO SCH (09:26)
[2020-02-23] MEDS: ENOXAPARIN 40 MG/0.4 ML SQ SCH (09:26)
[2020-02-23] MEDS: ENALAPRIL 10 MG TAB PO SCH (09:27)
[2020-02-23] MEDS: cloNIDine HCL 0.1 MG TAB PO SCH ×3 (09:27→20:22)
[2020-02-23] MEDS: CITALOPRAM 10 MG TABLET PO SCH (09:27)
[2020-02-23] MEDS ORDERED: POTASSIUM CL SA 10 MEQ TAB PO ONE (19:00)
[2020-02-23] MEDS: ATORVASTATIN 20 MG TAB PO SCH (20:22)
[2020-02-23] MEDS: TAMSULOSIN 0.4 MG SR CAP PO SCH (20:22)
[2020-02-24] MEDS: NA CHLORIDE 0.9% 1,000 ML IV SCH ×4 (00:58→22:53)
[2020-02-24 05:41] LABS: Absolute Lymphocytes (CBC) 2.4 K/uL (0.7-4.9); Basophils % 1.1 % (0-1.3); Hematocrit 37.1 % (39.6-49.0); Lymphocytes % 41.8 % (15.3-44.8); MPV 9.9 fL (7.6-11.3); RBC Red Blood Cell Count 4.16 M/uL (4.33-5.43)
[2020-02-24] MEDS: METOPROLOL TAR 50 MG TAB PO SCH ×2 (06:24→17:53)
[2020-02-24 06:58] LABS: ALT/SGPT 16 U/L (12-78); AST/SGOT 13 U/L (15-37); Albumin 2.6 g/dL (3.4-5.0); Alkaline Phosphatase 66 U/L (45-117); BUN Blood Urea Nitrogen 12 mg/dL (7-18); Bicarbonate 22 mmol/L (21-32); Bilirubin Total 0.4 mg/dL (0.2-1.0); Glucose Level 85 mg/dL (74-106); Magnesium 1.9 mg/dL (1.8-2.4); Potassium 3.7 mmol/L (3.5-5.1); Protein, Total 6.4 g/dL (6.4-8.2); Sodium Level 140 mmol/L (136-145)
[2020-02-24] MEDS: INSULIN -REGULAR HUMAN 50 UNIT/0.5 ML ML SQ SCH ×4 (07:30→20:53)
[2020-02-24] MEDS ORDERED: POTASSIUM CL SA 10 MEQ TAB PO ONE (07:30)
--- NOTE | 2020-02-24 07:30 | P.PN ---
Subjective Date of Service: 02/24/20 Chief Complaint: UTI Subjective: No new changes Patient seen and examined chart reviewed and case discussed with RN. Patient much more awake and alert. Answered questions appropriately. Now oriented to time and place. States he lives with roommates. States his family is out of town Review of Systems 10-point ROS is otherwise unremarkable Physical Examination - Vital Signs Temperature: 97.8 F Blood Pressure: 166/95 Pulse: 56 Respirations: 17 Pulse Ox (%): 97 - Physical Exam General: Alert, In no apparent distress, Oriented x2 HEENT: Atraumatic, PERRLA, EOMI Neck: Supple, JVD not distended Respiratory: Clear to auscultation bilaterally, Normal air movement Cardiovascular: No edema, Normal pulses, Regular rate/rhythm, Normal S1 S2 Gastrointestinal: Normal bowel sounds, Soft and benign, Non-distended, No tenderness Musculoskeletal: No tenderness Integumentary: No rashes, No erythema Neurological: Normal speech, Normal tone, Normal affect, Abnormal strength (Left -sided weakness) - Studies Laboratory Last Values WBC 5.8 K/uL (4.3-10.9) 02/24/20 05:02 RBC 4.16 M/uL (4.33-5.43) L 02/24/20 05:02 Hgb 12.1 g/dL (13.6-17.9) L 02/24/20 05:02 Hct 37.1 % (39.6-49.0) L 02/24/20 05:02 MCV 89.1 fL (80-100) 02/24/20 05:02 MCH 29.0 pg (27.0-35.0) 02/24/20 05:02 MCHC 32.5 g/dL (32.0-36.0) 02/24/20 05:02 RDW 14.4 % (12.1-15.2) 02/24/20 05:02 Plt Count 206 K/uL (152-406) 02/24/20 05:02 MPV 9.9 fL (7.6-11.3) 02/24/20 05:02 Neutrophils % 46.2 % (41.7-73.7) 02/24/20 05:02 Lymphocytes % 41.8 % (15.3-44.8) 02/24/20 05:02 Monocytes % 9.0 % (3.3-12.3) 02/24/20 05:02 Eosinophils % 1.9 % (0-4.4) 02/24/20 05:02 Basophils % 1.1 % (0-1.3) 02/24/20 05:02 Absolute Neutrophils 2.7 K/uL (1.8-8.0) 02/24/20 05:02 Absolute Lymphocytes 2.4 K/uL (0.7-4.9) 02/24/20 05:02 Absolute Monocytes 0.5 K/uL (0.1-1.3) 02/24/20 05:02 Absolute Eosinophils 0.1 K/uL (0-0.5) 02/24/20 05:02 Absolute Basophils 0.1 K/uL (0-0.5) 02/24/20 05:02 Sodium 140 mmol/L (136-145) 02/24/20 05:02 Potassium 3.7 mmol/L (3.5-5.1) 02/24/20 05:02 Chloride 111 mmol/L (98-107) H 02/24/20 05:02 Carbon Dioxide 22 mmol/L (21-32) 02/24/20 05:02 BUN 12 mg/dL (7-18) 02/24/20 05:02 Creatinine 0.75 mg/dL (0.55-1.3) 02/24/20 05:02 Estimated GFR > 90 mL/min (=/>90) 02/24/20 05:02 Glucose 85 mg/dL (74-106) 02/24/20 05:02 POC Glucose 95 mg/dl (65-120) 02/23/20 20:00 Calcium 8.0 mg/dL (8.5-10.1) L 02/24/20 05:02 Magnesium 1.9 mg/dL (1.8-2.4) D 02/24/20 05:02 Total Bilirubin 0.4 mg/dL (0.2-1.0) 02/24/20 05:02 AST 13 U/L (15-37) L 02/24/20 05:02 ALT 16 U/L (12-78) 02/24/20 05:02 Alkaline Phosphatase 66 U/L (45-117) 02/24/20 05:02 Serum Total Protein 6.4 g/dL (6.4-8.2) 02/24/20 05:02 Albumin 2.6 g/dL (3.4-5.0) L 02/24/20 05:02 Globulin 3.8 g/dL (2.3-3.5) H 02/24/20 05:02 Albumin/Globulin Ratio 0.7 (1.1-1.8) L 02/24/20 05:02 Procalcitonin < 0.05 ng/mL (<0.50) 02/22/20 11:09 Urine pH 7.5 (5.0-7.0) H 02/22/20 11:37 Ur Specific [place] 1.020 (1.005-1.030) 02/22/20 11:37 Glucose (UA)(Auto) Negative (NEG) 02/22/20 11:37 Urine Ketones Negative (NEG) 02/22/20 11:37 Urine Blood Negative (NEG) 02/22/20 11:37 Urine Nitrite Negative (NEG) 02/22/20 11:37 Ur Leukocyte Esterase 1+ (NEG) H 02/22/20 11:37 Urine RBC <5 /HPF (NONE SEEN) 02/22/20 11:30 Urine WBC 20-50 /HPF (<5) H 02/22/20 11:30 Ur Squamous Epith Cells <5 /HPF (NONE SEEN) 02/22/20 11:30 Urine Bacteria Loaded /HPF (NONE SEEN) H 02/22/20 11:30 Urine Culture Reflexed Not needed 02/22/20 11:30 Urine Total Protein Negative (NEG) 02/22/20 11:37 Microbiology Data (last 24 hrs): Urine culture 4+ gram-negative rods. ID and sensitivity pending Medications List Reviewed: Yes Assessment And Plan - Plan #Acute cystitis without hematuria failed outpatient treatment. Continue IV cefepime. Follow up on urine cultures. 4+ gram-negative rods growing at this time. Patient failed outpatient treatment. Therefore will await final ID and sensitivity prior to discharge. Patient is not septic. # acute metabolic encephalopathy baseline unknown. Could be secondary to UTI will continue with treatment. No seizure-type activity noted. now oriented x2 will reach out to family to figure out his baseline. #essential hypertension stable . Continue home medications # diabetes mellitus type 2 [id number]-rzikqxa-[id number] with hyperglycemia continue sliding-scale insulin. Monitor blood glucose levels # history of CVA with left-sided weakness continue home medications. # seizure disorder continue with seizure precautions DVT prophylaxis with Lovenox Likely Dc home the next 24-48 hr depending on culture results and clinical stability
[2020-02-24] MEDS: CEFEPIME/SWI 2gm 2 GM/20 ML SYR IVP SCH (08:55)
[2020-02-24] MEDS: cloNIDine HCL 0.1 MG TAB PO SCH ×3 (08:55→20:50)
[2020-02-24] MEDS: ENOXAPARIN 40 MG/0.4 ML SQ SCH (08:55)
[2020-02-24] MEDS: SENOSIDES 8.6 MG TAB PO SCH (08:56)
[2020-02-24] MEDS: CLOPIDOGREL 75 MG TABLET PO SCH (08:56)
[2020-02-24] MEDS: ASPIRIN EC 81 MG TAB PO SCH (08:56)
[2020-02-24] MEDS: CITALOPRAM 10 MG TABLET PO SCH (08:56)
[2020-02-24] MEDS: ENALAPRIL 10 MG TAB PO SCH (08:56)
[2020-02-24] MEDS: LEVETIRACETAM 375 MG PO SCH (08:57)
[2020-02-24] MEDS ORDERED: INFLUENZA VACCINE (for 3y+) 0.5 ML DOSE IMVAC ONE (09:00)
[2020-02-24] MEDS: Meropenem 1,000 MG in NA CHLORIDE 0.9% 100 ML IV SCH (16:52)
[2020-02-24] MEDS ORDERED: Meropenem 1000 MG/VIAL IV SCH (17:00)
[2020-02-24] MEDS: ATORVASTATIN 20 MG TAB PO SCH (20:50)
[2020-02-24] MEDS: TAMSULOSIN 0.4 MG SR CAP PO SCH (20:51)
[2020-02-24] MEDS: MELATONIN 3 MG TABLET PO PRN (20:51)
[2020-02-25] MEDS: Meropenem 1,000 MG in NA CHLORIDE 0.9% 100 ML IV SCH ×3 (00:44→17:00)
[2020-02-25] MEDS: NA CHLORIDE 0.9% 1,000 ML IV SCH ×2 (01:26→10:14)
[2020-02-25] MEDS: METOPROLOL TAR 50 MG TAB PO SCH ×2 (06:00→17:22)
[2020-02-25] MEDS: INSULIN -REGULAR HUMAN 50 UNIT/0.5 ML ML SQ SCH ×4 (07:30→21:00)
[2020-02-25 07:57] LABS: ALT/SGPT 22 U/L (12-78); AST/SGOT 14 U/L (15-37); Alkaline Phosphatase 85 U/L (45-117); BUN Blood Urea Nitrogen 11 mg/dL (7-18); Bicarbonate 22 mmol/L (21-32); Bilirubin Total 0.4 mg/dL (0.2-1.0); Glucose Level 88 mg/dL (74-106); Potassium 3.5 mmol/L (3.5-5.1); Protein, Total 7.5 g/dL (6.4-8.2); Sodium Level 139 mmol/L (136-145)
[2020-02-25 08:36] LABS: Absolute Lymphocytes (CBC) 3.1 K/uL (0.7-4.9); Basophils % 0.9 % (0-1.3); Hematocrit 41.6 % (39.6-49.0); Lymphocytes % 32.6 % (15.3-44.8); MPV 10.4 fL (7.6-11.3); RBC Red Blood Cell Count 4.76 M/uL (4.33-5.43)
[2020-02-25] MEDS: SENOSIDES 8.6 MG TAB PO SCH (10:16)
[2020-02-25] MEDS: cloNIDine HCL 0.1 MG TAB PO SCH ×3 (10:16→21:08)
[2020-02-25] MEDS: CLOPIDOGREL 75 MG TABLET PO SCH (10:16)
[2020-02-25] MEDS: CITALOPRAM 10 MG TABLET PO SCH (10:16)
[2020-02-25] MEDS: ENALAPRIL 10 MG TAB PO SCH (10:17)
[2020-02-25] MEDS: ASPIRIN EC 81 MG TAB PO SCH (10:17)
[2020-02-25] MEDS: ENOXAPARIN 40 MG/0.4 ML SQ SCH (10:18)
[2020-02-25 10:40] LABS: Blood Morphology Comment NOT SEEN (NOT SEEN); Platelet Estimate ADEQ; Platelets, Giant FEW; Urine White Blood Cell Casts OK
--- NOTE | 2020-02-25 11:44 | P.PN ---
Subjective Date of Service: 02/25/20 Chief Complaint: UTI seen today , still drowsy but arousable , occ confusion noted Review of Systems is unable to be obtained Physical Examination - Vital Signs Temperature: 97.5 F Blood Pressure: 112/69 Pulse: 58 Respirations: 18 Pulse Ox (%): 100 - Physical Exam General: In no apparent distress, Confused HEENT: Normocephalic, PERRLA, Mucous membr. moist/pink Neck: 2+ carotid pulse no bruit, JVD not distended Respiratory: Clear to auscultation bilaterally, Normal air movement Cardiovascular: Normal pulses, Regular rate/rhythm, Normal S1 S2 Gastrointestinal: Normal bowel sounds, Soft and benign Musculoskeletal: Contractures (left arm ) Neurological: Other (left sided hemiparesis noted), Abnormal speech, Abnormal strength - Studies Laboratory Last Values WBC 8.3 K/uL (4.3-10.9) D 02/22/20 11:09 RBC 4.35 M/uL (4.33-5.43) 02/22/20 11:09 Hgb 12.5 g/dL (13.6-17.9) L 02/22/20 11:09 Hct 38.7 % (39.6-49.0) L 02/22/20 11:09 MCV 88.8 fL (80-100) 02/22/20 11:09 MCH 28.8 pg (27.0-35.0) 02/22/20 11:09 MCHC 32.4 g/dL (32.0-36.0) 02/22/20 11:09 RDW 14.8 % (12.1-15.2) 02/22/20 11:09 Plt Count 246 K/uL (152-406) 02/22/20 11:09 MPV 9.4 fL (7.6-11.3) 02/22/20 11:09 Neutrophils % 70.4 % (41.7-73.7) 02/22/20 11:09 Lymphocytes % 20.6 % (15.3-44.8) 02/22/20 11:09 Monocytes % 6.5 % (3.3-12.3) 02/22/20 11:09 Eosinophils % 1.8 % (0-4.4) 02/22/20 11:09 Basophils % 0.7 % (0-1.3) 02/22/20 11:09 Absolute Neutrophils 5.9 K/uL (1.8-8.0) 02/22/20 11:09 Absolute Lymphocytes 1.7 K/uL (0.7-4.9) 02/22/20 11:09 Absolute Monocytes 0.5 K/uL (0.1-1.3) 02/22/20 11:09 Absolute Eosinophils 0.2 K/uL (0-0.5) 02/22/20 11:09 Absolute Basophils 0.1 K/uL (0-0.5) 02/22/20 11:09 Sodium 146 mmol/L (136-145) H 02/22/20 11:09 Potassium 3.9 mmol/L (3.5-5.1) 02/22/20 11:09 Chloride 116 mmol/L (98-107) H 02/22/20 11:09 Carbon Dioxide 27 mmol/L (21-32) 02/22/20 11:09 BUN 18 mg/dL (7-18) 02/22/20 11:09 Creatinine 0.95 mg/dL (0.55-1.3) 02/22/20 11:09 Estimated GFR 82 mL/min (=/>90) L 02/22/20 11:09 Glucose 101 mg/dL (74-106) 02/22/20 11:09 Calcium 8.7 mg/dL (8.5-10.1) D 02/22/20 11:09 Procalcitonin < 0.05 ng/mL (<0.50) 02/22/20 11:09 Urine pH 7.5 (5.0-7.0) H 02/22/20 11:37 Ur Specific [place] 1.020 (1.005-1.030) 02/22/20 11:37 Glucose (UA)(Auto) Negative (NEG) 02/22/20 11:37 Urine Ketones Negative (NEG) 02/22/20 11:37 Urine Blood Negative (NEG) 02/22/20 11:37 Urine Nitrite Negative (NEG) 02/22/20 11:37 Ur Leukocyte Esterase 1+ (NEG) H 02/22/20 11:37 Urine RBC <5 /HPF (NONE SEEN) 02/22/20 11:30 Urine WBC 20-50 /HPF (<5) H 02/22/20 11:30 Ur Squamous Epith Cells <5 /HPF (NONE SEEN) 02/22/20 11:30 Urine Bacteria Loaded /HPF (NONE SEEN) H 02/22/20 11:30 Urine Culture Reflexed Not needed 02/22/20 11:30 Urine Total Protein Negative (NEG) 02/22/20 11:37 Microbiology Data (last 24 hrs): 02/22/20 11:30 Catheterized Urine [place] Count - Final >100,000 CFU/ML. 02/22/20 11:30 Catheterized Urine - Final Escherichia Coli Esbl Medications List Reviewed: Yes Assessment And Plan - Current Problems (Diagnosis) (1) Infection due to ESBL-producing Escherichia coli Current Visit: Yes Status: Acute (2) UTI (urinary tract infection) Current Visit: Yes Status: Acute (3) Encephalopathy acute Current Visit: Yes Status: Acute (4) CVA (cerebral vascular accident) Current Visit: Yes Status: Acute (5) Diabetes Current Visit: Yes Status: Acute (6) HTN (hypertension) Current Visit: Yes Status: Acute Physician Review: Patient Assessed, Agree with Above Assessment and Plan Physician Review Additional Text: #ESBL E-coli UTI with cystitis - s/p switched toe meropenem yesterday, continued antibiotics for the next 24-48 hr. -patient can be discharged home on Levaquin and Bactrim if unable to do IV meropenem for 1 week course - follow plan for Snf # acute metabolic encephalopathy -baseline unknown. MONITOR FOR IMPROVEMENT WITH UTI APPROPRIATE TREATMENT #essential hypertension stable . Continue home medications # diabetes mellitus type 2 [id number]-[id number] with hyperglycemia continue sliding-scale insulin. Monitor blood glucose levels # history of CVA with left-sided weakness continue home medications. # seizure disorder continue with seizure precautions DVT prophylaxis with Lovenox Possible hospital stay for another 48 hr. Follow-up plan by case management for SNF
[2020-02-25] MEDS ORDERED: POTASSIUM CL SA 10 MEQ TAB PO ONE (11:53)
[2020-02-25] MEDS: NS KCL 20MEQ 20 MEQ/1,000 ML BAG IV SCH (12:42)
[2020-02-25 15:04] VITALS: BMI 20.9
[2020-02-25] MEDS: ATORVASTATIN 20 MG TAB PO SCH (21:07)
[2020-02-25] MEDS: TAMSULOSIN 0.4 MG SR CAP PO SCH (21:09)
[2020-02-25] MEDS: MELATONIN 3 MG TABLET PO PRN (21:09)
[2020-02-26] MEDS: Meropenem 1,000 MG in NA CHLORIDE 0.9% 100 ML IV SCH ×3 (00:29→17:11)
[2020-02-26] MEDS: METOPROLOL TAR 50 MG TAB PO SCH ×2 (05:53→17:11)
[2020-02-26 06:31] LABS: ALT/SGPT 21 U/L (12-78); AST/SGOT 18 U/L (15-37); Albumin 2.6 g/dL (3.4-5.0); Alkaline Phosphatase 66 U/L (45-117); BUN Blood Urea Nitrogen 17 mg/dL (7-18); Bicarbonate 23 mmol/L (21-32); Bilirubin Total 0.3 mg/dL (0.2-1.0); Glucose Level 84 mg/dL (74-106); Potassium 3.9 mmol/L (3.5-5.1); Protein, Total 6.5 g/dL (6.4-8.2); Sodium Level 142 mmol/L (136-145)
[2020-02-26] MEDS: INSULIN -REGULAR HUMAN 50 UNIT/0.5 ML ML SQ SCH ×4 (07:30→21:00)
[2020-02-26] MEDS: SENOSIDES 8.6 MG TAB PO SCH (09:00)
[2020-02-26] MEDS ORDERED: POTASSIUM CL SA 10 MEQ TAB PO ONE (09:00)
[2020-02-26] MEDS: NS KCL 20MEQ 20 MEQ/1,000 ML BAG IV SCH (09:33)
[2020-02-26] MEDS: CLOPIDOGREL 75 MG TABLET PO SCH (09:34)
[2020-02-26] MEDS: ENOXAPARIN 40 MG/0.4 ML SQ SCH (09:34)
[2020-02-26] MEDS: ENALAPRIL 10 MG TAB PO SCH (09:34)
[2020-02-26] MEDS: ASPIRIN EC 81 MG TAB PO SCH (09:35)
[2020-02-26] MEDS: cloNIDine HCL 0.1 MG TAB PO SCH ×3 (09:35→21:53)
[2020-02-26] MEDS: CITALOPRAM 10 MG TABLET PO SCH (09:35)
--- NOTE | 2020-02-26 11:29 | P.PN ---
Subjective Date of Service: 02/26/20 Chief Complaint: UTI No major changes from yesterday. Patient is afebrile. No Elliott catheter. Poor functional performance Looks confused. Physical Examination - Vital Signs Temperature: 97.9 F Blood Pressure: 125/86 Pulse: 56 Respirations: 18 Pulse Ox (%): 95 - Physical Exam General: Confused, Other (Awake) HEENT: Mucous membr. moist/pink Neck: Supple Respiratory: Clear to auscultation bilaterally, Normal air movement Cardiovascular: No edema, Regular rate/rhythm, Normal S1 S2 Gastrointestinal: Normal bowel sounds, Soft and benign, Non-distended Neurological: Other (Right-sided weakness) - Studies Medications List Reviewed: Yes Assessment And Plan - Current Problems (Diagnosis) (1) History of CVA (cerebrovascular accident) Current Visit: Yes Status: Acute (2) Diabetes Current Visit: Yes Status: Acute (3) Encephalopathy acute Current Visit: Yes Status: Acute (4) Infection due to ESBL-producing Escherichia coli Current Visit: Yes Status: Acute (5) UTI (urinary tract infection) Current Visit: Yes Status: Acute Physician Review: Patient Assessed, Agree with Above Assessment and Plan Physician Review Additional Text: #ESBL E-coli UTI with cystitis - -continue IV meropenem. -will switched to oral fosfomycin on discharge -pending SNF placement. # acute metabolic encephalopathy -Baseline unknown. - I suspect baseline dementia. #essential hypertension -stable. -continue home medications. # diabetes mellitus type 2 vpi-yfpoemg-cnqfjacyl with hyperglycemia -continue sliding-scale insulin. Monitor blood glucose levels. # history of CVA with left-sided weakness -continue home medications. # seizure disorder -continue with seizure precautions DVT prophylaxis with Lovenox
[2020-02-26] MEDS: MELATONIN 3 MG TABLET PO PRN (21:53)
[2020-02-26] MEDS: TAMSULOSIN 0.4 MG SR CAP PO SCH (21:53)
[2020-02-26] MEDS: ATORVASTATIN 20 MG TAB PO SCH (21:53)
[2020-02-26 22:02] VITALS: O2SAT 98
[2020-02-27] MEDS: Meropenem 1,000 MG in NA CHLORIDE 0.9% 100 ML IV SCH ×3 (00:35→16:00)
[2020-02-27] MEDS: METOPROLOL TAR 50 MG TAB PO SCH ×2 (05:37→17:00)
[2020-02-27] MEDS: NS KCL 20MEQ 20 MEQ/1,000 ML BAG IV SCH (05:37)
[2020-02-27 06:09] LABS: BUN Blood Urea Nitrogen 11 mg/dL (7-18); Bicarbonate 21 mmol/L (21-32); Glucose Level 82 mg/dL (74-106); Potassium 4.3 mmol/L (3.5-5.1); Sodium Level 140 mmol/L (136-145)
[2020-02-27] MEDS: INSULIN -REGULAR HUMAN 50 UNIT/0.5 ML ML SQ SCH ×3 (07:30→16:30)
[2020-02-27] MEDS: ASPIRIN EC 81 MG TAB PO SCH (08:16)
[2020-02-27] MEDS: ENALAPRIL 10 MG TAB PO SCH (08:16)
[2020-02-27] MEDS: ENOXAPARIN 40 MG/0.4 ML SQ SCH (08:16)
[2020-02-27] MEDS: CITALOPRAM 10 MG TABLET PO SCH (08:16)
[2020-02-27] MEDS: cloNIDine HCL 0.1 MG TAB PO SCH ×2 (08:17→13:08)
[2020-02-27] MEDS: CLOPIDOGREL 75 MG TABLET PO SCH (08:17)
[2020-02-27] MEDS: SENOSIDES 8.6 MG TAB PO SCH (08:17)
[2020-02-27 10:01] VITALS: TEMP 98.5
--- NOTE | 2020-02-27 12:27 | RAD REPORT ---
EXAM DESCRIPTION: US - Renal Ultrasound-Complete - 02/27/2020 11:48 am CLINICAL HISTORY: . Abdominal pain COMPARISON: None. FINDINGS: The right kidney measures 10 cm with a normal echotexture. The left kidney measures 10 cm with a normal echotexture. Hydronephrosis is not seen. No gross abnormality of bladder IMPRESSION: Unremarkable renal ultrasound.
--- NOTE | 2020-02-27 14:54 | P.DS ---
Admission Date: 02/22/20 Discharge Date: 02/27/20 Disposition: TRANSFER TO INPATIENT REHAB Discharge Condition: FAIR Reason for Admission: UTI Procedures: None - Problems (1) UTI (urinary tract infection) Status: Acute (2) Infection due to ESBL-producing Escherichia coli Status: Acute (3) Encephalopathy acute Status: Acute (4) History of CVA (cerebrovascular accident) Status: Acute (5) Diabetes Status: Acute Brief History of Present Illness: 54-year-old patient with a history of CVA, poor functional status, total assist was brought to the emergency department due to increased weakness and confusion. UA suggested the presence of UTI. Patient was not septic on arrival. He was admitted for further management of UTI which has failed outpatient treatment. Hospital Course: Patient admitted to the medical floor and started on IV antibiotics. His urine culture grew ESBL E. coli. Patient was treated with IV Meropenem. Renal ultrasound was unremarkable showing no evidence of pyelonephritis. An attempt to place PICC line for IV meropenem was unsuccessful. Patient will therefore be treated with oral fosfomycin to complete treatment for the ESBL E.coli. He is discharged to SNF for skilled rehab. All his other medications are resumed on discharge. Vital Signs/Physical Exam: Temp Pulse Resp BP Pulse Ox 98.5 F 59 18 113/68 98 02/27/20 12:00 02/27/20 13:08 02/27/20 12:00 02/27/20 13:08 02/27/20 12:00 Laboratory Data at Discharge: WBC 9.4 K/uL (4.3-10.9) D 02/25/20 05:34 Hgb 13.9 g/dL (13.6-17.9) 02/25/20 05:34 Hct 41.6 % (39.6-49.0) 02/25/20 05:34 Plt Count 254 K/uL (152-406) D 02/25/20 05:34 Sodium 140 mmol/L (136-145) 02/27/20 05:39 Potassium 4.3 mmol/L (3.5-5.1) 02/27/20 05:39 BUN 11 mg/dL (7-18) 02/27/20 05:39 Creatinine 0.72 mg/dL (0.55-1.3) 02/27/20 05:39 Glucose 82 mg/dL (74-106) 02/27/20 05:39 Magnesium 1.9 mg/dL (1.8-2.4) D 02/24/20 05:02 Total Bilirubin 0.3 mg/dL (0.2-1.0) 02/26/20 05:44 AST 18 U/L (15-37) 02/26/20 05:44 ALT 21 U/L (12-78) 02/26/20 05:44 Alkaline Phosphatase 66 U/L (45-117) 02/26/20 05:44 Home Medications: Aspirin [Aspirin EC 81 MG] 81 mg PO DAILY 02/22/20 Atorvastatin Calcium [Lipitor*] 40 mg PO BEDTIME 02/22/20 Baclofen 5 mg PO TID 02/22/20 Citalopram [Celexa*] 20 mg PO DAILY 02/22/20 Clonidine HCl [Catapres] 0.1 mg PO TID 02/22/20 Clopidogrel Bisulfate [Plavix*] 75 mg PO DAILY 02/22/20 Enalapril [Vasotec*] 20 mg PO DAILY 02/22/20 Melatonin [Melatonin*] 3 mg PO BEDTIME PRN 02/22/20 Metoprolol Tartrate [Lopressor*] 50 mg PO BID 02/22/20 Sennosides [Senna Laxative] 8.6 mg PO DAILY 02/22/20 Tamsulosin [Flomax*] 0.4 mg PO BEDTIME 02/22/20 levETIRAcetam [Levetiracetam ER] 375 mg PO BID 02/22/20 Fosfomycin Tromethamine [Monurol] 3 gm PO EVERY 3RD DAY #3 packet 02/27/20 New Medications: Fosfomycin Tromethamine [Monurol] 3 gm PO EVERY 3RD DAY #3 packet Diet: AHA Activity: Fall precautions
--- NOTE | 2020-02-27 15:10 | P.PN ---
Subjective Date of Service: 02/27/20 Chief Complaint: UTI No major changes.. Patient is awake and appeared to be at baseline. Physical Examination - Vital Signs Temperature: 98.5 F Blood Pressure: 113/68 Pulse: 59 Respirations: 18 Pulse Ox (%): 98 - Physical Exam General: Other (Awake) HEENT: Mucous membr. moist/pink Neck: Supple Respiratory: Clear to auscultation bilaterally, Normal air movement Cardiovascular: No edema, Regular rate/rhythm, Normal S1 S2 Gastrointestinal: Normal bowel sounds, Soft and benign, Non-distended, No tenderness Neurological: Other (Right-sided weakness) - Studies Medications List Reviewed: Yes Assessment And Plan - Current Problems (Diagnosis) (1) UTI (urinary tract infection) Current Visit: Yes Status: Acute (2) Infection due to ESBL-producing Escherichia coli Current Visit: Yes Status: Acute (3) Encephalopathy acute Current Visit: Yes Status: Acute (4) History of CVA (cerebrovascular accident) Current Visit: Yes Status: Acute (5) Diabetes Current Visit: Yes Status: Acute Physician Review: Patient Assessed, Agree with Above Assessment and Plan Physician Review Additional Text: #ESBL E-coli UTI with cystitis - -continue IV meropenem. -will switched to oral fosfomycin on discharge -family want rehab placement. # acute metabolic encephalopathy -Baseline unknown. - I suspect baseline is at baseline. #essential hypertension -stable. -continue home medications. # diabetes mellitus type 2 skh-oiwetdl-[id number] with hyperglycemia -continue sliding-scale insulin. Monitor blood glucose levels. # history of CVA with left-sided weakness -continue home medications. # seizure disorder -continue with seizure precautions DVT prophylaxis with Lovenox
[2020-02-27 17:02] VITALS: BP 111/66
== END 2020-02-27 18:38 | DRG 689 ==
LOC: ER 10:40 → 2ND 13:17
PROVIDERS: ADMIT Family Medicine; ATTEND Internal Medicine
DX: N30.00 Acute cystitis without hematuria (principal); G93.41 Metabolic encephalopathy; Z16.12 Extended spectrum beta lactamase (ESBL) resistance; I69.354 Hemiplegia and hemiparesis following cerebral infarction affecting left non-dominant side; E11.65 Type 2 diabetes mellitus with hyperglycemia; I10 Essential (primary) hypertension; B96.20 Unspecified Escherichia coli [E. coli] as the cause of diseases classified elsewhere; Z79.82 Long term (current) use of aspirin; Z79.02 Long term (current) use of antithrombotics/antiplatelets; Z79.899 Other long term (current) drug therapy
CPT/HCPCS: 36415; 51702; 76770; 80048; 80053; 81003; 81015; 82947; 83735; 84145; 85025; 87077; 87086; 87088; 87186; 94760; 96361; 96365; 97161; 97530; 99285; J0290; J0692; J1650; J7030; J7040

== ENCOUNTER 2020-03-25 11:08 | Emergency (ER) | payer MEDICARE ==
--- OUTSIDE RECORDS SUMMARY | 2020-03-25 11:18 | XMS REPORT ---
:1965 Author Organization [facility] t Address [address] [place] [address] Care Team Providers Name Role Phone DELANO CONWAY Unavailable Unavailable Problems This patient has no known problems. Allergies, Adverse Reactions, Alerts This patient has no known allergies or adverse reactions. Medications This patient has no known medications. Results Test Description Test Time Test Comments Text Results Atomic Results Result Comments VIRUS CULTURE 2018-11-05 07:31:00 Test Item Value Reference Range Comments CULTURE (BEAKER) (test code = 1095) No virus isolated POCT-GLUCOSE [id number] 11:50:00 Test Item Value Reference Range Comments POC-GLUCOSE METER (BEAKER) 155 mg/dL 70-[address] [facility] [address] [facility] (test code = 1538) [facility] 77 030 POCT-GLUCOSE [id number] 08:22:00 Test Item Value Reference Range Comments POC-GLUCOSE METER (BEAKER) 124 mg/dL 70-110 TESTE D AT [address] (test code = 1538) [facility] 77 030 BASIC METABOLIC [id number] 06:33:00 Test Item Value Reference Range Comments SODIUM (BEAKER) (test 139 meq/L 136-145 code = 381) POTASSIUM (BEAKER) (test 3.8 meq/L 3.5-5.1 code = 379) CHLORIDE (BEAKER) (test 109 meq/L 98-107 code = 382) CO2 (BEAKER) (test code = 23 meq/L 22-29 355) BLOOD UREA NITROGEN 14 mg/dL 7-21 (BEAKER) (test code = 354) CREATININE (BEAKER) (test 0.79 mg/dL 0.57-1.25 code = 358) GLUCOSE RANDOM (BEAKER) 114 mg/dL 70-105 (test code = 652) CALCIUM (BEAKER) (test 8.8 mg/dL 8.4-10.2 code = 697) EGFR (BEAKER) (test code 103 mL/min/1.73 sq m ES TIMATED GFR IS NOT = 1092) ACCURATE CREA TININE CLEARANCE IN PRE DICTING GLOMERULAR FILTR ATION RATE. ESTIMATED GFR IS NOT APPLICABLE F OR DIALYSIS PATIENT S. CBC W/PLT COUNT & AUTO [id number] 05:27:00 Test Item Value Reference Range Comments WHITE BLOOD CELL COUNT (BEAKER) (test code = 8.7 K/ L 3.5 -10.5 775) RED BLOOD CELL COUNT (BEAKER) (test code = 761) 3.95 M/ L 4.63-6.08 HEMOGLOBIN (BEAKER) (test code = 410) 11.7 GM/DL 13.7-17.5 HEMATOCRIT (BEAKER) (test code = 411) 35.6 % 40.1-51.0 MEAN CORPUSCULAR VOLUME (BEAKER) (test code = 90.1 fL 79 .0-92.2 753) MEAN CORPUSCULAR HEMOGLOBIN (BEAKER) (test code 29.6 pg 25.7-32.2 = 751) MEAN CORPUSCULAR HEMOGLOBIN CONC (BEAKER) (test 32.9 GM/DL 32.3-36.5 code = 752) RED CELL DISTRIBUTION WIDTH (BEAKER) (test code 14.3 % 11.6-14.4 = 412) PLATELET COUNT (BEAKER) (test code = 756) 345 K/CU MM 150-45 0 MEAN PLATELET VOLUME (BEAKER) (test code = 754) 10.6 fL 9.4-12.4 NUCLEATED RED BLOOD CELLS (BEAKER) (test code = 0 /100 WBC 0-0 413) NEUTROPHILS RELATIVE PERCENT (BEAKER) (test code 56 % = 429) LYMPHOCYTES RELATIVE PERCENT (BEAKER) (test code 31 % = 430) MONOCYTES RELATIVE PERCENT (BEAKER) (test code = 10 % 431) EOSINOPHILS RELATIVE PERCENT (BEAKER) (test code 2 % = 432) BASOPHILS RELATIVE PERCENT (BEAKER) (test code = 0 % 437) NEUTROPHILS ABSOLUTE COUNT (BEAKER) (test code = 4.81 K/ L 1.78-5.38 670) LYMPHOCYTES ABSOLUTE COUNT (BEAKER) (test code = 2.65 K/ L 1.32-3.57 414) MONOCYTES ABSOLUTE COUNT (BEAKER) (test code = 0.90 K/ L 0 .30-0.82 415) EOSINOPHILS ABSOLUTE COUNT (BEAKER) (test code = 0.19 K/ L 0.04-0.54 416) BASOPHILS ABSOLUTE COUNT (BEAKER) (test code = 0.03 K/ L 0 .01-0.08 417) IMMATURE GRANULOCYTES-RELATIVE PERCENT (BEAKER) 1 % 0-1 (test code = 2801) POCT-GLUCOSE [id number] 22:10:00 Test Item Value Reference Range Comments POC-GLUCOSE METER (BEAKER) 149 mg/dL 70-110 TESTE D AT [address] (test code = 1538) [place] [address] POCT-GLUCOSE [id number] 17:37:00 Test Item Value Reference Range Comments POC-GLUCOSE METER (BEAKER) 167 mg/dL 70-110 TESTE D AT [address] (test code = 1538) [place] [address] POCT-GLUCOSE [id number] 13:43:00 Test Item Value Reference Range Comments POC-GLUCOSE METER (BEAKER) 152 mg/dL 70-110 TESTE D AT [address] (test code = 1538) [place] [address] FL, ESOPH, SWALLOW FUNCTION, WITH CINE OR [id number] 10:29:00Reason for exam:->dysphagiaFINAL REPORT Modified barium swallow [...] pathology report for further details. Signed: [facility] Verified Date/Time: 10/22/2018 10:29:46 Reading Location: [facility] C013X [facility] Consult Reading Room BASIC METABOLIC [id number] 06:43:00 Test Item Value Reference Range Comments SODIUM (BEAKER) (test 138 meq/L 136-145 code = 381) POTASSIUM (BEAKER) (test 3.7 meq/L 3.5-5.1 code = 379) CHLORIDE (BEAKER) (test 108 meq/L 98-107 code = 382) CO2 (BEAKER) (test code = 22 meq/L 22-29 355) BLOOD UREA NITROGEN 15 mg/dL 7-21 (BEAKER) (test code = 354) CREATININE (BEAKER) (test 0.75 mg/dL 0.57-1.25 code = 358) GLUCOSE RANDOM (BEAKER) 126 mg/dL 70-105 (test code = 652) CALCIUM (BEAKER) (test 8.9 mg/dL 8.4-10.2 code = 697) EGFR (BEAKER) (test code 109 mL/min/1.73 sq m ES TIMATED GFR IS NOT = 1092) ACCURATE CREA TININE CLEARANCE IN PRE DICTING GLOMERULAR FILTR ATION RATE. ESTIMATED GFR IS NOT APPLICABLE F OR DIALYSIS PATIENT S. CBC W/PLT COUNT & AUTO [id number] 06:22:00 Test Item Value Reference Range Comments WHITE BLOOD CELL COUNT (BEAKER) (test code = 8.3 K/ L 3.5 -10.5 775) RED BLOOD CELL COUNT (BEAKER) (test code = 761) 4.13 M/ L 4.63-6.08 HEMOGLOBIN (BEAKER) (test code = 410) 12.2 GM/DL 13.7-17.5 HEMATOCRIT (BEAKER) (test code = 411) 37.1 % 40.1-51.0 MEAN CORPUSCULAR VOLUME (BEAKER) (test code = 89.8 fL 79 .0-92.2 753) MEAN CORPUSCULAR HEMOGLOBIN (BEAKER) (test code 29.5 pg 25.7-32.2 = 751) MEAN CORPUSCULAR HEMOGLOBIN CONC (BEAKER) (test 32.9 GM/DL 32.3-36.5 code = 752) RED CELL DISTRIBUTION WIDTH (BEAKER) (test code 13.9 % 11.6-14.4 = 412) PLATELET COUNT (BEAKER) (test code = 756) 310 K/CU MM 150-45 0 MEAN PLATELET VOLUME (BEAKER) (test code = 754) 10.5 fL 9.4-12.4 NUCLEATED RED BLOOD CELLS (BEAKER) (test code = 0 /100 WBC 0-0 413) NEUTROPHILS RELATIVE PERCENT (BEAKER) (test code 53 % = 429) LYMPHOCYTES RELATIVE PERCENT (BEAKER) (test code 33 % = 430) MONOCYTES RELATIVE PERCENT (BEAKER) (test code = 11 % 431) EOSINOPHILS RELATIVE PERCENT (BEAKER) (test code 2 % = 432) BASOPHILS RELATIVE PERCENT (BEAKER) (test code = 0 % 437) NEUTROPHILS ABSOLUTE COUNT (BEAKER) (test code = 4.41 K/ L 1.78-5.38 670) LYMPHOCYTES ABSOLUTE COUNT (BEAKER) (test code = 2.69 K/ L 1.32-3.57 414) MONOCYTES ABSOLUTE COUNT (BEAKER) (test code = 0.89 K/ L 0 .30-0.82 415) EOSINOPHILS ABSOLUTE COUNT (BEAKER) (test code = 0.20 K/ L 0.04-0.54 416) BASOPHILS ABSOLUTE COUNT (BEAKER) (test code = 0.03 K/ L 0 .01-0.08 417) IMMATURE GRANULOCYTES-RELATIVE PERCENT (BEAKER) 1 % 0-1 (test code = 2801) POCT-GLUCOSE [id number] 05:41:00 Test Item Value Reference Range Comments POC-GLUCOSE METER (BEAKER) 129 mg/dL 70-110 TESTE D AT [address] (test code = 1538) [place] [address] POCT-GLUCOSE [id number] 00:06:00 Test Item Value Reference Range Comments POC-GLUCOSE METER (BEAKER) 151 mg/dL 70-110 TESTE D AT [address] (test code = 1538) [place] [address] POCT-GLUCOSE [id number] 18:38:00 Test Item Value Reference Range Comments POC-GLUCOSE METER (BEAKER) 131 mg/dL 70-110 TESTE D AT [address] (test code = 1538) [place] [address] POCT-GLUCOSE [id number] 13:34:00 Test Item Value Reference Range Comments POC-GLUCOSE METER (BEAKER) 134 mg/dL 70-110 TESTE D AT [address] (test code = 1538) [place] [address] HEMOGLOBIN [id number] 08:11:00 Test Item Value Reference Range Comments HEMOGLOBIN A1C (BEAKER) (test code = 368) 6.5 % 4.3-6. 1 BASIC METABOLIC [id number] 07:28:00 Test Item Value Reference Range Comments SODIUM (BEAKER) (test 138 meq/L 136-145 code = 381) POTASSIUM (BEAKER) (test 3.5 meq/L 3.5-5.1 code = 379) CHLORIDE (BEAKER) (test 108 meq/L 98-107 code = 382) CO2 (BEAKER) (test code = 23 meq/L 22-29 355) BLOOD UREA NITROGEN 12 mg/dL 7-21 (BEAKER) (test code = 354) CREATININE (BEAKER) (test 0.72 mg/dL 0.57-1.25 code = 358) GLUCOSE RANDOM (BEAKER) 136 mg/dL 70-105 (test code = 652) CALCIUM (BEAKER) (test 8.4 mg/dL 8.4-10.2 code = 697) EGFR (BEAKER) (test code 114 mL/min/1.73 sq m ES TIMATED GFR IS NOT = 1092) ACCURATE CREA TININE CLEARANCE IN PRE DICTING GLOMERULAR FILTR ATION RATE. ESTIMATED GFR IS NOT APPLICABLE F OR DIALYSIS PATIENT S. IRON, TIBC, % SAT. (WITHOUT FERRITIN)2018-10-21 06:43:00 Test Item Value Reference Range Comments IRON (BEAKER) (test code = 547) 44 ug/dL 40-160 TOTAL IRON BINDING CAPACITY (BEAKER) (test code = 190 ug/dL 250-450 769) IRON % SATURATION (2) (BEAKER) (test code = 2590) 23 % 20-55 CBC W/PLT COUNT & AUTO [id number] 06:05:00 Test Item Value Reference Range Comments WHITE BLOOD CELL COUNT (BEAKER) (test code = 8.1 K/ L 3.5 -10.5 775) RED BLOOD CELL COUNT (BEAKER) (test code = 761) 4.13 M/ L 4.63-6.08 HEMOGLOBIN (BEAKER) (test code = 410) 11.9 GM/DL 13.7-17.5 HEMATOCRIT (BEAKER) (test code = 411) 36.2 % 40.1-51.0 MEAN CORPUSCULAR VOLUME (BEAKER) (test code = 87.7 fL 79 .0-92.2 753) MEAN CORPUSCULAR HEMOGLOBIN (BEAKER) (test code 28.8 pg 25.7-32.2 = 751) MEAN CORPUSCULAR HEMOGLOBIN CONC (BEAKER) (test 32.9 GM/DL 32.3-36.5 code = 752) RED CELL DISTRIBUTION WIDTH (BEAKER) (test code 13.7 % 11.6-14.4 = 412) PLATELET COUNT (BEAKER) (test code = 756) 279 K/CU MM 150-45 0 MEAN PLATELET VOLUME (BEAKER) (test code = 754) 10.3 fL 9.4-12.4 NUCLEATED RED BLOOD CELLS (BEAKER) (test code = 0 /100 WBC 0-0 413) NEUTROPHILS RELATIVE PERCENT (BEAKER) (test code 57 % = 429) LYMPHOCYTES RELATIVE PERCENT (BEAKER) (test code 30 % = 430) MONOCYTES RELATIVE PERCENT (BEAKER) (test code = 10 % 431) EOSINOPHILS RELATIVE PERCENT (BEAKER) (test code 2 % = 432) BASOPHILS RELATIVE PERCENT (BEAKER) (test code = 0 % 437) NEUTROPHILS ABSOLUTE COUNT (BEAKER) (test code = 4.62 K/ L 1.78-5.38 670) LYMPHOCYTES ABSOLUTE COUNT (BEAKER) (test code = 2.41 K/ L 1.32-3.57 414) MONOCYTES ABSOLUTE COUNT (BEAKER) (test code = 0.84 K/ L 0 .30-0.82 415) EOSINOPHILS ABSOLUTE COUNT (BEAKER) (test code = 0.14 K/ L 0.04-0.54 416) BASOPHILS ABSOLUTE COUNT (BEAKER) (test code = 0.02 K/ L 0 .01-0.08 417) IMMATURE GRANULOCYTES-RELATIVE PERCENT (BEAKER) 0 % 0-1 (test code = 2801) POCT-GLUCOSE [id number] 05:52:00 Test Item Value Reference Range Comments POC-GLUCOSE METER (BEAKER) 139 mg/dL 70-[address] [facility] [address] (test code = 1538) [facility] 77 [address] POCT-GLUCOSE [id number] 00:36:00 Test Item Value Reference Range Comments POC-GLUCOSE METER (BEAKER) 130 mg/dL 70-[address] [facility] [address] (test code = 1538) [facility] 77 [address] POCT-GLUCOSE [id number] 17:43:00 Test Item Value Reference Range Comments POC-GLUCOSE METER (BEAKER) 141 mg/dL 70-[address] [facility] [address] [facility] (test code = 1538) [facility] [address] (CELLAVISION MANUAL DIFF)2018-10-20 14:30:00 Test Item Value Reference Range Comments NEUTROPHILS - REL (CELLAVISION)(BEAKER) (test code 59 % = 2816) LYMPHOCYTES - REL (CELLAVISION)(BEAKER) (test code 26 % = 2817) MONOCYTES - REL (CELLAVISION)(BEAKER) (test code = 8 % 2818) EOSINOPHILS - REL (CELLAVISION)(BEAKER) (test code 3 % = 2819) ATYPICAL LYMPHOCYTES - REL (CELLAVISION)(BEAKER) 4 % 0-0 (test code = 2829) NEUTROPHILS - ABS (CELLAVISION)(BEAKER) (test code 4.78 K/ul 1.78-5.38 = 2830) LYMPHOCYTES - ABS (CELLAVISION)(BEAKER) (test code 2.11 K/ul 1.32-3.57 = 2831) MONOCYTES - ABS (CELLAVISION)(BEAKER) (test code = 0.65 K/uL 0.30-0.82 2832) EOSINOPHILS - ABS (CELLAVISION)(BEAKER) (test code 0.24 K/uL 0.04-0.54 = 2834) ATYPICAL LYMPHOCYTES - ABS (CELLAVISION)(BEAKER) 0.32 K/uL 0.00-0.00 (test code = 2858) TOTAL COUNTED (BEAKER) (test code = 1351) 100 RBC MORPHOLOGY (BEAKER) (test code = 762) Normal WBC MORPHOLOGY (BEAKER) (test code = 487) Normal LARGE PLT(BEAKER) (test code = 2156) Present ARTIFACT (CELLAVISION)(BEAKER) (test code = 3432) Present PLATELET CONCENTRATION (CELLAVISION)(BEAKER) (test Adequate code = 3438) Received comment: User comments: Slide comments:CBC W/PLT COUNT & AUTO [id number] 14:30:00 Test Item Value Reference Range Comments WHITE BLOOD CELL COUNT (BEAKER) (test code = 8.1 K/ L 3.5 -10.5 775) RED BLOOD CELL COUNT (BEAKER) (test code = 761) 4.10 M/ L 4.63-6.08 HEMOGLOBIN (BEAKER) (test code = 410) 11.9 GM/DL 13.7-17.5 HEMATOCRIT (BEAKER) (test code = 411) 36.3 % 40.1-51.0 MEAN CORPUSCULAR VOLUME (BEAKER) (test code = 88.5 fL 79 .0-92.2 753) MEAN CORPUSCULAR HEMOGLOBIN (BEAKER) (test code 29.0 pg 25.7-32.2 = 751) MEAN CORPUSCULAR HEMOGLOBIN CONC (BEAKER) (test 32.8 GM/DL 32.3-36.5 code = 752) RED CELL DISTRIBUTION WIDTH (BEAKER) (test code 14.0 % 11.6-14.4 = 412) PLATELET COUNT (BEAKER) (test code = 756) 250 K/CU MM 150-45 0 MEAN PLATELET VOLUME (BEAKER) (test code = 754) 10.8 fL 9.4-12.4 NUCLEATED RED BLOOD CELLS (BEAKER) (test code = 0 /100 WBC 0-0 413) POCT-GLUCOSE [id number] 12:27:00 Test Item Value Reference Range Comments POC-GLUCOSE METER (BEAKER) 162 mg/dL 70-[address] [facility] [address] [facility] (test code = 1538) [facility] [address] BASIC METABOLIC [id number] 08:34:00 Test Item Value Reference Range Comments SODIUM (BEAKER) (test 139 meq/L 136-145 code = 381) POTASSIUM (BEAKER) (test 3.4 meq/L 3.5-5.1 code = 379) CHLORIDE (BEAKER) (test 108 meq/L 98-107 code = 382) CO2 (BEAKER) (test code = 24 meq/L 22-29 355) BLOOD UREA NITROGEN 8 mg/dL 7-21 (BEAKER) (test code = 354) CREATININE (BEAKER) (test 0.68 mg/dL 0.57-1.25 code = 358) GLUCOSE RANDOM (BEAKER) 115 mg/dL 70-105 (test code = 652) CALCIUM (BEAKER) (test 8.5 mg/dL 8.4-10.2 code = 697) EGFR (BEAKER) (test code 122 mL/min/1.73 sq m ES TIMATED GFR IS NOT = 1092) ACCURATE CREA TININE CLEARANCE IN PRE DICTING GLOMERULAR FILTR ATION RATE. ESTIMATED GFR IS NOT APPLICABLE F OR DIALYSIS PATIENT S. POCT-GLUCOSE [id number] 06:02:00 Test Item Value Reference Range Comments POC-GLUCOSE METER (BEAKER) 147 mg/dL 70-[address] [facility] [address] [facility] (test code = 1538) [place] [address] POCT-GLUCOSE [id number] 00:43:00 Test Item Value Reference Range Comments POC-GLUCOSE METER (BEAKER) 122 mg/dL 70-110 TESTE D AT [address] (test code = 1538) [place] [address] RAD, ABDOMEN/KUB, 1 VIEW [id number] 23:27:00Reason for exam:->feeding tube placementFINAL REPORT CLINICAL HISTORY: feeding tube placement TECHNIQUE: RAD, ABDOMEN/KUB, 1 VIEW AP COMPARISON: AP radiograph of the abdomen dated 10/16/2018. FINDINGS: Interval advancement of the weighted tip feeding tube now terminating in the first portion of the duodenum.Nonobstructive bowel gas pattern without distended loops of bowel. Otherwise unchanged appearance of the abdomen. Signed: Jose Antonio Rosales [facility] Verified Date/Time: 10/19/2018 23:27:13 Reading Location: [facility] C0[facility] Transitional Reading Room Electronically signed by: JOSE ANTONIO ROSALES MD on 018 11:27 PMCSF CULTURE + GRAM [id number] 18:01:00 Test Item Value Reference Range Comments CULTURE (BEAKER) (test code = 1095) No growth GRAM STAIN RESULT (BEAKER) (test code = No WBCs 1123) GRAM STAIN RESULT (BEAKER) (test code = No organisms seen 73903) POCT-GLUCOSE [id number] 17:33:00 Test Item Value Reference Range Comments POC-GLUCOSE METER (BEAKER) 105 mg/dL 70-[address] [facility] [address] [facility] (test code = 1538) [place] [address] BLOOD [id number] 17:01:00 Test Item Value Reference Range Comments CULTURE (BEAKER) (test code = 1095) No growth in 5 days BLOOD [id number] 17:01:00 Test Item Value Reference Range Comments CULTURE (BEAKER) (test code = 1095) No growth in 5 days HSV 1/2 PCR, [id number] 13:20:00 Test Item Value Reference Range Comments HSV BY PCR (BEAKER) (test code = 334) NEGATIVE NEGATIVE Herpes Simplex Virus (HSV) not detected.These assays were performed by real-time PCR utilizing fluorogenic hydrolysis probe technology for [...] and its performance characteristics determined by the [facility] Pathology Department, Section of Molecular Pathology. It has not been cleared or approved by the U.S. Food and Drug Administration (FDA), as FDA approval is not required for clinical use of the test. Validation was done as required by the Clinical Laboratory Amendments of 1988.POCT-GLUCOSE [id number] 12:33:00 Test Item Value Reference Range Comments POC-GLUCOSE METER (BEAKER) 129 mg/dL 70-[address] [facility] [address] [facility] (test code = 1538) [place] [address] CBC W/PLT COUNT & AUTO [id number] 08:06:00 Test Item Value Reference Range Comments WHITE BLOOD CELL COUNT (BEAKER) (test code = 8.0 K/ L 3.5 -10.5 775) RED BLOOD CELL COUNT (BEAKER) (test code = 761) 3.72 M/ L 4.63-6.08 HEMOGLOBIN (BEAKER) (test code = 410) 10.8 GM/DL 13.7-17.5 HEMATOCRIT (BEAKER) (test code = 411) 32.5 % 40.1-51.0 MEAN CORPUSCULAR VOLUME (BEAKER) (test code = 87.4 fL 79 .0-92.2 753) MEAN CORPUSCULAR HEMOGLOBIN (BEAKER) (test code 29.0 pg 25.7-32.2 = 751) MEAN CORPUSCULAR HEMOGLOBIN CONC (BEAKER) (test 33.2 GM/DL 32.3-36.5 code = 752) RED CELL DISTRIBUTION WIDTH (BEAKER) (test code 13.9 % 11.6-14.4 = 412) PLATELET COUNT (BEAKER) (test code = 756) 214 K/CU MM 150-45 0 MEAN PLATELET VOLUME (BEAKER) (test code = 754) 10.4 fL 9.4-12.4 NUCLEATED RED BLOOD CELLS (BEAKER) (test code = 0 /100 WBC 0-0 413) (CELLAVISION MANUAL DIFF)2018-10-19 08:06:00 Test Item Value Reference Range Comments NEUTROPHILS - REL (CELLAVISION)(BEAKER) (test code 70 % = 2816) LYMPHOCYTES - REL (CELLAVISION)(BEAKER) (test code 24 % = 2817) MONOCYTES - REL (CELLAVISION)(BEAKER) (test code = 4 % 2818) BANDS - REL (CELLAVISION)(BEAKER) (test code = 2 % 0 -10 2826) NEUTROPHILS - ABS (CELLAVISION)(BEAKER) (test code 5.60 K/ul 1.78-5.38 = 2830) LYMPHOCYTES - ABS (CELLAVISION)(BEAKER) (test code 1.92 K/ul 1.32-3.57 = 2831) MONOCYTES - ABS (CELLAVISION)(BEAKER) (test code = 0.32 K/uL 0.30-0.82 2832) BANDS - ABS (CELLAVISION)(BEAKER) (test code = 0.16 K/uL 0 .00-0.80 2840) TOTAL COUNTED (BEAKER) (test code = 1351) 100 RBC MORPHOLOGY (BEAKER) (test code = 762) Normal SMUDGE CELLS (BEAKER) (test code = 1371) Present GIANT PLATELETS (BEAKER) (test code = 313) Present ARTIFACT (CELLAVISION)(BEAKER) (test code = 3432) Present PLATELET CONCENTRATION (CELLAVISION)(BEAKER) (test Adequate code = 3438) Received comment: User comments: Slide comments:POCT-GLUCOSE [id number] 06:21:00 Test Item Value Reference Range Comments POC-GLUCOSE METER (BEAKER) 113 mg/dL 70-[address] [facility] [address] [facility] (test code = 1538) [place] [address] [id number] 04:04:00 Test Item Value Reference Range Comments PHOSPHORUS (BEAKER) (test code = 604) 2.0 mg/dL 2.3-4.7 [id number] 04:04:00 Test Item Value Reference Range Comments MAGNESIUM (BEAKER) (test code = 627) 2.1 mg/dL 1.6-2.6 BASIC METABOLIC [id number] 04:04:00 Test Item Value Reference Range Comments SODIUM (BEAKER) (test 143 meq/L 136-145 code = 381) POTASSIUM (BEAKER) (test 3.2 meq/L 3.5-5.1 code = 379) CHLORIDE (BEAKER) (test 112 meq/L 98-107 code = 382) CO2 (BEAKER) (test code = 26 meq/L 22-29 355) BLOOD UREA NITROGEN 9 mg/dL 7-21 (BEAKER) (test code = 354) CREATININE (BEAKER) (test 0.75 mg/dL 0.57-1.25 code = 358) GLUCOSE RANDOM (BEAKER) 119 mg/dL 70-105 (test code = 652) CALCIUM (BEAKER) (test 8.2 mg/dL 8.4-10.2 code = 697) EGFR (BEAKER) (test code 109 mL/min/1.73 sq m ES TIMATED GFR IS NOT = 1092) ACCURATE CREA TININE CLEARANCE IN PRE DICTING GLOMERULAR FILTR ATION RATE. ESTIMATED GFR IS NOT APPLICABLE F OR DIALYSIS PATIENT S. POCT-GLUCOSE [id number] 23:53:00 Test Item Value Reference Range Comments POC-GLUCOSE METER (BEAKER) 122 mg/dL 70-[address] [facility] [address] [facility] (test code = 1538) [place] [address] POCT-GLUCOSE [id number] 18:17:00 Test Item Value Reference Range Comments POC-GLUCOSE METER (BEAKER) 110 mg/dL 70-[address] [facility] [address] [facility] (test code = 1538) [place] [address] POCT-GLUCOSE [id number] 12:36:00 Test Item Value Reference Range Comments POC-GLUCOSE METER (BEAKER) 80 mg/dL 70-110 TESTE D AT [place] [id number] [facility] (test code = 1538) [place] [address] CBC W/PLT COUNT & AUTO [id number] 10:31:00 Test Item Value Reference Range Comments WHITE BLOOD CELL COUNT (BEAKER) (test code = 7.4 K/ L 3.5 -10.5 775) RED BLOOD CELL COUNT (BEAKER) (test code = 761) 3.73 M/ L 4.63-6.08 HEMOGLOBIN (BEAKER) (test code = 410) 10.9 GM/DL 13.7-17.5 HEMATOCRIT (BEAKER) (test code = 411) 32.8 % 40.1-51.0 MEAN CORPUSCULAR VOLUME (BEAKER) (test code = 87.9 fL 79 .0-92.2 753) MEAN CORPUSCULAR HEMOGLOBIN (BEAKER) (test code 29.2 pg 25.7-32.2 = 751) MEAN CORPUSCULAR HEMOGLOBIN CONC (BEAKER) (test 33.2 GM/DL 32.3-36.5 code = 752) RED CELL DISTRIBUTION WIDTH (BEAKER) (test code 14.1 % 11.6-14.4 = 412) PLATELET COUNT (BEAKER) (test code = 756) 192 K/CU MM 150-45 0 MEAN PLATELET VOLUME (BEAKER) (test code = 754) 11.0 fL 9.4-12.4 NUCLEATED RED BLOOD CELLS (BEAKER) (test code = 0 /100 WBC 0-0 413) (CELLAVISION MANUAL DIFF)2018-10-18 10:31:00 Test Item Value Reference Range Comments NEUTROPHILS - REL (CELLAVISION)(BEAKER) (test code 74 % = 2816) LYMPHOCYTES - REL (CELLAVISION)(BEAKER) (test code 19 % = 2817) MONOCYTES - REL (CELLAVISION)(BEAKER) (test code = 3 % 2818) EOSINOPHILS - REL (CELLAVISION)(BEAKER) (test code 1 % = 2819) BANDS - REL (CELLAVISION)(BEAKER) (test code = 2 % 0 -10 2826) ATYPICAL LYMPHOCYTES - REL (CELLAVISION)(BEAKER) 1 % 0-0 (test code = 2829) NEUTROPHILS - ABS (CELLAVISION)(BEAKER) (test code 5.48 K/ul 1.78-5.38 = 2830) LYMPHOCYTES - ABS (CELLAVISION)(BEAKER) (test code 1.41 K/ul 1.32-3.57 = 2831) MONOCYTES - ABS (CELLAVISION)(BEAKER) (test code = 0.22 K/uL 0.30-0.82 2832) EOSINOPHILS - ABS (CELLAVISION)(BEAKER) (test code 0.07 K/uL 0.04-0.54 = 2834) BANDS - ABS (CELLAVISION)(BEAKER) (test code = 0.15 K/uL 0 .00-0.80 2840) ATYPICAL LYMPHOCYTES - ABS (CELLAVISION)(BEAKER) 0.07 K/uL 0.00-0.00 (test code = 2858) TOTAL COUNTED (BEAKER) (test code = 1351) 100 RBC MORPHOLOGY (BEAKER) (test code = 762) Normal WBC MORPHOLOGY (BEAKER) (test code = 487) Normal PLT MORPHOLOGY (BEAKER) (test code = 486) Normal ARTIFACT (CELLAVISION)(BEAKER) (test code = 3432) Present PLATELET CONCENTRATION (CELLAVISION)(BEAKER) (test Adequate code = 3438) Received comment: User comments: Slide comments:POCT-GLUCOSE [id number] 06:27:00 Test Item Value Reference Range Comments POC-GLUCOSE METER (BEAKER) 96 mg/dL 70-[address] [facility] [address] [facility] (test code = 1538) [place] [address] [id number] 05:32:00 Test Item Value Reference Range Comments PHOSPHORUS (BEAKER) (test code = 604) 2.8 mg/dL 2.3-4.7 [id number] 05:32:00 Test Item Value Reference Range Comments MAGNESIUM (BEAKER) (test code = 627) 1.9 mg/dL 1.6-2.6 BASIC METABOLIC [id number] 05:32:00 Test Item Value Reference Range Comments SODIUM (BEAKER) (test 147 meq/L 136-145 code = 381) POTASSIUM (BEAKER) (test 3.2 meq/L 3.5-5.1 code = 379) CHLORIDE (BEAKER) (test 114 meq/L 98-107 code = 382) CO2 (BEAKER) (test code = 23 meq/L 22-29 355) BLOOD UREA NITROGEN 11 mg/dL 7-21 (BEAKER) (test code = 354) CREATININE (BEAKER) (test 0.75 mg/dL 0.57-1.25 code = 358) GLUCOSE RANDOM (BEAKER) 80 mg/dL 70-105 (test code = 652) CALCIUM (BEAKER) (test 8.2 mg/dL 8.4-10.2 code = 697) EGFR (BEAKER) (test code 109 mL/min/1.73 sq m ES TIMATED GFR IS NOT = 1092) ACCURATE CREA TININE CLEARANCE IN PRE DICTING GLOMERULAR FILTR ATION RATE. ESTIMATED GFR IS NOT APPLICABLE F OR DIALYSIS PATIENT S. BLOOD GAS, [id number] 05:08:00 Test Item Value Reference Range Comments PH ARTERIAL (BEAKER) (test code = 383) 7.46 7.35-7.45 PCO2 ARTERIAL (BEAKER) (test code = 384) 30 mmHg 35-45 PO2 ARTERIAL (BEAKER) (test code = 385) 91 mmHg 80-90 O2 SATURATION ARTERIAL (BEAKER) (test code = 97.3 % 96. 0-97.0 386) HCO3 ARTERIAL (BEAKER) (test code = 388) 21 mmol/L 21-29 BASE EXCESS ARTERIAL (BEAKER) (test code = 387) -1.9 mmol/L -2.0-3.0 PATIENT TEMPERATURE (BEAKER) (test code = 1818) 37.5 C FIO2 (BEAKER) (test code = 1819) 35.0 % POCT-GLUCOSE [id number] 00:02:00 Test Item Value Reference Range Comments POC-GLUCOSE METER (BEAKER) 98 mg/dL 70-110 TESTE D AT [place] [address] [facility] (test code = 1538) [place] [address] VANCOMYCIN LEVEL, [id number] 19:23:00 Test Item Value Reference Range Comments VANCOMYCIN TROUGH (BEAKER) (test code = 522) 17.8 ug/mL 10. 0-20.0 POCT-GLUCOSE [id number] 18:19:00 Test Item Value Reference Range Comments POC-GLUCOSE METER (BEAKER) 101 mg/dL 70-110 TESTE D AT [place] [address] [facility] (test code = 1538) [place] [address] [id number] 17:29:00 Test Item Value Reference Range Comments POTASSIUM (BEAKER) (test code = 379) 3.4 meq/L 3.5-5.1 Check Serum Phosphorus level 4 hours after IV phosphorus replacement or 8 hours after PO replacementcompleted.Check Serum Potassium level 2 hours after oral potassium replacement completed or 30 min after intravenous potassium replacement.[id number] 17:29:00 Test Item Value Reference Range Comments PHOSPHORUS (BEAKER) (test code = 604) 1.9 mg/dL 2.3-4.7 Check Serum Phosphorus level 4 hours after IV phosphorus replacement or 8 hours after PO replacementcompleted.Check Serum Potassium level 2 hours after oral potassium replacement completed or 30 min after intravenous potassium replacement.[id number] 13:55:00 Test Item Value Reference Range Comments POTASSIUM (BEAKER) (test code = 379) 3.4 meq/L 3.5-5.1 POCT-GLUCOSE [id number] 13:13:00 Test Item Value Reference Range Comments POC-GLUCOSE METER (BEAKER) 95 mg/dL 70-110 TESTE D AT [place] [address] [address] (test code = 1538) [place] [address] SPUTUM CULTURE + GRAM [id number] 11:07:00 Test Item Value Reference Range Comments CULTURE (BEAKER) (test STAPHYLOCOCCUS AUREUS 1+ Staphylococcus code = 1095) aureus Clindamycin (test code = 10) Erythromycin (test code = 4) Linezolid (test code = 40) Nitrofurantoin (test code = 23) Oxacillin (test code = 14) Rifampin (test code = 43) Tetracycline (test code = 2) Trimethoprim + Sulfamethoxazole (test code = 47) Vancomycin (test code = 13) GRAM STAIN RESULT 4+ WBCs (BEAKER) (test code = 1123) GRAM STAIN RESULT 0-5 epithelial cells (BEAKER) (test code = 873243) GRAM STAIN RESULT 2+ gram positive cocci (BEAKER) (test code = in chains and pairs 386732) 4+ normal respiratory romelia presentPOCT-GLUCOSE [id number] 06:37:00 Test Item Value Reference Range Comments POC-GLUCOSE METER (BEAKER) 105 mg/dL 70-[address] [facility] [address] [facility] (test code = 1538) [facility] [address] RAD, CHEST, 1 VIEW, NON [id number] 03:39:00Reason for exam:- >intubatedShould this be performed at the bedside?->YesFINAL REPORT [...] otherwise stable. Signed: Anirudh Ferrell MDReport Verified Date/Time: 10/17/2018 03:39:58 Reading Location: [address] Reading Room BLOOD GAS, [id number] 03:37:00 Test Item Value Reference Range Comments PH ARTERIAL (BEAKER) (test code = 383) 7.46 7.35-7.45 PCO2 ARTERIAL (BEAKER) (test code = 384) 33 mmHg 35-45 PO2 ARTERIAL (BEAKER) (test code = 385) 156 mmHg 80-90 O2 SATURATION ARTERIAL (BEAKER) (test code = 99.1 % 96. 0-97.0 386) HCO3 ARTERIAL (BEAKER) (test code = 388) 23 mmol/L 21-29 BASE EXCESS ARTERIAL (BEAKER) (test code = 387) -0.5 mmol/L -2.0-3.0 PATIENT TEMPERATURE (BEAKER) (test code = 1818) 37.0 C FIO2 (BEAKER) (test code = 1819) 35.0 % [id number] 03:22:00 Test Item Value Reference Range Comments PHOSPHORUS (BEAKER) (test code = 604) 0.8 mg/dL 2.3-4.7 BASIC METABOLIC [id number] 03:20:00 Test Item Value Reference Range Comments SODIUM (BEAKER) (test 144 meq/L 136-145 code = 381) POTASSIUM (BEAKER) (test 3.4 meq/L 3.5-5.1 code = 379) CHLORIDE (BEAKER) (test 117 meq/L 98-107 code = 382) CO2 (BEAKER) (test code = 20 meq/L 22-29 355) BLOOD UREA NITROGEN 11 mg/dL 7-21 (BEAKER) (test code = 354) CREATININE (BEAKER) (test 0.84 mg/dL 0.57-1.25 code = 358) GLUCOSE RANDOM (BEAKER) 112 mg/dL 70-105 (test code = 652) CALCIUM (BEAKER) (test 7.8 mg/dL 8.4-10.2 code = 697) EGFR (BEAKER) (test code 96 mL/min/1.73 sq m EST IMATED GFR IS NOT = 1092) ACCURATE CREA TININE CLEARANCE IN PRE DICTING GLOMERULAR FILTR ATION RATE. ESTIMATED GFR IS NOT APPLICABLE F OR DIALYSIS PATIENT S. [id number] 03:18:00 Test Item Value Reference Range Comments MAGNESIUM (BEAKER) (test code = 627) 1.8 mg/dL 1.6-2.6 CBC W/PLT COUNT & AUTO [id number] 03:02:00 Test Item Value Reference Range Comments WHITE BLOOD CELL COUNT (BEAKER) (test code = 7.7 K/ L 3.5 -10.5 775) RED BLOOD CELL COUNT (BEAKER) (test code = 761) 3.40 M/ L 4.63-6.08 HEMOGLOBIN (BEAKER) (test code = 410) 10.1 GM/DL 13.7-17.5 HEMATOCRIT (BEAKER) (test code = 411) 30.1 % 40.1-51.0 MEAN CORPUSCULAR VOLUME (BEAKER) (test code = 88.5 fL 79 .0-92.2 753) MEAN CORPUSCULAR HEMOGLOBIN (BEAKER) (test code 29.7 pg 25.7-32.2 = 751) MEAN CORPUSCULAR HEMOGLOBIN CONC (BEAKER) (test 33.6 GM/DL 32.3-36.5 code = 752) RED CELL DISTRIBUTION WIDTH (BEAKER) (test code 14.0 % 11.6-14.4 = 412) PLATELET COUNT (BEAKER) (test code = 756) 161 K/CU MM 150-45 0 MEAN PLATELET VOLUME (BEAKER) (test code = 754) 11.0 fL 9.4-12.4 NUCLEATED RED BLOOD CELLS (BEAKER) (test code = 0 /100 WBC 0-0 413) NEUTROPHILS RELATIVE PERCENT (BEAKER) (test code 79 % = 429) LYMPHOCYTES RELATIVE PERCENT (BEAKER) (test code 12 % = 430) MONOCYTES RELATIVE PERCENT (BEAKER) (test code = 8 % 431) EOSINOPHILS RELATIVE PERCENT (BEAKER) (test code 0 % = 432) BASOPHILS RELATIVE PERCENT (BEAKER) (test code = 0 % 437) NEUTROPHILS ABSOLUTE COUNT (BEAKER) (test code = 6.07 K/ L 1.78-5.38 670) LYMPHOCYTES ABSOLUTE COUNT (BEAKER) (test code = 0.94 K/ L 1.32-3.57 414) MONOCYTES ABSOLUTE COUNT (BEAKER) (test code = 0.60 K/ L 0 .30-0.82 415) EOSINOPHILS ABSOLUTE COUNT (BEAKER) (test code = 0.01 K/ L 0.04-0.54 416) BASOPHILS ABSOLUTE COUNT (BEAKER) (test code = 0.02 K/ L 0 .01-0.08 417) IMMATURE GRANULOCYTES-RELATIVE PERCENT (BEAKER) 1 % 0-1 (test code = 2801) POCT-GLUCOSE [id number] 23:37:00 Test Item Value Reference Range Comments POC-GLUCOSE METER (BEAKER) 106 mg/dL 70-[address] [facility] [address] [facility] (test code = 1538) [place] [address] RAD, ABDOMEN/KUB, 1 VIEW [id number] 22:14:00Reason for exam:->Confirm corpak placementShould this be performed at the bedside?->YesFINAL REPORT Abdomen one view Comparison: Abdominal radiograph 10/15/2018.. Reason for exam: Confirm corpak placement Findings: [...] MDReport Verified Date/Time: 10/16/2018 22:14:17 Reading Location: [facility] B1 C013Y CT Body Reading Room [id number] 21:14:00 Test Item Value Reference Range Comments POTASSIUM (BEAKER) (test code = 379) 3.5 meq/L 3.5-5.1 [id number] 19:12:00 Test Item Value Reference Range Comments PROCALCITONIN (BEAKER) (test code = 3036) 0.99 ng/mL <0.05 SEPSIS RISK (ng/mL)Low: 0.05-0.50Intermediate: 0.51-2.00High: >=2.01POCT-GLUCOSE [id number] 18:15:00 Test Item Value Reference Range Comments POC-GLUCOSE METER (BEAKER) 124 mg/dL 70-[address] [facility] [address] [facility] (test code = 1538) [facility] [address] CSF CELL COUNT [id number] 15:55:00 Test Item Value Reference Range Comments APPEARANCE CSF (BEAKER) (test code = 407) Clear Clear COLOR CSF (BEAKER) (test code = 408) Colorless Colorless RBC CSF (BEAKER) (test code = 409) 190 /cu mm 0-5 WBC CSF (BEAKER) (test code = 1020) 1 /cu mm <=5 RBCS FRESH (BEAKER) (test code = 1444) 100% Fresh NUMBER OF CELLS DIFF'D (BEAKER) (test code = 50 1591) NEUTROPHIL, CSF (BEAKER) (test code = 324) 6 % 0-5 LYMPHS CSF (BEAKER) (test code = 438) 78 % 40-80 MONO/MACROPHAGE CSF (BEAKER) (test code = 439) 16 % 1 5-45 EOSINOPHILS CSF (BEAKER) (test code = 360) 0 % <=0 BASO CSF (BEAKER) (test code = 440) 0 % <=0 TUBE NUMBER CSF (BEAKER) (test code = 2678) 2 GLUCOSE, [id number] 15:37:00 Test Item Value Reference Range Comments GLUCOSE CSF (BEAKER) (test code = 406) 75 mg/dL 40-70 Save tube for future studies if neededSave tubes for further studies if needed PROTEIN, [id number] 15:37:00 Test Item Value Reference Range Comments PROTEIN CSF (BEAKER) (test code = 378) 41 mg/dL 15-45 Save tube for future studies if neededSave tubes for further studies if needed POCT-GLUCOSE [id number] 12:32:00 Test Item Value Reference Range Comments POC-GLUCOSE METER (BEAKER) 118 mg/dL 70-110 TESTE D AT [address] (test code = 1538) [facility] [address] RAD, CHEST, 1 VIEW, NON [id number] 12:07:00Reason for exam:->ETT positionShould this be performed [...] Stable contours. Additional findings: None. Signed: JR Sung Robert MDReport Verified Date/Time: 10/16/2018 12:07:46 Reading Location: [facility] Radiology Reading Room MR, BRAIN, WITHOUT [id number] 11:28:00FINAL REPORT MRI Brain without contrast Clinical History: Decreased alertnessTechnique: MRI of the brain utilizing axial T2, FLAIR, GRE, DWI; sagittal and coronal T1- weighted images. Comparisons: None Findings: There is a punctate acute infarct in the left frontal centrum semiovale. There is a punctate acute infarct in the posterior left cingulate gyrus. There is a punctate acute infarct in the dorsal right medulla. There is no acute hemorrhage. There is a large chronic encep halomalacic infarct involving the right frontal, parietal, and [...] Signed: Teodoro Yee MDReport Verified Date/Time: 10/16/2018 11:28:39 Reading Location: [address] Neuro Reading Room URINE [id number] 09:42:00 Test Item Value Reference Range Comments CULTURE (BEAKER) (test code = 1095) No growth POCT-GLUCOSE [id number] 06:44:00 Test Item Value Reference Range Comments POC-GLUCOSE METER (BEAKER) 128 mg/dL 70-[address] [facility] [address] [facility] (test code = 1538) [facility] [address] BASIC METABOLIC [id number] 06:11:00 Test Item Value Reference Range Comments SODIUM (BEAKER) (test 145 meq/L 136-145 code = 381) POTASSIUM (BEAKER) (test 3.3 meq/L 3.5-5.1 code = 379) CHLORIDE (BEAKER) (test 116 meq/L 98-107 code = 382) CO2 (BEAKER) (test code = 22 meq/L 22-29 355) BLOOD UREA NITROGEN 13 mg/dL 7-21 (BEAKER) (test code = 354) CREATININE (BEAKER) (test 1.02 mg/dL 0.57-1.25 code = 358) GLUCOSE RANDOM (BEAKER) 114 mg/dL 70-105 (test code = 652) CALCIUM (BEAKER) (test 8.4 mg/dL 8.4-10.2 code = 697) EGFR (BEAKER) (test code 76 mL/min/1.73 sq m EST IMATED GFR IS NOT = 1092) ACCURATE CREA TININE CLEARANCE IN PRE DICTING GLOMERULAR FILTR ATION RATE. ESTIMATED GFR IS NOT APPLICABLE F OR DIALYSIS PATIENT S. LACTIC ACID, VENOUS, WHOLE [id number] 06:11:00 Test Item Value Reference Range Comments LACTATE BLOOD VENOUS (2) 1.3 mmol/L 0.5-2.2 Specime n slightly hemolyzed (BEAKER) (test code = 8625) VANCOMYCIN LEVEL, [id number] 06:10:00 Test Item Value Reference Range Comments VANCOMYCIN TROUGH (BEAKER) (test code = 522) 16.7 ug/mL 10. 0-20.0 Draw 30 min prior to scheduled dose, HOLD if level > 20 mcg/mL, inform MD.CBC W/PLT COUNT & AUTO [id number] 06:09:00 Test Item Value Reference Range Comments WHITE BLOOD CELL COUNT (BEAKER) (test code = 15.0 K/ L 3.5 -10.5 775) RED BLOOD CELL COUNT (BEAKER) (test code = 761) 3.72 M/ L 4.63-6.08 HEMOGLOBIN (BEAKER) (test code = 410) 10.9 GM/DL 13.7-17.5 HEMATOCRIT (BEAKER) (test code = 411) 32.7 % 40.1-51.0 MEAN CORPUSCULAR VOLUME (BEAKER) (test code = 87.9 fL 79 .0-92.2 753) MEAN CORPUSCULAR HEMOGLOBIN (BEAKER) (test code 29.3 pg 25.7-32.2 = 751) MEAN CORPUSCULAR HEMOGLOBIN CONC (BEAKER) (test 33.3 GM/DL 32.3-36.5 code = 752) RED CELL DISTRIBUTION WIDTH (BEAKER) (test code 13.6 % 11.6-14.4 = 412) PLATELET COUNT (BEAKER) (test code = 756) 187 K/CU MM 150-45 0 MEAN PLATELET VOLUME (BEAKER) (test code = 754) 11.6 fL 9.4-12.4 NUCLEATED RED BLOOD CELLS (BEAKER) (test code = 0 /100 WBC 0-0 413) NEUTROPHILS RELATIVE PERCENT (BEAKER) (test code 88 % = 429) LYMPHOCYTES RELATIVE PERCENT (BEAKER) (test code 7 % = 430) MONOCYTES RELATIVE PERCENT (BEAKER) (test code = 5 % 431) EOSINOPHILS RELATIVE PERCENT (BEAKER) (test code 0 % = 432) BASOPHILS RELATIVE PERCENT (BEAKER) (test code = 0 % 437) NEUTROPHILS ABSOLUTE COUNT (BEAKER) (test code = 13.13 K/ L 1.78-5.38 670) LYMPHOCYTES ABSOLUTE COUNT (BEAKER) (test code = 1.04 K/ L 1.32-3.57 414) MONOCYTES ABSOLUTE COUNT (BEAKER) (test code = 0.69 K/ L 0 .30-0.82 415) EOSINOPHILS ABSOLUTE COUNT (BEAKER) (test code = 0.00 K/ L 0.04-0.54 416) BASOPHILS ABSOLUTE COUNT (BEAKER) (test code = 0.03 K/ L 0 .01-0.08 417) IMMATURE GRANULOCYTES-RELATIVE PERCENT (BEAKER) 1 % 0-1 (test code = 2801) BLOOD GAS, [id number] 05:49:00 Test Item Value Reference Range Comments PH ARTERIAL (BEAKER) (test code = 383) 7.41 7.35-7.45 PCO2 ARTERIAL (BEAKER) (test code = 384) 37 mmHg 35-45 PO2 ARTERIAL (BEAKER) (test code = 385) 68 mmHg 80-90 O2 SATURATION ARTERIAL (BEAKER) (test code = 93.4 % 96. 0-97.0 386) HCO3 ARTERIAL (BEAKER) (test code = 388) 23 mmol/L 21-29 BASE EXCESS ARTERIAL (BEAKER) (test code = 387) -1.2 mmol/L -2.0-3.0 PATIENT TEMPERATURE (BEAKER) (test code = 1818) 37.5 C FIO2 (BEAKER) (test code = 1819) 40.0 % RAD, CHEST, 1 VIEW, NON [id number] 03:52:00Reason for exam:- >intubatedShould this be performed at the bedside?->YesFINAL REPORT [...] There is no pneumothorax. Signed: Messi Ibarra Verified Date/Time: 10/16/2018 03:52:10 Reading Location: [address] Body Reading Room POCT-GLUCOSE METER 2018-10-16 02:45:00 Test Item Value Reference Range Comments POC-GLUCOSE METER (MISSY) 115 mg/dL 70-[address] [facility] [address] [place] [address] (test code = 1538) [facility] [address] RAD, CHEST, 1 VIEW, NON [id number] 20:47:00Reason for exam:->check picc placement Should this be performed at the bedside?->YesFINAL REPORT Chest one view AP 10/15/2018 8:46 PM CLINICAL INDICATION: check p icc placement COMPARISON: 10/15/2018 at 0449 IMPRESSION: The [...] Floyd Verified Date/Time: 10/15/2018 20:47:08 Reading Location: [facility] Radiology Reading Room POCT-GLUCOSE [id number] 17:50:00 Test Item Value Reference Range Comments POC-GLUCOSE METER (BEAKER) 141 mg/dL 70-[address] [facility] [address] (test code = 1538) [place] [address] BASIC METABOLIC [id number] 17:22:00 Test Item Value Reference Range Comments SODIUM (BEAKER) (test 143 meq/L 136-145 code = 381) POTASSIUM (BEAKER) (test 3.3 meq/L 3.5-5.1 code = 379) CHLORIDE (BEAKER) (test 115 meq/L 98-107 code = 382) CO2 (BEAKER) (test code = 22 meq/L 22-29 355) BLOOD UREA NITROGEN 15 mg/dL 7-21 (BEAKER) (test code = 354) CREATININE (BEAKER) (test 1.17 mg/dL 0.57-1.25 code = 358) GLUCOSE RANDOM (BEAKER) 138 mg/dL 70-105 (test code = 652) CALCIUM (BEAKER) (test 8.2 mg/dL 8.4-10.2 code = 697) EGFR (BEAKER) (test code 65 mL/min/1.73 sq m EST IMATED GFR IS NOT = 1092) ACCURATE CREA TININE CLEARANCE IN PRE DICTING GLOMERULAR FILTR ATION RATE. ESTIMATED GFR IS NOT APPLICABLE F OR DIALYSIS PATIENT S. CORTISOL,60 [id number] 16:54:00 Test Item Value Reference Range Comments CORTISOL BASELINE NETWORKED (BEAKER) (test code 16.3 mcg/dL = 2307) CORTISOL 30 MINUTE NETWORKED (BEAKER) (test code 24.1 mcg/dL = 2308) CORTISOL, 60 MINUTE (BEAKER) (test code = 1805) 29.7 ug/dL ACTH STIMULATION TEST INTERPRETATION GUIDELINES(Synonyms: Cortrosyn Test, Cosyntropin or Corticotropin Stimulation Test)Adenocorticotropic hormone (ACTH)is a tropic hormone, made in the pituitary [...] a study by Peng et al (RONI 2000,283(8):1038-45), the ACTH Stimulation Test provides important prognostic information. This study defined 3 groups of patients with sepsis or septic shock: 1. Good Survival: Low basal cortisol (<or=34 mcg/dL) and high ACTH response (>9mcg/dL) 2. Intermediate Survival: Low basal cortisol (<34 mcg/dL) and low response to ACTH (&l t;or=9 mcg/dL) OR High basal cortisol (>34 mcg/dL) or high ACTH response (>9 mcg/dL) 3.Poor Survival: High basal cortisol (>34 mcg/dL) and low ACTH response (<or=9 mcg/dL).Treatment of patients with relative adrenal dysfunction may [...] serum cortisollevel 60 minutes after cosyntropin administration.CORTISOL,30 [id number] 16:07:00 Test Item Value Reference Range Comments CORTISOL BASELINE NETWORKED (MISSY) (test code 16.3 mcg/dL = 2307) CORTISOL, 30 MINUTE (BEAKER) (test code = 1804) 24.1 ug/dL ACTH STIMULATION TEST INTERPRETATION GUIDELINES(Synonyms: Cortrosyn Test, Cosyntropin or Corticotropin Stimulation Test)Adenocorticotropic hormone (ACTH)is a tropic hormone, made in the pituitary [...] a study by Peng et al (RONI 2000,283(8):1038-45), the ACTH Stimulation Test provides important prognostic information. This study defined 3 groups of patients with sepsis or septic shock: 1. Good Survival: Low basal cortisol (<or=34 mcg/dL) and high ACTH response (>9mcg/dL) 2. Intermediate Survival: Low basal cortisol (<34 mcg/dL) and low response to ACTH (&l t;or=9 mcg/dL) OR High basal cortisol (>34 mcg/dL) or high ACTH response (>9 mcg/dL) 3.Poor Survival: High basal cortisol (>34 mcg/dL) and low ACTH response (<or=9 mcg/dL).Treatment of patients with relative adrenal dysfunction may [...] Draw serum cortisollevel 60 minutes after cosyntropin administration.CORTISOL,[id number] 15:25:00 Test Item Value Reference Range Comments CORTISOL, BASELINE (MISSY) (test code = 1803) 16.3 ug/dL ACTH STIMULATION TEST INTERPRETATION GUIDELINES(Synonyms: Cortrosyn Test, Cosyntropin or Corticotropin Stimulation Test)Adenocorticotropic hormone (ACTH)is a tropic hormone, made in the pituitary [...] a study by Peng et al (RONI 2000,283(8):6268-45), the ACTH Stimulation Test provides important prognostic information. This study defined 3 groups of patients with sepsis or septic shock: 1. Good Survival: Low basal cortisol (<or=34 mcg/dL) and high ACTH response (>9mcg/dL) 2. Intermediate Survival: Low basal cortisol (<34 mcg/dL) and low response to ACTH (&l t;or=9 mcg/dL) OR High basal cortisol (>34 mcg/dL) or high ACTH response (>9 mcg/dL) 3.Poor Survival: High basal cortisol (>34 mcg/dL) and low ACTH response (<or=9 mcg/dL).Treatment of patients with relative adrenal dysfunction may [...] cortisollevel 60 minutes after cosyntropin administration.BASIC METABOLIC [id number] 15:04:00 Test Item Value Reference Range Comments SODIUM (BEAKER) (test 144 meq/L 136-145 code = 381) POTASSIUM (BEAKER) (test 3.2 meq/L 3.5-5.1 code = 379) CHLORIDE (BEAKER) (test 115 meq/L 98-107 code = 382) CO2 (BEAKER) (test code = 22 meq/L 22-29 355) BLOOD UREA NITROGEN 16 mg/dL 7-21 (BEAKER) (test code = 354) CREATININE (BEAKER) (test 1.22 mg/dL 0.57-1.25 code = 358) GLUCOSE RANDOM (BEAKER) 144 mg/dL 70-105 (test code = 652) CALCIUM (BEAKER) (test 8.0 mg/dL 8.4-10.2 code = 697) EGFR (BEAKER) (test code mL/min/1.73 sq m INSUF FICIENT CLINICAL DATA = 1092) TO CALCULATE EST IMATED GFR. EEG MONITORING WITH VIDEO RECORDING EACH 24 [id number] 14:33:00For STAT EEG- after 5 PM weekdays, weekends and holidays, page the on-call test engineer nuclear equipment Reason for exam:->concern for seizuresDATE OF REPORT: 10/15/2018 ACC: [id number]: [id number] time: 17:48 on 10/14/18top time: 09:44 on10/15/18ICD- 10: R56.9 CPT Code: 10350 HISTORY: 52 y/o male with DM, HTN, prior strokes with left sided deficits presented with alteration of mental status. MEDICATIONS THAT COULD AFFECT EEG: aspirin, citalopram, levetiracetam, metoprolol TECHNICAL SUMMARY: This is a digital EEG recorded with 32 input channels reviewed with bipolar and referential montages using the modified combinatorial systemnomenclature. DESCRIPTION OF RECORD: During the maximally alert state, there is neither a posterior dominant rhythm [...] non- specific etiology (hypoxia, structural injury, medications). Absence of epileptiform discharges including electrographic seizure does not preclude the diagnosis of epilepsy. This EEG study is similar to baseline study done on 10/14/18. Kristel Boyd MDNeurophysiology Fellow Felice Pinedo M.D., RICH Professor of Neurology [employer] Director, [facility] Head, [facility] RAD, PELVIS, 1 OR 2 [id number] 14:11:00Reason for exam:->MRI clearanceShould this be performed at the bedside?->YesFINAL REPORT RAD, PELVIS, 1 OR 2 VIEWS CLINICAL INDICATION: MRI clearance COMPARISON: None TECHNIQUE: Single frontal view of the pelvis. IMPRESSION:No fracture is identified. 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 Periarticular fat stripes are in place. Moderate stool burden noted in the rectal vault. Right femoral central venous catheter terminates at the L4- 5 level. Signed: JR Sung Robert MDReport Verified Date/Time: 10/15/2018 14:11:06 Reading Location: [address] Consult Reading Room RAD, SKULL, LESS THAN 4 [id number] 14:08:00Reason for exam:->MRI clearanceShould this be performed at the bedside?->YesFINAL REPORT RAD, SKULL, LESS THAN 4 VIEWS INDICATION: MRI clearance COMPARISO N: None TECHNIQUE: Frontal and lateral views of the skull. IMPRESSION: There is no radiopaque or metallic foreign object within the calvarium, skull base or orbits. Included paranasal sinuses are grossly clear. Mandible is intact. Signed: JR Sung Robert MDReport Verified Date/Time: 10/15/2018 14:08:11 Reading Location: [address] Consult Reading Room RAD, ABDOMEN/KUB, 1 VIEW [id number] 14:05:00Reason for exam:->clear for MRIShould this be [...] junction. Signed: JR Sung Robert MDReport Verified Jose Manuel e/Time: 10/15/2018 14:05:30 Reading Location: [facility] B1 C013W Consult Reading Room ONIN [id number] 13:07:00 Test Item Value Reference Range Comments TROPONIN I (BEAKER) (test code = 397) 0.05 ng/mL 0.00-0.03 POCT-GLUCOSE [id number] 12:51:00 Test Item Value Reference Range Comments POC-GLUCOSE METER (BEAKER) 166 mg/dL 70-[address] [facility] [address] (test code = 1538) [facility] 77 030 U/S, RENAL, [id number] 12:22:00Reason for exam:->alayna, UTI, sepsisShould this be performed at the bedside?->YesFINAL REPORT History: Acute kidney injury, urinary tract infection, sepsis. FI NDINGS: No comparisons are available. Real-time sonographic examination [...] be a more sensitive examination. Signed: Linda Hoover MDReport Verified Date/Time: 10/15/2018 12:22:41 Reading Location: [facility] B1 [id number] Ultrasound Reading Room RESPIRATORY PANEL [id number] 12:09:00 Test Item Value Reference Range Comments HUMAN METAPNEUMOVIRUS Not detected Not detected, (BEAKER) (test code = Equivocal 7984) RHINOVIRUS (BEAKER) (test Not detected Not detected, code = 5744) Equivocal INFLUENZA A (BEAKER) (test Not detected Not detected, code = 2685) Equivocal INFLUENZA A (NO SUBTYPE) Not detected, (test code = 3606) Equivocal INFLUENZA A SUBTYPE H1 Not detected, (BEAKER) (test code = Equivocal 2686) INFLUENZA A SUBTYPE H3 Not detected, (BEAKER) (test code = Equivocal 2687) INFLUENZA A SUBTYPE Not detected, H1-2009 (BEAKER) (test Equivocal code = 3198) INFLUENZA B (BEAKER) (test Not detected Not detected, code = 2688) Equivocal RESPIRATORY SYNCYTIAL Detected Not detected, Assay is n ot able VIRUS (BEAKER) (test code Equivocal differ entiate between RSV = 3199) A and RSV B.Cont act isolation if immunosuppressed or young children. Consid er stopping antibio tics. PARAINFLUENZA VIRUS 1 Not detected Not detected, (BEAKER) (test code = Equivocal 2691) PARAINFLUENZA VIRUS 2 Not detected Not detected, (BEAKER) (test code = Equivocal 2692) PARAINFLUENZA VIRUS 3 Not detected Not detected, (BEAKER) (test code = Equivocal 2693) PARAINFLUENZA VIRUS 4 Not detected Not detected, (BEAKER) (test code = Equivocal 3200) ADENOVIRUS (BEAKER) (test Not detected Not detected, code = 2694) Equivocal CORONAVIRUS 229E (BEAKER) Not detected Not detected, (test code = 3201) Equivocal CORONAVIRUS HKU1 (BEAKER) Not detected Not detected, (test code = 3202) Equivocal CORONAVIRUS NL63 (BEAKER) Not detected Not detected, (test code = 3203) Equivocal CORONAVIRUS OC43 (BEAKER) Not detected Not detected, (test code = 3204) Equivocal BORDETELLA PERTUSSIS Not detected Not detected, (BEAKER) (test code = Equivocal 3205) CHLAMYDOPHILA PNEUMONIAE Not detected Not detected, (BEAKER) (test code = Equivocal 3206) MYCOPLASMA PNEUMONIAE Not detected Not detected, (BEAKER) (test code = Equivocal 3207) Other viruses and bacteria not targeted by [...] [facility] Molecular [facility] Laboratory using the [employer] Respiratory Panel. It is FDA cleared and has been verified and approved by the [facility] Molecular Diagnostics Laboratory for clinical use on nasal swab specimens. It is not FDA-cleared for use on bronchial wash/lavage samples. However, for this sample type, validation was performed and test characteristics were determined and approved, by [facility] Molecular Diagnostics laboratory for clinical use under the Clinical Laboratory Improvement Amendments (CLIA) of 1988 requirements. Therefore, FDA clearance isnot required. This laboratory is CLIA- certified and [employer] (CAP)-accredited to perform high complexity testing.CREATINE KINASE (CK)2018-10-15 09:33:00 Test Item Value Reference Range Comments CREATINE KINASE TOTAL (BEAKER) (test code = 380) 1362 U/L 29-200 BLOOD GAS, [id number] 09:14:00 Test Item Value Reference Range Comments PH VENOUS (BEAKER) (test code = 701) 7.39 7.32-7.42 PCO2 VENOUS (BEAKER) (test code = 755) 36 mmHg 41-51 PO2 VENOUS (BEAKER) (test code = 702) 66 mmHg 25-40 O2 SATURATION VENOUS (BEAKER) (test code = 703) 93.1 % 40.0-70.0 HCO3 VENOUS (BEAKER) (test code = 705) 21 mmol/L 21-29 BASE EXCESS VENOUS (BEAKER) (test code = 704) -3.3 mmol/L -2 .0-3.0 PATIENT TEMPERATURE (BEAKER) (test code = 1818) 37.0 C FIO2 (BEAKER) (test code = 1819) 21.0 % RAPID DRUG SCREEN, [id number] 08:24:00 Test Item Value Reference Range Comments BARBITURATE URINE (BEAKER) (test code = 725) Negative Neg ative BENZODIAZEPINE SCREEN URINE (BEAKER) (test code = Positive Negative 726) COCAINE (METAB.) SCREEN (BEAKER) (test code = 1164) Negative Negative METHADONE SCREEN (BEAKER) (test code = 1436) Negative Neg ative OPIATE SCREEN URINE (BEAKER) (test code = 734) Negative N egative CANNABINOID SCREEN URINE (BEAKER) (test code = 727) Negative Negative AMPH/METHAMPH SCREEN (BEAKER) (test code = 1438) Negative Negative PHENCYCLIDINE SCREEN URINE (BEAKER) (test code = Negative Negative 608) OXYCODONE SCREEN URINE (BEAKER) (test code = 2761) Negative Negative DRUG CUTOFF CONC.Cocaine 300 ng/mL Cannabinoid 50 ng/mL Benzodiazepine 200 ng/mLBarbiturate 200 ng/mLPhencyclidine 25 ng/mLOpiate 300 ng/mLMethadone 300 ng/mLAmphetamine/ 1000 ng/mL MethamphetamineOxycodone 300 ng/mLThis assay provides an unconfirmed qualitative test result for the clinical management of patients in emergency situations. Chain of custody not maintained. Some uviv-nri-nnnstsa medications, as well as adulterants, may cause inaccurate results. Clinical correlation should be applied. A more comprehensive drug screen or confirmation of a detected drug may be performed upon request. RAD, CHEST, 1 VIEW, NON [id number] 06:31:00Reason for exam:- >intubatedShould this be performed at the bedside?->YesFINAL REPORT [...] no pneumothorax. Signed: Messi Ibarra MDReport Verified Date/Time: 10/15/2018 06:31:32 Reading Location: [facility] B1 C013Y CT Body Reading Room ONELLA ANTIGEN, [id number] 05:37:00 Test Item Value Reference Range Comments L. PNEUMOPHILA SEROGP 1 Negative - see Negative for L. UR AG (BEAKER) (test comment pneumophila serogroup 1 code = 1156) antigen, suggest ing no recent or curren t infection with t his serogroup. Legio nellosis cannot be ruled out since other serogroups and species may caus e disease. STREP PNEUMONIAE [id number] 05:36:00 Test Item Value Reference Range Comments STREP PNEUMONIAE ANTIGEN Presumptive negative for Presumptive ne gative for (BEAKER) (test code = pneumococcal pneumonia - pneumococcal pneu monia - 1615) see comment see commen Presumptive negative for pneumococcal pneumonia, suggesting no current or recent pneumococcal infection. Infection due to S. pneumoniae cannot be ruled out since the antigen present in the sample may be below the detection limit of the test. BLOOD GAS, [id number] 05:18:00 Test Item Value Reference Range Comments PH ARTERIAL (BEAKER) (test code = 383) 7.41 7.35-7.45 PCO2 ARTERIAL (BEAKER) (test code = 384) 36 mmHg 35-45 PO2 ARTERIAL (BEAKER) (test code = 385) 114 mmHg 80-90 O2 SATURATION ARTERIAL (BEAKER) (test code = 98.1 % 96. 0-97.0 386) HCO3 ARTERIAL (BEAKER) (test code = 388) 22 mmol/L 21-29 BASE EXCESS ARTERIAL (BEAKER) (test code = 387) -1.9 mmol/L -2.0-3.0 PATIENT TEMPERATURE (BEAKER) (test code = 1818) 38.0 C FIO2 (BEAKER) (test code = 1819) 40.0 % TROPONIN [id number] 04:26:00 Test Item Value Reference Range Comments TROPONIN I (BEAKER) (test code = 397) 0.05 ng/mL 0.00-0.03 BASIC METABOLIC [id number] 04:23:00 Test Item Value Reference Range Comments SODIUM (BEAKER) (test 140 meq/L 136-145 code = 381) POTASSIUM (BEAKER) (test 3.4 meq/L 3.5-5.1 code = 379) CHLORIDE (BEAKER) (test 112 meq/L 98-107 code = 382) CO2 (BEAKER) (test code = 20 meq/L 22-29 355) BLOOD UREA NITROGEN 20 mg/dL 7-21 (BEAKER) (test code = 354) CREATININE (BEAKER) (test 1.55 mg/dL 0.57-1.25 code = 358) GLUCOSE RANDOM (BEAKER) 154 mg/dL 70-105 (test code = 652) CALCIUM (BEAKER) (test 7.9 mg/dL 8.4-10.2 code = 697) EGFR (BEAKER) (test code mL/min/1.73 sq m INSUF FICIENT CLINICAL DATA = 1092) TO CALCULATE EST IMATED GFR. [id number] 04:23:00 Test Item Value Reference Range Comments LIPASE (BEAKER) (test code = 749) < U/L 8-78 B-TYPE NATRIURETIC FACTOR (BNP)2018-10-15 04:21:00 Test Item Value Reference Range Comments B-TYPE NATRIURETIC PEPTIDE (BEAKER) (test code = 136 pg/mL 0-100 700) [id number] 04:19:00 Test Item Value Reference Range Comments MAGNESIUM (BEAKER) (test code = 627) 1.4 mg/dL 1.6-2.6 [id number] 04:19:00 Test Item Value Reference Range Comments PHOSPHORUS (BEAKER) (test code = 604) 2.2 mg/dL 2.3-4.7 HEPATIC FUNCTION [id number] 04:19:00 Test Item Value Reference Range Comments TOTAL PROTEIN (BEAKER) (test code = 770) 6.0 gm/dL 6.0-8.3 ALBUMIN (BEAKER) (test code = 1145) 3.0 g/dL 3.5-5.0 BILIRUBIN TOTAL (BEAKER) (test code = 377) 0.5 mg/dL 0.2-1 .2 BILIRUBIN DIRECT (BEAKER) (test code = 706) 0.3 mg/dL 0.1- 0.5 ALKALINE PHOSPHATASE (BEAKER) (test code = 346) 60 U/L 40-150 AST (SGOT) (BEAKER) (test code = 353) 36 U/L 5-34 ALT (SGPT) (BEAKER) (test code = 347) 19 U/L 6-55 VANCOMYCIN LEVEL, [id number] 04:18:00 Test Item Value Reference Range Comments VANCOMYCIN RANDOM (BEAKER) (test code = 523) 11.8 ug/mL Reference Range: No NormalsLACTIC ACID, VENOUS, WHOLE [id number] 04:12:00 Test Item Value Reference Range Comments LACTATE BLOOD VENOUS (2) (BEAKER) (test code = 1.4 mmol/L 0 .5-2.2 2) CBC W/PLT COUNT & AUTO [id number] 04:02:00 Test Item Value Reference Range Comments WHITE BLOOD CELL COUNT (BEAKER) (test code = 22.0 K/ L 3.5 -10.5 775) RED BLOOD CELL COUNT (BEAKER) (test code = 761) 3.81 M/ L 4.63-6.08 HEMOGLOBIN (BEAKER) (test code = 410) 11.2 GM/DL 13.7-17.5 HEMATOCRIT (BEAKER) (test code = 411) 33.8 % 40.1-51.0 MEAN CORPUSCULAR VOLUME (BEAKER) (test code = 88.7 fL 79 .0-92.2 753) MEAN CORPUSCULAR HEMOGLOBIN (BEAKER) (test code 29.4 pg 25.7-32.2 = 751) MEAN CORPUSCULAR HEMOGLOBIN CONC (BEAKER) (test 33.1 GM/DL 32.3-36.5 code = 752) RED CELL DISTRIBUTION WIDTH (BEAKER) (test code 13.3 % 11.6-14.4 = 412) PLATELET COUNT (BEAKER) (test code = 756) 165 K/CU MM 150-45 0 MEAN PLATELET VOLUME (BEAKER) (test code = 754) 11.2 fL 9.4-12.4 NUCLEATED RED BLOOD CELLS (BEAKER) (test code = 0 /100 WBC 0-0 413) NEUTROPHILS RELATIVE PERCENT (BEAKER) (test code 87 % = 429) LYMPHOCYTES RELATIVE PERCENT (BEAKER) (test code 7 % = 430) MONOCYTES RELATIVE PERCENT (BEAKER) (test code = 5 % 431) EOSINOPHILS RELATIVE PERCENT (BEAKER) (test code 0 % = 432) BASOPHILS RELATIVE PERCENT (BEAKER) (test code = 0 % 437) NEUTROPHILS ABSOLUTE COUNT (BEAKER) (test code = 19.12 K/ L 1.78-5.38 670) LYMPHOCYTES ABSOLUTE COUNT (BEAKER) (test code = 1.61 K/ L 1.32-3.57 414) MONOCYTES ABSOLUTE COUNT (BEAKER) (test code = 1.05 K/ L 0 .30-0.82 415) EOSINOPHILS ABSOLUTE COUNT (BEAKER) (test code = 0.00 K/ L 0.04-0.54 416) BASOPHILS ABSOLUTE COUNT (BEAKER) (test code = 0.04 K/ L 0 .01-0.08 417) IMMATURE GRANULOCYTES-RELATIVE PERCENT (BEAKER) 1 % 0-1 (test code = 2801) POCT-GLUCOSE [id number] 00:56:00 Test Item Value Reference Range Comments POC-GLUCOSE METER (BEAKER) 149 mg/dL 70-[address] [facility] [address] (test code = 1538) [place] [address] TROPONIN [id number] 21:23:00 Test Item Value Reference Range Comments TROPONIN I (BEAKER) (test code = 397) 0.06 ng/mL 0.00-0.03 LACTIC ACID, VENOUS, WHOLE [id number] 18:53:00 Test Item Value Reference Range Comments LACTATE BLOOD VENOUS (2) 1.7 mmol/L 0.5-2.2 Specime n slightly hemolyzed (BEAKER) (test code = 2872) EEG RECORDING IN COMA/SLEEP [id number] 18:51:00Reason for exam:->concern for seizuresShould this be performed at the bedside?->YesDATE OF REPORT: 10/14/2018 ACC: [id number] Start time: 17:28 Stop time: 17:48 ICD-10: R56.9 CPT Code: 97470 HISTORY: 52 yo male with DM, HTN, prior strokes with left sided deficits presented with alteration of mental status. MEDICATIONS THAT COULD AFFECT EEG: aspirin, citalopram, levetiracetam,metoprolol TECHNICAL SUMMARY: This is a digital EEG recorded with 32 input channels reviewed with bipolar and referential montages using the modified combinatorial system nomenclature. DESCRIPTION OF RECORD: During the maximally alert state, there is no posterior dominant rhythm. The [...] Abnormal EEG in coma/sleep due to: 1. Severe generalized slowing of background rhythm [...] Underwood MD Neurophysiology Fellow Felice Pinedo M.D., [facility] Professor of Neurology [facility] Director, [facility] Epilepsy [place], [facility] POCT-GLUCOSE [id number] 17:46:00 Test Item Value Reference Range Comments POC-GLUCOSE METER (BEAKER) 130 mg/dL 70-[address] [facility] [address] (test code = 1538) [facility] [address] LACTIC ACID, VENOUS, WHOLE [id number] 16:36:00 Test Item Value Reference Range Comments LACTATE BLOOD VENOUS (2) 2.4 mmol/L 0.5-2.2 Specime n slightly hemolyzed (BEAKER) (test code = 2872) FIBRIN SOLUBLE [id number] 15:35:00 Test Item Value Reference Range Comments FIBRIN SOLUBLE MONOMER (BEAKER) (test code = 1416) Negative [id number] 14:51:00 Test Item Value Reference Range Comments PROCALCITONIN (BEAKER) (test code = 3036) 1.71 ng/mL <0.05 SEPSIS RISK (ng/mL)Low: 0.05-0.50Intermediate: 0.51-2.00High: >=2.01TROPONIN [id number] 14:44:00 Test Item Value Reference Range Comments TROPONIN I (BEAKER) (test code = 397) 0.04 ng/mL 0.00-0.03 BASIC METABOLIC [id number] 14:39:00 Test Item Value Reference Range Comments SODIUM (BEAKER) (test 142 meq/L 136-145 code = 381) POTASSIUM (BEAKER) (test 3.5 meq/L 3.5-5.1 code = 379) CHLORIDE (BEAKER) (test 112 meq/L 98-107 code = 382) CO2 (BEAKER) (test code = 20 meq/L 22-29 355) BLOOD UREA NITROGEN 23 mg/dL 7-21 (BEAKER) (test code = 354) CREATININE (BEAKER) (test 2.14 mg/dL 0.57-1.25 code = 358) GLUCOSE RANDOM (BEAKER) 177 mg/dL 70-105 (test code = 652) CALCIUM (BEAKER) (test 8.1 mg/dL 8.4-10.2 code = 697) EGFR (BEAKER) (test code mL/min/1.73 sq m INSUF FICIENT CLINICAL DATA = 1092) TO CALCULATE EST IMATED GFR. [id number] 14:38:00 Test Item Value Reference Range Comments PHOSPHORUS (BEAKER) (test code = 604) 2.4 mg/dL 2.3-4.7 [id number] 14:38:00 Test Item Value Reference Range Comments MAGNESIUM (BEAKER) (test code = 627) 1.6 mg/dL 1.6-2.6 HEPATIC FUNCTION [id number] 14:38:00 Test Item Value Reference Range Comments TOTAL PROTEIN (BEAKER) (test code = 770) 6.5 gm/dL 6.0-8.3 ALBUMIN (BEAKER) (test code = 1145) 3.3 g/dL 3.5-5.0 BILIRUBIN TOTAL (BEAKER) (test code = 377) 0.6 mg/dL 0.2-1 .2 BILIRUBIN DIRECT (BEAKER) (test code = 706) 0.3 mg/dL 0.1- 0.5 ALKALINE PHOSPHATASE (BEAKER) (test code = 346) 64 U/L 40-150 AST (SGOT) (BEAKER) (test code = 353) 24 U/L 5-34 ALT (SGPT) (BEAKER) (test code = 347) 18 U/L 6-55 [id number] 14:38:00 Test Item Value Reference Range Comments LIPASE (BEAKER) (test code = 749) 8 U/L 8-78 LACTIC ACID, VENOUS, WHOLE [id number] 14:32:00 Test Item Value Reference Range Comments LACTATE BLOOD VENOUS (2) (BEAKER) (test code = 1.6 mmol/L 0 .5-2.2 2872) PROTHROMBIN [id number] 14:24:00 Test Item Value Reference Range Comments PROTIME (BEAKER) (test code = 759) 15.3 seconds 11.7-14.7 INR (BEAKER) (test code = 370) 1.2 <=5.9 RECOMMENDED COUMADIN/WARFARIN INR THERAPY RANGESSTANDARD DOSE: 2.0 - 3.0 Includes: PROPHYLAXIS forvenous thrombosis, systemic embolization; TREATMENT for venous thrombosis and/or pulmonary embolus.HIGH RISK: Target INR is 2.5-3.5 for patients with mechanical heart valves.[id number] 14:24:00 Test Item Value Reference Range Comments FIBRINOGEN LEVEL (BEAKER) (test code = 658) 453 mg/dl 225- 434 [id number] 14:24:00 Test Item Value Reference Range Comments PARTIAL THROMBOPLASTIN TIME (BEAKER) (test code 37.8 seconds 22.5-36.0 = 760) BLOOD GAS, [id number] 14:14:00 Test Item Value Reference Range Comments PH ARTERIAL (BEAKER) (test code = 383) 7.43 7.35-7.45 PCO2 ARTERIAL (BEAKER) (test code = 384) 31 mmHg 35-45 PO2 ARTERIAL (BEAKER) (test code = 385) 105 mmHg 80-90 O2 SATURATION ARTERIAL (BEAKER) (test code = 97.9 % 96. 0-97.0 386) HCO3 ARTERIAL (BEAKER) (test code = 388) 20 mmol/L 21-29 BASE EXCESS ARTERIAL (BEAKER) (test code = 387) -3.2 mmol/L -2.0-3.0 PATIENT TEMPERATURE (BEAKER) (test code = 1818) 37.5 C FIO2 (BEAKER) (test code = 1819) 40.0 % OXYGEN SATURATION, [id number] 13:58:00 Test Item Value Reference Range Comments O2 SATURATION (MEASURED) (BEAKER) (test code = 1455) 89.6 % If patient has internal jugular ( IJ) or subclavian central line or PICC line. Draw from distal port. Label as central venous oxygen.RAD, CHEST, 1 VIEW, NON [id number] 13:52:00Reason for exam:->sputum, coughShould this be performed at the bedside?->YesFINAL REPORT INDICATION: sputum, cough COMPARISON:None. TECHNIQUE: Chest radiograph, single [...] MDReport Verified Date/Time: 10/14/2018 13:52:33 Reading Location: [facility] C013X Ortho Consult Reading Room URINALYSIS W/ MICROSCOPIC 2018-10-14 12:43:00 Test Item Value Reference Range Comments COLOR (BEAKER) (test code = 470) Yellow CLARITY (BEAKER) (test code = 469) Hazy SPECIFIC GRAVITY UA (BEAKER) (test code = 468) 1.016 1 .001-1.035 PH UA (BEAKER) (test code = 467) 6.0 5.0-8.0 PROTEIN UA (BEAKER) (test code = 464) 70 mg/dL Negative GLUCOSE UA (BEAKER) (test code = 365) 50 mg/dL Negative KETONES UA (BEAKER) (test code = 371) Negative Negative BILIRUBIN UA (BEAKER) (test code = 462) Negative Negative BLOOD UA (BEAKER) (test code = 461) Moderate Negative NITRITE UA (BEAKER) (test code = 465) Negative Negative LEUKOCYTE ESTERASE UA (BEAKER) (test code = Large Nega tive 466) UROBILINOGEN UA (BEAKER) (test code = 463) 0.2 mg/dL 0.2-1 .0 RBC UA (BEAKER) (test code = 519) 8 /HPF WBC UA (BEAKER) (test code = 520) 79 /HPF BACTERIA (BEAKER) (test code = 517) Moderate MUCUS (BEAKER) (test code = 1574) Rare SQUAMOUS EPITHELIAL (BEAKER) (test code = 516) 4 /HPF CALCIUM OXALATE CRYSTALS (BEAKER) (test code = Rare 518) SOURCE(BEAKER) (test code = 2795) Urine, Elliott
[2020-03-25 13:06] LABS: Absolute Lymphocytes (CBC) 1.8 K/uL (0.7-4.9); Basophils % 0.6 % (0-1.3); Lymphocytes % 18.9 % (15.3-44.8); MPV 8.7 fL (7.6-11.3); RBC Red Blood Cell Count 4.46 M/uL (4.33-5.43)
[2020-03-25 13:13] LABS: Albumin 2.9 g/dL (3.4-5.0); Bilirubin Direct 0.1 mg/dL (0-0.2); Bilirubin Total 0.3 mg/dL (0.2-1.0); Magnesium 2.4 mg/dL (1.8-2.4); Potassium 4.2 mmol/L (3.5-5.1); Protein, Total 7.9 g/dL (6.4-8.2)
[2020-03-25] MEDS ORDERED: CEFTRIAXONE/SWI 1gm 1 GM/10 ML SYR ONE (13:28)
--- NOTE | 2020-03-25 13:57 | ER ---
Nurse's Notes [facility] [place] Name: Deric Sheriff Age: 54 yrs Sex: Male : 1965 Arrival Date: 03/25/2020 Time: 11:09 Bed 25 Private MD: Diagnosis: Weakness;Urinary tract infection, site not specified Presentation: 03/25 11:28 Chief complaint: EMS states: were called out for increased weakness by home health iw nurse, pt told EMS he doesn't fell any more weakness than he normally does, were told by nurse that sats were low and BP was low, all VS WNL, Pt A\T\OX3, hx of CVA. Coronavirus screen: Proceed with normal triage. Patient denies a cough. Patient denies shortness of breath or difficulty breathing. Patient denies measured and/or subjective temperature greater than 100.4F prior to today's visit. Patient denies travel on a cruise ship or to a country the [facility] currently lists as an affected area. Patient denies contact with known and/or suspected case of COVID-19. Ebola Screen: Patient negative for fever greater than or equal to 101.5 degrees Fahrenheit, and additional compatible Ebola Virus Disease symptoms Patient denies exposure to infectious person. Patient denies travel to an Ebola-affected area in the 21 days before illness onset. No symptoms or risks identified at this time. Initial Sepsis Screen: Does the patient meet any 2 criteria? No. Patient's initial sepsis screen is negative. Does the patient have a suspected source of infection? No. Patient's initial sepsis screen is negative. Risk Assessment: Do you want to hurt yourself or someone else? Patient reports no desire to harm self or others. Onset of symptoms was March 25, 2020. 11:28 Method Of Arrival: EMS: [facility] iw 11:28 Acuity: HODAN 3 iw Historical: - Allergies: 11:33 Lotrel; iw - Home Meds: 11:33 aspirin 81 mg Oral chew 1 tab once daily [Active]; atorvastatin 40 mg Oral tab 1 tab iw nightly [Active]; baclofen 10 mg Oral tab 1 tab 3 times per day [Active]; citalopram 20 mg tab 1 tab once daily [Active]; clonidine HCl 0.1 mg Oral tab 1 tab 3 times per day [Active]; enalapril maleate 20 mg Oral tab 1 tab once daily [Active]; levetiracetam 750 mg Oral tab 1 tab 2 times per day [Active]; lisinopril 20 mg Oral tab 1 tab twice a day [Active]; metoprolol tartrate 50 mg Oral tab 1 tab 2 times per day [Active]; Plavix 75 mg Oral tab 1 tab once daily [Active]; senna 8.6 mg Oral cap nightly [Active]; tamsulosin 0.4 mg Oral cp24 1 cap nightly [Active]; - PMHx: 11:33 CVA; Diabetes - NIDDM; Hypertension; Seizures; iw - Immunization history:: Adult Immunizations. - Social history:: Smoking status: Patient denies any tobacco usage or history of. Screenin:06 Abuse screen: Denies threats or abuse. Denies injuries from another. Nutritional iw screening: No deficits noted. Tuberculosis screening: No symptoms or risk factors identified. 14:41 Fall Risk. iw Assessment: 11:40 General: Appears in no apparent distress. Behavior is calm, cooperative. Pain: Denies iw pain. Neuro: Level of Consciousness is awake, alert, obeys commands, Oriented to person, place, Paralysis in left hand(s) arm(s) leg(s). Cardiovascular: Patient's skin is warm and dry. Respiratory: Airway is patent Respiratory effort is even, unlabored, Respiratory pattern is regular, symmetrical. Derm: Skin is intact. Musculoskeletal: Range of motion: limited in left shoulder, left elbow, left hip and left knee. 14:21 Reassessment: Patient appears in no apparent distress at this time. notified that iw pt will be d/c home with antibiotics, pt will be transported back to home via EMS. Vital Signs: 11:28 BP 121 / 94; Pulse 62; Resp 16 S; Temp 97.9(O); Pulse Ox 98% on R/A; iw 12:50 BP 113 / 75; Pulse 52; Resp 16; Pulse Ox 100% on R/A; iw 14:40 BP 113 / 71; Pulse 50; Resp 14; Temp 97.4(O); Pulse Ox 100% on R/A; Pain 0/10; ls4 ED Course: 11:09 Patient arrived in ED. iw 11:16 Indira Patel, RN is Primary Nurse. iw 11:26 Bed in low position. Call light in reach. Side rails up X2. Warm blanket given. Pillow mh5 given. media monitor on. Pulse ox on. NIBP on. 11:30 Arm band placed on. iw 11:32 Triage completed. iw 11:39 EKG done, by sterilization technician. reviewed by Indira Patel RN. tc 11:44 Bg Mckeon MD is Attending Physician. kdr 11:50 Missed attempt(s): 20 gauge in right antecubital area. iw 14:23 No provider procedures requiring assistance completed. iw 14:41 IV discontinued, intact, bleeding controlled, No redness/swelling at site. Pressure iw dressing applied. Administered Medications: 13:25 Drug: Rocephin - (cefTRIAXone) 1 grams Route: IVPB; Infused Over: 10 mins; Site: right ls4 forearm; Outcome: 13:57 Discharge ordered by MD. kdr 14:40 Discharged to home via ambulance. iw 14:40 Condition: good 14:40 Discharge instructions given to family, Instructed on discharge instructions, follow up and referral plans. medication usage, Demonstrated understanding of instructions, follow-up care, medications, Prescriptions given X 1. 14:41 Patient left the ED. iw Addendum: 03/28/2020 07:18 Addendum: Culture Results: Positive urine culture. No further action required. Bacteria e b sensitive to prescribed antibiotic. Signatures: Bg Mckeon MD MD kdr Williams, Irene, RN RN iw Camila Alarcon, lpn rn hospice EKG Ttc Annelise Kowalski [facility] Christina Marucm Lisa, ASHLEY RN ls4
--- NOTE | 2020-03-25 13:58 | EDPHYS ---
Physician Documentation [facility] Name: Deric Sheriff Age: 54 yrs Sex: Male : 1965 Arrival Date: 03/25/2020 Time: 11:09 Bed 25 Private MD: ED Physician Bg Mckeon HPI: 03/25 15:32 This 54 yrs old Male presents to ER via EMS with complaints of General kdr Weakness. 15:32 Home health called EMS after becoming concerned that he was more weak than usual. The kdr patient denies any weakness (new) nor does he have any other concern or complaint. Onset: The symptoms/episode began/occurred just prior to arrival. Severity of symptoms: At their worst the symptoms were very mild in the emergency department the symptoms are unchanged. The patient has experienced similar episodes in the past. The patient has not recently seen a physician. Historical: - Allergies: 11:33 Lotrel; iw - Home Meds: 11:33 aspirin 81 mg Oral chew 1 tab once daily [Active]; atorvastatin 40 mg Oral tab 1 tab iw nightly [Active]; baclofen 10 mg Oral tab 1 tab 3 times per day [Active]; citalopram 20 mg tab 1 tab once daily [Active]; clonidine HCl 0.1 mg Oral tab 1 tab 3 times per day [Active]; enalapril maleate 20 mg Oral tab 1 tab once daily [Active]; levetiracetam 750 mg Oral tab 1 tab 2 times per day [Active]; lisinopril 20 mg Oral tab 1 tab twice a day [Active]; metoprolol tartrate 50 mg Oral tab 1 tab 2 times per day [Active]; Plavix 75 mg Oral tab 1 tab once daily [Active]; senna 8.6 mg Oral cap nightly [Active]; tamsulosin 0.4 mg Oral cp24 1 cap nightly [Active]; - PMHx: 11:33 CVA; Diabetes - NIDDM; Hypertension; Seizures; iw - Immunization history:: Adult Immunizations. - Social history:: Smoking status: Patient denies any tobacco usage or history of. ROS: 15:32 Constitutional: Negative for fever, chills, and weight loss, Eyes: Negative for injury, kdr pain, redness, and discharge, ENT: Negative for injury, pain, and discharge, Neck: Negative for injury, pain, and swelling, Cardiovascular: Negative for chest pain, palpitations, and edema, Respiratory: Negative for shortness of breath, cough, wheezing, and pleuritic chest pain, Abdomen/GI: Negative for abdominal pain, nausea, vomiting, diarrhea, and constipation, Back: Negative for injury and pain, : Negative for injury, bleeding, discharge, and swelling, MS/Extremity: Negative for injury or new deformity - he is contracted from being bed ridden Skin: Negative for injury, rash, and discoloration, Neuro: Negative for headache, weakness, numbness, tingling, and seizure activity. Psych: Negative for depression, anxiety, suicide ideation, homicidal ideation, and hallucinations. Exam: 11:45 ECG was reviewed by the Attending Physician. kdr 15:32 Constitutional: This is a well developed, well nourished patient who is awake, alert, kdr and in no acute distress. Head/Face: Normocephalic, atraumatic. Eyes: Pupils equal round and reactive to light, extra-ocular motions intact. Lids and lashes normal. Conjunctiva and sclera are non-icteric and not injected. Cornea within normal limits. Periorbital areas with no swelling, redness, or edema. Neck: Trachea midline, no thyromegaly or masses palpated, and no cervical lymphadenopathy. Supple, full range of motion without nuchal rigidity, or vertebral point tenderness. No Meningismus. Chest/axilla: Normal chest wall appearance and motion. Nontender with no deformity. No lesions are appreciated. Cardiovascular: Regular rate and rhythm with a normal S1 and S2. No gallops, murmurs, or rubs. Normal PMI, no JVD. No pulse deficits. Respiratory: Lungs have equal breath sounds bilaterally, clear to auscultation and percussion. No rales, rhonchi or wheezes noted. No increased work of breathing, no retractions or nasal flaring. Abdomen/GI: Soft, non-tender, with normal bowel sounds. No distension or tympany. No guarding or rebound. No evidence of tenderness throughout. Back: No spinal tenderness. No costovertebral tenderness. Full range of motion. Vital Signs: 11:28 BP 121 / 94; Pulse 62; Resp 16 S; Temp 97.9(O); Pulse Ox 98% on R/A; iw 12:50 BP 113 / 75; Pulse 52; Resp 16; Pulse Ox 100% on R/A; iw 14:40 BP 113 / 71; Pulse 50; Resp 14; Temp 97.4(O); Pulse Ox 100% on R/A; Pain 0/10; ls4 MDM: 13:57 Patient medically screened. kdr 15:32 Data reviewed: vital signs, nurses notes, lab test result(s). Counseling: I had a kdr detailed discussion with the patient and/or guardian regarding: the historical points, exam findings, and any diagnostic results supporting the discharge/admit diagnosis, lab results, the need for outpatient follow up. 03/25 11:49 Order name: Basic Metabolic Panel; Complete Time: 13:55 kdr 03/25 11:49 Order name: CBC with Diff; Complete Time: 13:55 kdr 03/25 11:49 Order name: LFT's; Complete Time: 13:55 kdr 03/25 11:49 Order name: Magnesium; Complete Time: 13:55 kdr 03/25 13:01 Order name: Urine Culture kdr 03/25 14:02 Order name: Urine Dipstick--Ancillary (enter results) bd 03/25 11:49 Order name: Cardiac monitoring; Complete Time: 13:07 kdr 03/25 11:49 Order name: IV Saline Lock; Complete Time: 13:07 kdr 03/25 11:49 Order name: Labs collected and sent; Complete Time: 13:05 kdr 03/25 11:49 Order name: O2 Sat Monitoring; Complete Time: 13:07 kdr 03/25 11:49 Order name: Urine Dipstick-Ancillary (obtain specimen); Complete Time: 12:59 kdr 03/25 12:30 Order name: EKG Electrocardiogram; Complete Time: 13:06 EDMS EC:45 Rate is 53 beats/min. Rhythm is regular, Sinus bradycardia with No ectopy. QRS Hardin is kdr Normal. HI interval is normal. Clinical impression: Sinus bradycardia. Administered Medications: 13:25 Drug: Rocephin - (cefTRIAXone) 1 grams Route: IVPB; Infused Over: 10 mins; Site: right ls4 forearm; Disposition: 03/25/20 13:57 Discharged to Home. Impression: Weakness, Urinary tract infection, site not specified. - Condition is Stable. - Discharge Instructions: Urinary Tract Infection, Adult, [id number], Weakness, [id number]. - Prescriptions for Bactrim DS 800- 160 mg Oral Tablet - take 1 tablet by ORAL route every 12 hours for 10 days; 20 tablet. - SBAR form, Medication Reconciliation Form, Thank You Letter, Antibiotic Education form. - Follow up: Private Physician; When: 2 - 3 days; Reason: If symptoms return, Further diagnostic work-up, Recheck today's complaints, Continuance of care, Re-evaluation by your physician. - Problem is an acute exacerbation. - Symptoms have improved. Signatures: Dispatcher [employer] EDMS Bg Mckeon MD MD kdr Indira Patel RN RN iw Allegra Falk RN RN ls4 Corrections: (The following items were deleted from the chart) 14:41 13:57 03/25/2020 13:57 Discharged to Home. Impression: Weakness; Urinary tract iw infection, site not specified. Condition is Stable. Forms are Medication Reconciliation Form, Thank You Letter, Antibiotic Education, Prescription Opioid Use. Follow up: Private Physician; When: 2 - 3 days; Reason: If symptoms return, Further diagnostic work-up, Recheck today's complaints, Continuance of care, Re-evaluation by your physician. Problem is an acute exacerbation. Symptoms have improved. kdr
[2020-03-25 14:11] LABS: Urine Blood TRACE (NEG); Urine Glucose NEGATIVE (NEG); Urine Protein TRACE (NEG); Urine Specific Gravity 1.025 (1.005-1.030); Urine pH 6.5 (5.0-7.0)
--- NOTE | 2020-03-25 16:16 | EKG ---
Test Date: 2020-03-25 Test Time: 11:28:54 Utility Inspector: GARETH MEASUREMENT RESULTS: Intervals: Rate: 53 LA: 146 QRSD: 70 QT: 458 QTc: 429 [place]: P: 59 LA: 146 QRS: 16 T: 35 INTERPRETIVE STATEMENTS: Sinus bradycardia Cannot rule out Anterior infarct, age undetermined Abnormal ECG Compared to ECG 01/23/2020 11:52:07 Myocardial infarct finding now present Left ventricular hypertrophy no longer present Electronically Signed On 03-25-20 16:16:15 CDT by Huber Phillips
[2020-03-25 16:43] VITALS: BP 113/71; TEMP 97.4; O2SAT 100
== END 2020-03-25 14:41 | disposition home or self-care (01) ==
LOC: ER 11:08
DX: N39.0 Urinary tract infection, site not specified (principal); I10 Essential (primary) hypertension; E11.9 Type 2 diabetes mellitus without complications; G40.909 Epilepsy, unspecified, not intractable, without status epilepticus; Z79.01 Long term (current) use of anticoagulants; Z79.82 Long term (current) use of aspirin; Z88.8 Allergy status to other drugs, medicaments and biological substances
CPT/HCPCS: 93005; 87088; 85025; 87086; 80048; 36415; 83735; 80076; 87077; 87186; 81003; 96374; 99284; J0696

== ENCOUNTER 2020-03-31 18:31 | Emergency (ER) | payer MEDICARE ==
--- OUTSIDE RECORDS SUMMARY | 2020-03-31 18:33 | XMS REPORT | Clinical Summary ---
:1965 [facility] Address [address] [place] [address] Care Team Providers Name Role Phone Pcp, No Primary Care Provider Unavailable Allergies Active Allergy Reactions Severity Noted Date Comments Amlodipine-Benazepril 10/14/2018 Medications Medication Sig Dispensed Refills Start Date End Date Status sodium chloride 0.9%, 10 mLs by 5 mL 0 10/23/2018 Active NS, injection Intra-Catheter route 2 (two) times daily. sodium chloride 0.9%, 5 mLs by 5 mL 0 10/23/2018 Active NS, injection Intra-Catheter route every 8 (eight) hours. melatonin 3 mg Tab Take 1 tablet 30 tablet 0 10/23/2018 Active tablet (3 mg total) by mouth every night as needed. aspirin 81 MG chewable Take 1 tablet 90 tablet 3 10/24/2018 tablet (81 mg total) by mouth daily. clopidogrel (PLAVIX) Take 1 tablet 90 tablet 3 10/24/201803/2019 75 mg tablet (75 mg total) by mouth daily. atorvastatin (LIPITOR) Take 1 tablet 90 tablet 3 10/23/2018 40 MG tablet (40 mg total) by mouth nightly. citalopram (CELEXA) 20 Take 1 tablet 30 tablet 0 10/24/2018 MG tablet (20 mg total) by mouth daily. senna (SENOKOT) 8.6 mg Take 1 tablet 90 tablet 3 10/23/2018 tablet (8.6 mg total) by mouth nightly. metoprolol (LOPRESSOR) Take 1 tablet 180 tablet 3 10/23/2018 1 12/24/2018 25 MG tablet (25 mg total) by mouth 2 (two) times daily. lisinopril Take 1 tablet 180 tablet 3 10/23/2018 10/23/2019 Ex pired (PRINIVIL,ZESTRIL) 20 (20 mg total) MG tablet by mouth 2 (two) times daily. levETIRAcetam (KEPPRA) Take 1 tablet 180 tablet 3 10/23/2018 1 12/24/2018 750 MG tablet (750 mg total) by mouth 2 (two) times daily. Active Problems Problem Noted Date RSV (acute bronchiolitis due to respiratory syncytial virus) 10/16/2018 Respiratory failure requiring intubation 10/15/2018 Status epilepticus 10/14/2018 Severe sepsis with septic shock 10/14/2018 Social History Tobacco Use Types Packs/Day Years Used Date Never Smoker Smokeless Tobacco: Never Used Sex Assigned at Date Recorded Not on file Job Start Date Occupation Industry Not on file Not on file Not on file Travel History Travel Start Travel End No recent travel history available. Last Filed Vital Signs Not on file Plan of Treatment Not on file Results Not on fileafter 03/31/2019 Insurance Payer Benefit Plan / Group Subscriber ID Type Phone A ddress [facility]/MEDICARE COMPLETE xxxxxxxxx MGD CARE Advance Directives For more information, please contact:[address] [phone] Code Status Date Activated Date Inactivated Comments Full Code 10/14/2018 11:16 AM This code status was determined by: Patient
--- OUTSIDE RECORDS SUMMARY | 2020-03-31 18:36 | XMS REPORT ---
:1965 Author Organization [facility] t Address [address] [place] [address] Care Team Providers Name Role Phone DELANO [...] code = 1095) No virus isolated POCT-GLUCOSE [id number] 11:50:00 Test Item Value Reference Range Comments POC-GLUCOSE METER (BEAKER) 155 mg/dL 70-110 TESTE D AT [facility] [address] (test code = 1538) [facility] [address] POCT-GLUCOSE [id number] 08:22:00 Test Item Value Reference Range Comments POC-GLUCOSE METER (BEAKER) 124 mg/dL 70-110 TESTE D AT [address] (test code = 1538) [facility] [address] BASIC METABOLIC [id number] 06:33:00 Test Item Value Reference Range Comments [...] PATIENT S. CBC W/PLT COUNT & AUTO [id number] 05:27:00 Test Item Value Reference Range Comments [...] % 0-1 (test code = 2801) POCT-GLUCOSE [id number] 22:10:00 Test Item Value Reference Range Comments POC-GLUCOSE METER (BEAKER) 149 mg/dL 70-110 TESTE D AT [address] (test code = 1538) [place] [address]30 POCT-GLUCOSE [id number] 17:37:00 Test Item Value Reference Range Comments POC-GLUCOSE METER (BEAKER) 167 mg/dL 70-110 TESTE D AT [address] (test code = 1538) [place] [address]30 POCT-GLUCOSE [id number] 13:43:00 Test Item Value Reference Range Comments POC-GLUCOSE METER (BEAKER) 152 mg/dL 70-110 TESTE D AT [address] (test code = 1538) [place] [address] FL, ESOPH, SWALLOW FUNCTION, WITH CINE OR [id number] 10:29:00Reason for exam:->dysphagiaFINAL REPORT Modified barium swallow [...] center Verified Date/Time: 10/22/2018 10:29:46 Reading Location: [facility] C013X [facility] Consult Reading Room BASIC METABOLIC [id number] 06:43:00 Test Item Value Reference Range Comments [...] PATIENT S. CBC W/PLT COUNT & AUTO [id number] 06:22:00 Test Item Value Reference Range Comments [...] % 0-1 (test code = 2801) POCT-GLUCOSE [id number] 05:41:00 Test Item Value Reference Range Comments POC-GLUCOSE METER (BEAKER) 129 mg/dL 70-110 TESTE D AT [address] (test code = 1538) [place] [address]30 POCT-GLUCOSE [id number] 00:06:00 Test Item Value Reference Range Comments POC-GLUCOSE METER (BEAKER) 151 mg/dL 70-110 TESTE D AT [address] (test code = 1538) [place] [address]30 POCT-GLUCOSE [id number] 18:38:00 Test Item Value Reference Range Comments POC-GLUCOSE METER (BEAKER) 131 mg/dL 70-110 TESTE D AT [address] (test code = 1538) [place] [address]30 POCT-GLUCOSE [id number] 13:34:00 Test Item Value Reference Range Comments POC-GLUCOSE METER (BEAKER) 134 mg/dL 70-110 TESTE D AT [address] (test code = 1538) [place] [address]30 HEMOGLOBIN [id number] 08:11:00 Test Item Value Reference Range Comments HEMOGLOBIN A1C (BEAKER) (test code = 368) 6.5 % 4.3-6. 1 BASIC METABOLIC [id number] 07:28:00 Test Item Value Reference Range Comments [...] % 20-55 CBC W/PLT COUNT & AUTO [id number] 06:05:00 Test Item Value Reference Range Comments [...] % 0-1 (test code = 2801) POCT-GLUCOSE [id number] 05:52:00 Test Item Value Reference Range Comments POC-GLUCOSE METER (BEAKER) 139 mg/dL 70-110 TESTE D AT [facility] [address] (test code = 1538) [facility] [address] POCT-GLUCOSE [id number] 00:36:00 Test Item Value Reference Range Comments POC-GLUCOSE METER (BEAKER) 130 mg/dL 70-110 TESTE D AT [facility] [address] (test code = 1538) [facility] 77 [address]30 POCT-GLUCOSE [id number] 17:43:00 Test Item Value Reference Range Comments POC-GLUCOSE METER (BEAKER) 141 mg/dL 70-110 TESTE D AT [facility] [address] [facility] (test code = 1538) [facility] [address] (CELLAVISION MANUAL DIFF)2018-10-20 14:30:00 [...] comments: Slide comments:CBC W/PLT COUNT & AUTO [id number] 14:30:00 Test Item Value Reference Range Comments [...] = 0 /100 WBC 0-0 413) POCT-GLUCOSE [id number] 12:27:00 Test Item Value Reference Range Comments POC-GLUCOSE METER (BEAKER) 162 mg/dL 70-110 TESTE D AT [facility] [address] (test code = 1538) [facility] 77 [address] BASIC METABOLIC [id number] 08:34:00 Test Item Value Reference Range Comments [...] APPLICABLE F OR DIALYSIS PATIENT S. POCT-GLUCOSE [id number] 06:02:00 Test Item Value Reference Range Comments POC-GLUCOSE METER (BEAKER) 147 mg/dL 70-110 TESTE D AT [facility] [address] (test code = 1538) [place] [address]30 POCT-GLUCOSE [id number] 00:43:00 Test Item Value Reference Range Comments POC-GLUCOSE METER (BEAKER) 122 mg/dL 70-110 TESTE D AT [address] (test code = 1538) [place] [address] RAD, ABDOMEN/KUB, 1 VIEW [id number] 23:27:00Reason for exam:->feeding tube placementFINAL REPORT CLINICAL HISTORY: feeding tube placement TECHNIQUE: RAD, ABDOMEN/KUB, 1 VIEW AP COMPARISON: AP radiograph of the abdomen dated 10/16/2018. FINDINGS: Interval advancement of the weighted tip feeding tube now terminating in the first portion of the duodenum.Nonobstructive bowel gas pattern without distended loops of bowel. Otherwise unchanged appearance of the abdomen. Signed: Jose Antonio Rosales [facility] Verified Date/Time: 10/19/2018 23:27:13 Reading Location: [facility] C0[facility] Reading Room Electronically signed by: JOSE ANTONIO ROSALES MD on 018 11:27 PMCSF CULTURE + GRAM [id number] 18:01:00 Test Item Value Reference Range Comments CULTURE (BEAKER) (test code = 1095) No growth GRAM STAIN RESULT (BEAKER) (test code = No WBCs 1123) GRAM STAIN RESULT (BEAKER) (test code = No organisms seen 23454) POCT-GLUCOSE [id number] 17:33:00 Test Item Value Reference Range Comments POC-GLUCOSE METER (BEAKER) 105 mg/dL 70-110 TESTE D AT [facility] [address] (test code = 1538) [place] [address] BLOOD [id number] 17:01:00 Test Item Value Reference Range Comments CULTURE (BEAKER) (test code = 1095) No growth in 5 days BLOOD [id number] 17:01:00 Test Item Value Reference Range Comments CULTURE (BEAKER) (test code = 1095) No growth in 5 days HSV 1/2 PCR, [id number] 13:20:00 Test Item Value Reference Range Comments [...] and its performance characteristics determined by the [facility] Pathology Department, Section of Molecular Pathology. It has not been cleared or approved by the U.S. Food and Drug Administration (FDA), as FDA approval is not required for clinical use of the test. Validation was done as required by the Clinical Laboratory Amendments of 1988.POCT-GLUCOSE [id number] 12:33:00 Test Item Value Reference Range Comments POC-GLUCOSE METER (BEAKER) 129 mg/dL 70-110 TESTE D AT [facility] [address] [facility] (test code = 1538) [place] [address] CBC W/PLT COUNT & AUTO [id number] 08:06:00 Test Item Value Reference Range Comments [...] 3438) Received comment: User comments: Slide comments:POCT-GLUCOSE [id number] 06:21:00 Test Item Value Reference Range Comments POC-GLUCOSE METER (BEAKER) 113 mg/dL 70-110 TESTE D AT [facility] [address] (test code = 1538) [place] [address] [id number] 04:04:00 Test Item Value Reference Range Comments PHOSPHORUS (BEAKER) (test code = 604) 2.0 mg/dL 2.3-4.7 [id number] 04:04:00 Test Item Value Reference Range Comments MAGNESIUM (BEAKER) (test code = 627) 2.1 mg/dL 1.6-2.6 BASIC METABOLIC [id number] 04:04:00 Test Item Value Reference Range Comments [...] APPLICABLE F OR DIALYSIS PATIENT S. POCT-GLUCOSE [id number] 23:53:00 Test Item Value Reference Range Comments POC-GLUCOSE METER (BEAKER) 122 mg/dL 70-110 TESTE D AT [facility] [address] (test code = 1538) [place] [address] POCT-GLUCOSE [id number] 18:17:00 Test Item Value Reference Range Comments POC-GLUCOSE METER (BEAKER) 110 mg/dL 70-110 TESTE D AT [facility] [address] [facility] (test code = 1538) [place] [address]30 POCT-GLUCOSE [id number] 12:36:00 Test Item Value Reference Range Comments POC-GLUCOSE METER (BEAKER) 80 mg/dL 70-110 TESTE D AT [place] [id number] [facility] (test code = 1538) [place] [address]30 CBC W/PLT COUNT & AUTO [id number] 10:31:00 Test Item Value Reference Range Comments [...] 3438) Received comment: User comments: Slide comments:POCT-GLUCOSE [id number] 06:27:00 Test Item Value Reference Range Comments POC-GLUCOSE METER (BEAKER) 96 mg/dL 70-110 TESTE D AT [facility] [address] [facility] (test code = 1538) [place] [address] [id number] 05:32:00 Test Item Value Reference Range Comments PHOSPHORUS (BEAKER) (test code = 604) 2.8 mg/dL 2.3-4.7 [id number] 05:32:00 Test Item Value Reference Range Comments MAGNESIUM (BEAKER) (test code = 627) 1.9 mg/dL 1.6-2.6 BASIC METABOLIC [id number] 05:32:00 Test Item Value Reference Range Comments [...] F OR DIALYSIS PATIENT S. BLOOD GAS, [id number] 05:08:00 Test Item Value Reference Range Comments [...] (test code = 1819) 35.0 % POCT-GLUCOSE [id number] 00:02:00 Test Item Value Reference Range Comments POC-GLUCOSE METER (BEAKER) 98 mg/dL 70-110 TESTE D AT [place] [address] [facility] (test code = 1538) [place] [address] VANCOMYCIN LEVEL, [id number] 19:23:00 Test Item Value Reference Range Comments VANCOMYCIN TROUGH (BEAKER) (test code = 522) 17.8 ug/mL 10. 0-20.0 POCT-GLUCOSE [id number] 18:19:00 Test Item Value Reference Range Comments POC-GLUCOSE METER (BEAKER) 101 mg/dL 70-110 TESTE D AT [place] [address] [facility] (test code = 1538) [place] [address] [id number] 17:29:00 Test Item Value Reference Range Comments POTASSIUM (BEAKER) (test code = 379) 3.4 meq/L 3.5-5.1 Check Serum Phosphorus level 4 hours after IV phosphorus replacement or 8 hours after PO replacementcompleted.Check Serum Potassium level 2 hours after oral potassium replacement completed or 30 min after intravenous potassium replacement.[id number] 17:29:00 Test Item Value Reference Range Comments PHOSPHORUS (BEAKER) (test code = 604) 1.9 mg/dL 2.3-4.7 Check Serum Phosphorus level 4 hours after IV phosphorus replacement or 8 hours after PO replacementcompleted.Check Serum Potassium level 2 hours after oral potassium replacement completed or 30 min after intravenous potassium replacement.[id number] 13:55:00 Test Item Value Reference Range Comments POTASSIUM (BEAKER) (test code = 379) 3.4 meq/L 3.5-5.1 POCT-GLUCOSE [id number] 13:13:00 Test Item Value Reference Range Comments POC-GLUCOSE METER (BEAKER) 95 mg/dL 70-110 TESTE D AT [place] [address] [address] (test code = 1538) [place] [address] SPUTUM CULTURE + GRAM [id number] 11:07:00 Test Item Value Reference Range Comments [...] 0-5 epithelial cells (BEAKER) (test code = 828880) GRAM STAIN RESULT 2+ gram positive cocci (BEAKER) (test code = in chains and pairs 152270) 4+ normal respiratory romelia presentPOCT-GLUCOSE [id number] 06:37:00 Test Item Value Reference Range Comments POC-GLUCOSE METER (BEAKER) 105 mg/dL 70-110 TESTE D AT [facility] [address] [facility] (test code = 1538) [facility] [address] RAD, CHEST, 1 VIEW, NON [id number] 03:39:00Reason for exam:- >intubatedShould this be performed [...] MDReport Verified Date/Time: 10/17/2018 03:39:58 Reading Location: [address] Reading Room BLOOD GAS, [id number] 03:37:00 Test Item Value Reference Range Comments [...] (BEAKER) (test code = 1819) 35.0 % [id number] 03:22:00 Test Item Value Reference Range Comments PHOSPHORUS (BEAKER) (test code = 604) 0.8 mg/dL 2.3-4.7 BASIC METABOLIC [id number] 03:20:00 Test Item Value Reference Range Comments [...] NOT APPLICABLE F OR DIALYSIS PATIENT S. [id number] 03:18:00 Test Item Value Reference Range Comments MAGNESIUM (BEAKER) (test code = 627) 1.8 mg/dL 1.6-2.6 CBC W/PLT COUNT & AUTO [id number] 03:02:00 Test Item Value Reference Range Comments [...] % 0-1 (test code = 2801) POCT-GLUCOSE [id number] 23:37:00 Test Item Value Reference Range Comments POC-GLUCOSE METER (BEAKER) 106 mg/dL 70-110 TESTE D AT [facility] [address] [facility] (test code = 1538) [place] [address] RAD, ABDOMEN/KUB, 1 VIEW [id number] 22:14:00Reason for exam:->Confirm corpak placementShould this be [...] Verified Date/Time: 10/16/2018 22:14:17 Reading Location: [facility] B1 C013Y CT Body Reading Room [id number] 21:14:00 Test Item Value Reference Range Comments POTASSIUM (BEAKER) (test code = 379) 3.5 meq/L 3.5-5.1 [id number] 19:12:00 Test Item Value Reference Range Comments PROCALCITONIN (BEAKER) (test code = 3036) 0.99 ng/mL <0.05 SEPSIS RISK (ng/mL)Low: 0.05-0.50Intermediate: 0.51-2.00High: >=2.01POCT-GLUCOSE [id number] 18:15:00 Test Item Value Reference Range Comments POC-GLUCOSE METER (BEAKER) 124 mg/dL 70-110 TESTE D AT [facility] [address] (test code = 1538) [facility] [address] CSF CELL COUNT [id number] 15:55:00 Test Item Value Reference Range Comments [...] (BEAKER) (test code = 2678) 2 GLUCOSE, [id number] 15:37:00 Test Item Value Reference Range Comments GLUCOSE CSF (BEAKER) (test code = 406) 75 mg/dL 40-70 Save tube for future studies if neededSave tubes for further studies if needed PROTEIN, [id number] 15:37:00 Test Item Value Reference Range Comments PROTEIN CSF (BEAKER) (test code = 378) 41 mg/dL 15-45 Save tube for future studies if neededSave tubes for further studies if needed POCT-GLUCOSE [id number] 12:32:00 Test Item Value Reference Range Comments POC-GLUCOSE METER (BEAKER) 118 mg/dL 70-110 TESTE D AT [address] (test code = 1538) [facility] [address] RAD, CHEST, 1 VIEW, NON [id number] 12:07:00Reason for exam:->ETT positionShould this be performed [...] MDReport Verified Date/Time: 10/16/2018 12:07:46 Reading Location: [facility] Radiology Reading Room MR, BRAIN, WITHOUT [id number] 11:28:00FINAL REPORT MRI Brain without contrast Clinical [...] MDReport Verified Date/Time: 10/16/2018 11:28:39 Reading Location: [address] Neuro Reading Room URINE [id number] 09:42:00 Test Item Value Reference Range Comments CULTURE (BEAKER) (test code = 1095) No growth POCT-GLUCOSE [id number] 06:44:00 Test Item Value Reference Range Comments POC-GLUCOSE METER (BEAKER) 128 mg/dL 70-110 TESTE D AT [facility] [address] (test code = 1538) [facility] [address] BASIC METABOLIC [id number] 06:11:00 Test Item Value Reference Range Comments [...] DIALYSIS PATIENT S. LACTIC ACID, VENOUS, WHOLE [id number] 06:11:00 Test Item Value Reference Range Comments LACTATE BLOOD VENOUS (2) 1.3 mmol/L 0.5-2.2 Specime n slightly hemolyzed (BEAKER) (test code = 1147) VANCOMYCIN LEVEL, [id number] 06:10:00 Test Item Value Reference Range Comments VANCOMYCIN TROUGH (BEAKER) (test code = 522) 16.7 ug/mL 10. 0-20.0 Draw 30 min prior to scheduled dose, HOLD if level > 20 mcg/mL, inform MD.CBC W/PLT COUNT & AUTO [id number] 06:09:00 Test Item Value Reference Range Comments [...] 0-1 (test code = 2801) BLOOD GAS, [id number] 05:49:00 Test Item Value Reference Range Comments [...] 40.0 % RAD, CHEST, 1 VIEW, NON [id number] 03:52:00Reason for exam:- >intubatedShould this be performed [...] Ibarra Verified Date/Time: 10/16/2018 03:52:10 Reading Location: [address] Body Reading Room POCT-GLUCOSE METER 2018-10-16 02:45:00 Test Item Value Reference Range Comments POC-GLUCOSE METER (MISSY) 115 mg/dL 70-110 TESTE D AT [facility] [address] [place] [address] (test code = 1538) [facility] [address] RAD, CHEST, 1 VIEW, NON [id number] 20:47:00Reason for exam:->check picc placement Should this [...] KG [facility] Radiology Reading Room POCT-GLUCOSE [id number] 17:50:00 Test Item Value Reference Range Comments POC-GLUCOSE METER (BEAKER) 141 mg/dL 70-110 TESTE D AT [facility] [address] (test code = 1538) [place] [address] BASIC METABOLIC [id number] 17:22:00 Test Item Value Reference Range Comments [...] APPLICABLE F OR DIALYSIS PATIENT S. CORTISOL,60 [id number] 16:54:00 Test Item Value Reference Range Comments [...] serum cortisollevel 60 minutes after cosyntropin administration.CORTISOL,30 [id number] 16:07:00 Test Item Value Reference Range Comments [...] Draw serum cortisollevel 60 minutes after cosyntropin administration.CORTISOL,[id number] 15:25:00 Test Item Value Reference Range Comments [...] a study by Peng et al (RONI 2000,283(8):3123-45), the ACTH Stimulation Test provides important prognostic [...] cortisollevel 60 minutes after cosyntropin administration.BASIC METABOLIC [id number] 15:04:00 Test Item Value Reference Range Comments [...] EEG MONITORING WITH VIDEO RECORDING EACH 24 [id number] 14:33:00For STAT EEG- after 5 PM weekdays, weekends and holidays, 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 Reason for exam:->concern for seizuresDATE OF REPORT: 10/15/2018 ACC: [id number]: [id number] time: 17:48 on 10/14/18top time: 09:44 on10/15/18ICD- 10: R56.9 CPT Code: 90406 HISTORY: 52 y/o male with DM, HTN, [...] Felice Pinedo M.D., RICH Professor of Neurology [facility] [employer] Director, [facility] Head, [facility] RAD, PELVIS, 1 OR 2 [id number] 14:11:00Reason for exam:->MRI clearanceShould this be performed [...] MDReport Verified Date/Time: 10/15/2018 14:11:06 Reading Location: [address] Consult Reading Room RAD, SKULL, LESS THAN 4 [id number] 14:08:00Reason for exam:->MRI clearanceShould this be performed [...] MDReport Verified Date/Time: 10/15/2018 14:08:11 Reading Location: [address] Consult Reading Room RAD, ABDOMEN/KUB, 1 VIEW [id number] 14:05:00Reason for exam:->clear for MRIShould this be [...] Manuel e/Time: 10/15/2018 14:05:30 Reading Location: [facility] B1 C013W Consult Reading Room ONIN [id number] 13:07:00 Test Item Value Reference Range Comments TROPONIN I (BEAKER) (test code = 397) 0.05 ng/mL 0.00-0.03 POCT-GLUCOSE [id number] 12:51:00 Test Item Value Reference Range Comments POC-GLUCOSE METER (BEAKER) 166 mg/dL 70-110 TESTE D AT [facility] [address] (test code = 1538) [facility] [address] U/S, RENAL, [id number] 12:22:00Reason for exam:->alayna, UTI, sepsisShould this be [...] Verified Date/Time: 10/15/2018 12:22:41 Reading Location: [facility] B1 P006J Ultrasound Reading Room RESPIRATORY PANEL [id number] 12:09:00 Test Item Value Reference Range Comments HUMAN METAPNEUMOVIRUS Not detected Not detected, (BEAKER) (test code = Equivocal 5189) RHINOVIRUS (BEAKER) (test Not detected Not detected, code = 5464) Equivocal INFLUENZA A (BEAKER) (test Not detected [...] decisions. This sample was tested at the [facility]ostics Laboratory using the [employer] Respiratory Panel. It is FDA cleared and has been verified and approved by the [facility] for clinical use on nasal swab specimens. It is not FDA-cleared for use on bronchial wash/lavage samples. However, for this sample type, validation was performed and test characteristics were determined and approved, by [facility] for clinical use under the Clinical Laboratory Improvement Amendments (CLIA) of 1988 requirements. Therefore, FDA clearance isnot required. This laboratory is CLIA- certified and [employer] (CAP)-accredited to perform high complexity testing.CREATINE KINASE (CK)2018-10-15 09:33:00 Test Item Value Reference Range Comments CREATINE KINASE TOTAL (BEAKER) (test code = 380) 1362 U/L 29-200 BLOOD GAS, [id number] 09:14:00 Test Item Value Reference Range Comments [...] = 1819) 21.0 % RAPID DRUG SCREEN, [id number] 08:24:00 Test Item Value Reference Range Comments [...] situations. Chain of custody not maintained. Some rdso-pnr-njamyjx medications, as well as adulterants, may cause inaccurate results. Clinical correlation should be applied. A more comprehensive drug screen or confirmation of a detected drug may be performed upon request. RAD, CHEST, 1 VIEW, NON [id number] 06:31:00Reason for exam:- >intubatedShould this be performed [...] Verified Date/Time: 10/15/2018 06:31:32 Reading Location: [facility] B1 C013Y CT Body Reading Room ONELLA ANTIGEN, [id number] 05:37:00 Test Item Value Reference Range Comments L. PNEUMOPHILA SEROGP 1 Negative - see Negative for L. UR AG (BEAKER) (test comment pneumophila serogroup 1 code = 1156) antigen, suggest ing no recent or curren t infection with t his serogroup. Legio nellosis cannot be ruled out since other serogroups and species may caus e disease. STREP PNEUMONIAE [id number] 05:36:00 Test Item Value Reference Range Comments [...] detection limit of the test. BLOOD GAS, [id number] 05:18:00 Test Item Value Reference Range Comments [...] (test code = 1819) 40.0 % TROPONIN [id number] 04:26:00 Test Item Value Reference Range Comments TROPONIN I (BEAKER) (test code = 397) 0.05 ng/mL 0.00-0.03 BASIC METABOLIC [id number] 04:23:00 Test Item Value Reference Range Comments [...] = 1092) TO CALCULATE EST IMATED GFR. [id number] 04:23:00 Test Item Value Reference Range Comments LIPASE (BEAKER) (test code = 749) < U/L 8-78 B-TYPE NATRIURETIC FACTOR (BNP)2018-10-15 04:21:00 Test Item Value Reference Range Comments B-TYPE NATRIURETIC PEPTIDE (BEAKER) (test code = 136 pg/mL 0-100 700) [id number] 04:19:00 Test Item Value Reference Range Comments MAGNESIUM (BEAKER) (test code = 627) 1.4 mg/dL 1.6-2.6 [id number] 04:19:00 Test Item Value Reference Range Comments PHOSPHORUS (BEAKER) (test code = 604) 2.2 mg/dL 2.3-4.7 HEPATIC FUNCTION [id number] 04:19:00 Test Item Value Reference Range Comments [...] = 347) 19 U/L 6-55 VANCOMYCIN LEVEL, [id number] 04:18:00 Test Item Value Reference Range Comments VANCOMYCIN RANDOM (BEAKER) (test code = 523) 11.8 ug/mL Reference Range: No NormalsLACTIC ACID, VENOUS, WHOLE [id number] 04:12:00 Test Item Value Reference Range Comments LACTATE BLOOD VENOUS (2) (BEAKER) (test code = 1.4 mmol/L 0 .5-2.2 2) CBC W/PLT COUNT & AUTO [id number] 04:02:00 Test Item Value Reference Range Comments [...] % 0-1 (test code = 2801) POCT-GLUCOSE [id number] 00:56:00 Test Item Value Reference Range Comments POC-GLUCOSE METER (BEAKER) 149 mg/dL 70-110 TESTE D AT [facility] [address] (test code = 1538) [place] [address] TROPONIN [id number] 21:23:00 Test Item Value Reference Range Comments TROPONIN I (BEAKER) (test code = 397) 0.06 ng/mL 0.00-0.03 LACTIC ACID, VENOUS, WHOLE [id number] 18:53:00 Test Item Value Reference Range Comments LACTATE BLOOD VENOUS (2) 1.7 mmol/L 0.5-2.2 Specime n slightly hemolyzed (BEAKER) (test code = 2872) EEG RECORDING IN COMA/SLEEP [id number] 18:51:00Reason for exam:->concern for seizuresShould this be performed at the bedside?->YesDATE OF REPORT: 10/14/2018 ACC: [id number] Start time: 17:28 Stop time: 17:48 ICD-10: R56.9 CPT Code: 56932 HISTORY: 52 yo male with DM, HTN, [...] Underwood MD Neurophysiology Fellow Felice Pinedo M.D., [facility] Professor of Neurology [facility] Director, [facility] Epile[facility] [place], [facility] POCT-GLUCOSE [id number] 17:46:00 Test Item Value Reference Range Comments POC-GLUCOSE METER (BEAKER) 130 mg/dL 70-110 TESTE D AT [facility] [facility] (test code = 1538) [facility] 77 030 LACTIC ACID, VENOUS, WHOLE [id number] 16:36:00 Test Item Value Reference Range Comments LACTATE BLOOD VENOUS (2) 2.4 mmol/L 0.5-2.2 Specime n slightly hemolyzed (BEAKER) (test code = 2872) FIBRIN SOLUBLE [id number] 15:35:00 Test Item Value Reference Range Comments FIBRIN SOLUBLE MONOMER (BEAKER) (test code = 1416) Negative [id number] 14:51:00 Test Item Value Reference Range Comments PROCALCITONIN (BEAKER) (test code = 3036) 1.71 ng/mL <0.05 SEPSIS RISK (ng/mL)Low: 0.05-0.50Intermediate: 0.51-2.00High: >=2.01TROPONIN [id number] 14:44:00 Test Item Value Reference Range Comments TROPONIN I (BEAKER) (test code = 397) 0.04 ng/mL 0.00-0.03 BASIC METABOLIC [id number] 14:39:00 Test Item Value Reference Range Comments [...] = 1092) TO CALCULATE EST IMATED GFR. [id number] 14:38:00 Test Item Value Reference Range Comments PHOSPHORUS (BEAKER) (test code = 604) 2.4 mg/dL 2.3-4.7 [id number] 14:38:00 Test Item Value Reference Range Comments MAGNESIUM (BEAKER) (test code = 627) 1.6 mg/dL 1.6-2.6 HEPATIC FUNCTION [id number] 14:38:00 Test Item Value Reference Range Comments [...] (test code = 347) 18 U/L 6-55 [id number] 14:38:00 Test Item Value Reference Range Comments LIPASE (BEAKER) (test code = 749) 8 U/L 8-78 LACTIC ACID, VENOUS, WHOLE [id number] 14:32:00 Test Item Value Reference Range Comments LACTATE BLOOD VENOUS (2) (BEAKER) (test code = 1.6 mmol/L 0 .5-2.2 2872) PROTHROMBIN [id number] 14:24:00 Test Item Value Reference Range Comments PROTIME (BEAKER) (test code = 759) 15.3 seconds 11.7-14.7 INR (BEAKER) (test code = 370) 1.2 <=5.9 RECOMMENDED COUMADIN/WARFARIN INR THERAPY RANGESSTANDARD DOSE: 2.0 - 3.0 Includes: PROPHYLAXIS forvenous thrombosis, systemic embolization; TREATMENT for venous thrombosis and/or pulmonary embolus.HIGH RISK: Target INR is 2.5-3.5 for patients with mechanical heart valves.[id number] 14:24:00 Test Item Value Reference Range Comments FIBRINOGEN LEVEL (BEAKER) (test code = 658) 453 mg/dl 225- 434 [id number] 14:24:00 Test Item Value Reference Range Comments PARTIAL THROMBOPLASTIN TIME (BEAKER) (test code 37.8 seconds 22.5-36.0 = 760) BLOOD GAS, [id number] 14:14:00 Test Item Value Reference Range Comments [...] code = 1819) 40.0 % OXYGEN SATURATION, [id number] 13:58:00 Test Item Value Reference Range Comments O2 SATURATION (MEASURED) (BEAKER) (test code = 1455) 89.6 % If patient has internal jugular ( IJ) or subclavian central line or PICC line. Draw from distal port. Label as central venous oxygen.RAD, CHEST, 1 VIEW, NON [id number] 13:52:00Reason for exam:->sputum, coughShould this be performed [...] MDReport Verified Date/Time: 10/14/2018 13:52:33 Reading Location: [facility] C013X Ortho Consult Reading Room URINALYSIS W/ [...]
[2020-03-31 19:41] LABS: Absolute Lymphocytes (CBC) 2.5 K/uL (0.7-4.9); Basophils % 1.1 % (0-1.3); Hematocrit 36.4 % (39.6-49.0); Lymphocytes % 35.5 % (15.3-44.8); MPV 9.3 fL (7.6-11.3)
[2020-03-31 20:02] LABS: Urine Bacteria <20 /HPF (NONE SEEN); Urine Culture Reflex Order REFLEXED; Urine RBC <5 /HPF (NONE SEEN)
[2020-03-31 20:12] LABS: Potassium 5.1 mmol/L (3.5-5.1)
[2020-03-31 20:47] LABS: Urine Blood NEGATIVE (NEG); Urine Glucose NEGATIVE (NEG); Urine Protein TRACE (NEG); Urine Specific Gravity >1.030 (1.005-1.030)
[2020-03-31] MEDS ORDERED: NA CHLORIDE 0.9% 500 ML ONE (21:25)
--- NOTE | 2020-03-31 21:44 | ER ---
Nurse's Notes [facility] Name: Deric Sheriff Age: 54 yrs Sex: Male : 1965 Arrival Date: 03/31/2020 Time: 18:32 Bed 25 Private MD: Diagnosis: Dehydration Presentation: 03/31 18:44 Chief complaint: EMS states: as per EMS, PATIENT IS FINISHED WITH ANTIBIOTICS BUT ls4 STATES THAT HE STILL HAS A URINARY TRACK INFECTION. PT DENIES PAIN . Coronavirus screen: Proceed with normal triage. Patient denies a cough. Patient denies shortness of breath or difficulty breathing. Patient denies measured and/or subjective temperature greater than 100.4F prior to today's visit. Patient denies travel on a cruise ship or to a country the [facility] [place] as an affected area. Patient denies contact with known and/or suspected case of COVID-19. Ebola Screen: No symptoms or risks identified at this time. Initial Sepsis Screen: Does the patient meet any 2 criteria? No. Patient's initial sepsis screen is negative. Does the patient have a suspected source of infection? No. Patient's initial sepsis screen is negative. Risk Assessment: Do you want to hurt yourself or someone else? Patient reports no desire to harm self or others. Onset of symptoms is unknown. Care prior to arrival: Medication(s) given: Normal saline infusion, 500 mL, IV initiated. 20 GA, in the right antecubital area. 18:44 Method Of Arrival: EMS: [facility] ls4 18:44 Acuity: HODAN 3 ls4 Triage Assessment: 19:59 General: Appears in no apparent distress. comfortable, Behavior is calm, cooperative. ls4 Pain: Denies pain. Neuro: No deficits noted. Cardiovascular: Capillary refill < 3 seconds Clubbing of nail beds is absent Patient's skin is warm and dry. Pulses are 2+ in right radial artery and left radial artery Edema is absent. Rhythm is regular. Respiratory: Airway is patent Respiratory effort is even, unlabored, Respiratory pattern is regular. GI: Abdomen is flat, non-distended, Bowel sounds present X 4 quads. Abd is soft and non tender X 4 quads. : Urine is clear. Derm: Skin is intact, is fragile, Skin is dry, Skin is pale, Skin temperature is warm. Musculoskeletal: Circulation, motion, and sensation intact. Capillary refill < 3 seconds, Range of motion: limited in left shoulder, left elbow, left wrist, left hip, left knee and left ankle Swelling absent. Historical: - Allergies: 19:59 Lotrel; ls4 - Home Meds: 19:59 aspirin 81 mg Oral chew 1 tab once daily [Active]; atorvastatin 40 mg Oral tab 1 tab ls4 nightly [Active]; baclofen 10 mg Oral tab 1 tab 3 times per day [Active]; citalopram 20 mg tab 1 tab once daily [Active]; clonidine HCl 0.1 mg Oral tab 1 tab 3 times per day [Active]; enalapril maleate 20 mg Oral tab 1 tab once daily [Active]; levetiracetam 750 mg Oral tab 1 tab 2 times per day [Active]; lisinopril 20 mg Oral tab 1 tab twice a day [Active]; metoprolol tartrate 50 mg Oral tab 1 tab 2 times per day [Active]; Plavix 75 mg Oral tab 1 tab once daily [Active]; senna 8.6 mg Oral cap nightly [Active]; tamsulosin 0.4 mg Oral cp24 1 cap nightly [Active]; - PMHx: 19:59 CVA; Diabetes - NIDDM; Hypertension; Seizures; ls4 - Immunization history:: Adult Immunizations up to date. - Social history:: Smoking status: unknown. Screenin:32 Abuse screen: Denies threats or abuse. Denies injuries from another. Nutritional ls4 screening: No deficits noted. Tuberculosis screening: No symptoms or risk factors identified. Fall Risk None identified. Assessment: 20:15 Reassessment: Patient appears in no apparent distress at this time. Patient and/or ls4 family updated on plan of care and expected duration. Pain level reassessed. Patient is alert, oriented x 3, equal unlabored respirations, skin warm/dry/pink. 21:08 Reassessment: Pt Annelise . ea 22:00 Reassessment: Patient appears in no apparent distress at this time. Patient and/or ls4 family updated on plan of care and expected duration. Pain level reassessed. Patient is alert, oriented x 3, equal unlabored respirations, skin warm/dry/pink. Vital Signs: 18:44 BP 98 / 74; Pulse 48; Resp 14; Temp 97.6; Pulse Ox 100% on R/A; Weight 74.84 kg; Height ls4 5 ft. 8 in. (172.72 cm); Pain 0/10; 20:14 BP 115 / 70; Pulse 48; Resp 14; Pulse Ox 99% on R/A; Pain 0/10; ls4 21:30 BP 122 / 83; Pulse 49; Resp 15; Temp 97.4(O); Pulse Ox 100% on R/A; Pain 0/10; ls4 18:44 Body Mass Index 25.09 (74.84 kg, 172.72 cm) ls4 ED Course: 18:32 Patient arrived in ED. iw 18:32 Arm band placed on left wrist. ls4 18:32 Patient has correct armband on for positive identification. Bed in low position. Call ls4 light in reach. Side rails up X 1. Pulse ox on. NIBP on. Warm blanket given. Pillow given. Verbal reassurance given. 18:41 Susanne Arriaga FNP-C is [facility]. kb 18:41 Gm Shaikh MD is Attending Physician. kb 18:44 Allegra Falk, ASHLEY is Primary Nurse. ls4 18:47 Triage completed. ls4 21:51 No provider procedures requiring assistance completed. ls4 22:30 IV discontinued, intact, bleeding controlled, No redness/swelling at site. Pressure ls4 dressing applied. Administered Medications: 20:01 Drug: NS 0.9% 1000 ml Route: IV; Rate: 1000 ml; Site: right antecubital; ls4 21:00 Follow up: IV Status: Completed infusion; IV Intake: 1000ml ls4 21:15 Drug: NS 0.9% 500 ml Route: IV; Rate: bolus; Site: right antecubital; ls4 21:45 Follow up: IV Status: Completed infusion; IV Intake: 500ml ls4 Intake: 21:00 IV: 1000ml; Total: 1000ml. ls4 21:45 IV: 500ml; Total: 1500ml. ls4 Output: 22:00 Urine: 400ml (Voided); Total: 400ml. ls4 Outcome: 21:43 Discharge ordered by . kb 22:45 Patient left the ED. sg 22:45 Discharged to home via ambulance. ls4 22:45 Condition: stable 22:45 Discharge instructions given to EMS, Instructed on discharge instructions, follow up ls4 and referral plans. Demonstrated understanding of instructions, follow-up care. Addendum: 04/04/2020 10:46 Addendum: Culture Results: Positive urine culture. Patient was not prescribed i w antibiotics at discharge. Report given to SAMPSON for further evaluation and then to pipe liner for follow up with patient. Phone call Attempt #1 notified, called in Macrobid 100 mg PO BID X 10 days, no refills, called in to [facility]. Signatures: Susanne Arriaga, CARPET SEWER-C CARPET SEWER-Ckb Kike Kamara, RN RN sg Indira Patel RN RN iw Bee Cabrera RN RN Allegra Thomson RN RN ls4 Corrections: (The following items were deleted from the chart) 03/31 21:51 20:14 BP 115 / 70; Pulse 48bpm; Resp 11bpm; Pulse Ox 99% RA; Pain 0/10; ls4 ls4 21:52 21:48 Arm band placed on left wrist. ls4 ls4
--- NOTE | 2020-03-31 21:44 | EDPHYS ---
Physician Documentation [facility] Name: Deric Sheriff Age: 54 yrs Sex: Male : 1965 Arrival Date: 03/31/2020 Time: 18:32 Bed 25 Private MD: ED Physician Gm Shaikh HPI: 03/31 21:17 This 54 yrs old Male presents to ER via EMS with complaints of decreased kb urination, low blood pressure. 21:17 The patient presents with decreased urination. Onset: The symptoms/episode kb began/occurred today. Modifying factors: The symptoms are alleviated by nothing, the symptoms are aggravated by nothing. Associated signs and symptoms: Pertinent positives: decreased urination, Pertinent negatives: abdominal pain, constipation, diarrhea, dysuria, fever, hematuria, nausea, vomiting. Severity of symptoms: At their worst the symptoms were mild, in the emergency department the symptoms are unchanged. The patient has experienced similar episodes in the past. The patient has been recently seen by a physician:. reports pt was recently treated for UTI, but is concerned he still has one after finishing antibiotics because he only urinated once today. [facility] home health nurse came and his blood pressure was low as well (98 systolic per EMS). Pt denies any pain, urinary symptoms, weakness out of the ordinary, n/v/d. states he hasn't been drinking fluids like he normally does. . Historical: - Allergies: 19:59 Lotrel; ls4 - Home Meds: 19:59 aspirin 81 mg Oral chew 1 tab once daily [Active]; atorvastatin 40 mg Oral tab 1 tab ls4 nightly [Active]; baclofen 10 mg Oral tab 1 tab 3 times per day [Active]; citalopram 20 mg tab 1 tab once daily [Active]; clonidine HCl 0.1 mg Oral tab 1 tab 3 times per day [Active]; enalapril maleate 20 mg Oral tab 1 tab once daily [Active]; levetiracetam 750 mg Oral tab 1 tab 2 times per day [Active]; lisinopril 20 mg Oral tab 1 tab twice a day [Active]; metoprolol tartrate 50 mg Oral tab 1 tab 2 times per day [Active]; Plavix 75 mg Oral tab 1 tab once daily [Active]; senna 8.6 mg Oral cap nightly [Active]; tamsulosin 0.4 mg Oral cp24 1 cap nightly [Active]; - PMHx: 19:59 CVA; Diabetes - NIDDM; Hypertension; Seizures; ls4 - Immunization history:: Adult Immunizations up to date. - Social history:: Smoking status: unknown. ROS: 21:13 Constitutional: Negative for fever, chills, and weight loss, Neck: Negative for injury, kb pain, and swelling, Cardiovascular: Negative for chest pain, palpitations, and edema, Respiratory: Negative for shortness of breath, cough, wheezing, and pleuritic chest pain, Abdomen/GI: Negative for abdominal pain, nausea, vomiting, diarrhea, and constipation, Back: Negative for injury and pain, MS/Extremity: Negative for injury and deformity, Skin: Negative for injury, rash, and discoloration, Neuro: Negative for headache, weakness, numbness, tingling, and seizure. 21:13 : Positive for decreased urination. kb Exam: 21:14 Constitutional: This is a well developed, well nourished patient who is awake, alert, kb and in no acute distress. Head/Face: Normocephalic, atraumatic. Neck: Trachea midline, no thyromegaly or masses palpated, and no cervical lymphadenopathy. Supple, full range of motion without nuchal rigidity, or vertebral point tenderness. No Meningismus. Chest/axilla: Normal chest wall appearance and motion. Nontender with no deformity. No lesions are appreciated. Cardiovascular: Regular rate and rhythm with a normal S1 and S2. No gallops, murmurs, or rubs. Normal PMI, no JVD. No pulse deficits. Respiratory: Lungs have equal breath sounds bilaterally, clear to auscultation and percussion. No rales, rhonchi or wheezes noted. No increased work of breathing, no retractions or nasal flaring. Abdomen/GI: Soft, non-tender, with normal bowel sounds. No distension or tympany. No guarding or rebound. No evidence of tenderness throughout. Skin: Warm, dry with normal turgor. Normal color with no rashes, no lesions, and no evidence of cellulitis. 21:14 Neuro: Exam negative for acute changes. Vital Signs: 18:44 BP 98 / 74; Pulse 48; Resp 14; Temp 97.6; Pulse Ox 100% on R/A; Weight 74.84 kg; Height ls4 5 ft. 8 in. (172.72 cm); Pain 0/10; 20:14 BP 115 / 70; Pulse 48; Resp 14; Pulse Ox 99% on R/A; Pain 0/10; ls4 21:30 BP 122 / 83; Pulse 49; Resp 15; Temp 97.4(O); Pulse Ox 100% on R/A; Pain 0/10; ls4 18:44 Body Mass Index 25.09 (74.84 kg, 172.72 cm) ls4 MDM: 18:42 Patient medically screened. kb 19:15 Data reviewed: vital signs, nurses notes. Data interpreted: Pulse oximetry: on room air kb is 100 %. Interpretation: normal. 21:14 Counseling: I had a detailed discussion with the patient and/or guardian regarding: the kb historical points, exam findings, and any diagnostic results supporting the discharge/admit diagnosis, lab results, the need for outpatient follow up, a family practitioner, to return to the emergency department if symptoms worsen or persist or if there are any questions or concerns that arise at home. ED course: Discussed pt condition and diagnostics with ERP. ERP evaluated pt as well. Recommended another 500ml NS bolus for hydration and discharge to follow up with PCP. 03/31 19:02 Order name: CBC with Diff; Complete Time: 19:43 kb 03/31 19:02 Order name: Basic Metabolic Panel; Complete Time: 20:35 kb 03/31 19:02 Order name: Urine Microscopic Only; Complete Time: 20:07 kb 03/31 20:08 Order name: Urine Culture EDCT 03/31 20:09 Order name: Urine Dipstick--Ancillary (enter results); Complete Time: 20:52 mt 03/31 19:02 Order name: IV Start; Complete Time: 19:16 kb 03/31 19:02 Order name: Urine Dipstick-Ancillary (obtain specimen); Complete Time: 20:16 kb Administered Medications: 20:01 Drug: NS 0.9% 1000 ml Route: IV; Rate: 1000 ml; Site: right antecubital; ls4 21:00 Follow up: IV Status: Completed infusion; IV Intake: 1000ml ls4 21:15 Drug: NS 0.9% 500 ml Route: IV; Rate: bolus; Site: right antecubital; ls4 21:45 Follow up: IV Status: Completed infusion; IV Intake: 500ml ls4 Disposition: 04/01 09:29 Co-signature as Attending Physician, Gm Shaikh MD I agree with the assessment and alpesh plan of care. Disposition: 03/31/20 21:43 Discharged to Home. Impression: Dehydration. - Condition is Stable. - Discharge Instructions: Dehydration, Adult. - Medication Reconciliation Form, Thank You Letter, Antibiotic Education, Prescription Opioid Use, SBAR form form. - Follow up: Emergency Department; When: As needed; Reason: Worsening of condition. Follow up: Private Physician; When: 2 - 3 days; Reason: Recheck today's complaints, Continuance of care, Re-evaluation by your physician. Signatures: Dispatcher [employer] EDMS Susanne Arriaga, MINNIE SUTHERLAND-Kike Pedersen, RN Gm Santos MD MD cha Stewart, Lisa RN RN ls4 Corrections: (The following items were deleted from the chart) 03/31 21:20 21:17 reports pt was recently treated for UTI, but is concerned he still has one kb after finishing antibiotics because he only urinated once today. States home health nurse came and his blood pressure was low as well (98 systolic per EMS). kb 22:45 21:43 03/31/2020 21:43 Discharged to Home. Impression: Dehydration. Condition is sg Stable. Discharge Instructions: Dehydration, Adult. Forms are Medication Reconciliation Form, Thank You Letter, Antibiotic Education, Prescription Opioid Use. Follow up: Emergency Department; When: As needed; Reason: Worsening of condition. Follow up: Private Physician; When: 2 - 3 days; Reason: Recheck today's complaints, Continuance of care, Re-evaluation by your physician. kb
[2020-03-31 22:53] VITALS: BP 122/83; TEMP 97.4; O2SAT 100
== END 2020-03-31 22:45 | disposition home or self-care (01) ==
LOC: ER 18:31
DX: E86.0 Dehydration (principal); I10 Essential (primary) hypertension; E11.9 Type 2 diabetes mellitus without complications; G40.909 Epilepsy, unspecified, not intractable, without status epilepticus; Z86.73 Personal history of transient ischemic attack (TIA), and cerebral infarction without residual deficits; Z79.01 Long term (current) use of anticoagulants; Z79.82 Long term (current) use of aspirin; Z88.8 Allergy status to other drugs, medicaments and biological substances
CPT/HCPCS: 87088; 85025; 87086; 80048; 36415; 87077; 87186; 96360; 99283; J7040; 81003; 81015

== ENCOUNTER 2020-04-06 09:41 | Emergency (ER) | payer MEDICARE ==
[2020-04-06] MEDS ORDERED: NA CHLORIDE 0.9% 1,000 ML ONE ×2 (09:55→15:04)
--- OUTSIDE RECORDS SUMMARY | 2020-04-06 11:10 | XMS REPORT | Clinical Summary ---
:1965 [facility] Address [address] [place] [address] Care Team Providers Name Role Phone Pcp, [...] Not on file Results Not on fileafter 04/06/2019 Insurance Payer Benefit Plan / Group Subscriber ID Type Phone A ddress [facility] - MEDICARE [facility]/MEDICARE COMPLETE xxxxxxxxx [facility] CARE Advance Directives For more information, please contact:[address] [phone] Code Status Date Activated Date Inactivated Comments Full Code 10/14/2018 11:16 AM This code status was determined by: Patient
--- OUTSIDE RECORDS SUMMARY | 2020-04-06 11:12 | XMS REPORT ---
:1965 Author Organization [facility] Address [address] Cárdenas [address] [place] [id number] Care Team Providers Name Role Phone DELANO CONWAY Attending Clinician Unavailable DELANO CONWAY Admitting Clinician Unavailable Problems This patient has no known problems. Allergies, Adverse Reactions, Alerts This patient has no known allergies or adverse reactions. Medications This patient has no known medications. Procedures This patient has no known procedures. Results Test Description Test Time Test Comments Results Result Comments Source VIRUS CULTURE 2018-11-05 07:31:00 Test Item Value Reference Range Interpretation Comme nts CULTURE (BEAKER) (test code = 1095) No virus isolated POCT-GLUCOSE [id number] 11:50:00 Test Item Value Reference Range Interpretation Comments POC-GLUCOSE METER 155 mg/dL 70-110 H TESTED AT [facility] 6720 (BEAKER) (test code = [facility] 1538) [address] POCT-GLUCOSE [id number] 08:22:00 Test Item Value Reference Range Interpretation Comments POC-GLUCOSE METER 124 mg/dL 70-110 H TESTED AT [facility] 6720 (BEAKER) (test code = [facility] 1538) [address] BASIC METABOLIC [id number] 06:33:00 Test Item Value Reference Range Interpretation Comments SODIUM (BEAKER) 139 meq/L 136-145 (test code = 381) POTASSIUM (BEAKER) 3.8 meq/L 3.5-5.1 (test code = 379) CHLORIDE (BEAKER) 109 meq/L 98-107 H (test code = 382) CO2 (BEAKER) (test 23 meq/L 22-29 code = 355) BLOOD UREA NITROGEN 14 mg/dL 7-21 (BEAKER) (test code = 354) CREATININE (BEAKER) 0.79 mg/dL 0.57-1.25 (test code = 358) GLUCOSE RANDOM 114 mg/dL 70-105 H (BEAKER) (test code = 652) CALCIUM (BEAKER) 8.8 mg/dL 8.4-10.2 (test code = 697) EGFR (BEAKER) (test 103 mL/min/1.73 ESTIM ATED GFR IS code = 1092) sq m NOT ACCURATE CREATININE CLEARANCE IN PREDICTING GLOMERULAR FILTRATION RATE . ESTIMATED GFR I S NOT APPLICABLE FOR DIALYSIS PATIEN TS. CBC W/PLT COUNT & AUTO [id number] 05:27:00 Test Item Value Reference Range Interpretation Comments WHITE BLOOD CELL COUNT (BEAKER) 8.7 K/ L 3.5-10.5 (test code = 775) RED BLOOD CELL COUNT (BEAKER) 3.95 M/ L 4.63-6.08 L (test code = 761) HEMOGLOBIN (BEAKER) (test code = 11.7 GM/DL 13.7-17.5 L 410) HEMATOCRIT (BEAKER) (test code = 35.6 % 40.1-51.0 L 411) MEAN CORPUSCULAR VOLUME (BEAKER) 90.1 fL 79.0-92.2 (test code = 753) MEAN CORPUSCULAR HEMOGLOBIN 29.6 pg 25.7-32.2 (BEAKER) (test code = 751) MEAN CORPUSCULAR HEMOGLOBIN CONC 32.9 GM/DL 32.3-36.5 (BEAKER) (test code = 752) RED CELL DISTRIBUTION WIDTH 14.3 % 11.6-14.4 (BEAKER) (test code = 412) PLATELET COUNT (BEAKER) (test 345 K/CU MM 150-450 code = 756) MEAN PLATELET VOLUME (BEAKER) 10.6 fL 9.4-12.4 (test code = 754) NUCLEATED RED BLOOD CELLS 0 /100 WBC 0-0 (BEAKER) (test code = 413) NEUTROPHILS RELATIVE PERCENT 56 % (BEAKER) (test code = 429) LYMPHOCYTES RELATIVE PERCENT 31 % (BEAKER) (test code = 430) MONOCYTES RELATIVE PERCENT 10 % (BEAKER) (test code = 431) EOSINOPHILS RELATIVE PERCENT 2 % (BEAKER) (test code = 432) BASOPHILS RELATIVE PERCENT 0 % (BEAKER) (test code = 437) NEUTROPHILS ABSOLUTE COUNT 4.81 K/ L 1.78-5.38 (BEAKER) (test code = 670) LYMPHOCYTES ABSOLUTE COUNT 2.65 K/ L 1.32-3.57 (BEAKER) (test code = 414) MONOCYTES ABSOLUTE COUNT (BEAKER) 0.90 K/ L 0.30-0.82 H (test code = 415) EOSINOPHILS ABSOLUTE COUNT 0.19 K/ L 0.04-0.54 (BEAKER) (test code = 416) BASOPHILS ABSOLUTE COUNT (BEAKER) 0.03 K/ L 0.01-0.08 (test code = 417) IMMATURE GRANULOCYTES-RELATIVE 1 % 0-1 PERCENT (BEAKER) (test code = 2801) POCT-GLUCOSE [id number] 22:10:00 Test Item Value Reference Range Interpretation Comments POC-GLUCOSE METER 149 mg/dL 70-110 H TESTED AT [facility] 6720 [facility] (test code = [facility] 1538) [address] POCT-GLUCOSE [id number] 17:37:00 Test Item Value Reference Range Interpretation Comments POC-GLUCOSE METER 167 mg/dL 70-110 H TESTED AT [facility] 67 ([facility]) (test code = [facility] 1538) [address] POCT-GLUCOSE [id number] 13:43:00 Test Item Value Reference Range Interpretation Comments POC-GLUCOSE METER 152 mg/dL 70-110 H TESTED AT [facility] 67 ([facility]) (test code = [facility] 1538) [address] FL, ESOPH, SWALLOW FUNCTION, WITH CINE OR [id number] 10:29:00Reason for exam:->dysphagiaFINAL REPORT Modified barium swallow [...] report for further details. Signed: Ronnell Smith MDRepgeraldine Verified Date/Time: 10/22/2018 10:29:46 Reading Location: [address] Reading Room BASIC METABOLIC [id number] 06:43:00 Test Item Value Reference Range Interpretation Comments SODIUM (BEAKER) 138 meq/L 136-145 (test code = 381) POTASSIUM (BEAKER) 3.7 meq/L 3.5-5.1 (test code = 379) CHLORIDE (BEAKER) 108 meq/L 98-107 H (test code = 382) CO2 (BEAKER) (test 22 meq/L 22-29 code = 355) BLOOD UREA NITROGEN 15 mg/dL 7-21 (BEAKER) (test code = 354) CREATININE (BEAKER) 0.75 mg/dL 0.57-1.25 (test code = 358) GLUCOSE RANDOM 126 mg/dL 70-105 H (BEAKER) (test code = 652) CALCIUM (BEAKER) 8.9 mg/dL 8.4-10.2 (test code = 697) EGFR (BEAKER) (test 109 mL/min/1.73 ESTIM ATED GFR IS code = 1092) sq m NOT ACCURATE CREATININE CLEARANCE IN PREDICTING GLOMERULAR FILTRATION RATE . ESTIMATED GFR I S NOT APPLICABLE FOR DIALYSIS PATIEN TS. CBC W/PLT COUNT & AUTO [id number] 06:22:00 Test Item Value Reference Range Interpretation Comments WHITE BLOOD CELL COUNT (BEAKER) 8.3 K/ L 3.5-10.5 (test code = 775) RED BLOOD CELL COUNT (BEAKER) 4.13 M/ L 4.63-6.08 L (test code = 761) HEMOGLOBIN (BEAKER) (test code = 12.2 GM/DL 13.7-17.5 L 410) HEMATOCRIT (BEAKER) (test code = 37.1 % 40.1-51.0 L 411) MEAN CORPUSCULAR VOLUME (BEAKER) 89.8 fL 79.0-92.2 (test code = 753) MEAN CORPUSCULAR HEMOGLOBIN 29.5 pg 25.7-32.2 (BEAKER) (test code = 751) MEAN CORPUSCULAR HEMOGLOBIN CONC 32.9 GM/DL 32.3-36.5 (BEAKER) (test code = 752) RED CELL DISTRIBUTION WIDTH 13.9 % 11.6-14.4 (BEAKER) (test code = 412) PLATELET COUNT (BEAKER) (test 310 K/CU MM 150-450 code = 756) MEAN PLATELET VOLUME (BEAKER) 10.5 fL 9.4-12.4 (test code = 754) NUCLEATED RED BLOOD CELLS 0 /100 WBC 0-0 (BEAKER) (test code = 413) NEUTROPHILS RELATIVE PERCENT 53 % (BEAKER) (test code = 429) LYMPHOCYTES RELATIVE PERCENT 33 % (BEAKER) (test code = 430) MONOCYTES RELATIVE PERCENT 11 % (BEAKER) (test code = 431) EOSINOPHILS RELATIVE PERCENT 2 % (BEAKER) (test code = 432) BASOPHILS RELATIVE PERCENT 0 % (BEAKER) (test code = 437) NEUTROPHILS ABSOLUTE COUNT 4.41 K/ L 1.78-5.38 (BEAKER) (test code = 670) LYMPHOCYTES ABSOLUTE COUNT 2.69 K/ L 1.32-3.57 (BEAKER) (test code = 414) MONOCYTES ABSOLUTE COUNT (BEAKER) 0.89 K/ L 0.30-0.82 H (test code = 415) EOSINOPHILS ABSOLUTE COUNT 0.20 K/ L 0.04-0.54 (BEAKER) (test code = 416) BASOPHILS ABSOLUTE COUNT (BEAKER) 0.03 K/ L 0.01-0.08 (test code = 417) IMMATURE GRANULOCYTES-RELATIVE 1 % 0-1 PERCENT (BEAKER) (test code = 2801) POCT-GLUCOSE [id number] 05:41:00 Test Item Value Reference Range Interpretation Comments POC-GLUCOSE METER 129 mg/dL 70-110 H TESTED AT [place] [address] ([facility]) (test code = [facility] Mike [facility] 1538) [address] POCT-GLUCOSE [id number] 00:06:00 Test Item Value Reference Range Interpretation Comments POC-GLUCOSE METER 151 mg/dL 70-110 H TESTED AT [place] [address] ([facility]) (test code = [facility] Mike [facility] 1538) [address] POCT-GLUCOSE [id number] 18:38:00 Test Item Value Reference Range Interpretation Comments POC-GLUCOSE METER 131 mg/dL 70-110 H TESTED AT [place] [address] ([facility]) (test code = [facility] 1538) [address] POCT-GLUCOSE [id number] 13:34:00 Test Item Value Reference Range Interpretation Comments POC-GLUCOSE METER 134 mg/dL 70-110 H TESTED AT [place] [address] (BEAKER) (test code = [facility] [place] 1538) [address] HEMOGLOBIN [id number] 08:11:00 Test Item Value Reference Range Interpretation Comments HEMOGLOBIN A1C (BEAKER) (test code = 6.5 % 4.3-6.1 H 368) BASIC METABOLIC [id number] 07:28:00 Test Item Value Reference Range Interpretation Comments SODIUM (BEAKER) 138 meq/L 136-145 (test code = 381) POTASSIUM (BEAKER) 3.5 meq/L 3.5-5.1 (test code = 379) CHLORIDE (BEAKER) 108 meq/L 98-107 H (test code = 382) CO2 (BEAKER) (test 23 meq/L 22-29 code = 355) BLOOD UREA NITROGEN 12 mg/dL 7-21 (BEAKER) (test code = 354) CREATININE (BEAKER) 0.72 mg/dL 0.57-1.25 (test code = 358) GLUCOSE RANDOM 136 mg/dL 70-105 H (BEAKER) (test code = 652) CALCIUM (BEAKER) 8.4 mg/dL 8.4-10.2 (test code = 697) EGFR (BEAKER) (test 114 mL/min/1.73 ESTIM ATED GFR IS code = 1092) sq m NOT ACCURATE CREATININE CLEARANCE IN PREDICTING GLOMERULAR FILTRATION RATE . ESTIMATED GFR I S NOT APPLICABLE FOR DIALYSIS PATIEN TS. IRON, TIBC, % SAT. (WITHOUT FERRITIN)2018-10-21 06:43:00 Test Item Value Reference Range Interpretation Comments IRON (BEAKER) (test code = 547) 44 ug/dL 40-160 TOTAL IRON BINDING CAPACITY 190 ug/dL 250-450 L (BEAKER) (test code = 769) IRON % SATURATION (2) (BEAKER) 23 % 20-55 (test code = 2590) CBC W/PLT COUNT & AUTO [id number] 06:05:00 Test Item Value Reference Range Interpretation Comments WHITE BLOOD CELL COUNT (BEAKER) 8.1 K/ L 3.5-10.5 (test code = 775) RED BLOOD CELL COUNT (BEAKER) 4.13 M/ L 4.63-6.08 L (test code = 761) HEMOGLOBIN (BEAKER) (test code = 11.9 GM/DL 13.7-17.5 L 410) HEMATOCRIT (BEAKER) (test code = 36.2 % 40.1-51.0 L 411) MEAN CORPUSCULAR VOLUME (BEAKER) 87.7 fL 79.0-92.2 (test code = 753) MEAN CORPUSCULAR HEMOGLOBIN 28.8 pg 25.7-32.2 (BEAKER) (test code = 751) MEAN CORPUSCULAR HEMOGLOBIN CONC 32.9 GM/DL 32.3-36.5 (BEAKER) (test code = 752) RED CELL DISTRIBUTION WIDTH 13.7 % 11.6-14.4 (BEAKER) (test code = 412) PLATELET COUNT (BEAKER) (test 279 K/CU MM 150-450 code = 756) MEAN PLATELET VOLUME (BEAKER) 10.3 fL 9.4-12.4 (test code = 754) NUCLEATED RED BLOOD CELLS 0 /100 WBC 0-0 (BEAKER) (test code = 413) NEUTROPHILS RELATIVE PERCENT 57 % (BEAKER) (test code = 429) LYMPHOCYTES RELATIVE PERCENT 30 % (BEAKER) (test code = 430) MONOCYTES RELATIVE PERCENT 10 % (BEAKER) (test code = 431) EOSINOPHILS RELATIVE PERCENT 2 % (BEAKER) (test code = 432) BASOPHILS RELATIVE PERCENT 0 % (BEAKER) (test code = 437) NEUTROPHILS ABSOLUTE COUNT 4.62 K/ L 1.78-5.38 (BEAKER) (test code = 670) LYMPHOCYTES ABSOLUTE COUNT 2.41 K/ L 1.32-3.57 (BEAKER) (test code = 414) MONOCYTES ABSOLUTE COUNT (BEAKER) 0.84 K/ L 0.30-0.82 H (test code = 415) EOSINOPHILS ABSOLUTE COUNT 0.14 K/ L 0.04-0.54 (BEAKER) (test code = 416) BASOPHILS ABSOLUTE COUNT (BEAKER) 0.02 K/ L 0.01-0.08 (test code = 417) IMMATURE GRANULOCYTES-RELATIVE 0 % 0-1 PERCENT (BEAKER) (test code = 2801) POCT-GLUCOSE [id number] 05:52:00 Test Item Value Reference Range Interpretation Comments POC-GLUCOSE METER 139 mg/dL 70-110 H TESTED AT [facility] 6720 (BEAKER) (test code = [facility] [place] 1538) [id number] POCT-GLUCOSE [id number] 00:36:00 Test Item Value Reference Range Interpretation Comments POC-GLUCOSE METER 130 mg/dL 70-110 H TESTED AT [facility] 6720 (BEAKER) (test code = [facility] [place] 1538) [address] POCT-GLUCOSE [id number] 17:43:00 Test Item Value Reference Range Interpretation Comments POC-GLUCOSE METER 141 mg/dL 70-110 H TESTED AT [facility] 6720 (BEAKER) (test code = [facility] [place] 1538) [address] (CELLAVISION MANUAL DIFF)2018-10-20 14:30:00 Test Item Value Reference Range Interpretation Comments NEUTROPHILS - REL 59 % (CELLAVISION)(BEAKER) (test code = 2816) LYMPHOCYTES - REL 26 % (CELLAVISION)(BEAKER) (test code = 2817) MONOCYTES - REL 8 % (CELLAVISION)(BEAKER) (test code = 2818) EOSINOPHILS - REL 3 % (CELLAVISION)(BEAKER) (test code = 2819) ATYPICAL LYMPHOCYTES - REL 4 % 0-0 H (CELLAVISION)(BEAKER) (test code = 2829) NEUTROPHILS - ABS 4.78 K/ul 1.78-5.38 (CELLAVISION)(BEAKER) (test code = 2830) LYMPHOCYTES - ABS 2.11 K/ul 1.32-3.57 (CELLAVISION)(BEAKER) (test code = 2831) MONOCYTES - ABS 0.65 K/uL 0.30-0.82 (CELLAVISION)(BEAKER) (test code = 2832) EOSINOPHILS - ABS 0.24 K/uL 0.04-0.54 (CELLAVISION)(BEAKER) (test code = 2834) ATYPICAL LYMPHOCYTES - ABS 0.32 K/uL 0.00-0.00 H (CELLAVISION)(BEAKER) (test code = 2858) TOTAL COUNTED (BEAKER) (test code = 100 1351) RBC MORPHOLOGY (BEAKER) (test code Normal = 762) WBC MORPHOLOGY (BEAKER) (test code Normal = 487) LARGE PLT(BEAKER) (test code = Present 2156) ARTIFACT (CELLAVISION)(BEAKER) Present (test code = 3432) PLATELET CONCENTRATION Adequate (CELLAVISION)(BEAKER) (test code = 3438) Received comment: User comments: Slide comments:CBC W/PLT COUNT & AUTO [id number] 14:30:00 Test Item Value Reference Range Interpretation Comments WHITE BLOOD CELL COUNT (BEAKER) 8.1 K/ L 3.5-10.5 (test code = 775) RED BLOOD CELL COUNT (BEAKER) 4.10 M/ L 4.63-6.08 L (test code = 761) HEMOGLOBIN (BEAKER) (test code = 11.9 GM/DL 13.7-17.5 L 410) HEMATOCRIT (BEAKER) (test code = 36.3 % 40.1-51.0 L 411) MEAN CORPUSCULAR VOLUME (BEAKER) 88.5 fL 79.0-92.2 (test code = 753) MEAN CORPUSCULAR HEMOGLOBIN 29.0 pg 25.7-32.2 (BEAKER) (test code = 751) MEAN CORPUSCULAR HEMOGLOBIN CONC 32.8 GM/DL 32.3-36.5 (BEAKER) (test code = 752) RED CELL DISTRIBUTION WIDTH 14.0 % 11.6-14.4 (BEAKER) (test code = 412) PLATELET COUNT (BEAKER) (test 250 K/CU MM 150-450 code = 756) MEAN PLATELET VOLUME (BEAKER) 10.8 fL 9.4-12.4 (test code = 754) NUCLEATED RED BLOOD CELLS 0 /100 WBC 0-0 (BEAKER) (test code = 413) POCT-GLUCOSE [id number] 12:27:00 Test Item Value Reference Range Interpretation Comments POC-GLUCOSE METER 162 mg/dL 70-110 H TESTED AT [facility] 6720 (BEAKER) (test code = [facility] 1538) [address] BASIC METABOLIC [id number] 08:34:00 Test Item Value Reference Range Interpretation Comments SODIUM (BEAKER) 139 meq/L 136-145 (test code = 381) POTASSIUM (BEAKER) 3.4 meq/L 3.5-5.1 L (test code = 379) CHLORIDE (BEAKER) 108 meq/L 98-107 H (test code = 382) CO2 (BEAKER) (test 24 meq/L 22-29 code = 355) BLOOD UREA NITROGEN 8 mg/dL 7-21 ([facility]) (test code = 354) CREATININE (AKER) 0.68 mg/dL 0.57-1.25 (test code = 358) GLUCOSE RANDOM 115 mg/dL 70-105 H ([facility]) (test code = 652) CALCIUM (AKER) 8.5 mg/dL 8.4-10.2 (test code = 697) EGFR ([facility]) (test 122 mL/min/1.73 ESTIM ATED GFR IS code = 1092) sq m NOT ACCURATE CREATININE CLEARANCE IN PREDICTING GLOMERULAR FILTRATION RATE . ESTIMATED GFR I S NOT APPLICABLE FOR DIALYSIS PATIEN TS. POCT-GLUCOSE [id number] 06:02:00 Test Item Value Reference Range Interpretation Comments POC-GLUCOSE METER 147 mg/dL 70-110 H TESTED AT [place] [address] ([facility]) (test code = [facility] 1538) [address] POCT-GLUCOSE [id number] 00:43:00 Test Item Value Reference Range Interpretation Comments POC-GLUCOSE METER 122 mg/dL 70-110 H TESTED AT [place] [address] ([facility]) (test code = [facility] 1538) [address] RAD, ABDOMEN/KUB, 1 VIEW [id number] 23:27:00Reason for exam:->feeding tube placementFINAL REPORT CLINICAL HISTORY: feeding tube placement TECHNIQUE: RAD, ABDOMEN/KUB, 1 VIEW AP COMPARISON: AP radiograph of the abdomen dated 10/16/2018. FINDINGS: Interval advancement of the weighted tip feeding tube now terminating in the first portion of the duodenum.Nonobstructive bowel gas pattern without distended loops of bowel. Otherwise unchanged appearance of the abdomen. Signed: Jose Antonio Rosaleseport Verified Date/Time: 10/19/2018 23:27:13 Reading Location: [address] Transitional Reading Room Electronically signed by: JOSE ANTONIO ROSALES MD on 018 11:27 PMCSF CULTURE + GRAM [id number] 18:01:00 Test Item Value Reference Range Interpretation Comments CULTURE ([facility]) (test code No growth = 1095) GRAM STAIN RESULT ([facility]) No WBCs (test code = 1123) GRAM STAIN RESULT (BEAKER) No organisms seen (test code = 66244) POCT-GLUCOSE [id number] 17:33:00 Test Item Value Reference Range Interpretation Comments POC-GLUCOSE METER 105 mg/dL 70-110 TESTED AT [place] [address] ([facility]) (test code = DEM[facility]ke[facility] 1538) [address] BLOOD [id number] 17:01:00 Test Item Value Reference Range Interpretation Comments CULTURE ([facility]) (test No growth in 5 days code = 1095) BLOOD [id number] 17:01:00 Test Item Value Reference Range Interpretation Comments CULTURE ([facility]) (test No growth in 5 days code = 1095) HSV 1/2 PCR, [id number] 13:20:00 Test Item Value Reference Range Interpretation Comments HSV BY PCR ([facility]) (test code = NEGATIVE NEGATIVE 334) Herpes Simplex Virus (HSV) not detected.These assays [...] and its performance characteristics determined by the [facility] Pathology Department, Section of Molecular Pathology. It has not been cleared or approved by the U.S. Food and Drug Administration (FDA), as FDA approval is not required for clinical use of the test. Validation was done as required by the Clinical Laboratory Amendments of 1988.POCT-GLUCOSE [id number] 12:33:00 Test Item Value Reference Range Interpretation Comments POC-GLUCOSE METER 129 mg/dL 70-110 H TESTED AT [facility] 6720 ([facility]) (test code = [facility] 1538) [address] CBC W/PLT COUNT & AUTO [id number] 08:06:00 Test Item Value Reference Range Interpretation Comments WHITE BLOOD CELL COUNT ([facility]) 8.0 K/ L 3.5-10.5 (test code = 775) RED BLOOD CELL COUNT (BEAKER) 3.72 M/ L 4.63-6.08 L (test code = 761) HEMOGLOBIN (BEAKER) (test code = 10.8 GM/DL 13.7-17.5 L 410) HEMATOCRIT (BEAKER) (test code = 32.5 % 40.1-51.0 L 411) MEAN CORPUSCULAR VOLUME (BEAKER) 87.4 fL 79.0-92.2 (test code = 753) MEAN CORPUSCULAR HEMOGLOBIN 29.0 pg 25.7-32.2 (BEAKER) (test code = 751) MEAN CORPUSCULAR HEMOGLOBIN CONC 33.2 GM/DL 32.3-36.5 (BEAKER) (test code = 752) RED CELL DISTRIBUTION WIDTH 13.9 % 11.6-14.4 (BEAKER) (test code = 412) PLATELET COUNT (BEAKER) (test 214 K/CU MM 150-450 code = 756) MEAN PLATELET VOLUME (BEAKER) 10.4 fL 9.4-12.4 (test code = 754) NUCLEATED RED BLOOD CELLS 0 /100 WBC 0-0 (BEAKER) (test code = 413) (CELLAVISION MANUAL DIFF)2018-10-19 08:06:00 Test Item Value Reference Range Interpretation Comments NEUTROPHILS - REL 70 % (CELLAVISION)(BEAKER) (test code = 2816) LYMPHOCYTES - REL 24 % (CELLAVISION)(BEAKER) (test code = 2817) MONOCYTES - REL 4 % (CELLAVISION)(BEAKER) (test code = 2818) BANDS - REL (CELLAVISION)(BEAKER) 2 % 0-10 (test code = 2826) NEUTROPHILS - ABS 5.60 K/ul 1.78-5.38 H (CELLAVISION)(BEAKER) (test code = 2830) LYMPHOCYTES - ABS 1.92 K/ul 1.32-3.57 (CELLAVISION)(BEAKER) (test code = 2831) MONOCYTES - ABS 0.32 K/uL 0.30-0.82 (CELLAVISION)(BEAKER) (test code = 2832) BANDS - ABS (CELLAVISION)(BEAKER) 0.16 K/uL 0.00-0.80 (test code = 2840) TOTAL COUNTED (BEAKER) (test code = 100 1351) RBC MORPHOLOGY (BEAKER) (test code Normal = 762) SMUDGE CELLS (BEAKER) (test code = Present 1371) GIANT PLATELETS (BEAKER) (test code Present = 313) ARTIFACT (CELLAVISION)(BEAKER) Present (test code = 3432) PLATELET CONCENTRATION Adequate (CELLAVISION)(BEAKER) (test code = 3438) Received comment: User comments: Slide comments:POCT-GLUCOSE [id number] 06:21:00 Test Item Value Reference Range Interpretation Comments POC-GLUCOSE METER 113 mg/dL 70-110 H TESTED AT [facility] 6720 (BEAKER) (test code = [place] [place] 1538) [address] [id number] 04:04:00 Test Item Value Reference Range Interpretation Comments PHOSPHORUS (BEAKER) (test code = 2.0 mg/dL 2.3-4.7 L 604) [id number] 04:04:00 Test Item Value Reference Range Interpretation Comments MAGNESIUM (BEAKER) (test code = 2.1 mg/dL 1.6-2.6 627) BASIC METABOLIC [id number] 04:04:00 Test Item Value Reference Range Interpretation Comments SODIUM (BEAKER) 143 meq/L 136-145 (test code = 381) POTASSIUM (BEAKER) 3.2 meq/L 3.5-5.1 L (test code = 379) CHLORIDE (BEAKER) 112 meq/L 98-107 H (test code = 382) CO2 (BEAKER) (test 26 meq/L 22-29 code = 355) BLOOD UREA NITROGEN 9 mg/dL 7-21 (BEAKER) (test code = 354) CREATININE (BEAKER) 0.75 mg/dL 0.57-1.25 (test code = 358) GLUCOSE RANDOM 119 mg/dL 70-105 H (BEAKER) (test code = 652) CALCIUM (BEAKER) 8.2 mg/dL 8.4-10.2 L (test code = 697) EGFR (BEAKER) (test 109 mL/min/1.73 ESTIM ATED GFR IS code = 1092) sq m NOT ACCURATE CREATININE CLEARANCE IN PREDICTING GLOMERULAR FILTRATION RATE . ESTIMATED GFR I S NOT APPLICABLE FOR DIALYSIS PATIEN TS. POCT-GLUCOSE [id number] 23:53:00 Test Item Value Reference Range Interpretation Comments POC-GLUCOSE METER 122 mg/dL 70-110 H TESTED AT [place] [address] ([employer] [facility]) (test code = DEMETRIO Mckeon [facility] 1538) [id number] POCT-GLUCOSE [id number] 18:17:00 Test Item Value Reference Range Interpretation Comments POC-GLUCOSE METER 110 mg/dL 70-110 TESTED AT [place] [address] ([facility] (test code = DEMETRIO Mckeon [facility] 1538) [id number] POCT-GLUCOSE [id number] 12:36:00 Test Item Value Reference Range Interpretation Comments POC-GLUCOSE METER 80 mg/dL 70-110 TESTED AT [place] [address] ([facility]) (test code = DEMETRIO Mckeon [facility] [id number] 1538) CBC W/PLT COUNT & AUTO [id number] 10:31:00 Test Item Value Reference Range Interpretation Comments WHITE BLOOD CELL COUNT (BEAKER) 7.4 K/ L 3.5-10.5 (test code = 775) RED BLOOD CELL COUNT (BEAKER) 3.73 M/ L 4.63-6.08 L (test code = 761) HEMOGLOBIN (BEAKER) (test code = 10.9 GM/DL 13.7-17.5 L 410) HEMATOCRIT (BEAKER) (test code = 32.8 % 40.1-51.0 L 411) MEAN CORPUSCULAR VOLUME (BEAKER) 87.9 fL 79.0-92.2 (test code = 753) MEAN CORPUSCULAR HEMOGLOBIN 29.2 pg 25.7-32.2 (BEAKER) (test code = 751) MEAN CORPUSCULAR HEMOGLOBIN CONC 33.2 GM/DL 32.3-36.5 (BEAKER) (test code = 752) RED CELL DISTRIBUTION WIDTH 14.1 % 11.6-14.4 (BEAKER) (test code = 412) PLATELET COUNT (BEAKER) (test 192 K/CU MM 150-450 code = 756) MEAN PLATELET VOLUME (BEAKER) 11.0 fL 9.4-12.4 (test code = 754) NUCLEATED RED BLOOD CELLS 0 /100 WBC 0-0 (BEAKER) (test code = 413) (CELLAVISION MANUAL DIFF)[id number] 10:31:00 Test Item Value Reference Range Interpretation Comments NEUTROPHILS - REL 74 % (CELLAVISION)(BEAKER) (test code = 2816) LYMPHOCYTES - REL 19 % (CELLAVISION)(BEAKER) (test code = 2817) MONOCYTES - REL 3 % (CELLAVISION)(BEAKER) (test code = 2818) EOSINOPHILS - REL 1 % (CELLAVISION)(BEAKER) (test code = 2819) BANDS - REL (CELLAVISION)(BEAKER) 2 % 0-10 (test code = 2826) ATYPICAL LYMPHOCYTES - REL 1 % 0-0 H (CELLAVISION)(BEAKER) (test code = 2829) NEUTROPHILS - ABS 5.48 K/ul 1.78-5.38 H (CELLAVISION)(BEAKER) (test code = 2830) LYMPHOCYTES - ABS 1.41 K/ul 1.32-3.57 (CELLAVISION)(BEAKER) (test code = 2831) MONOCYTES - ABS 0.22 K/uL 0.30-0.82 L (CELLAVISION)(BEAKER) (test code = 2832) EOSINOPHILS - ABS 0.07 K/uL 0.04-0.54 (CELLAVISION)(BEAKER) (test code = 2834) BANDS - ABS (CELLAVISION)(BEAKER) 0.15 K/uL 0.00-0.80 (test code = 2840) ATYPICAL LYMPHOCYTES - ABS 0.07 K/uL 0.00-0.00 H (CELLAVISION)(BEAKER) (test code = 2858) TOTAL COUNTED (BEAKER) (test code = 100 1351) RBC MORPHOLOGY (BEAKER) (test code Normal = 762) WBC MORPHOLOGY (BEAKER) (test code Normal = 487) PLT MORPHOLOGY (BEAKER) (test code Normal = 486) ARTIFACT (CELLAVISION)(BEAKER) Present (test code = 3432) PLATELET CONCENTRATION Adequate (CELLAVISION)(BEAKER) (test code = 3438) Received comment: User comments: Slide comments:POCT-GLUCOSE [id number] 06:27:00 Test Item Value Reference Range Interpretation Comments POC-GLUCOSE METER 96 mg/dL 70-110 TESTED AT [place] [address] (BEAKER) (test code = [place] [address] 1538) [id number] 05:32:00 Test Item Value Reference Range Interpretation Comments PHOSPHORUS (BEAKER) (test code = 2.8 mg/dL 2.3-4.7 604) [id number] 05:32:00 Test Item Value Reference Range Interpretation Comments MAGNESIUM (BEAKER) (test code = 1.9 mg/dL 1.6-2.6 627) BASIC METABOLIC [id number] 05:32:00 Test Item Value Reference Range Interpretation Comments SODIUM (BEAKER) 147 meq/L 136-145 H (test code = 381) POTASSIUM (BEAKER) 3.2 meq/L 3.5-5.1 L (test code = 379) CHLORIDE (BEAKER) 114 meq/L 98-107 H (test code = 382) CO2 (BEAKER) (test 23 meq/L 22-29 code = 355) BLOOD UREA NITROGEN 11 mg/dL 7-21 (BEAKER) (test code = 354) CREATININE (BEAKER) 0.75 mg/dL 0.57-1.25 (test code = 358) GLUCOSE RANDOM 80 mg/dL 70-105 (BEAKER) (test code = 652) CALCIUM (BEAKER) 8.2 mg/dL 8.4-10.2 L (test code = 697) EGFR (BEAKER) (test 109 mL/min/1.73 ESTIM ATED GFR IS code = 1092) sq m NOT ACCURATE CREATININE CLEARANCE IN PREDICTING GLOMERULAR FILTRATION RATE . ESTIMATED GFR I S NOT APPLICABLE FOR DIALYSIS PATIEN TS. BLOOD GAS, [id number] 05:08:00 Test Item Value Reference Range Interpretation Comments PH ARTERIAL (BEAKER) (test code = 7.46 7.35-7.45 H 383) PCO2 ARTERIAL (BEAKER) (test code 30 mmHg 35-45 L = 384) PO2 ARTERIAL (BEAKER) (test code 91 mmHg 80-90 H = 385) O2 SATURATION ARTERIAL (BEAKER) 97.3 % 96.0-97.0 H (test code = 386) HCO3 ARTERIAL (BEAKER) (test code 21 mmol/L 21-29 = 388) BASE EXCESS ARTERIAL (BEAKER) -1.9 mmol/L -2.0-3.0 (test code = 387) PATIENT TEMPERATURE (BEAKER) 37.5 C (test code = 1818) FIO2 ([facility]) (test code = 1819) 35.0 % POCT-GLUCOSE [id number] 00:02:00 Test Item Value Reference Range Interpretation Comments POC-GLUCOSE METER 98 mg/dL 70-110 TESTED AT [place] [address] ([facility]) (test code = [facility] [address] 1538) VANCOMYCIN LEVEL, [id number] 19:23:00 Test Item Value Reference Range Interpretation Comments VANCOMYCIN TROUGH ([facility]) (test 17.8 ug/mL 10.0-20.0 code = 522) POCT-GLUCOSE [id number] 18:19:00 Test Item Value Reference Range Interpretation Comments POC-GLUCOSE METER 101 mg/dL 70-110 TESTED AT [place] [address] ([facility]) (test code = [facility] 1538) [address] [id number] 17:29:00 Test Item Value Reference Range Interpretation Comments [facility] (test code = 3.4 meq/L 3.5-5.1 L 379) Check Serum Phosphorus level 4 hours after IV phosphorus replacement or 8 hours after PO replacementcompleted.Check Serum Potassium level 2 hours after oral potassium replacement completed or 30 min after intravenous potassium replacement.[id number] 17:29:00 Test Item Value Reference Range Interpretation Comments PHOSPHORUS ([facility]) (test code = 1.9 mg/dL 2.3-4.7 L 604) Check Serum Phosphorus level 4 hours after IV phosphorus replacement or 8 hours after PO replacementcompleted.Check Serum Potassium level 2 hours after oral potassium replacement completed or 30 min after intravenous potassium replacement.[id number] 13:55:00 Test Item Value Reference Range Interpretation Comments POTASSIUM (BEAKER) (test code = 3.4 meq/L 3.5-5.1 L 379) POCT-GLUCOSE [id number] 13:13:00 Test Item Value Reference Range Interpretation Comments POC-GLUCOSE METER 95 mg/dL 70-110 TESTED AT [place] [address] ([facility]) (test code = [facility] [address] 1538) SPUTUM CULTURE + GRAM [id number] 11:07:00 Test Item Value Reference Interpretation Comments Range CULTURE ([facility]) STAPHYLOCOCCUS A 1+ Staphy lococcus (test code = 1095) AUREUS aureus Clindamycin (test S code = 10) Erythromycin (test S code = 4) Linezolid (test code S = 40) Nitrofurantoin (test S code = 23) Oxacillin (test code S = 14) Rifampin (test code = S 43) Tetracycline (test S code = 2) Trimethoprim + S Sulfamethoxazole (test code = 47) Vancomycin (test code S = 13) GRAM STAIN RESULT 4+ WBCs (BEAKER) (test code = 1123) GRAM STAIN RESULT 0-5 epithelial (BEAKER) (test code = cells [id number]) GRAM STAIN RESULT 2+ gram positive (BEAKER) (test code = cocci in chains 262056) and pairs 4+ normal respiratory romelia presentPOCT-GLUCOSE [id number] 06:37:00 Test Item Value Reference Range Interpretation Comments POC-GLUCOSE METER 105 mg/dL 70-110 TESTED AT [facility] 6720 (BEAKER) (test code = [place] 1538) [address] RAD, CHEST, 1 VIEW, NON [id number] 03:39:00Reason for exam:- >intubatedShould this be performed [...] MDReport Verified Date/Time: 10/17/2018 03:39:58 Reading Location: [address] Reading Room BLOOD GAS, [id number] 03:37:00 Test Item Value Reference Range Interpretation Comments PH ARTERIAL (BEAKER) (test code = 7.46 7.35-7.45 H 383) PCO2 ARTERIAL (BEAKER) (test code 33 mmHg 35-45 L = 384) PO2 ARTERIAL (BEAKER) (test code 156 mmHg 80-90 H = 385) O2 SATURATION ARTERIAL (BEAKER) 99.1 % 96.0-97.0 H (test code = 386) HCO3 ARTERIAL (BEAKER) (test code 23 mmol/L 21-29 = 388) BASE EXCESS ARTERIAL (BEAKER) -0.5 mmol/L -2.0-3.0 (test code = 387) PATIENT TEMPERATURE (BEAKER) 37.0 C (test code = 1818) FIO2 (BEAKER) (test code = 1819) 35.0 % [id number] 03:22:00 Test Item Value Reference Range Interpretation Comments PHOSPHORUS (BEAKER) (test code = 0.8 mg/dL 2.3-4.7 LL 604) BASIC METABOLIC [id number] 03:20:00 Test Item Value Reference Range Interpretation Comments SODIUM (BEAKER) 144 meq/L 136-145 (test code = 381) POTASSIUM (BEAKER) 3.4 meq/L 3.5-5.1 L (test code = 379) CHLORIDE (BEAKER) 117 meq/L 98-107 H (test code = 382) CO2 (BEAKER) (test 20 meq/L 22-29 L code = 355) BLOOD UREA NITROGEN 11 mg/dL 7-21 (BEAKER) (test code = 354) CREATININE (BEAKER) 0.84 mg/dL 0.57-1.25 (test code = 358) GLUCOSE RANDOM 112 mg/dL 70-105 H (BEAKER) (test code = 652) CALCIUM (BEAKER) 7.8 mg/dL 8.4-10.2 L (test code = 697) EGFR (BEAKER) (test 96 mL/min/1.73 ESTIMA JUAN CARLOS GFR IS code = 1092) sq m NOT ACCURATE CREATININE CLEARANCE IN PREDICTING GLOMERULAR FILTRATION RATE . ESTIMATED GFR I S NOT APPLICABLE FOR DIALYSIS PATIEN TS. [id number] 03:18:00 Test Item Value Reference Range Interpretation Comments MAGNESIUM (BEAKER) (test code = 1.8 mg/dL 1.6-2.6 627) CBC W/PLT COUNT & AUTO [id number] 03:02:00 Test Item Value Reference Range Interpretation Comments WHITE BLOOD CELL COUNT (BEAKER) 7.7 K/ L 3.5-10.5 (test code = 775) RED BLOOD CELL COUNT (BEAKER) 3.40 M/ L 4.63-6.08 L (test code = 761) HEMOGLOBIN (BEAKER) (test code = 10.1 GM/DL 13.7-17.5 L 410) HEMATOCRIT (BEAKER) (test code = 30.1 % 40.1-51.0 L 411) MEAN CORPUSCULAR VOLUME (BEAKER) 88.5 fL 79.0-92.2 (test code = 753) MEAN CORPUSCULAR HEMOGLOBIN 29.7 pg 25.7-32.2 (BEAKER) (test code = 751) MEAN CORPUSCULAR HEMOGLOBIN CONC 33.6 GM/DL 32.3-36.5 (BEAKER) (test code = 752) RED CELL DISTRIBUTION WIDTH 14.0 % 11.6-14.4 (BEAKER) (test code = 412) PLATELET COUNT (BEAKER) (test 161 K/CU MM 150-450 code = 756) MEAN PLATELET VOLUME (BEAKER) 11.0 fL 9.4-12.4 (test code = 754) NUCLEATED RED BLOOD CELLS 0 /100 WBC 0-0 (BEAKER) (test code = 413) NEUTROPHILS RELATIVE PERCENT 79 % (BEAKER) (test code = 429) LYMPHOCYTES RELATIVE PERCENT 12 % (BEAKER) (test code = 430) MONOCYTES RELATIVE PERCENT 8 % (BEAKER) (test code = 431) EOSINOPHILS RELATIVE PERCENT 0 % (BEAKER) (test code = 432) BASOPHILS RELATIVE PERCENT 0 % (BEAKER) (test code = 437) NEUTROPHILS ABSOLUTE COUNT 6.07 K/ L 1.78-5.38 H (BEAKER) (test code = 670) LYMPHOCYTES ABSOLUTE COUNT 0.94 K/ L 1.32-3.57 L (BEAKER) (test code = 414) MONOCYTES ABSOLUTE COUNT (BEAKER) 0.60 K/ L 0.30-0.82 (test code = 415) EOSINOPHILS ABSOLUTE COUNT 0.01 K/ L 0.04-0.54 L (BEAKER) (test code = 416) BASOPHILS ABSOLUTE COUNT (BEAKER) 0.02 K/ L 0.01-0.08 (test code = 417) IMMATURE GRANULOCYTES-RELATIVE 1 % 0-1 PERCENT (BEAKER) (test code = 2801) POCT-GLUCOSE [id number] 23:37:00 Test Item Value Reference Range Interpretation Comments POC-GLUCOSE METER 106 mg/dL 70-110 TESTED AT [facility] 6720 (BEAKER) (test code = [place] [facility] 1538) [address] RAD, ABDOMEN/KUB, 1 VIEW [id number] 22:14:00Reason for exam:->Confirm corpak placementShould this be [...] calcifications in the pelvis. Signed: Messi Ibarra Verified Date/Time: 10/16/2018 22:14:17 Reading Location: [facility] C013Y CT Body Reading Room [id number] 21:14:00 Test Item Value Reference Range Interpretation Comments POTASSIUM (BEAKER) (test code = 3.5 meq/L 3.5-5.1 379) [id number] 19:12:00 Test Item Value Reference Range Interpretation Comments PROCALCITONIN (BEAKER) (test code 0.99 ng/mL <0.05 H = 3036) SEPSIS RISK (ng/mL)Low: 0.05-0.50Intermediate: 0.51-2.00High: >=2.01POCT-GLUCOSE [id number] 18:15:00 Test Item Value Reference Range Interpretation Comments POC-GLUCOSE METER 124 mg/dL 70-110 H TESTED AT [facility] 6720 (BEAKER) (test code = [place] [facility] 1538) [address] CSF CELL COUNT [id number] 15:55:00 Test Item Value Reference Range Interpretation Comments APPEARANCE CSF (BEAKER) (test code Clear Clear = 407) COLOR CSF (BEAKER) (test code = Colorless Colorless 408) RBC CSF (BEAKER) (test code = 409) 190 /cu mm 0-5 H WBC CSF (BEAKER) (test code = 1 /cu mm <=5 1020) RBCS FRESH (BEAKER) (test code = 100% Fresh 1444) NUMBER OF CELLS DIFF'D (BEAKER) 50 (test code = 1591) NEUTROPHIL, CSF (BEAKER) (test 6 % 0-5 H code = 324) LYMPHS CSF (BEAKER) (test code = 78 % 40-80 438) MONO/MACROPHAGE CSF (BEAKER) (test 16 % 15-45 code = 439) EOSINOPHILS CSF (BEAKER) (test 0 % <=0 code = 360) BASO CSF (BEAKER) (test code = 0 % <=0 440) TUBE NUMBER CSF (BEAKER) (test 2 code = 2678) GLUCOSE, [id number] 15:37:00 Test Item Value Reference Range Interpretation Comments GLUCOSE CSF (BEAKER) (test code = 75 mg/dL 40-70 H 406) Save tube for future studies if neededSave tubes for further studies if needed PROTEIN, [id number] 15:37:00 Test Item Value Reference Range Interpretation Comments PROTEIN CSF (BEAKER) (test code = 41 mg/dL 15-45 378) Save tube for future studies if neededSave tubes for further studies if needed POCT-GLUCOSE [id number] 12:32:00 Test Item Value Reference Range Interpretation Comments POC-GLUCOSE METER 118 mg/dL 70-110 H TESTED AT [facility] 6720 (BEAKER) (test code = [place] 1538) [address] RAD, CHEST, 1 VIEW, NON [id number] 12:07:00Reason for exam:->ETT positionShould this be performed [...] MDReport Verified Date/Time: 10/16/2018 12:07:46 Reading Location: [facility] Reading Room MR, BRAIN, WITHOUT [id number] 11:28:00FINAL REPORT MRI Brain without contrast Clinical [...] helpful for further evaluation Signed: Teodoro Yee Verified Date/Time: 10/16/2018 11:28:39 Reading Location: [facility] B1 C013V Neuro Reading Room URINE [id number] 09:42:00 Test Item Value Reference Range Interpretation Comments CULTURE (BEAKER) (test code = 1095) No growth POCT-GLUCOSE [id number] 06:44:00 Test Item Value Reference Range Interpretation Comments POC-GLUCOSE METER 128 mg/dL 70-110 H TESTED AT [facility] 6720 (BEAKER) (test code = [place] 1538) [address] BASIC METABOLIC [id number] 06:11:00 Test Item Value Reference Range Interpretation Comments SODIUM (BEAKER) 145 meq/L 136-145 (test code = 381) POTASSIUM (BEAKER) 3.3 meq/L 3.5-5.1 L (test code = 379) CHLORIDE (BEAKER) 116 meq/L 98-107 H (test code = 382) CO2 (BEAKER) (test 22 meq/L 22-29 code = 355) BLOOD UREA NITROGEN 13 mg/dL 7-21 (BEAKER) (test code = 354) CREATININE (BEAKER) 1.02 mg/dL 0.57-1.25 (test code = 358) GLUCOSE RANDOM 114 mg/dL 70-105 H (BEAKER) (test code = 652) CALCIUM (BEAKER) 8.4 mg/dL 8.4-10.2 (test code = 697) EGFR (BEAKER) (test 76 mL/min/1.73 ESTIMA JUAN CARLOS GFR IS code = 1092) sq m NOT ACCURATE CREATININE CLEARANCE IN PREDICTING GLOMERULAR FILTRATION RATE . ESTIMATED GFR I S NOT APPLICABLE FOR DIALYSIS PATIEN TS. LACTIC ACID, VENOUS, WHOLE [id number] 06:11:00 Test Item Value Reference Range Interpretation Comments LACTATE BLOOD VENOUS 1.3 mmol/L 0.5-2.2 Specime n slightly (2) (BEAKER) (test hemolyzed code = 3387) VANCOMYCIN LEVEL, [id number] 06:10:00 Test Item Value Reference Range Interpretation Comments VANCOMYCIN TROUGH (BEAKER) (test 16.7 ug/mL 10.0-20.0 code = 522) Draw 30 min prior to scheduled dose, HOLD if level > 20 mcg/mL, inform .CBC W/PLT COUNT & AUTO [id number] 06:09:00 Test Item Value Reference Range Interpretation Comments WHITE BLOOD CELL COUNT (BEAKER) 15.0 K/ L 3.5-10.5 H (test code = 775) RED BLOOD CELL COUNT (BEAKER) 3.72 M/ L 4.63-6.08 L (test code = 761) HEMOGLOBIN (BEAKER) (test code = 10.9 GM/DL 13.7-17.5 L 410) HEMATOCRIT (BEAKER) (test code = 32.7 % 40.1-51.0 L 411) MEAN CORPUSCULAR VOLUME (BEAKER) 87.9 fL 79.0-92.2 (test code = 753) MEAN CORPUSCULAR HEMOGLOBIN 29.3 pg 25.7-32.2 (BEAKER) (test code = 751) MEAN CORPUSCULAR HEMOGLOBIN CONC 33.3 GM/DL 32.3-36.5 (BEAKER) (test code = 752) RED CELL DISTRIBUTION WIDTH 13.6 % 11.6-14.4 (BEAKER) (test code = 412) PLATELET COUNT (BEAKER) (test 187 K/CU MM 150-450 code = 756) MEAN PLATELET VOLUME (BEAKER) 11.6 fL 9.4-12.4 (test code = 754) NUCLEATED RED BLOOD CELLS 0 /100 WBC 0-0 (BEAKER) (test code = 413) NEUTROPHILS RELATIVE PERCENT 88 % (BEAKER) (test code = 429) LYMPHOCYTES RELATIVE PERCENT 7 % (BEAKER) (test code = 430) MONOCYTES RELATIVE PERCENT 5 % (BEAKER) (test code = 431) EOSINOPHILS RELATIVE PERCENT 0 % (BEAKER) (test code = 432) BASOPHILS RELATIVE PERCENT 0 % (BEAKER) (test code = 437) NEUTROPHILS ABSOLUTE COUNT 13.13 K/ L 1.78-5.38 H (BEAKER) (test code = 670) LYMPHOCYTES ABSOLUTE COUNT 1.04 K/ L 1.32-3.57 L (BEAKER) (test code = 414) MONOCYTES ABSOLUTE COUNT (BEAKER) 0.69 K/ L 0.30-0.82 (test code = 415) EOSINOPHILS ABSOLUTE COUNT 0.00 K/ L 0.04-0.54 L (BEAKER) (test code = 416) BASOPHILS ABSOLUTE COUNT (BEAKER) 0.03 K/ L 0.01-0.08 (test code = 417) IMMATURE GRANULOCYTES-RELATIVE 1 % 0-1 PERCENT (BEAKER) (test code = 2801) BLOOD GAS, [id number] 05:49:00 Test Item Value Reference Range Interpretation Comments PH ARTERIAL (BEAKER) (test code = 7.41 7.35-7.45 383) PCO2 ARTERIAL (BEAKER) (test code 37 mmHg 35-45 = 384) PO2 ARTERIAL (BEAKER) (test code 68 mmHg 80-90 L = 385) O2 SATURATION ARTERIAL (BEAKER) 93.4 % 96.0-97.0 L (test code = 386) HCO3 ARTERIAL (BEAKER) (test code 23 mmol/L 21-29 = 388) BASE EXCESS ARTERIAL (BEAKER) -1.2 mmol/L -2.0-3.0 (test code = 387) PATIENT TEMPERATURE (BEAKER) 37.5 C (test code = 1818) FIO2 (BEAKER) (test code = 1819) 40.0 % RAD, CHEST, 1 VIEW, NON [id number] 03:52:00Reason for exam:- >intubatedShould this be performed [...] Ibarra Verified Date/Time: 10/16/2018 03:52:10 Reading Location: [address] Body Reading Room POCT-GLUCOSE METER 2018-10-16 02:45:00 Test Item Value Reference Range Interpretation Comments POC-GLUCOSE METER 115 mg/dL 70-110 H TESTED AT [facility] 6720 ([facility]) (test code = [place] 1538) [address] RAD, CHEST, 1 VIEW, NON [id number] 20:47:00Reason for exam:->check picc placement Should this [...] the right lung base. Signed: Blaine Floyd MDReport Verified Date/Time: 10/15/2018 20:47:08 Reading Location: [facility] Radiology Reading Room POCT-GLUCOSE [id number] 17:50:00 Test Item Value Reference Range Interpretation Comments POC-GLUCOSE METER 141 mg/dL 70-110 H TESTED AT [facility] 6720 (BEAKER) (test code = [place]ke[place] [facility] 1538) [address] BASIC METABOLIC [id number] 17:22:00 Test Item Value Reference Range Interpretation Comments SODIUM (BEAKER) 143 meq/L 136-145 (test code = 381) POTASSIUM (BEAKER) 3.3 meq/L 3.5-5.1 L (test code = 379) CHLORIDE (BEAKER) 115 meq/L 98-107 H (test code = 382) CO2 (BEAKER) (test 22 meq/L 22-29 code = 355) BLOOD UREA NITROGEN 15 mg/dL 7-21 (BEAKER) (test code = 354) CREATININE (BEAKER) 1.17 mg/dL 0.57-1.25 (test code = 358) GLUCOSE RANDOM 138 mg/dL 70-105 H (BEAKER) (test code = 652) CALCIUM (BEAKER) 8.2 mg/dL 8.4-10.2 L (test code = 697) EGFR (BEAKER) (test 65 mL/min/1.73 ESTIMA JUAN CARLOS GFR IS code = 1092) sq m NOT ACCURATE CREATININE CLEARANCE IN PREDICTING GLOMERULAR FILTRATION RATE . ESTIMATED GFR I S NOT APPLICABLE FOR DIALYSIS PATIEN TS. CORTISOL,60 [id number] 16:54:00 Test Item Value Reference Range Interpretation Comments CORTISOL BASELINE NETWORKED 16.3 mcg/dL (BEAKER) (test code = 2307) CORTISOL 30 MINUTE NETWORKED 24.1 mcg/dL (BEAKER) (test code = 2308) CORTISOL, 60 MINUTE (BEAKER) 29.7 ug/dL (test code = 1805) ACTH STIMULATION TEST INTERPRETATION GUIDELINES(Synonyms: Cortrosyn Test, [...] a study by Peng et al (RONI 2000,283(8):9321-45), the ACTH Stimulation Test provides important prognostic [...] serum cortisollevel 60 minutes after cosyntropin administration.CORTISOL,30 [id number] 16:07:00 Test Item Value Reference Range Interpretation Comments CORTISOL BASELINE NETWORKED 16.3 mcg/dL (BEAKER) (test code = 2307) CORTISOL, 30 MINUTE (BEAKER) 24.1 ug/dL (test code = 1804) ACTH STIMULATION TEST INTERPRETATION GUIDELINES(Synonyms: Cortrosyn Test, [...] a study by Peng et al (RONI 2000,283(8):9252-45), the ACTH Stimulation Test provides important prognostic [...] Draw serum cortisollevel 60 minutes after cosyntropin administration.CORTISOL,[id number] 15:25:00 Test Item Value Reference Range Interpretation Comments CORTISOL, BASELINE (BEAKER) (test 16.3 ug/dL code = 1803) ACTH STIMULATION TEST INTERPRETATION GUIDELINES(Synonyms: Cortrosyn Test, [...] a study by Peng et al (RONI 2000,283(8):1823-77), the ACTH Stimulation Test provides important prognostic [...] cortisollevel 60 minutes after cosyntropin administration.BASIC METABOLIC [id number] 15:04:00 Test Item Value Reference Range Interpretation Comments SODIUM (BEAKER) 144 meq/L 136-145 (test code = 381) POTASSIUM (BEAKER) 3.2 meq/L 3.5-5.1 L (test code = 379) CHLORIDE (BEAKER) 115 meq/L 98-107 H (test code = 382) CO2 (BEAKER) (test 22 meq/L 22-29 code = 355) BLOOD UREA NITROGEN 16 mg/dL 7-21 (BEAKER) (test code = 354) CREATININE (BEAKER) 1.22 mg/dL 0.57-1.25 (test code = 358) GLUCOSE RANDOM 144 mg/dL 70-105 H (SHARMILAAKER) (test code = 652) CALCIUM (SHARMILAAKER) 8.0 mg/dL 8.4-10.2 L (test code = 697) EGFR (SHARMILAAKER) (test mL/min/1.73 INSUFFIC IENT CLINICAL code = 1092) sq m DATA TO CALCULA TE ESTIMATED GFR. 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 Reason for exam:->concern for seizuresDATE OF REPORT: 10/15/2018 ACC: [id number]: [id number] time: 17:48 on 10/14/18top time: 09:44 on10/15/18ICD- 10: R56.9 CPT Code: 42434 HISTORY: 52 y/o male with DM, HTN, [...] Kristel Boyd MDNeurophysiology Fellow Felice Pinedo M.D., [facility] Professor of Neurology [facility] Director, [facility] Epilepsy [place], [facility] RAD, PELVIS, 1 OR 2 [id number] 14:11:00Reason for exam:->MRI clearanceShould this be performed [...] MDReport Verified Date/Time: 10/15/2018 14:11:06 Reading Location: [address] Consult Reading Room RAD, SKULL, LESS THAN 4 [id number] 14:08:00Reason for exam:->MRI clearanceShould this be performed [...] MDReport Verified Date/Time: 10/15/2018 14:08:11 Reading Location: [facility] C013 Consult Reading Room RAD, ABDOMEN/KUB, 1 VIEW [id number] 14:05:00Reason for exam:->clear for MRIShould this be [...] Jose Manuel e/Time: 10/15/2018 14:05:30 Reading Location: [address] Consult Reading Room ONIN [id number] 13:07:00 Test Item Value Reference Range Interpretation Comments TROPONIN I (MISSY) (test code = 0.05 ng/mL 0.00-0.03 H 397) POCT-GLUCOSE [id number] 12:51:00 Test Item Value Reference Range Interpretation Comments POC-GLUCOSE METER 166 mg/dL 70-110 H TESTED AT [facility] 6720 (MISSY) (test code = [place] 1538) [address] U/S, RENAL, [id number] 12:22:00Reason for exam:->alayna, UTI, sepsisShould this be [...] MDReport Verified Date/Time: 10/15/2018 12:22:41 Reading Location: [facility] P006J Ultrasound Reading Room RESPIRATORY PANEL [id number] 12:09:00 Test Item Value Reference Range Interpretation Comments HUMAN METAPNEUMOVIRUS Not detected Not detected, (BEAKER) (test code = Equivocal 2683) RHINOVIRUS (BEAKER) Not detected Not detected, (test code = 2684) Equivocal INFLUENZA A (BEAKER) Not detected Not detected, (test code = 2685) Equivocal INFLUENZA A (NO Not detected, SUBTYPE) (test code = Equivocal 3606) INFLUENZA A SUBTYPE Not detected, H1 (BEAKER) (test Equivocal code = 2686) INFLUENZA A SUBTYPE Not detected, H3 (BEAKER) (test Equivocal code = 2687) INFLUENZA A SUBTYPE Not detected, H1-2009 (BEAKER) Equivocal (test code = 3198) INFLUENZA B (BEAKER) Not detected Not detected, (test code = 2688) Equivocal RESPIRATORY SYNCYTIAL Detected Not detected, A Assay is not able VIRUS (BEAKER) (test Equivocal differe ntiate between code = 3199) RSV A and RSV B.Contact isola tion if immunosuppre ssed or young childr en. Consider stoppi ng antibiotics. PARAINFLUENZA VIRUS 1 Not detected Not detected, (BEAKER) (test code = Equivocal 2691) PARAINFLUENZA VIRUS 2 Not detected Not detected, (BEAKER) (test code = Equivocal 2692) PARAINFLUENZA VIRUS 3 Not detected Not detected, (BEAKER) (test code = Equivocal 2693) PARAINFLUENZA VIRUS 4 Not detected Not detected, (BEAKER) (test code = Equivocal 3200) ADENOVIRUS (BEAKER) Not detected Not detected, (test code = 2694) Equivocal CORONAVIRUS 229E Not detected Not detected, (BEAKER) (test code = Equivocal 3201) CORONAVIRUS HKU1 Not detected Not detected, (BEAKER) (test code = Equivocal 3202) CORONAVIRUS NL63 Not detected Not detected, (BEAKER) (test code = Equivocal 3203) CORONAVIRUS OC43 Not detected Not detected, (BEAKER) (test code = Equivocal 3204) BORDETELLA PERTUSSIS Not detected Not detected, (BEAKER) (test code = Equivocal 3205) CHLAMYDOPHILA Not detected Not detected, PNEUMONIAE (BEAKER) Equivocal (test code = 3206) MYCOPLASMA PNEUMONIAE Not detected Not detected, [...] decisions. This sample was tested at the [facility] using the MopioArray Respiratory Panel. It is FDA cleared and has been verified and approved by the [facility] for clinical use on nasal swab specimens. It is not FDA-cleared for use on bronchial wash/lavage samples. However, for this sample type, validation was performed and test characteristics were determined and approved, by [facility] for clinical use under the Clinical Laboratory Improvement Amendments (CLIA) of 1988 requirements. Therefore, FDA clearance isnot required. This laboratory is CLIA- certified and [employer] ([employer])-accredited to perform high complexity testing.CREATINE KINASE (CK)2018-10-15 09:33:00 Test Item Value Reference Range Interpretation Comments CREATINE KINASE TOTAL (BEAKER) (test 1362 U/L 29-200 H code = 380) BLOOD GAS, [id number] 09:14:00 Test Item Value Reference Range Interpretation Comments PH VENOUS (BEAKER) (test code = 7.39 7.32-7.42 701) PCO2 VENOUS (BEAKER) (test code = 36 mmHg 41-51 L 755) PO2 VENOUS (BEAKER) (test code = 66 mmHg 25-40 H 702) O2 SATURATION VENOUS (BEAKER) 93.1 % 40.0-70.0 H (test code = 703) HCO3 VENOUS (BEAKER) (test code = 21 mmol/L 21-29 705) BASE EXCESS VENOUS (BEAKER) (test -3.3 mmol/L -2.0-3.0 L code = 704) PATIENT TEMPERATURE (BEAKER) 37.0 C (test code = 1818) FIO2 (BEAKER) (test code = 1819) 21.0 % RAPID DRUG SCREEN, [id number] 08:24:00 Test Item Value Reference Range Interpretation Comments BARBITURATE URINE (BEAKER) (test Negative Negative code = 725) BENZODIAZEPINE SCREEN URINE (BEAKER) Positive Negative A (test code = 726) COCAINE (METAB.) SCREEN (BEAKER) Negative Negative (test code = 1164) METHADONE SCREEN (BEAKER) (test code Negative Negative = 1436) OPIATE SCREEN URINE (BEAKER) (test Negative Negative code = 734) CANNABINOID SCREEN URINE (BEAKER) Negative Negative (test code = 727) AMPH/METHAMPH SCREEN (BEAKER) (test Negative Negative code = 1438) PHENCYCLIDINE SCREEN URINE (BEAKER) Negative Negative (test code = 608) OXYCODONE SCREEN URINE (BEAKER) Negative Negative (test code = 2761) DRUG CUTOFF CONC.Cocaine 300 ng/mL Cannabinoid 50 ng/mL Benzodiazepine 200 ng/mLBarbiturate 200 ng/mLPhencyclidine 25 ng/mLOpiate 300 ng/mLMethadone 300 ng/mLAmphetamine/ 1000 ng/mL MethamphetamineOxycodone 300 ng/mLThis assay provides an unconfirmed qualitative test result for the clinical management of patients in emergency situations. Chain of custody not maintained. Some tdoq-cst-yjikfhd medications, as well as adulterants, may cause inaccurate results. Clinical correlation should be applied. A more comprehensive drug screen or confirmation of a detected drug may be performed upon request. RAD, CHEST, 1 VIEW, NON [id number] 06:31:00Reason for exam:- >intubatedShould this be performed [...] There is no pneumothorax. Signed: [facility] Verified Date/Time: 10/15/2018 06:31:32 Reading Location: [facility] B1 C013Y CT Body Reading Room ONELLA ANTIGEN, [id number] 05:37:00 Test Item Value Reference Range Interpretation Comments L. PNEUMOPHILA Negative - see Negative fo r L. SEROGP 1 UR AG comment pneumophila (BEAKER) (test code serogrou p 1 antigen, = 1156) suggesting no r ecent or current infe ction with this serog roup. Legionellosis c annot be ruled out si nce other serogroup s and species may cau se disease. STREP PNEUMONIAE [id number] 05:36:00 Test Item Value Reference Range Interpretation Comments STREP PNEUMONIAE Presumptive negative Presumptive negative ANTIGEN (BEAKER) for pneumococcal for pneumococcal (test code = 1615) pneumonia - see pneumonia - see comment commen Presumptive negative for pneumococcal pneumonia, suggesting no current or recent pneumococcal infection. Infection due to S. pneumoniae cannot be ruled out since the antigen present in the sample may be below the detection limit of the test. BLOOD GAS, [id number] 05:18:00 Test Item Value Reference Range Interpretation Comments PH ARTERIAL (BEAKER) (test code = 7.41 7.35-7.45 383) PCO2 ARTERIAL (BEAKER) (test code 36 mmHg 35-45 = 384) PO2 ARTERIAL (BEAKER) (test code 114 mmHg 80-90 H = 385) O2 SATURATION ARTERIAL (BEAKER) 98.1 % 96.0-97.0 H (test code = 386) HCO3 ARTERIAL (BEAKER) (test code 22 mmol/L 21-29 = 388) BASE EXCESS ARTERIAL (BEAKER) -1.9 mmol/L -2.0-3.0 (test code = 387) PATIENT TEMPERATURE (BEAKER) 38.0 C (test code = 1818) FIO2 (BEAKER) (test code = 1819) 40.0 % TROPONIN [id number] 04:26:00 Test Item Value Reference Range Interpretation Comments TROPONIN I (BEAKER) (test code = 0.05 ng/mL 0.00-0.03 H 397) BASIC METABOLIC [id number] 04:23:00 Test Item Value Reference Range Interpretation Comments SODIUM (BEAKER) 140 meq/L 136-145 (test code = 381) POTASSIUM (BEAKER) 3.4 meq/L 3.5-5.1 L (test code = 379) CHLORIDE (BEAKER) 112 meq/L 98-107 H (test code = 382) CO2 (BEAKER) (test 20 meq/L 22-29 L code = 355) BLOOD UREA NITROGEN 20 mg/dL 7-21 (BEAKER) (test code = 354) CREATININE (BEAKER) 1.55 mg/dL 0.57-1.25 H (test code = 358) GLUCOSE RANDOM 154 mg/dL 70-105 H (BEAKER) (test code = 652) CALCIUM (BEAKER) 7.9 mg/dL 8.4-10.2 L (test code = 697) EGFR (BEAKER) (test mL/min/1.73 INSUFFIC IENT CLINICAL code = 1092) sq m DATA TO CALCULA TE ESTIMATED GFR. [id number] 04:23:00 Test Item Value Reference Range Interpretation Comments LIPASE (BEAKER) (test code = 749) < U/L 8-78 L B-TYPE NATRIURETIC FACTOR (BNP)2018-10-15 04:21:00 Test Item Value Reference Range Interpretation Comments B-TYPE NATRIURETIC PEPTIDE (BEAKER) 136 pg/mL 0-100 H (test code = 700) [id number] 04:19:00 Test Item Value Reference Range Interpretation Comments MAGNESIUM (BEAKER) (test code = 1.4 mg/dL 1.6-2.6 L 627) [id number] 04:19:00 Test Item Value Reference Range Interpretation Comments PHOSPHORUS (BEAKER) (test code = 2.2 mg/dL 2.3-4.7 L 604) HEPATIC FUNCTION [id number] 04:19:00 Test Item Value Reference Range Interpretation Comments TOTAL PROTEIN (BEAKER) (test code = 6.0 gm/dL 6.0-8.3 770) ALBUMIN (BEAKER) (test code = 1145) 3.0 g/dL 3.5-5.0 L BILIRUBIN TOTAL (BEAKER) (test code 0.5 mg/dL 0.2-1.2 = 377) BILIRUBIN DIRECT (BEAKER) (test 0.3 mg/dL 0.1-0.5 code = 706) ALKALINE PHOSPHATASE (BEAKER) (test 60 U/L 40-150 code = 346) AST (SGOT) (BEAKER) (test code = 36 U/L 5-34 H 353) ALT (SGPT) (BEAKER) (test code = 19 U/L 6-55 347) VANCOMYCIN LEVEL, [id number] 04:18:00 Test Item Value Reference Range Interpretation Comments VANCOMYCIN RANDOM (BEAKER) (test 11.8 ug/mL code = 523) Reference Range: No NormalsLACTIC ACID, VENOUS, WHOLE [id number] 04:12:00 Test Item Value Reference Range Interpretation Comments LACTATE BLOOD VENOUS (2) (BEAKER) 1.4 mmol/L 0.5-2.2 (test code = 2872) CBC W/PLT COUNT & AUTO [id number] 04:02:00 Test Item Value Reference Range Interpretation Comments WHITE BLOOD CELL COUNT (BEAKER) 22.0 K/ L 3.5-10.5 H (test code = 775) RED BLOOD CELL COUNT (BEAKER) 3.81 M/ L 4.63-6.08 L (test code = 761) HEMOGLOBIN (BEAKER) (test code = 11.2 GM/DL 13.7-17.5 L 410) HEMATOCRIT (BEAKER) (test code = 33.8 % 40.1-51.0 L 411) MEAN CORPUSCULAR VOLUME (BEAKER) 88.7 fL 79.0-92.2 (test code = 753) MEAN CORPUSCULAR HEMOGLOBIN 29.4 pg 25.7-32.2 (BEAKER) (test code = 751) MEAN CORPUSCULAR HEMOGLOBIN CONC 33.1 GM/DL 32.3-36.5 (BEAKER) (test code = 752) RED CELL DISTRIBUTION WIDTH 13.3 % 11.6-14.4 (BEAKER) (test code = 412) PLATELET COUNT (BEAKER) (test 165 K/CU MM 150-450 code = 756) MEAN PLATELET VOLUME (BEAKER) 11.2 fL 9.4-12.4 (test code = 754) NUCLEATED RED BLOOD CELLS 0 /100 WBC 0-0 (BEAKER) (test code = 413) NEUTROPHILS RELATIVE PERCENT 87 % (BEAKER) (test code = 429) LYMPHOCYTES RELATIVE PERCENT 7 % (BEAKER) (test code = 430) MONOCYTES RELATIVE PERCENT 5 % (BEAKER) (test code = 431) EOSINOPHILS RELATIVE PERCENT 0 % (BEAKER) (test code = 432) BASOPHILS RELATIVE PERCENT 0 % (BEAKER) (test code = 437) NEUTROPHILS ABSOLUTE COUNT 19.12 K/ L 1.78-5.38 H (BEAKER) (test code = 670) LYMPHOCYTES ABSOLUTE COUNT 1.61 K/ L 1.32-3.57 (BEAKER) (test code = 414) MONOCYTES ABSOLUTE COUNT (BEAKER) 1.05 K/ L 0.30-0.82 H (test code = 415) EOSINOPHILS ABSOLUTE COUNT 0.00 K/ L 0.04-0.54 L (BEAKER) (test code = 416) BASOPHILS ABSOLUTE COUNT (BEAKER) 0.04 K/ L 0.01-0.08 (test code = 417) IMMATURE GRANULOCYTES-RELATIVE 1 % 0-1 PERCENT (BEAKER) (test code = 2801) POCT-GLUCOSE [id number] 00:56:00 Test Item Value Reference Range Interpretation Comments POC-GLUCOSE METER 149 mg/dL 70-110 H TESTED AT [facility] 6720 (BEAKER) (test code = [place] 1538) [address] TROPONIN [id number] 21:23:00 Test Item Value Reference Range Interpretation Comments TROPONIN I (BEAKER) (test code = 0.06 ng/mL 0.00-0.03 H 397) LACTIC ACID, VENOUS, WHOLE [id number] 18:53:00 Test Item Value Reference Range Interpretation Comments LACTATE BLOOD VENOUS 1.7 mmol/L 0.5-2.2 Specime n slightly (2) (BEAKER) (test hemolyzed code = 2872) EEG RECORDING IN COMA/SLEEP [id number] 18:51:00Reason for exam:->concern for seizuresShould this be performed at the bedside?->YesDATE OF REPORT: 10/14/2018 ACC: [id number] EE2 Start time: 17:28 Stop time: 17:48 ICD-10: R56.9 CPT Code: 60364 HISTORY: 52 yo male with DM, HTN, [...] Felice Pinedo M.D., RICH Professor of Neurology [facility] [employer] Director, [facility] Head, [facility] Neurophysiology Lab POCT-GLUCOSE [id number] 17:46:00 Test Item Value Reference Range Interpretation Comments POC-GLUCOSE METER 130 mg/dL 70-110 H TESTED AT [facility] 6720 (TextPower) (test code = [place] 1538) [address] LACTIC ACID, VENOUS, WHOLE [id number] 16:36:00 Test Item Value Reference Range Interpretation Comments LACTATE BLOOD VENOUS 2.4 mmol/L 0.5-2.2 H Specime n slightly (2) (TextPower) (test hemolyzed code = 2872) FIBRIN SOLUBLE [id number] 15:35:00 Test Item Value Reference Range Interpretation Comments FIBRIN SOLUBLE MONOMER ([employer]) Negative (test code = 1416) [id number] 14:51:00 Test Item Value Reference Range Interpretation Comments PROCALCITONIN (BEAKER) (test code 1.71 ng/mL <0.05 H = 3036) SEPSIS RISK (ng/mL)Low: 0.05-0.50Intermediate: 0.51-2.00High: >=2.01TROPONIN [id number] 14:44:00 Test Item Value Reference Range Interpretation Comments TROPONIN I (BEAKER) (test code = 0.04 ng/mL 0.00-0.03 H 397) BASIC METABOLIC [id number] 14:39:00 Test Item Value Reference Range Interpretation Comments SODIUM (BEAKER) 142 meq/L 136-145 (test code = 381) POTASSIUM (BEAKER) 3.5 meq/L 3.5-5.1 (test code = 379) CHLORIDE (BEAKER) 112 meq/L 98-107 H (test code = 382) CO2 (BEAKER) (test 20 meq/L 22-29 L code = 355) BLOOD UREA NITROGEN 23 mg/dL 7-21 H (BEAKER) (test code = 354) CREATININE (BEAKER) 2.14 mg/dL 0.57-1.25 H (test code = 358) GLUCOSE RANDOM 177 mg/dL 70-105 H (BEAKER) (test code = 652) CALCIUM (BEAKER) 8.1 mg/dL 8.4-10.2 L (test code = 697) EGFR (BEAKER) (test mL/min/1.73 INSUFFIC IENT CLINICAL code = 1092) sq m DATA TO CALCULA TE ESTIMATED GFR. [id number] 14:38:00 Test Item Value Reference Range Interpretation Comments PHOSPHORUS (BEAKER) (test code = 2.4 mg/dL 2.3-4.7 604) [id number] 14:38:00 Test Item Value Reference Range Interpretation Comments MAGNESIUM (BEAKER) (test code = 1.6 mg/dL 1.6-2.6 627) HEPATIC FUNCTION [id number] 14:38:00 Test Item Value Reference Range Interpretation Comments TOTAL PROTEIN (BEAKER) (test code = 6.5 gm/dL 6.0-8.3 770) ALBUMIN (BEAKER) (test code = 1145) 3.3 g/dL 3.5-5.0 L BILIRUBIN TOTAL (BEAKER) (test code 0.6 mg/dL 0.2-1.2 = 377) BILIRUBIN DIRECT (BEAKER) (test 0.3 mg/dL 0.1-0.5 code = 706) ALKALINE PHOSPHATASE (BEAKER) (test 64 U/L 40-150 code = 346) AST (SGOT) (BEAKER) (test code = 24 U/L 5-34 353) ALT (SGPT) (BEAKER) (test code = 18 U/L 6-55 347) [id number] 14:38:00 Test Item Value Reference Range Interpretation Comments LIPASE (BEAKER) (test code = 749) 8 U/L 8-78 LACTIC ACID, VENOUS, WHOLE [id number] 14:32:00 Test Item Value Reference Range Interpretation Comments LACTATE BLOOD VENOUS (2) (BEAKER) 1.6 mmol/L 0.5-2.2 (test code = 2872) PROTHROMBIN [id number] 14:24:00 Test Item Value Reference Range Interpretation Comments PROTIME (BEAKER) (test code = 15.3 seconds 11.7-14.7 H 759) INR (BEAKER) (test code = 370) 1.2 <=5.9 RECOMMENDED COUMADIN/WARFARIN INR THERAPY RANGESSTANDARD DOSE: 2.0 - 3.0 Includes: PROPHYLAXIS forvenous thrombosis, systemic embolization; TREATMENT for venous thrombosis and/or pulmonary embolus.HIGH RISK: Target INR is 2.5-3.5 for patients with mechanical heart valves.[id number] 14:24:00 Test Item Value Reference Range Interpretation Comments FIBRINOGEN LEVEL (BEAKER) (test 453 mg/dl 225-434 H code = 658) [id number] 14:24:00 Test Item Value Reference Range Interpretation Comments PARTIAL THROMBOPLASTIN TIME 37.8 seconds 22.5-36.0 H (BEAKER) (test code = 760) BLOOD GAS, [id number] 14:14:00 Test Item Value Reference Range Interpretation Comments PH ARTERIAL (BEAKER) (test code = 7.43 7.35-7.45 383) PCO2 ARTERIAL (BEAKER) (test code 31 mmHg 35-45 L = 384) PO2 ARTERIAL (BEAKER) (test code 105 mmHg 80-90 H = 385) O2 SATURATION ARTERIAL (BEAKER) 97.9 % 96.0-97.0 H (test code = 386) HCO3 ARTERIAL (BEAKER) (test code 20 mmol/L 21-29 L = 388) BASE EXCESS ARTERIAL (BEAKER) -3.2 mmol/L -2.0-3.0 L (test code = 387) PATIENT TEMPERATURE (BEAKER) 37.5 C (test code = 1818) FIO2 (BEAKER) (test code = 1819) 40.0 % OXYGEN SATURATION, [id number] 13:58:00 Test Item Value Reference Range Interpretation Comments O2 SATURATION (MEASURED) (BEAKER) 89.6 % (test code = 1455) If patient has internal jugular ( IJ) or subclavian central line or PICC line. Draw from distal port. Label as central venous oxygen.RAD, CHEST, 1 VIEW, NON [id number] 13:52:00Reason for exam:->sputum, coughShould this be performed [...] MDReport Verified Date/Time: 10/14/2018 13:52:33 Reading Location: [facility] B1 C013X Ortho Consult Reading Room URINALYSIS W/ MICROSCOPIC 2018-10-14 12:43:00 Test Item Value Reference Range Interpretation Comments COLOR (BEAKER) (test code = 470) Yellow CLARITY (BEAKER) (test code = Hazy 469) SPECIFIC GRAVITY UA (BEAKER) 1.016 1.001-1.035 (test code = 468) PH UA (BEAKER) (test code = 467) 6.0 5.0-8.0 PROTEIN UA (BEAKER) (test code = 70 mg/dL Negative A 464) GLUCOSE UA (BEAKER) (test code = 50 mg/dL Negative A 365) KETONES UA (BEAKER) (test code = Negative Negative 371) BILIRUBIN UA (BEAKER) (test code Negative Negative = 462) BLOOD UA (BEAKER) (test code = Moderate Negative A 461) NITRITE UA (BEAKER) (test code = Negative Negative 465) LEUKOCYTE ESTERASE UA (BEAKER) Large Negative A (test code = 466) UROBILINOGEN UA (BEAKER) (test 0.2 mg/dL 0.2-1.0 code = 463) RBC UA (BEAKER) (test code = 8 /HPF 519) WBC UA (BEAKER) (test code = 79 /HPF 520) BACTERIA (BEAKER) (test code = Moderate 517) MUCUS (BEAKER) (test code = Rare 1574) SQUAMOUS EPITHELIAL (BEAKER) 4 /HPF (test code = 516) CALCIUM OXALATE CRYSTALS Rare (BEAKER) (test code = 518) SOURCE(BEAKER) (test code = Urine, [place] 2938)
[2020-04-06 12:47] LABS: Potassium 4.4 mmol/L (3.5-5.1)
--- NOTE | 2020-04-06 16:35 | EDPHYS ---
Physician Documentation [facility] Name: Deric Sheriff Age: 54 yrs Sex: Male : 1965 Arrival Date: 04/06/2020 Time: 09:43 Bed 7 Private MD: ED Physician Yariel Orozco HPI: 04/06 09:45 This 54 yrs old Male presents to ER via Unassigned with complaints of unable rn to urinate this morning. 09:45 The patient presents with urinary symptoms, unable to void, Last void was yesterday. rn Onset: The symptoms/episode began/occurred this morning. Modifying factors: The symptoms are alleviated by nothing, the symptoms are aggravated by nothing. Severity of symptoms: At their worst the symptoms were mild, in the emergency department the symptoms are unchanged. The patient has experienced similar episodes in the past. Family called 911 for "unable to urinate this morning", last urination yesterday, no fever, recently seen for dehydration. Last void yesterday. Denies any other complaints. No chest pain/sob/abd pain.. Historical: - Allergies: 09:48 Lotrel; hb - Home Meds: 09:48 citalopram 20 mg tab 1 tab once daily [Active]; aspirin 81 mg Oral chew 1 tab once hb daily [Active]; atorvastatin 40 mg Oral tab 1 tab nightly [Active]; baclofen 10 mg Oral tab 1 tab 3 times per day [Active]; clonidine HCl 0.1 mg Oral tab 1 tab 3 times per day [Active]; enalapril maleate 20 mg Oral tab 1 tab once daily [Active]; levetiracetam 750 mg Oral tab 1 tab 2 times per day [Active]; lisinopril 20 mg Oral tab 1 tab twice a day [Active]; metoprolol tartrate 50 mg Oral tab 1 tab 2 times per day [Active]; Plavix 75 mg Oral tab 1 tab once daily [Active]; senna 8.6 mg Oral cap nightly [Active]; tamsulosin 0.4 mg Oral cp24 1 cap nightly [Active]; - PMHx: 09:48 CVA; Diabetes - NIDDM; Hypertension; Seizures; hb - Immunization history:: Adult Immunizations up to date. - Social history:: Smoking status: Patient denies any tobacco usage or history of. - Family history:: not pertinent. - Hospitalizations: : No recent hospitalization is reported. ROS: 09:45 Constitutional: Negative for fever, chills Eyes: Negative for injury, pain, redness, rn and discharge, Cardiovascular: Negative for chest pain, palpitations, and edema, Respiratory: Negative for shortness of breath, cough, wheezing, and pleuritic chest pain, Abdomen/GI: Negative for abdominal pain, nausea, vomiting, diarrhea, and constipation, Back: Negative for injury and pain, : + unable to urinate today MS/Extremity: Negative for injury and deformity, Skin: Negative for injury, rash, and discoloration, Neuro: Negative for headache, and seizure. Exam: 09:45 Constitutional: Thin male, no acute distress, alert, answering questions Head/Face: rn Normocephalic, atraumatic. ENT: dry MM Cardiovascular: Regular rate and rhythm. No pulse deficits. Respiratory: No increased work of breathing, no retractions or nasal flaring. Abdomen/GI: soft, non-tender MS/ Extremity: Pulses equal, no cyanosis. Neuro: Awake, alert, follows commands and answers all questions. Vital Signs: 09:46 BP 86 / 65; Pulse 59; Resp 16; Temp 97.1; Pulse Ox 100% on R/A; Weight 45.36 kg; Height hb 5 ft. 5 in. (165.10 cm); Pain 0/10; 10:46 BP 104 / 71; Pulse 53; Resp 18; Pulse Ox 100% on R/A; Pain 0/10; em 12:00 BP 107 / 77; Pulse 47; Resp 14; Pulse Ox 99% ; hb 13:00 BP 116 / 87; Pulse 46; Resp 17; Pulse Ox 99% on R/A; hb 14:00 BP 120 / 85; Pulse 45; Resp 15; Pulse Ox 99% on R/A; hb 15:00 BP 122 / 98; Pulse 48; Resp 17; Pulse Ox 99% on R/A; hb 16:00 BP 131 / 98; Pulse 49; Resp 17; Pulse Ox 99% ; hb 17:00 BP 148 / 98; Pulse 48; Resp 18; Pulse Ox 99% on R/A; hb 18:00 BP 155 / 105; Pulse 50; Resp 17; Pulse Ox 100% on R/A; hb 09:46 Body Mass Index 16.64 (45.36 kg, 165.10 cm) hb MDM: 09:43 Patient medically screened. rn 12:13 ED course: Delay 2/2 difficulty with lab draw. . rn 16:17 Differential diagnosis: urinary retention, UTI, dehydration. Data reviewed: vital rn signs, nurses notes, lab test result(s), and as a result, I will discharge patient. Counseling: I had a detailed discussion with the patient and/or guardian regarding: the historical points, exam findings, and any diagnostic results supporting the discharge/admit diagnosis, lab results, the need for outpatient follow up, to return to the emergency department if symptoms worsen or persist or if there are any questions or concerns that arise at home. Response to treatment: the patient's symptoms have markedly improved after treatment, patient is well hydrated. and as a result, I will discharge patient. Special discussion: I discussed with the patient/guardian in detail that at this point there is no indication for admission to the hospital. It is understood, however, that if the symptoms persist or worsen the patient needs to return immediately for re-evaluation. ED course: Pt improved, urinated 500ml on his own.. 04/06 09:44 Order name: BMP; Complete Time: 13:04 rn 04/06 09:45 Order name: Urine Microscopic Only rn 04/06 09:44 Order name: Bladder Scanner; Complete Time: 09:51 rn 04/06 09:44 Order name: IV Start; Complete Time: 11:15 rn 04/06 09:45 Order name: Urine Dipstick-Ancillary (obtain specimen); Complete Time: 16:13 rn 04/06 10:51 Order name: Labs - recollect needed: recollect c7; Complete Time: 11:15 bd 04/06 11:40 Order name: Labs - recollect needed: recollect c7. lab will recollect speciman; bd Complete Time: 11:59 Administered Medications: 10:17 Drug: NS 0.9% 1000 ml Route: IV; Rate: 1000 ml; Site: right forearm; hb 13:05 Follow up: IV Status: Completed infusion; IV Intake: 1000ml em 15:05 Drug: NS 0.9% 1000 ml Route: IV; Rate: 1000 ml; Site: right wrist; hb 17:00 Follow up: IV Status: Completed infusion; IV Intake: 1000ml em Disposition: 04/06/20 16:35 Discharged to Home. Impression: Dehydration. - Condition is Stable. - Discharge Instructions: Dehydration, Adult. - Medication Reconciliation Form, Thank You Letter, Antibiotic Education, Prescription Opioid Use form. - Follow up: Private Physician; When: As needed; Reason: Recheck today's complaints, Re-evaluation by your physician. - Problem is new. - Symptoms have improved. Signatures: Dispatcher [employer] EDInez Salinas Edgar, RN Yariel Khan MD MD rn Baxter, Heather, RN RN Corrections: (The following items were deleted from the chart) 19:21 16:35 04/06/2020 16:35 Discharged to Home. Impression: Dehydration. Condition is em Stable. Forms are Medication Reconciliation Form, Thank You Letter, Antibiotic Education, Prescription Opioid Use. Follow up: Private Physician; When: As needed; Reason: Recheck today's complaints, Re-evaluation by your physician. Problem is new. Symptoms have improved. rn
--- NOTE | 2020-04-06 16:35 | ER ---
Nurse's Notes [facility] Name: Deric Sheriff Age: 54 yrs Sex: Male : 1965 Arrival Date: 04/06/2020 Time: 09:43 Bed 7 Private MD: Diagnosis: Dehydration Presentation: 04/06 09:46 Chief complaint: EMS states: Difficulty urinating x 2 days. Coronavirus screen: Proceed hb with normal triage. Ebola Screen: No symptoms or risks identified at this time. Initial Sepsis Screen: Does the patient meet any 2 criteria? Systolic BP < 90 mmHg. No. Patient's initial sepsis screen is negative. Does the patient have a suspected source of infection? No. Patient's initial sepsis screen is negative. Risk Assessment: Do you want to hurt yourself or someone else? Patient reports no desire to harm self or others. Onset of symptoms was April 05, 2020. 09:46 Method Of Arrival: EMS: [facility] 09:46 Acuity: HODAN 2 hb Historical: - Allergies: 09:48 Lotrel; hb - Home Meds: 09:48 citalopram 20 mg tab 1 tab once daily [Active]; aspirin 81 mg Oral chew 1 tab once hb daily [Active]; atorvastatin 40 mg Oral tab 1 tab nightly [Active]; baclofen 10 mg Oral tab 1 tab 3 times per day [Active]; clonidine HCl 0.1 mg Oral tab 1 tab 3 times per day [Active]; enalapril maleate 20 mg Oral tab 1 tab once daily [Active]; levetiracetam 750 mg Oral tab 1 tab 2 times per day [Active]; lisinopril 20 mg Oral tab 1 tab twice a day [Active]; metoprolol tartrate 50 mg Oral tab 1 tab 2 times per day [Active]; Plavix 75 mg Oral tab 1 tab once daily [Active]; senna 8.6 mg Oral cap nightly [Active]; tamsulosin 0.4 mg Oral cp24 1 cap nightly [Active]; - PMHx: 09:48 CVA; Diabetes - NIDDM; Hypertension; Seizures; hb - Immunization history:: Adult Immunizations up to date. - Social history:: Smoking status: Patient denies any tobacco usage or history of. - Family history:: not pertinent. - Hospitalizations: : No recent hospitalization is reported. Screenin:50 Abuse screen: Denies threats or abuse. Nutritional screening: No deficits noted. em Tuberculosis screening: No symptoms or risk factors identified. Fall Risk Secondary diagnosis (15 points) impaired mobility, CVA, IV access (20 points). Ambulatory Aid- None/Bed Rest/Nurse Assist (0 pts). Total Jain Fall Scale indicates Low Risk Score (25-44 pts). Side Rails Up X 2 Placed close to Nursing Station. Assessment: 12:12 Reassessment: lab at bedside recollecting labs. em 13:30 Reassessment: Patient appears in no apparent distress at this time. Patient and/or hb family updated on plan of care and expected duration. Pain level reassessed. Patient is alert, oriented x 3, equal unlabored respirations, skin warm/dry/pink. 14:31 Reassessment: Patient appears in no apparent distress at this time. Patient and/or hb family updated on plan of care and expected duration. Pain level reassessed. Patient is alert, oriented x 3, equal unlabored respirations, skin warm/dry/pink. 16:00 Reassessment: Patient appears in no apparent distress at this time. Patient and/or hb family updated on plan of care and expected duration. Pain level reassessed. Patient is alert, oriented x 3, equal unlabored respirations, skin warm/dry/pink. 17:00 Reassessment: Patient appears in no apparent distress at this time. Patient and/or hb family updated on plan of care and expected duration. Pain level reassessed. Patient is alert, oriented x 3, equal unlabored respirations, skin warm/dry/pink. 18:00 Reassessment: Patient appears in no apparent distress at this time. Patient and/or hb family updated on plan of care and expected duration. Pain level reassessed. Patient is alert, oriented x 3, equal unlabored respirations, skin warm/dry/pink. 18:49 Reassessment: Discharge ordered, awaiting ems transfer home. Vital Signs: 09:46 BP 86 / 65; Pulse 59; Resp 16; Temp 97.1; Pulse Ox 100% on R/A; Weight 45.36 kg; Height hb 5 ft. 5 in. (165.10 cm); Pain 0/10; 10:46 BP 104 / 71; Pulse 53; Resp 18; Pulse Ox 100% on R/A; Pain 0/10; em 12:00 BP 107 / 77; Pulse 47; Resp 14; Pulse Ox 99% ; hb 13:00 BP 116 / 87; Pulse 46; Resp 17; Pulse Ox 99% on R/A; hb 14:00 BP 120 / 85; Pulse 45; Resp 15; Pulse Ox 99% on R/A; hb 15:00 BP 122 / 98; Pulse 48; Resp 17; Pulse Ox 99% on R/A; hb 16:00 BP 131 / 98; Pulse 49; Resp 17; Pulse Ox 99% ; hb 17:00 BP 148 / 98; Pulse 48; Resp 18; Pulse Ox 99% on R/A; hb 18:00 BP 155 / 105; Pulse 50; Resp 17; Pulse Ox 100% on R/A; hb 09:46 Body Mass Index 16.64 (45.36 kg, 165.10 cm) hb ED Course: 09:43 Patient arrived in ED. rn 09:43 Yariel Orozco MD is Attending Physician. rn 09:47 Triage completed. hb 09:48 Arm band placed on. hb 09:50 Patient has correct armband on for positive identification. Bed in low position. Call em light in reach. Side rails up X2. Pulse ox on. NIBP on. 09:51 Bladder scan completed. 110 mL. em 09:55 Lucia Flynn, RN is Primary Nurse. hb 10:15 Initial lab(s) drawn, by me, sent to lab. Inserted saline lock: 22 gauge in right em forearm, using aseptic technique. Blood collected. 11:16 Lab(s) recollected, by me, sent to lab. em 16:00 Urine collected: clean catch specimen, clear, yazmin colored, Amount Voided: 310mL. jp3 19:20 No provider procedures requiring assistance completed. IV discontinued, intact, em bleeding controlled, No redness/swelling at site. Pressure dressing applied. Administered Medications: 10:17 Drug: NS 0.9% 1000 ml Route: IV; Rate: 1000 ml; Site: right forearm; hb 13:05 Follow up: IV Status: Completed infusion; IV Intake: 1000ml em 15:05 Drug: NS 0.9% 1000 ml Route: IV; Rate: 1000 ml; Site: right wrist; hb 17:00 Follow up: IV Status: Completed infusion; IV Intake: 1000ml em Intake: 13:05 IV: 1000ml; Total: 1000ml. em 17:00 IV: 1000ml; Total: 2000ml. em Outcome: 16:35 Discharge ordered by . rn 19:20 Discharged to home via ambulance. em 19:20 Condition: stable 19:20 Discharge instructions given to patient, Instructed on discharge instructions, follow up and referral plans. Demonstrated understanding of instructions, follow-up care. 19:21 Patient left the ED. em Signatures: Jaime Rdz RN RN em Yariel Orozco MD MD rn Baxter, Heather, RN RN hb Pisarski, Jacob jp3 Corrections: (The following items were deleted from the chart) 16:08 16:07 Reassessment: Patient appears in no apparent distress at this time. hb hb
[2020-04-06 16:55] LABS: Urine Bacteria <20 /HPF (NONE SEEN); Urine Culture Reflex Order NOT NEEDED; Urine RBC <5 /HPF (NONE SEEN)
[2020-04-06 19:41] VITALS: TEMP 97.1
[2020-04-06 19:56] VITALS: BP 155/105; O2SAT 100
== END 2020-04-06 19:21 | disposition home or self-care (01) ==
LOC: ER 09:41
DX: E86.0 Dehydration (principal); I10 Essential (primary) hypertension; E11.9 Type 2 diabetes mellitus without complications; R56.9 Unspecified convulsions; Z88.8 Allergy status to other drugs, medicaments and biological substances
CPT/HCPCS: 96361; 80048; 36415; 81015; 96360; 99284; J7030 ×2

== ENCOUNTER 2020-05-04 10:08 | Inpatient (IN) | payer MEDICARE ==
[2020-05-04 11:03] LABS: Absolute Lymphocytes (CBC) 1.9 K/uL (0.7-4.9); Basophils % 0.6 % (0-1.3); Hematocrit 40.7 % (39.6-49.0); Lymphocytes % 23.4 % (15.3-44.8); MPV 9.7 fL (7.6-11.3); RBC Red Blood Cell Count 4.68 M/uL (4.33-5.43)
[2020-05-04 11:18] LABS: BUN Blood Urea Nitrogen 22 mg/dL (7-18); Bicarbonate 27 mmol/L (21-32); Glucose Level 104 mg/dL (74-106); Potassium 3.9 mmol/L (3.5-5.1); Sodium Level 140 mmol/L (136-145)
--- NOTE | 2020-05-04 11:51 | RAD REPORT ---
EXAM DESCRIPTION: RAD - Foot Left 3 View - 05/04/2020 11:11 am CLINICAL HISTORY: Left Foot pain FINDINGS: No fracture or dislocation is seen. Soft tissue ulceration lateral forefoot Cortical regularity involves the base of the fifth metatarsal which may indicate osteomyelitis
--- NOTE | 2020-05-04 12:14 | ER ---
Nurse's Notes [facility] Name: Deric Sheriff Age: 54 yrs Sex: Male : 1965 Arrival Date: 05/04/2020 Time: 10:12 Bed 6 Private MD: Diagnosis: Osteomyelitis Presentation: 05/04 10:29 Chief complaint: report from wound healing nurse, pt missed his appt with Dr. 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 Borden tomorrow, told nurse she did not want to miss his bath aide tomorrow so she came to Er for evaluation, pt afebrile. Coronavirus screen: Proceed with normal triage. Patient denies a cough. Patient denies shortness of breath or difficulty breathing. Patient denies measured and/or subjective temperature greater than 100.4F prior to today's visit. Patient denies travel on a cruise ship or to a country the [facility] currently lists as an affected area. Patient denies contact with known and/or suspected case of COVID-19. Ebola Screen: Patient negative for fever greater than or equal to 101.5 degrees Fahrenheit, and additional compatible Ebola Virus Disease symptoms Patient denies exposure to infectious person. Patient denies travel to an Ebola-affected area in the 21 days before illness onset. No symptoms or risks identified at this time. Initial Sepsis Screen: Does the patient meet any 2 criteria? No. Patient's initial sepsis screen is negative. Does the patient have a suspected source of infection?. Risk Assessment: Do you want to hurt yourself or someone else? Patient reports no desire to harm self or others. Onset of symptoms was March 2020. 10:29 Method Of Arrival: Wheelchair iw 10:29 Acuity: HODAN 3 iw Historical: - Allergies: 10:35 Lotrel; iw - Home Meds: 10:35 aspirin 81 mg Oral chew 1 tab once daily [Active]; atorvastatin 40 mg Oral tab 1 tab iw nightly [Active]; baclofen 10 mg Oral tab 1 tab 3 times per day [Active]; citalopram 20 mg tab 1 tab once daily [Active]; clonidine HCl 0.1 mg Oral tab 1 tab 3 times per day [Active]; enalapril maleate 20 mg Oral tab 1 tab once daily [Active]; levetiracetam 750 mg Oral tab 1 tab 2 times per day [Active]; lisinopril 20 mg Oral tab 1 tab twice a day [Active]; metoprolol tartrate 50 mg Oral tab 1 tab 2 times per day [Active]; Plavix 75 mg Oral tab 1 tab once daily [Active]; senna 8.6 mg Oral cap nightly [Active]; tamsulosin 0.4 mg Oral cp24 1 cap nightly [Active]; - PMHx: 10:35 CVA; Hypertension; Diabetes - NIDDM; Seizures; iw - Family history:: not pertinent. - Hospitalizations: : No recent hospitalization is reported. Screenin:40 Abuse screen: Denies threats or abuse. Nutritional screening: No deficits noted. em Tuberculosis screening: No symptoms or risk factors identified. Fall Risk None identified. Assessment: 10:40 General: Appears in no apparent distress. comfortable, Behavior is calm, cooperative, em appropriate for age, Denies fever. Pain: Denies pain. Neuro: Level of Consciousness is awake, alert, obeys commands, Oriented to person, place, time, Gifts Officer are weak on left Weakness in left arm(s) leg(s) previous CVA from 5 years ago. Cardiovascular: Capillary refill < 3 seconds Patient's skin is warm and dry. Respiratory: Airway is patent Respiratory effort is even, unlabored, Respiratory pattern is regular, symmetrical. GI: Patient currently denies nausea, vomiting. Derm: Skin is intact, is healthy with good turgor, Skin is pink, warm \T\ dry. Wound noted lateral side of left foot and dorsum of left foot. Musculoskeletal: Capillary refill < 3 seconds. 12:07 Reassessment: Patient appears in no apparent distress at this time. Patient and/or em family updated on plan of care and expected duration. Pain level reassessed. Patient is alert, oriented x 3, equal unlabored respirations, skin warm/dry/pink. 12:10 Reassessment: Dr. Mathur at bedside. em 13:51 Reassessment: Patient appears in no apparent distress at this time. Patient and/or em family updated on plan of care and expected duration. Pain level reassessed. Patient is alert, oriented x 3, equal unlabored respirations, skin warm/dry/pink. Vital Signs: 10:29 BP 115 / 83; Pulse 69; Resp 16; Temp 98.7; Pulse Ox 98% on R/A; iw 12:08 BP 129 / 96; Pulse 55; Resp 16; Pulse Ox 100% on R/A; em 13:30 BP 145 / 95; Pulse 51; Resp 18; Pulse Ox 99% on R/A; em ED Course: 10:12 Patient arrived in ED. mr 10:17 Yariel Orozco MD is Attending Physician. rn 10:32 Triage completed. iw 10:34 Jaime Rdz, RN is Primary Nurse. em 10:40 Arm band placed on. iw 10:40 Patient has correct armband on for positive identification. Bed in low position. Call em light in reach. Side rails up X2. Pulse ox on. NIBP on. 10:45 Initial lab(s) drawn, by vt, sent to lab. First set of blood cultures drawn by me. 3 Inserted saline lock: 20 gauge in right antecubital area, using aseptic technique. Blood collected. 10:50 Second set of blood cultures drawn by me. 3 10:51 Wound culture swab sent to lab. 3 11:11 XRAY Foot LEFT 3 View In Process Unspecified. EDMS 12:12 Richard Mathur DO is Hospitalizing Provider. rn 13:49 No provider procedures requiring assistance completed. Patient admitted, IV remains in em place. Administered Medications: No medications were administered Outcome: 12:12 Decision to Hospitalize by Provider. rn 13:49 Admitted to Med/surg accompanied by tech, via stretcher, room 209, with chart, Report em called to ASHLEY Barrera 13:49 Condition: good 13:49 Instructed on the need for admit, Demonstrated understanding of instructions. 14:30 Patient left the ED. Signatures: Dispatcher [facility] [place] Sera Bagley mr Jaime Rdz RN RN em Williams, Irene, RN RN Yariel Orozco MD MD rn Baxter, Heather, RN RN Kylee Ann formerly [facility]
--- NOTE | 2020-05-04 12:14 | EDPHYS ---
Physician Documentation [facility] Name: Deric Sheriff Age: 54 yrs Sex: Male : 1965 Arrival Date: 05/04/2020 Time: 10:12 Bed 6 Private MD: ED Physician Yariel Orozco HPI: 05/04 10:32 This 54 yrs old Male presents to ER via Unassigned with complaints of Wound rn Check. 10:32 This 54 yrs old Male presents to ER via Unassigned with complaints of possible rn infection. 10:32 Description: draining. Onset: The symptoms/episode began/occurred at an unknown time. rn Possible cause(s): unknown. Modifying factors: the symptoms are alleviated by nothing, the symptoms are aggravated by nothing. Severity of symptoms: At their worst the symptoms were mild, in the emergency department the symptoms are unchanged. The patient has not experienced similar symptoms in the past. The patient has been recently seen by a physician:. reports wounds to left foot, is side he is weak form previous stroke, reports a few weeks of enlarging wounds, but for about 3 days now seems to be draining more. Patient not able to feel anything on that side either, so denies pain. Seen by Dr. Klein last week, given appt for wound care, came today, sent here for further eval given concern of infection. . Historical: - Allergies: 10:35 Lotrel; iw - Home Meds: 10:35 aspirin 81 mg Oral chew 1 tab once daily [Active]; atorvastatin 40 mg Oral tab 1 tab iw nightly [Active]; baclofen 10 mg Oral tab 1 tab 3 times per day [Active]; citalopram 20 mg tab 1 tab once daily [Active]; clonidine HCl 0.1 mg Oral tab 1 tab 3 times per day [Active]; enalapril maleate 20 mg Oral tab 1 tab once daily [Active]; levetiracetam 750 mg Oral tab 1 tab 2 times per day [Active]; lisinopril 20 mg Oral tab 1 tab twice a day [Active]; metoprolol tartrate 50 mg Oral tab 1 tab 2 times per day [Active]; Plavix 75 mg Oral tab 1 tab once daily [Active]; senna 8.6 mg Oral cap nightly [Active]; tamsulosin 0.4 mg Oral cp24 1 cap nightly [Active]; - PMHx: 10:35 CVA; Hypertension; Diabetes - NIDDM; Seizures; iw - Family history:: not pertinent. - Hospitalizations: : No recent hospitalization is reported. ROS: 10:32 Constitutional: Negative for fever, chills, and weight loss, Eyes: Negative for injury, rn pain, redness, and discharge, Cardiovascular: Negative for chest pain, palpitations, and edema, Respiratory: Negative for shortness of breath, cough, wheezing, and pleuritic chest pain, Abdomen/GI: Negative for abdominal pain, nausea, vomiting, diarrhea, and constipation, MS/Extremity: Negative for injury and deformity, Skin: + open draining wounds to left foot Neuro: Negative for headache, and seizure. Exam: 10:32 Constitutional: Thin male, no acute distress, more alert than previous visits I have rn seen him for AMS. Head/Face: Normocephalic, atraumatic. ENT: dry MM Cardiovascular: Regular rate and rhythm. No pulse deficits. Respiratory: No increased work of breathing, no retractions or nasal flaring. Abdomen/GI: Soft, non-tender Skin: Warm, left lateral foot with irregular open wound, beefy red edges with fibrinous/possibly purulent drainage that is able to be expressed, central black tissue. No fluctuance. No tenderness. No streaking. Dorsal left foot with smaller wound with similar black central tissue. MS/ Extremity: Pulses equal, no cyanosis. Neuro: Awake, alert, baseline left sided paralysis and decreased sensation left side of body. Vital Signs: 10:29 BP 115 / 83; Pulse 69; Resp 16; Temp 98.7; Pulse Ox 98% on R/A; iw 12:08 BP 129 / 96; Pulse 55; Resp 16; Pulse Ox 100% on R/A; em 13:30 BP 145 / 95; Pulse 51; Resp 18; Pulse Ox 99% on R/A; em MDM: 10:17 Patient medically screened. rn 12:11 Differential diagnosis: cellulitis, osteomyelitis. Data reviewed: vital signs, nurses rn notes, lab test result(s), radiologic studies, plain films, and as a result, I will admit patient. Counseling: I had a detailed discussion with the patient and/or guardian regarding: the historical points, exam findings, and any diagnostic results supporting the discharge/admit diagnosis, lab results, radiology results, the need for further work-up and treatment in the hospital. Admission orders: after a detailed discussion of the patient's condition and case, the admit orders are written by me. ED course: Pt with signs of osteomyelitis, worsening wounds, will admit to Dr. juarez for further osteo w/u and possible wound debridement. . 05/04 10:31 Order name: CBC with Diff; Complete Time: 11:07 rn 05/04 10:31 Order name: Basic Metabolic Panel; Complete Time: 11:28 rn 05/04 10:31 Order name: Procalcitonin; Complete Time: 11:41 rn 05/04 10:31 Order name: Blood Culture Adult (2) rn 05/04 10:31 Order name: Wound Culture rn 05/04 10:31 Order name: XRAY Foot LEFT 3 View; Complete Time: 11:55 rn 05/04 10:31 Order name: IV Start; Complete Time: 10:51 rn Administered Medications: No medications were administered Disposition: 05/04/20 12:12 Hospitalization ordered by Richard Juarez for Inpatient Admission. Preliminary diagnosis is Osteomyelitis. - Bed requested for Telemetry/MedSurg (Inpatient). - Status is Inpatient Admission. hb - Condition is Stable. - Problem is an ongoing problem. - Symptoms are unchanged. Signatures: Dispatcher [employer] EDIndira Wong, RN ASHLEY Yariel Orozco MD MD rn Baxter, Heather, RN RN hb Botello, Elizabeth eb Corrections: (The following items were deleted from the chart) 12:52 12:12 Hospitalization Ordered by Richard Juarez DO for Inpatient Admission. Preliminary eb diagnosis is Osteomyelitis. Bed requested for Telemetry/MedSurg (Inpatient). Status is Inpatient Admission. Condition is Stable. Problem is an ongoing problem. Symptoms are unchanged. rn 14:30 12:52 05/04/2020 12:12 Hospitalization Ordered by Richard Juarez DO for Inpatient hb Admission. Preliminary diagnosis is Osteomyelitis. Bed requested for Telemetry/MedSurg (Inpatient). Status is Inpatient Admission. Condition is Stable. Problem is an ongoing problem. Symptoms are unchanged. eb
--- OUTSIDE RECORDS SUMMARY | 2020-05-04 12:53 | XMS REPORT | Clinical Summary ---
:1965 Author Organization [facility] Address [address] [place] [address] Care Team Providers Name Role Phone Pcp, [...] Not on file Results Not on fileafter 05/04/2019 Insurance Payer Benefit Plan / Group Subscriber ID Type Phone A ddress [facility] - MEDICARE [facility]/MEDICARE COMPLETE xxxxxxxxx MGD CARE Advance Directives For more information, please contact:[address] [phone] Code Status Date Activated Date Inactivated Comments Full Code 10/14/2018 11:16 AM This code status was determined by: Patient
--- OUTSIDE RECORDS SUMMARY | 2020-05-04 12:57 | XMS REPORT | Continuity of Care Document ---
:1965 Author Organization Formerly [facility] t Address [address] [place] [address] Care Team Providers Name Role Phone Pcp Primary Care Physician Unavailable DELANO CONWAY Attending Clinician Unavailable DELANO CONWAY Admitting Clinician Unavailable Problems Condition Condition Condition Status Onset Resolution Last Treating Co mments Source Name Details Category Date Date Treatment Clinician Date RSV (acute RSV (acute Disease Active 2017-[address] bronchioli bronchioli 12-16 Paige kes - tis due to tis due to 00:00: Me dical respirator respirator 00 Ce nter y y syncytial syncytial virus) virus) Respirator Respirator Disease Active 2017-[address] y failure y failure 12-15 Luke s - requiring requiring 00:00: Medi reba intubation intubation 00 Ce nter Status Status Disease Active 2017-[address] [facility] epilepticu epilepticu 12-14 Paige kes - s s 00:00: Medical 00 [place] Severe Severe Disease Active 2017-[address] [facility] sepsis sepsis 12-14 [facility] - with with 00:00: Medical septic septic 00 [place] shock shock Allergies, Adverse Reactions, Alerts Allergy Allergy Status Severity Reaction(s) Onset Inactive Treating Comm ents Source Name Type Date Date Clinician Amlodipi Drug Active 2017-[address] [facility] [address] ne-Benaz Allergy 12-14 [facility] - epril 00:00: Medical 00 [place] Social History Social Habit Start Date Stop Date Quantity Comments Source Sex Assigned At [facility] Smoking Status Start Date Stop Date Source Never smoker [facility] Medications Ordered Filled Start Stop Current Ordering Indication Dosage Frequency Signature Comments Components Source Medication Medication Date Date Medication? Clinician (SIG) Name Name aspirin 81 2017-11 2019- No 81mg QD Take [address] [facility] MG chewable -03 31-05 tablet (81 L ukes - tablet 00:00: 23:59 mg total) Medic al 00 :00 by mouth Center daily. clopidogrel 2017-11- No 75mg QD Take [address] [facility] (PLAVIX) 75 2-03 31-05 tablet (75 L ukes - mg tablet 00:00: 23:59 mg total) Me dical 00 :00 by mouth Center daily. citalopram 2017-11- No 20mg QD Take [address] [facility] (CELEXA) 20 12-25- tablet (20 L ukes - MG tablet 00:00: 23:59 mg total) Me dical 00 :00 by mouth Center daily. sodium 2017-11 Yes 10mL Q.5D [address] [facility] chloride 2-04 Intra-Cath [facility] - 0.9%, NS, 00:00: eter route Me dical injection 00 2 (two) Center times daily. sodium 2017-11 Yes 5mL [address] [facility] chloride 2-04 Intra-Cath [facility] - 0.9%, NS, 00:00: eter route Me dical injection 00 every 8 Center (eight) hours. melatonin 3 2017-11 Yes 3mg Take [address] [facility] mg Tab 2-04 tablet (3 [facility] - tablet 00:00: mg total) Medica l 00 by mouth Center every night as needed. atorvastati 2017-11- No 40mg QD Take [address] [facility] n (LIPITOR) 2- 12-04 tablet (40 L ukes - 40 MG 00:00: 23:59 mg total) Medica l tablet 00 :00 by mouth Center nightly. senna 2017-11- No 8.6mg QD Take [address] [facility] [address] (SENOKOT) 2- 12-04 tablet [facility] - 8.6 mg 00:00: 23:59 (8.6 mg Medical tablet 00 :00 total) by Center mouth nightly. metoprolol 2017-11- No 25mg Q.5D Take [address] [facility] (LOPRESSOR) 2- 12-04 tablet (25 L ukes - 25 MG 00:00: 23:59 mg total) Medica l tablet 00 :00 by mouth 2 Center (two) times daily. lisinopril 2017-11- No 20mg Q.5D Take [address] [facility] [address] (PRINIVIL,Z 12-24 tablet (20 L ukes - ESTRIL) 20 00:00: 23:59 mg total) M edical MG tablet 00 :00 by mouth 2 Cent er (two) times daily. levETIRAcet 2017-11- No 750mg Q.5D Take [address] [facility] (KEPPRA) 12-24 tablet [facility] - 750 MG 00:00: 23:59 (750 mg Medical tablet 00 :00 total) by Center mouth 2 (two) times daily. Procedures This patient has no known procedures. Results Test Description Test Time Test Comments Results Result Comments Source VIRUS CULTURE 2018-11-05 07:31:00 Test Item Value Reference Range Interpretation Comme nts CULTURE ([facility]) (test code = 1095) No virus isolated POCT-GLUCOSE [id number] 11:50:00 Test Item Value Reference Range Interpretation Comments POC-GLUCOSE METER 155 mg/dL 70-110 H TESTED AT [place] [address] ([facility]) (test code = [facility] 1538) [id number] POCT-GLUCOSE [id number] 08:22:00 Test Item Value Reference Range Interpretation Comments POC-GLUCOSE METER 124 mg/dL 70-110 H TESTED AT [place] [address] ([facility]) (test code = [facility] 1538) [address] BASIC METABOLIC [id number] 06:33:00 Test Item Value Reference Range Interpretation Comments SODIUM (AKER) 139 meq/L 136-145 (test code = 381) POTASSIUM (BEAKER) 3.8 meq/L 3.5-5.1 (test code = 379) CHLORIDE (BEAKER) 109 meq/L 98-107 H (test code = 382) CO2 (BEAKER) (test 23 meq/L 22-29 code = 355) BLOOD UREA NITROGEN 14 mg/dL 7-21 ([facility]) (test code = 354) CREATININE (BEAKER) 0.79 mg/dL 0.57-1.25 (test code = 358) GLUCOSE RANDOM 114 mg/dL 70-105 H ([facility]) (test code = 652) CALCIUM (BEAKER) 8.8 mg/dL 8.4-10.2 (test code = 697) EGFR ([facility] (test 103 mL/min/1.73 ESTIM ATED GFR IS code = 1092) sq m NOT ACCURATE CREATININE CLEARANCE IN PREDICTING GLOMERULAR FILTRATION RATE . ESTIMATED GFR I S NOT APPLICABLE FOR DIALYSIS PATIEN TS. CBC W/PLT COUNT & AUTO [id number] 05:27:00 Test Item Value Reference Range Interpretation [...] PERCENT (BEAKER) (test code = 2801) POCT-GLUCOSE [id number] 22:10:00 Test Item Value Reference Range Interpretation Comments POC-GLUCOSE METER 149 mg/dL 70-110 H TESTED AT [place] [address] ([facility]) (test code = [facility] 1538) [address] POCT-GLUCOSE [id number] 17:37:00 Test Item Value Reference Range Interpretation Comments POC-GLUCOSE METER 167 mg/dL 70-110 H TESTED AT [place] [address] ([facility]) (test code = [facility] 1538) [address] POCT-GLUCOSE [id number] 13:43:00 Test Item Value Reference Range Interpretation Comments POC-GLUCOSE METER 152 mg/dL 70-110 H TESTED AT [place] [address] ([facility]) (test code = [facility] 1538) [address] FL, ESOPH, SWALLOW FUNCTION, WITH CINE OR [id number] 10:29:00Reason for exam:->dysphagiaFINAL REPORT Modified barium swallow [...] details. Signed: Ronnell Smith MDReport Verified Date/Time: 10/22/2018 10:29:46 Reading Location: [facility] C0X [facility] Consult Reading Room BASIC METABOLIC [id number] 06:43:00 Test Item Value Reference Range Interpretation [...] PATIEN TS. CBC W/PLT COUNT & AUTO [id number] 06:22:00 Test Item Value Reference Range Interpretation [...] PERCENT (BEAKER) (test code = 2801) POCT-GLUCOSE [id number] 05:41:00 Test Item Value Reference Range Interpretation Comments POC-GLUCOSE METER 129 mg/dL 70-110 H TESTED AT [place] [address] ([facility]) (test code = DEMETRIO Mckeon [facility] 1538) [address] POCT-GLUCOSE [id number] 00:06:00 Test Item Value Reference Range Interpretation Comments POC-GLUCOSE METER 151 mg/dL 70-110 H TESTED AT [place] [address] (BEAKER) (test code = DEMETRIO Mckeon [facility] 1538) [address] POCT-GLUCOSE [id number] 18:38:00 Test Item Value Reference Range Interpretation Comments POC-GLUCOSE METER 131 mg/dL 70-110 H TESTED AT [place] [address] (BEAKER) (test code = DEMET[place]ke[address] [place] 1538) [address] POCT-GLUCOSE [id number] 13:34:00 Test Item Value Reference Range Interpretation Comments POC-GLUCOSE METER 134 mg/dL 70-110 H TESTED AT [place] [id number] (BEAKER) (test code = DEMETRI[address] Mckeon [place] 1538) [address] HEMOGLOBIN [id number] 08:11:00 Test Item Value Reference Range Interpretation Comments HEMOGLOBIN A1C (BEAKER) (test code = 6.5 % 4.3-6.1 H 368) BASIC METABOLIC [id number] 07:28:00 Test Item Value Reference Range Interpretation [...] = 2590) CBC W/PLT COUNT & AUTO [id number] 06:05:00 Test Item Value Reference Range Interpretation [...] PERCENT (BEAKER) (test code = 2801) POCT-GLUCOSE [id number] 05:52:00 Test Item Value Reference Range Interpretation Comments POC-GLUCOSE METER 139 mg/dL 70-[address] [facility] [address] ([facility]) (test code = [place] 1538) [address] POCT-GLUCOSE [id number] 00:36:00 Test Item Value Reference Range Interpretation Comments POC-GLUCOSE METER 130 mg/dL 70-[address] [facility] [address] ([facility]) (test code = [place] [place] 1538) [address] POCT-GLUCOSE [id number] 17:43:00 Test Item Value Reference Range Interpretation Comments POC-GLUCOSE METER 141 mg/dL 70-[address] [facility] [address] (BEAKER) (test code = [place] 1538) [address] (CELLAVISION MANUAL DIFF)2018-10-20 14:30:00 Test Item Value [...] comments: Slide comments:CBC W/PLT COUNT & AUTO [id number] 14:30:00 Test Item Value Reference Range Interpretation [...] 0-0 (BEAKER) (test code = 413) POCT-GLUCOSE [id number] 12:27:00 Test Item Value Reference Range Interpretation Comments POC-GLUCOSE METER 162 mg/dL 70-[address] [facility] [address] (BEAKER) (test code = [place] 1538) [address] BASIC METABOLIC [id number] 08:34:00 Test Item Value Reference Range Interpretation Comments SODIUM (BEAKER) 139 meq/L 136-145 (test code = 381) POTASSIUM (BEAKER) 3.4 meq/L 3.5-5.1 L (test code = 379) CHLORIDE (BEAKER) 108 meq/L 98-107 H (test code = 382) CO2 (BEAKER) (test 24 meq/L 22-29 code = 355) BLOOD UREA NITROGEN 8 mg/dL 7-21 (BEAKER) (test code = 354) CREATININE (BEAKER) 0.68 mg/dL 0.57-1.25 (test code = 358) GLUCOSE RANDOM 115 mg/dL 70-105 H ([facility]) (test code = 652) CALCIUM (BEAKER) 8.5 mg/dL 8.4-10.2 (test code = 697) EGFR ([facility]) (test 122 mL/min/1.73 ESTIM ATED GFR IS code = 1092) sq m NOT ACCURATE CREATININE CLEARANCE IN PREDICTING GLOMERULAR FILTRATION RATE . ESTIMATED GFR I S NOT APPLICABLE FOR DIALYSIS PATIEN TS. POCT-GLUCOSE [id number] 06:02:00 Test Item Value Reference Range Interpretation Comments POC-GLUCOSE METER 147 mg/dL 70-[address] [facility] [address] ([facility]) (test code = DEMETRIO Mckeon [facility] 1538) [address] POCT-GLUCOSE [id number] 00:43:00 Test Item Value Reference Range Interpretation Comments POC-GLUCOSE METER 122 mg/dL 70-[address] [facility] ([facility]) (test code = [facility]ADC Mike [facility] 1538) [address] RAD, ABDOMEN/KUB, 1 VIEW [id number] 23:27:00Reason for exam:->feeding tube placementFINAL REPORT CLINICAL HISTORY: feeding tube placement TECHNIQUE: RAD, ABDOMEN/KUB, 1 VIEW AP COMPARISON: AP radiograph of the abdomen dated 10/16/2018. FINDINGS: Interval advancement of the weighted tip feeding tube now terminating in the first portion of the duodenum.Nonobstructive bowel gas pattern without distended loops of bowel. Otherwise unchanged appearance of the abdomen. Signed: Jose Antonio Rosales [facility] Verified Date/Time: 10/19/2018 23:27:13 Reading Location: [address] Reading Room Electronically signed by: JOSE ANTONIO ROSALES MD on 018 11:27 PMCSF CULTURE + GRAM [id number] 18:01:00 Test Item Value Reference Range Interpretation Comments CULTURE (BEAKER) (test code No growth = 1095) GRAM STAIN RESULT (BEAKER) No WBCs (test code = 1123) GRAM STAIN RESULT ([facility]) No organisms seen (test code = 86734) POCT-GLUCOSE [id number] 17:33:00 Test Item Value Reference Range Interpretation Comments POC-GLUCOSE METER 105 mg/dL 70-110 TESTED AT [place] [address] ([facility]) (test code = DEMETRIO Mckeon [facility] 1538) [address] BLOOD [id number] 17:01:00 Test Item Value Reference Range Interpretation Comments CULTURE ([facility]) (test No growth in 5 days code = 1095) BLOOD [id number] 17:01:00 Test Item Value Reference Range Interpretation Comments CULTURE ([facility]) (test No growth in 5 days code = 1095) HSV 1/2 PCR, [id number] 13:20:00 Test Item Value Reference Range Interpretation Comments HSV BY PCR ([facility]) (test code = NEGATIVE NEGATIVE 334) Herpes [...] its performance characteristics determined by the [facility] Pathology Department, Section of Molecular Pathology. It has not been cleared or approved by the U.S. Food and Drug Administration (FDA), as FDA approval is not required for clinical use of the test. Validation was done as required by the Clinical Laboratory Amendments of 1988.POCT-GLUCOSE [id number] 12:33:00 Test Item Value Reference Range Interpretation Comments POC-GLUCOSE METER 129 mg/dL 70-110 H TESTED AT [place] [address] ([facility]) (test code = DEMETRIO Mckeon [facility] 1538) [address] CBC W/PLT COUNT & AUTO [id number] 08:06:00 Test Item Value Reference Range Interpretation Comments WHITE BLOOD CELL COUNT ([facility]) 8.0 K/ L 3.5-10.5 (test code = 775) RED BLOOD CELL COUNT ([facility]) 3.72 M/ L 4.63-6.08 L (test code = 761) HEMOGLOBIN ([facility]) (test code = 10.8 GM/DL 13.7-17.5 L [...] 3438) Received comment: User comments: Slide comments:POCT-GLUCOSE [id number] 06:21:00 Test Item Value Reference Range Interpretation Comments POC-GLUCOSE METER 113 mg/dL 70-[address] [facility] [address] (BEAKER) (test code = [place] 1538) [address] [id number] 04:04:00 Test Item Value Reference Range Interpretation Comments PHOSPHORUS (BEAKER) (test code = 2.0 mg/dL 2.3-4.7 L 604) [id number] 04:04:00 Test Item Value Reference Range Interpretation Comments MAGNESIUM (BEAKER) (test code = 2.1 mg/dL 1.6-2.6 627) BASIC METABOLIC [id number] 04:04:00 Test Item Value Reference Range Interpretation [...] NOT APPLICABLE FOR DIALYSIS PATIEN TS. POCT-GLUCOSE [id number] 23:53:00 Test Item Value Reference Range Interpretation Comments POC-GLUCOSE METER 122 mg/dL 70-[address] [facility] [address] (BEAKER) (test code = [place] 1538) [address] POCT-GLUCOSE [id number] 18:17:00 Test Item Value Reference Range Interpretation Comments POC-GLUCOSE METER 110 mg/dL 70-[address] [facility] [address] (BEAKER) (test code = DEMETRIO Mckeon [facility] 1538) [address] POCT-GLUCOSE [id number] 12:36:00 Test Item Value Reference Range Interpretation Comments POC-GLUCOSE METER 80 mg/dL 70-110 TESTED AT [place] [address] (BEAKER) (test code = DEMETRIO Mckeon [facility] [address] 1538) CBC W/PLT COUNT & AUTO [id number] 10:31:00 Test Item Value Reference Range Interpretation [...] 3438) Received comment: User comments: Slide comments:POCT-GLUCOSE [id number] 06:27:00 Test Item Value Reference Range Interpretation Comments POC-GLUCOSE METER 96 mg/dL 70-[address] [facility] [address] (BEAKER) (test code = [place] [address] 1538) [id number] 05:32:00 Test Item Value Reference Range Interpretation Comments PHOSPHORUS (BEAKER) (test code = 2.8 mg/dL 2.3-4.7 604) [id number] 05:32:00 Test Item Value Reference Range Interpretation Comments MAGNESIUM (BEAKER) (test code = 1.9 mg/dL 1.6-2.6 627) BASIC METABOLIC [id number] 05:32:00 Test Item Value Reference Range Interpretation [...] APPLICABLE FOR DIALYSIS PATIEN TS. BLOOD GAS, [id number] 05:08:00 Test Item Value Reference Range Interpretation [...] (test code = 1819) 35.0 % POCT-GLUCOSE [id number] 00:02:00 Test Item Value Reference Range Interpretation Comments POC-GLUCOSE METER 98 mg/dL 70-110 TESTED AT [place] [address] ([facility]) (test code = DEMETRIO Mckeon [facility] [address] 1538) VANCOMYCIN LEVEL, [id number] 19:23:00 Test Item Value Reference Range Interpretation Comments VANCOMYCIN TROUGH (BEAKER) (test 17.8 ug/mL 10.0-20.0 code = 522) POCT-GLUCOSE [id number] 18:19:00 Test Item Value Reference Range Interpretation Comments POC-GLUCOSE METER 101 mg/dL 70-110 TESTED AT [place] [address] ([facility]) (test code = DEMETRIO Mckeon [facility] 1538) [address] [id number] 17:29:00 Test Item Value Reference Range Interpretation Comments POTASSIUM (BEAKER) (test code = 3.4 meq/L 3.5-5.1 L 379) Check Serum Phosphorus level 4 hours after IV phosphorus replacement or 8 hours after PO replacementcompleted.Check Serum Potassium level 2 hours after oral potassium replacement completed or 30 min after intravenous potassium replacement.[id number] 17:29:00 Test Item Value Reference Range Interpretation Comments PHOSPHORUS (BEAKER) (test code = 1.9 mg/dL 2.3-4.7 L 604) Check Serum Phosphorus level 4 hours after IV phosphorus replacement or 8 hours after PO replacementcompleted.Check Serum Potassium level 2 hours after oral potassium replacement completed or 30 min after intravenous potassium replacement.[id number] 13:55:00 Test Item Value Reference Range Interpretation Comments POTASSIUM (BEAKER) (test code = 3.4 meq/L 3.5-5.1 L 379) POCT-GLUCOSE [id number] 13:13:00 Test Item Value Reference Range Interpretation Comments POC-GLUCOSE METER 95 mg/dL 70-110 TESTED AT [place] [address] ([facility]) ([facility] [address] 1538) SPUTUM CULTURE + GRAM [id number] 11:07:00 Test Item Value Reference Interpretation Comments Range CULTURE ([facility]) STAPHYLOCOCCUS A 1+ Staphy lococcus (test code [...] 0-5 epithelial (BEAKER) (test code = cells 124015) GRAM STAIN RESULT 2+ gram positive (BEAKER) (test code = cocci in chains 295019) and pairs 4+ normal respiratory romelia presentPOCT-GLUCOSE [id number] 06:37:00 Test Item Value Reference Range Interpretation Comments POC-GLUCOSE METER 105 mg/dL 70-[address] [facility] [address] (BEAKER) (test code = [place] 1538) [address] RAD, CHEST, 1 VIEW, NON [id number] 03:39:00Reason for exam:- >intubatedShould this be performed [...] MDReport Verified Date/Time: 10/17/2018 03:39:58 Reading Location: [address] Reading Room BLOOD GAS, [id number] 03:37:00 Test Item Value Reference Range Interpretation [...] (BEAKER) (test code = 1819) 35.0 % [id number] 03:22:00 Test Item Value Reference Range Interpretation Comments PHOSPHORUS (BEAKER) (test code = 0.8 mg/dL 2.3-4.7 LL 604) BASIC METABOLIC [id number] 03:20:00 Test Item Value Reference Range Interpretation [...] S NOT APPLICABLE FOR DIALYSIS PATIEN TS. [id number] 03:18:00 Test Item Value Reference Range Interpretation Comments MAGNESIUM (BEAKER) (test code = 1.8 mg/dL 1.6-2.6 627) CBC W/PLT COUNT & AUTO [id number] 03:02:00 Test Item Value Reference Range Interpretation [...] PERCENT (BEAKER) (test code = 2801) POCT-GLUCOSE [id number] 23:37:00 Test Item Value Reference Range Interpretation Comments POC-GLUCOSE METER 106 mg/dL 70-[address] [facility] [address] ([facility]) (test code = [place] 1538) [address] RAD, ABDOMEN/KUB, 1 VIEW [id number] 22:14:00Reason for exam:->Confirm corpak placementShould this be [...] vascular calcifications in the pelvis. Signed: Messi Ibarraeport Verified Date/Time: 10/16/2018 22:14:17 Reading Location: [facility] C013Y CT Body Reading Room [id number] 21:14:00 Test Item Value Reference Range Interpretation Comments POTASSIUM (BEAKER) (test code = 3.5 meq/L 3.5-5.1 379) [id number] 19:12:00 Test Item Value Reference Range Interpretation Comments PROCALCITONIN (BEAKER) (test code 0.99 ng/mL <0.05 H = 3036) SEPSIS RISK (ng/mL)Low: 0.05-0.50Intermediate: 0.51-2.00High: >=2.01POCT-GLUCOSE [id number] 18:15:00 Test Item Value Reference Range Interpretation Comments POC-GLUCOSE METER 124 mg/dL 70-[address] [facility] [address] (BEAKER) (test code = DEM[place]RI[place] Mike [place] 1538) [address] CSF CELL COUNT [id number] 15:55:00 Test Item Value Reference Range Interpretation [...] (BEAKER) (test 2 code = 2678) GLUCOSE, [id number] 15:37:00 Test Item Value Reference Range Interpretation Comments GLUCOSE CSF (BEAKER) (test code = 75 mg/dL 40-70 H 406) Save tube for future studies if neededSave tubes for further studies if needed PROTEIN, [id number] 15:37:00 Test Item Value Reference Range Interpretation Comments PROTEIN CSF (BEAKER) (test code = 41 mg/dL 15-45 378) Save tube for future studies if neededSave tubes for further studies if needed POCT-GLUCOSE [id number] 12:32:00 Test Item Value Reference Range Interpretation Comments POC-GLUCOSE METER 118 mg/dL 70-[address] [facility] [address] (BEAKER) (test code = [place] 1538) [address] RAD, CHEST, 1 VIEW, NON [id number] 12:07:00Reason for exam:->ETT positionShould this be performed [...] MDReport Verified Date/Time: 10/16/2018 12:07:46 Reading Location: [facility] Radiology Reading Room MR, BRAIN, WITHOUT [id number] 11:28:00FINAL REPORT MRI Brain without contrast Clinical [...] MDReport Verified Date/Time: 10/16/2018 11:28:39 Reading Location: [facility] C0[facility] Neuro Reading Room URINE [id number] 09:42:00 Test Item Value Reference Range Interpretation Comments CULTURE (MISSY) (test code = 1095) No growth POCT-GLUCOSE [id number] 06:44:00 Test Item Value Reference Range Interpretation Comments POC-GLUCOSE METER 128 mg/dL 70-[address] [facility] ([facility]) (test code = [place] 1538) [address] BASIC METABOLIC [id number] 06:11:00 Test Item Value Reference Range Interpretation [...] DIALYSIS PATIEN TS. LACTIC ACID, VENOUS, WHOLE [id number] 06:11:00 Test Item Value Reference Range Interpretation Comments LACTATE BLOOD VENOUS 1.3 mmol/L 0.5-2.2 Specime n slightly (2) (BEAKER) (test hemolyzed code = 3591) VANCOMYCIN LEVEL, [id number] 06:10:00 Test Item Value Reference Range Interpretation Comments VANCOMYCIN TROUGH (BEAKER) (test 16.7 ug/mL 10.0-20.0 code = 522) Draw 30 min prior to scheduled dose, HOLD if level > 20 mcg/mL, inform .CBC W/PLT COUNT & AUTO [id number] 06:09:00 Test Item Value Reference Range Interpretation [...] (BEAKER) (test code = 2801) BLOOD GAS, [id number] 05:49:00 Test Item Value Reference Range Interpretation Comments PH ARTERIAL (BEAKER) (test code = 7.41 7.35-7.45 383) PCO2 ARTERIAL (BEAKER) (test code 37 mmHg 35-45 = 384) PO2 ARTERIAL (BEAKER) (test code 68 mmHg 80-90 L = 385) O2 SATURATION ARTERIAL (BEAKER) 93.4 % 96.0-97.0 L (test code = 386) HCO3 ARTERIAL (AKER) (test code 23 mmol/L 21-29 = 388) BASE EXCESS ARTERIAL (AKER) -1.2 mmol/L -2.0-3.0 (test code = 387) PATIENT TEMPERATURE (AKER) 37.5 C (test code = 1818) FIO2 (AKER) (test code = 1819) 40.0 % RAD, CHEST, 1 VIEW, NON [id number] 03:52:00Reason for exam:- >intubatedShould this be performed [...] effusion. There is no pneumothorax. Signed: Messi Ibarraort Verified Date/Time: 10/16/2018 03:52:10 Reading Location: [address] Body Reading Room POCT-GLUCOSE METER 2018-10-16 02:45:00 Test Item Value Reference Range Interpretation Comments POC-GLUCOSE METER 115 mg/dL 70-[address] [facility] [address] ([facility]) (test code = DEMETRIO Mckeon [facility] 1538) [address] RAD, CHEST, 1 VIEW, NON [id number] 20:47:00Reason for exam:->check picc placement Should this [...] Floyd Verified Date/Time: 10/15/2018 20:47:08 Reading Location: [facility] Radiology Reading Room POCT-GLUCOSE [id number] 17:50:00 Test Item Value Reference Range Interpretation Comments POC-GLUCOSE METER 141 mg/dL 70-[address] [facility] [address] (BEAKER) (test code = DEMETRIO Mckeon [place] 1538) [address] BASIC METABOLIC [id number] 17:22:00 Test Item Value Reference Range Interpretation [...] NOT APPLICABLE FOR DIALYSIS PATIEN TS. CORTISOL,60 [id number] 16:54:00 Test Item Value Reference Range Interpretation [...] serum cortisollevel 60 minutes after cosyntropin administration.CORTISOL,30 [id number] 16:07:00 Test Item Value Reference Range Interpretation [...] a study by Peng et al (RONI 2000,283(8):9415-45), the ACTH Stimulation Test provides important prognostic [...] Draw serum cortisollevel 60 minutes after cosyntropin administration.CORTISOL,[id number] 15:25:00 Test Item Value Reference Range Interpretation [...] a study by Peng et al (RONI 2000,283(8):9448-42), the ACTH Stimulation Test provides important prognostic [...] cortisollevel 60 minutes after cosyntropin administration.BASIC METABOLIC [id number] 15:04:00 Test Item Value Reference Range Interpretation [...] 358) GLUCOSE RANDOM 144 mg/dL 70-105 H (BEAKER) (test code = 652) CALCIUM (BEAKER) 8.0 mg/dL 8.4-10.2 L (test code = 697) EGFR (MISSY) (test mL/min/1.73 INSUFFIC IENT CLINICAL code = 1092) sq m DATA TO CALCULA TE ESTIMATED GFR. EEG MONITORING WITH VIDEO RECORDING EACH 24 [id number] 14:33:00For STAT EEG- after 5 PM weekdays, weekends and holidays, page the on-call recovery operator helper Reason for exam:->concern for seizuresDATE OF REPORT: 10/15/2018 ACC: [id number]: [id number] time: 17:48 on 10/14/18top time: 09:44 on10/15/18ICD- 10: R56.9 CPT Code: 32606 HISTORY: 52 y/o male with DM, HTN, [...] Felice Pinedo M.D., RICH Professor of Neurology [facility] Director, [facility] Epilepsy [place], [facility] Neurophysiology Lab RAD, PELVIS, 1 OR 2 [id number] 14:11:00Reason for exam:->MRI clearanceShould this be performed [...] Verified Date/Time: 10/15/2018 14:11:06 Reading Location: [address] Consult Reading Room RAD, SKULL, LESS THAN 4 [id number] 14:08:00Reason for exam:->MRI clearanceShould this be performed [...] MDReport Verified Date/Time: 10/15/2018 14:08:11 Reading Location: [facility] C013 Consult Reading Room RAD, ABDOMEN/KUB, 1 VIEW [id number] 14:05:00Reason for exam:->clear for MRIShould this be [...] Jose Manuel e/Time: 10/15/2018 14:05:30 Reading Location: [facility] C013W Consult Reading Room ONIN [id number] 13:07:00 Test Item Value Reference Range Interpretation Comments TROPONIN I (MISSY) (test code = 0.05 ng/mL 0.00-0.03 H 397) POCT-GLUCOSE [id number] 12:51:00 Test Item Value Reference Range Interpretation Comments POC-GLUCOSE METER 166 mg/dL 70-[address] [facility] [address] [facility] (test code = DEMETRIO Mcke[place] 1538) [address] U/S, RENAL, [id number] 12:22:00Reason for exam:->alayna, UTI, sepsisShould this be [...] a more sensitive examination. Signed: Linda Hoover Verified Date/Time: 10/15/2018 12:22:41 Reading Location: [facility] P006J Ultrasound Reading Room RESPIRATORY PANEL [id number] 12:09:00 Test Item Value Reference Range Interpretation [...] sample was tested at the [facility] using the Mobiplex FilmArray Respiratory Panel. It is FDA cleared and has been verified and approved by the [facility] for clinical use on nasal swab specimens. It is not FDA-cleared for use on bronchial wash/lavage samples. However, for this sample type, validation was performed and test characteristics were determined and approved, by [facility] for clinical use under the Clinical Laboratory Improvement Amendments (CLIA) of 1988 requirements. Therefore, FDA clearance isnot required. This laboratory is CLIA- certified and [employer] (CAP)-accredited to perform high complexity testing.CREATINE KINASE (CK)2018-10-15 09:33:00 Test Item Value Reference Range Interpretation Comments CREATINE KINASE TOTAL (BEAKER) (test 1362 U/L 29-200 H code = 380) BLOOD GAS, [id number] 09:14:00 Test Item Value Reference Range Interpretation [...] = 1819) 21.0 % RAPID DRUG SCREEN, [id number] 08:24:00 Test Item Value Reference Range Interpretation [...] situations. Chain of custody not maintained. Some vdtf-bsa-zwtthnl medications, as well as adulterants, may cause inaccurate results. Clinical correlation should be applied. A more comprehensive drug screen or confirmation of a detected drug may be performed upon request. RAD, CHEST, 1 VIEW, NON [id number] 06:31:00Reason for exam:- >intubatedShould this be performed [...] no pneumothorax. Signed: Messi Ibarra Verified Date/Time: 10/15/2018 06:31:32 Reading Location: [address] Body Reading Room ONELLA ANTIGEN, [id number] 05:37:00 Test Item Value Reference Range Interpretation Comments L. PNEUMOPHILA Negative - see Negative fo r L. SEROGP 1 UR AG comment pneumophila (BEAKER) (test code serogrou p 1 antigen, = 1156) suggesting no r ecent or current infe ction with this serog roup. Legionellosis c annot be ruled out si nce other serogroup s and species may cau se disease. STREP PNEUMONIAE [id number] 05:36:00 Test Item Value Reference Range Interpretation [...] detection limit of the test. BLOOD GAS, [id number] 05:18:00 Test Item Value Reference Range Interpretation [...] (test code = 1819) 40.0 % TROPONIN [id number] 04:26:00 Test Item Value Reference Range Interpretation Comments TROPONIN I (BEAKER) (test code = 0.05 ng/mL 0.00-0.03 H 397) BASIC METABOLIC [id number] 04:23:00 Test Item Value Reference Range Interpretation [...] m DATA TO CALCULA TE ESTIMATED GFR. [id number] 04:23:00 Test Item Value Reference Range Interpretation Comments LIPASE (BEAKER) (test code = 749) < U/L 8-78 L B-TYPE NATRIURETIC FACTOR (BNP)2018-10-15 04:21:00 Test Item Value Reference Range Interpretation Comments B-TYPE NATRIURETIC PEPTIDE (BEAKER) 136 pg/mL 0-100 H (test code = 700) [id number] 04:19:00 Test Item Value Reference Range Interpretation Comments MAGNESIUM (BEAKER) (test code = 1.4 mg/dL 1.6-2.6 L 627) [id number] 04:19:00 Test Item Value Reference Range Interpretation Comments PHOSPHORUS (BEAKER) (test code = 2.2 mg/dL 2.3-4.7 L 604) HEPATIC FUNCTION [id number] 04:19:00 Test Item Value Reference Range Interpretation [...] = 19 U/L 6-55 347) VANCOMYCIN LEVEL, [id number] 04:18:00 Test Item Value Reference Range Interpretation Comments VANCOMYCIN RANDOM (BEAKER) (test 11.8 ug/mL code = 523) Reference Range: No NormalsLACTIC ACID, VENOUS, WHOLE [id number] 04:12:00 Test Item Value Reference Range Interpretation Comments LACTATE BLOOD VENOUS (2) (BEAKER) 1.4 mmol/L 0.5-2.2 (test code = 2872) CBC W/PLT COUNT & AUTO [id number] 04:02:00 Test Item Value Reference Range Interpretation [...] ABSOLUTE COUNT 19.12 K/ L 1.78-5.38 H (AKER) (test code = 670) LYMPHOCYTES ABSOLUTE COUNT 1.61 K/ L 1.32-3.57 (BEAKER) (test code = 414) MONOCYTES ABSOLUTE COUNT (BEAKER) 1.05 K/ L 0.30-0.82 H (test code = 415) EOSINOPHILS ABSOLUTE COUNT 0.00 K/ L 0.04-0.54 L (BEAKER) (test code = 416) BASOPHILS ABSOLUTE COUNT (BEAKER) 0.04 K/ L 0.01-0.08 (test code = 417) IMMATURE GRANULOCYTES-RELATIVE 1 % 0-1 PERCENT (AKER) (test code = 2801) POCT-GLUCOSE [id number] 00:56:00 Test Item Value Reference Range Interpretation Comments POC-GLUCOSE METER 149 mg/dL 70-[address] [facility] [address] ([facility]) (test code = DEM[place]RI[place] 1538) [address] TROPONIN [id number] 21:23:00 Test Item Value Reference Range Interpretation Comments TROPONIN I ([facility]) (test code = 0.06 ng/mL 0.00-0.03 H 397) LACTIC ACID, VENOUS, WHOLE [id number] 18:53:00 Test Item Value Reference Range Interpretation Comments LACTATE BLOOD VENOUS 1.7 mmol/L 0.5-2.2 Specime n slightly (2) ([facility]) (test hemolyzed code = 2872) EEG RECORDING IN COMA/SLEEP [id number] 18:51:00Reason for exam:->concern for seizuresShould this be performed at the bedside?->YesDATE OF REPORT: 10/14/2018 ACC: [id number] Start time: 17:28 Stop time: 17:48 ICD-10: R56.9 CPT Code: 12125 HISTORY: 52 yo male with DM, HTN, [...] Underwood MD Neurophysiology Fellow Felice Pinedo M.D., [facility] Professor of Neurology [facility] Director, [facility] Epilepsy [place], Rick Cordova Neurophysiology Lab POCT-GLUCOSE [id number] 17:46:00 Test Item Value Reference Range Interpretation Comments POC-GLUCOSE METER 130 mg/dL 70-[address] [facility] [address] ([employer]) (test code = DEM[place]RI[place] 1538) [address] LACTIC ACID, VENOUS, WHOLE [id number] 16:36:00 Test Item Value Reference Range Interpretation Comments LACTATE BLOOD VENOUS 2.4 mmol/L 0.5-2.2 H Specime n slightly (2) ([employer]) (test hemolyzed code = 2872) FIBRIN SOLUBLE [id number] 15:35:00 Test Item Value Reference Range Interpretation Comments FIBRIN SOLUBLE MONOMER (BEAKER) Negative (test code = 1416) [id number] 14:51:00 Test Item Value Reference Range Interpretation Comments PROCALCITONIN ([employer]) (test code 1.71 ng/mL <0.05 H = 3036) SEPSIS RISK (ng/mL)Low: 0.05-0.50Intermediate: 0.51-2.00High: >=2.01TROPONIN [id number] 14:44:00 Test Item Value Reference Range Interpretation Comments TROPONIN I (BEAKER) (test code = 0.04 ng/mL 0.00-0.03 H 397) BASIC METABOLIC [id number] 14:39:00 Test Item Value Reference Range Interpretation [...] m DATA TO CALCULA TE ESTIMATED GFR. [id number] 14:38:00 Test Item Value Reference Range Interpretation Comments PHOSPHORUS (BEAKER) (test code = 2.4 mg/dL 2.3-4.7 604) [id number] 14:38:00 Test Item Value Reference Range Interpretation Comments MAGNESIUM (BEAKER) (test code = 1.6 mg/dL 1.6-2.6 627) HEPATIC FUNCTION [id number] 14:38:00 Test Item Value Reference Range Interpretation [...] (test code = 18 U/L 6-55 347) [id number] 14:38:00 Test Item Value Reference Range Interpretation Comments LIPASE (BEAKER) (test code = 749) 8 U/L 8-78 LACTIC ACID, VENOUS, WHOLE [id number] 14:32:00 Test Item Value Reference Range Interpretation Comments LACTATE BLOOD VENOUS (2) (BEAKER) 1.6 mmol/L 0.5-2.2 (test code = 2872) PROTHROMBIN [id number] 14:24:00 Test Item Value Reference Range Interpretation Comments PROTIME (BEAKER) (test code = 15.3 seconds 11.7-14.7 H 759) INR (BEAKER) (test code = 370) 1.2 <=5.9 RECOMMENDED COUMADIN/WARFARIN INR THERAPY RANGESSTANDARD DOSE: 2.0 - 3.0 Includes: PROPHYLAXIS forvenous thrombosis, systemic embolization; TREATMENT for venous thrombosis and/or pulmonary embolus.HIGH RISK: Target INR is 2.5-3.5 for patients with mechanical heart valves.[id number] 14:24:00 Test Item Value Reference Range Interpretation Comments FIBRINOGEN LEVEL (BEAKER) (test 453 mg/dl 225-434 H code = 658) [id number] 14:24:00 Test Item Value Reference Range Interpretation Comments PARTIAL THROMBOPLASTIN TIME 37.8 seconds 22.5-36.0 H (BEAKER) (test code = 760) BLOOD GAS, [id number] 14:14:00 Test Item Value Reference Range Interpretation [...] code = 1819) 40.0 % OXYGEN SATURATION, [id number] 13:58:00 Test Item Value Reference Range Interpretation Comments O2 SATURATION (MEASURED) (BEAKER) 89.6 % (test code = 1455) If patient has internal jugular ( IJ) or subclavian central line or PICC line. Draw from distal port. Label as central venous oxygen.RAD, CHEST, 1 VIEW, NON [id number] 13:52:00Reason for exam:->sputum, coughShould this be performed [...] MDReport Verified Date/Time: 10/14/2018 13:52:33 Reading Location: [address] Consult Reading Room URINALYSIS W/ MICROSCOPIC 2018-10-14 [...] 518) SOURCE(BEAKER) (test code = Urine, [place] 1368)
[2020-05-04] MEDS ORDERED: ACETAMINOPHEN 500 MG TAB PO PRN (14:41)
[2020-05-04] MEDS ORDERED: ONDANSETRON 4 MG/2 ML VIAL IV PRN (14:41)
[2020-05-04] MEDS ORDERED: TRAMADOL HCL 50 MG TAB PO PRN (14:41)
[2020-05-04] MEDS ORDERED: VANCOMYCIN/NS 1 gm 1 GM/250 ML BAG IVPB ONE (16:00)
[2020-05-04] MEDS ORDERED: POTASSIUM 25 MEQ EFFERV TAB PO ONE (16:23)
[2020-05-04] MEDS: ENOXAPARIN 40 MG/0.4 ML SQ SCH (16:25)
[2020-05-04] MEDS: CEFEPIME/SWI 1gm 10 ML IVP SCH (16:26)
[2020-05-04 16:42] VITALS: BMI 18.1
[2020-05-04] MEDS ORDERED: PNEUMOCOCCAL VACCINE 0.5 ML IMVAC ONE (17:00)
--- NOTE | 2020-05-04 17:55 | P.HP ---
Certification for Inpatient Patient admitted to: Inpatient With expected LOS: >2 Midnights Patient will require the following post-hospital care: Other (LTAC vs SNF) Practitioner: I am a practitioner with admitting privileges, knowledge of patient current condition, hospital course, and medical plan of care. Services: Services provided to patient in accordance with Admission requirements found in Title 42 Section 412.3 of the Code of Federal Regulations Patient History Date of Service: 05/04/20 Primary Care Provider: Dr. Klein Reason for admission: Left foot ulcer History of Present Illness: 54 yo HM with history of CVA with residual left sided weakness. He presented to the ER after he was seen by his PCP recently and sent to the wound care center to take care of his chronic left metatarsal wound. When he was seen at the wound care center he was sent to the ER for further evaluation. He denies any fever, chills, or SOB. He apparently lives at home and takes care of himself. He has not been able to take care of the wound. In the ER he was evaluated. CBC and CMP reviewed. Procal was normal. Xray showed osteomyelitis to the 5th metatarsal. He was admitted for further treatment. When I saw him, he was not septic. He appeared without pain. He is malnourished. He is a poor historian. He reports not taking any medication. Allergies lotril Allergy (Uncoded 12/12/16 20:29) Unknown Home medications list reviewed: Yes Home Medications: Aspirin [Aspirin EC 81 MG] 81 mg PO DAILY 02/22/20 Atorvastatin Calcium [Lipitor*] 40 mg PO BEDTIME 02/22/20 Baclofen 5 mg PO TID 02/22/20 Citalopram [Celexa*] 20 mg PO DAILY 02/22/20 Clonidine HCl [Catapres] 0.1 mg PO TID 02/22/20 Clopidogrel Bisulfate [Plavix*] 75 mg PO DAILY 02/22/20 Enalapril [Vasotec*] 20 mg PO DAILY 02/22/20 Melatonin [Melatonin*] 3 mg PO BEDTIME PRN 02/22/20 Metoprolol Tartrate [Lopressor*] 50 mg PO BID 02/22/20 Sennosides [Senna Laxative] 8.6 mg PO DAILY 02/22/20 Tamsulosin [Flomax*] 0.4 mg PO BEDTIME 02/22/20 levETIRAcetam [Levetiracetam ER] 375 mg PO BID 02/22/20 Fosfomycin Tromethamine [Monurol] 3 gm PO EVERY 3RD DAY #3 packet 02/27/20 - Past Medical/Surgical History Has patient received pneumonia vaccine in the past: No Diabetic: Yes -: Hypertension -: CVA w left sided residual weakness -: History of seizures -: Cholecystectomy Psychosocial/ Personal History: Patient lives at home by himself. He has a brother that looks out for him. No home health. - Family History Family History: Reviewed- Non-Contributory - Social History Smoking Status: Former smoker Alcohol use: No CD- Drugs: No Caffeine use: Yes Place of Residence: Home Review of Systems General: As per HPI Eyes: Unremarkable ENT: Unremarkable Respiratory: Unremarkable Cardiovascular: Unremarkable Gastrointestinal: Unremarkable Genitourinary: Unremarkable Musculoskeletal: As per HPI Integumentary: As per HPI Neurological: As per HPI Lymphatics: Unremarkable Physical Examination - Vital Signs Temperature: 97.4 F Blood Pressure: 135/94 Pulse: 67 Respirations: 18 Pulse Ox (%): 95 - Physical Exam General: Alert, In no apparent distress, Cachectic, Disheveled, Other (he appears severely malnourished with muscle wasting to the torso and extremities.) HEENT: Atraumatic Neck: Supple Respiratory: Clear to auscultation bilaterally, Normal air movement Cardiovascular: Normal pulses, Regular rate/rhythm Gastrointestinal: Normal bowel sounds, Soft and benign, Non-distended Musculoskeletal: No warmth Integumentary: Other (Chronic 5th metatarsal ulcer with eschar. No exudate. Ulcer measures about 2 inches in length along the metatarsal and about 1/2 in in width. No erythema. There is also some excoriation to the top of his foot. ) Neurological: Normal speech, Normal affect, Abnormal strength (left sided residual weakness. 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 Spoke to Podiatry who has seen the patient in the past. Will obtain MRI of foot to further evaluate. Will start Vancomycin and Cefepime for the infection. Will order PICC line as he will likely need retirement IV antibiotics. Will Consult Infectious disease for recommendation. Will need to obtain and restart home meds. Will need to start Lovenox for DVT prophylaxis. Will also consult dietary for recommendations. Will provide medication for pain. He will likely need LTAC vs SNF for retirement care, antibiotics. Await recommendation by Podiatry and ID. Will discuss with social service about plan of care tomorrow. Discharge Plan: Other (LTAC vs SNF) Plan to discharge in: Greater than 2 days - Advance Directives Does patient have a Living Will: No Does patient have a Durable POA for Healthcare: No - Code Status/Comfort Care Code Status Assessed: Yes (He is full code) Time Spent Managing Pts Care (In Minutes): 55
[2020-05-04] MEDS ORDERED: VANCOMYCIN 1.25 GM in NA CHLORIDE 0.9% 250 ML IVPB ONE (21:00)
[2020-05-04] MEDS ORDERED: CEFEPIME 1 GM/VIAL IV SCH (21:00)
[2020-05-04] MEDS: HYDROCODONE/APAP 7.5/325 MG TAB PO PRN (21:24)
[2020-05-05 04:37] LABS: BUN Blood Urea Nitrogen 26 mg/dL (7-18); Bicarbonate 24 mmol/L (21-32); Glucose Level 81 mg/dL (74-106); Potassium 3.5 mmol/L (3.5-5.1); Sodium Level 143 mmol/L (136-145)
[2020-05-05 04:52] LABS: Absolute Lymphocytes (CBC) 2.3 K/uL (0.7-4.9); Hematocrit 36.7 % (39.6-49.0); Lymphocytes % 35.8 % (15.3-44.8); MPV 10.1 fL (7.6-11.3); RBC Red Blood Cell Count 4.27 M/uL (4.33-5.43)
[2020-05-05] MEDS: CEFEPIME/SWI 1gm 10 ML IVP SCH ×2 (07:23→22:16)
[2020-05-05] MEDS ORDERED: KCL 20 MEQ/100 mL IVPB 20 MEQ/100 ML BAG IV SCH (08:00)
[2020-05-05] MEDS: VANCOMYCIN 1.5 GM in NA CHLORIDE 0.9% 500 ML IVPB SCH ×2 (08:00→22:17)
--- NOTE | 2020-05-05 08:29 | P.CNS ---
Date of Consult: 05/05/20 Reason for Consult: wound left foot Primary Care Provider: Dr. Klein Chief Complaint: Left foot ulcer Allergies lotril Allergy (Uncoded 12/12/16 20:29) Unknown Home Medications: Aspirin [Aspirin EC 81 MG] 81 mg PO DAILY 02/22/20 Atorvastatin Calcium [Lipitor*] 40 mg PO BEDTIME 02/22/20 Baclofen 5 mg PO TID 02/22/20 Citalopram [Celexa*] 20 mg PO DAILY 02/22/20 Clonidine HCl [Catapres] 0.1 mg PO TID 02/22/20 Clopidogrel Bisulfate [Plavix*] 75 mg PO DAILY 02/22/20 Enalapril [Vasotec*] 20 mg PO DAILY 02/22/20 Metoprolol Tartrate [Lopressor*] 50 mg PO BID 02/22/20 Sennosides [Senna Laxative] 8.6 mg PO DAILY 02/22/20 Tamsulosin [Flomax*] 0.4 mg PO BEDTIME 02/22/20 levETIRAcetam [Levetiracetam ER] 375 mg PO BID 02/22/20 Temazepam 30 mg PO BEDTIME 05/05/20 - Past Medical/Surgical History Diabetic: Yes -: Hypertension -: CVA w left sided residual weakness -: History of seizures -: Diabetes mellitus type 2 -: Cholecystectomy Psychosocial/ Personal History: Patient lives at home by himself. He has a b rother that looks out for him. No home health. - Social History Smoking Status: Unknown if ever smoked Alcohol use: No CD- Drugs: No Caffeine use: Yes Place of Residence: Home Review of Systems 10-point ROS is otherwise unremarkable Physical Examination Temp Pulse Resp BP Pulse Ox 97.7 F 100 H 20 178/98 H 96 05/05/20 08:00 05/05/20 08:00 05/05/20 08:00 05/05/20 08:00 05/05/20 08:00 General: In no apparent distress, Confused Cardiovascular: No edema, Abnormal pulses Capillary refill: >2 Seconds Musculoskeletal: No clubbing, No swelling, Contractures (left lower extremity) Integumentary: Diabetic ulcer (ulceration lateral aspect of left foot measuring 6.2cm X 3.2cm X 0.4 cm with significant eschar and fibrin noted. Granulation present. Wound probes to bone.) Neurological: Abnormal sensation Laboratory Data (last 24 hrs) 05/04/20 10:45: Sodium 140, Potassium 3.9, BUN 22 H, Creatinine 0.80, Glucose 104 05/04/20 10:45: WBC 8.2, Hgb 13.1 L, Hct 40.7, Plt Count 304 - Problems (1) Type 2 diabetes mellitus with foot ulcer Current Visit: Yes Status: Acute Conclusions/Impression: Santyl to wound daily with saline moistened gauze. Awaiting results of MRI Patient will probably need to be placed in SNF or LTAC
[2020-05-05] MEDS: BACLOFEN 10 MG TAB PO SCH ×3 (08:54→22:14)
[2020-05-05] MEDS: CITALOPRAM 10 MG TABLET PO SCH (08:54)
[2020-05-05] MEDS: ASPIRIN EC 81 MG TAB PO SCH (08:54)
[2020-05-05] MEDS: LEVETIRACETAM 375 MG PO SCH ×2 (08:54→21:00)
[2020-05-05] MEDS: CLOPIDOGREL 75 MG TABLET PO SCH (08:54)
[2020-05-05] MEDS: ENOXAPARIN 40 MG/0.4 ML SQ SCH (08:55)
[2020-05-05] MEDS: SENOSIDES 8.6 MG TAB PO SCH (08:55)
[2020-05-05] MEDS ORDERED: COLLAGENASE 30 GM OINTMENT TOP SCH (09:00)
--- NOTE | 2020-05-05 09:03 | P.CNS ---
Date of Consult: 05/05/20 Subjective: Patient is a 54 year old male who presents to the ED for worsening left foot wound. Patient has been seen by the wound care center the past few weeks and was sent to the ED for further evaluation. Patient found to have chronic left foot wound and possible osteomyelitis which I have been consulted for. Patient examined at bedside. Past medical/surgical history: HTN, CVA with left sided weakness, Diabetes mellitus, seizures, cholecystectomy Family history: noncontributory Social history: Denies tobacco and alcohol use Allergies: Lotril Active Medications Acetaminophen (Tylenol -Extra Strength) 500 mg PO Q4HP PRN PRN Reason: TEMP > 101' F Stop: 06/03/20 14:42 Hydrocodone Bitart/Acetaminophen ([place] 7.5/325 Mg) 1 tab PO Q6H PRN PRN Reason: Pain scale 5-7 (Moderate) Stop: 06/03/20 14:42 Last Admin: 05/04/20 21:24 Dose: 1 tab Documented by: Aspirin (Aspirin Ec) 81 mg PO DAILY DOUGLAS Stop: 06/04/20 09:01 Atorvastatin Calcium (Lipitor) 40 mg PO BEDTIME DOUGLAS Stop: 06/04/20 21:01 Baclofen (Lioresal) 5 mg PO TID DOUGLAS Stop: 06/04/20 09:01 Citalopram Hydrobromide (Celexa) 20 mg PO DAILY DOUGLAS Stop: 06/04/20 09:01 Clopidogrel Bisulfate (Plavix) 75 mg PO DAILY DOUGLAS Stop: 06/04/20 09:01 Collagenase (Santyl Ointment) 1 appl TOP DAILY DOUGLAS Stop: 06/04/20 09:01 Enoxaparin Sodium (Lovenox 40 Mg Inj) 40 mg SQ DAILY DOUGLAS Stop: 06/03/20 15:01 Last Admin: 05/04/20 16:25 Dose: 40 mg Documented by: Home Med (Levetiracetam [Levetiracetam Er]) 375 mg PO BID DOUGLAS Stop: 06/04/20 09:01 Vancomycin HCl 1.5 gm/ Sodium (Chloride) 500 mls @ 250 mls/hr IVPB Q12H DOUGLAS; Protocol Stop: 06/04/20 09:01 Cefepime HCl (Maxipime 1 Gm/10 Ml Ivp) 10 mls @ 200 mls/hr IVP Q12HR DOUGLAS Stop: 06/03/20 16:01 Last Admin: 05/05/20 07:23 Dose: 10 mls Documented by: Potassium Chloride (Kcl 20 Meq/100 Ml Ivpb (Premix)) 20 meq in 100 mls @ 50 mls/hr IV 1X DOUGLAS; Protocol Stop: 05/05/20 09:59 Last Admin: 05/05/20 07:20 Dose: 100 mls Documented by: Ondansetron HCl (Zofran) 4 mg IV Q6HP PRN PRN Reason: NAUSEA / VOMITING Stop: 06/03/20 14:42 Senna (Senokot) 8.6 mg PO DAILY DOUGLAS Stop: 06/04/20 09:01 Sodium Chloride (Normal Saline Flush) 10 ml IV BID DOUGLAS Stop: 06/03/20 21:01 Last Admin: 05/05/20 07:22 Dose: 10 ml Documented by: Tamsulosin HCl (Flomax) 0.4 mg PO BEDTIME DOUGLAS Stop: 06/04/20 21:01 Temazepam (Restoril) 30 mg PO BEDTIME DOUGLAS Stop: 06/04/20 21:01 Tramadol HCl (Ultram) 50 mg PO TID PRN PRN Reason: Pain scale 2-4 (Mild) Stop: 06/03/20 14:42 ROS: CV: Denies chest pain RESP: Denies shortness of breath, cough : Denies dysuria GI: Denies nausea, diarrhea Skin: Reports worsening of left foot wound x3 weeks MSK: reports able to get around independently at home Objective: Temp Pulse Resp BP Pulse Ox 97.7 F 100 H 20 178/98 H 96 05/05/20 08:00 05/05/20 08:00 05/05/20 08:00 05/05/20 08:00 05/05/20 08:00 Labs: Na 143, K 3.5, BUN 26, Creat 0.84, WBC 6.4, Hgb 12.0, Hct 36.7 Foot xray 05/04: EXAM DESCRIPTION: RAD - Foot Left 3 View - 05/04/2020 11:11 am CLINICAL HISTORY: Left Foot pain FINDINGS: No fracture or dislocation is seen. Soft tissue ulceration lateral forefoot Cortical regularity involves the base of the fifth metatarsal which may indicate osteomyelitis ROS: General: Awake, pleasant, alert, muscle wasting CV: S1,S2 RESP: Good breath sounds ABD: nontender, bowel sounds present Extremities: No edema Skin: Left lateral foot wound with eschar, small amount of granulation tissue and large amount of slough, strong odor, edges rolled. Left anterior foot with dried eschar. Assessment and plan: Left lateral foot diabetic foot ulcer, xray show possible osteomyelitis, MRI to be done, recommend Santyl daily Left anterior foot diabetic foot ulcer can use betadine daily Blood cultures pending Wound cultures show 4+ gram negative rods, awaiting full report Diabetes mellitus, monitor glycemic control No leukocytosis, afebrile Currently on Vancomycin and Cefepime, will reevaluate after cultures are back Recommend debridement of left lateral wound Patient would benefit from LTAC facility for antibiotics and wound management Will continue to monitor Thank you for consult Patient discussed with Dr. Munoz
[2020-05-05] MEDS: lisinopriL 20 MG TAB PO SCH (10:09)
--- NOTE | 2020-05-05 13:41 | P.PN ---
Subjective Date of Service: 05/05/20 Primary Care Provider: Dr. Klein Chief Complaint: Left foot ulcer Subjective: No new changes <Lucho Rene - Last Filed: 05/05/20 13:37> Date of Service: 05/05/20 <Richard Mathur - Last Filed: 05/05/20 16:09> Review of Systems General: Unremarkable Eyes: Unremarkable ENT: Unremarkable Respiratory: Unremarkable Cardiovascular: Unremarkable Gastrointestinal: Unremarkable Genitourinary: Unremarkable Musculoskeletal: Foot Pain, As per HPI Integumentary: Unremarkable Neurological: Unremarkable Lymphatics: Unremarkable <Lucho Rene - Last Filed: 05/05/20 13:37> Physical Examination - Vital Signs Temperature: 97.7 F Blood Pressure: 155/97 Pulse: 90 Respirations: 20 Pulse Ox (%): 96 - Physical Exam General: Alert, In no apparent distress HEENT: Atraumatic, Normocephalic Neck: Supple Respiratory: Normal air movement Cardiovascular: No edema Capillary refill: <2 Seconds Gastrointestinal: Normal bowel sounds Musculoskeletal: No clubbing Integumentary: Diabetic ulcer (Left lateral foot) Neurological: Abnormal speech (Patient with mildly slurred speech secondary to previous stroke) Lymphatics: No axilla or inguinal lymphadenopathy - Studies Microbiology Data (last 24 hrs): 05/04/20 10:47 Wound - Left Foot Gram Stain - Final <Lucho Rene - Last Filed: 05/05/20 13:37> - Studies Microbiology Data (last 24 hrs): 05/04/20 10:47 Wound - Left Foot Gram Stain - Final <Richard Mathur - Last Filed: 05/05/20 16:09> Assessment & Plan Discharge Plan: LTAC Plan to discharge in: 24 Hours - Code Status/Comfort Care Code Status Assessed: Yes Physician Review Additional Text: Impression: 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 Patient has been seen both by podiatry and infectious disease both who recommend long-term IV antibiotics and placement in the long-term acute care facility or residential facility if appropriate. Will continue with vancomycin and cefepime at this time. Will continue with current recommendations from both podiatry and infectious disease. Awaiting final blood culture report. Will adjust antibiotics as needed. Awaiting placement for residential facility for long-term acute care facility. Critical Care: No Time Spent Managing Pts Care (In Minutes): 55 <Lucho Rene - Last Filed: 05/05/20 13:37> Physician Review Additional Text: Agree with plan of care. Case discussed in detail with nurse practitioner. Case also discussed with delinquency prevention social worker. Will pursue long-term acute care facility placement. If denied will need to consider residential placement and likely long-term care. Await further recommendations from Infectious Disease. Will discuss case further with podiatry as well <Richard Mathur - Last Filed: 05/05/20 16:09>
--- NOTE | 2020-05-05 20:37 | RAD REPORT ---
EXAM DESCRIPTION: RAD - Chest Single View - 05/05/2020 3:24 am ADDENDUM #1 THIS REPORT CONTAINS FINDINGS THAT MAY BE CRITICAL TO PATIENT CARE: The findings were verbally discu ssed via telephone conference with Rebecca Lugo RN by Dr. Lipscomb at 0308 hours central time on April 202019. The results were acknowledged and understood. Electronically signed by: Praneeth Lipscomb MD 05/05/2020 3:08 AM CDT End of Addendum EXAM DESCRIPTION: Chest Single View CLINICAL HISTORY: 54 years Male, PICC line Placement COMPARISON: None. FINDINGS: A right upper extremity PICC line is present with tip in the right atrium. No pneumothorax. No significant pleural effusion. Low lung volumes are demonstrated. Mild hazy opacit y in the perihilar regions noted. Heart appears normal in size. Aortic atherosclerosis is present. Osseous structures are unremarkable. IMPRESSION: 1. Right upper extremity PICC line tip in the right atrium. 2. Mild hazy opacity in the perihilar regions which may be related to atelectasis. Underlying infiltr ate is difficult to exclude. Electronically signed by: Praneeth Lipscomb MD 05/05/2020 3:02 AM CDT Due to temporary technical issues with the PACS/Fluency reporting system, reports are being signed by the in house radiologist without review as a courtesy to ensure prompt reporting. The interpreting r adiologist is fully responsible for the content of the report.
[2020-05-05] MEDS: TEMAZEPAM 15 MG CAP PO SCH (22:14)
[2020-05-05] MEDS: METOPROLOL TAR 50 MG TAB PO SCH (22:15)
[2020-05-05] MEDS: TAMSULOSIN 0.4 MG SR CAP PO SCH (22:16)
[2020-05-05] MEDS: ATORVASTATIN 40 MG TAB PO SCH (22:16)
[2020-05-05] MEDS: ENSURE ENLIVE 237 ML CAN PO SCH (22:17)
[2020-05-06 04:35] LABS: Absolute Lymphocytes (CBC) 2.1 K/uL (0.7-4.9); Basophils % 1.2 % (0-1.3); Hematocrit 34.4 % (39.6-49.0); MPV 9.4 fL (7.6-11.3); RBC Red Blood Cell Count 3.99 M/uL (4.33-5.43)
[2020-05-06 04:49] LABS: BUN Blood Urea Nitrogen 19 mg/dL (7-18); Bicarbonate 25 mmol/L (21-32); Glucose Level 101 mg/dL (74-106); Magnesium 2.1 mg/dL (1.8-2.4); Potassium 3.7 mmol/L (3.5-5.1); Sodium Level 142 mmol/L (136-145)
--- NOTE | 2020-05-06 08:01 | P.PN ---
Subjective Date of Service: 05/06/20 Primary Care Provider: Dr. Klein Chief Complaint: Left foot ulcer Subjective: No new changes Review of Systems 10-point ROS is otherwise unremarkable Physical Examination - Vital Signs Temperature: 97.5 F Blood Pressure: 162/90 Pulse: 65 Respirations: 18 Pulse Ox (%): 97 - Physical Exam General: Alert, In no apparent distress Cardiovascular: Abnormal pulses Musculoskeletal: No erythema, No tenderness, No warmth, Contractures Integumentary: Diabetic ulcer (ulceration to lateral left foot has a loosened eschar that was excisionally debrided at bedside with an 11 blade to the depth of the muscular layer. No purulence from wound, large fibrin noted. Dorsal left foot wound has large, dry eschar with no drainage, no erythema noted) Neurological: Abnormal sensation - Studies Microbiology Data (last 24 hrs): 05/04/20 10:47 Wound - Left Foot Gram Stain - Final Assessment And Plan - Current Problems (Diagnosis) (1) Type 2 diabetes mellitus with foot ulcer Current Visit: Yes Status: Acute - Plan Santyl to all wounds daily with saline moistened gauze Agree with iv antibiotics and transfer to SNF or LTAC Physician Review Additional Text: Agree with plan of care. Case discussed in detail with nurse practitioner. Case also discussed with public health social worker. Will pursue long-term acute care facility placement. If denied will need to consider jail placement and likely long-term care. Await further recommendations from Infectious Disease. Will discuss case further with podiatry as well
[2020-05-06] MEDS: ENSURE ENLIVE 237 ML CAN PO SCH ×2 (08:51→20:53)
[2020-05-06] MEDS: VANCOMYCIN 1.5 GM in NA CHLORIDE 0.9% 500 ML IVPB SCH (08:52)
[2020-05-06] MEDS: CEFEPIME/SWI 1gm 10 ML IVP SCH ×2 (08:52→20:50)
[2020-05-06] MEDS: lisinopriL 20 MG TAB PO SCH (08:53)
[2020-05-06] MEDS: ENOXAPARIN 40 MG/0.4 ML SQ SCH (08:53)
[2020-05-06] MEDS: METOPROLOL TAR 50 MG TAB PO SCH ×2 (08:53→20:49)
[2020-05-06] MEDS: SENOSIDES 8.6 MG TAB PO SCH (08:53)
[2020-05-06] MEDS: BACLOFEN 10 MG TAB PO SCH ×3 (08:54→20:48)
[2020-05-06] MEDS: CITALOPRAM 10 MG TABLET PO SCH (08:54)
[2020-05-06] MEDS: CLOPIDOGREL 75 MG TABLET PO SCH (08:54)
[2020-05-06] MEDS: ASPIRIN EC 81 MG TAB PO SCH (08:55)
[2020-05-06] MEDS: LEVETIRACETAM 375 MG PO SCH (08:55)
[2020-05-06] MEDS ORDERED: POTASSIUM CL SA 10 MEQ TAB PO ONE (09:00)
[2020-05-06] MEDS: COLLAGENASE 30 GM OINTMENT TOP SCH (09:00)
[2020-05-06] MEDS: HYDROCODONE/APAP 7.5/325 MG TAB PO PRN (11:01)
--- NOTE | 2020-05-06 12:57 | P.PN ---
Date of Service: 05/06/20 Subjective: Patient is a 54 year old male who presents to the ED for worsening left foot wound. Patient has been seen by the wound care center the past few weeks and was sent to the ED for further evaluation. Patient found to have chronic left foot wound and possible osteomyelitis which I have been consulted for. Patient examined at bedside. Patient had debridement of left lateral DFU. Denies nausea, diarrhea, fevers, shortness of breath. Objective: Temp Pulse Resp BP Pulse Ox 97.2 F 68 18 140/89 97 05/06/20 12:00 05/06/20 12:00 05/06/20 12:00 05/06/20 12:05/06/20 12:00 Labs: Na 142, K 3.7, BUN 19, Creat 0.76, WBC 6.4, Hgb 11.2, Hct 34.4 Foot xray 05/04: EXAM DESCRIPTION: RAD - Foot Left 3 View - 05/04/2020 11:11 am CLINICAL HISTORY: Left Foot pain FINDINGS: No fracture or dislocation is seen. Soft tissue ulceration lateral forefoot Cortical regularity involves the base of the fifth metatarsal which may indicate osteomyelitis ROS: General: Awake, pleasant, alert, muscle wasting CV: S1,S2 RESP: Good breath sounds ABD: nontender, bowel sounds present Extremities: No edema Skin: Left foot with dressing CDI S/P debridement 05/06 Assessment and plan: Left lateral foot diabetic foot ulcer, S/P debridement 05/06, xray show possible osteomyelitis, MRI to be done Left anterior foot diabetic foot ulcer can use betadine daily Blood cultures show no growth to date Wound cultures show 4+ gram negative rods and gram positive cocci in clusters Diabetes mellitus, monitor glycemic control No leukocytosis, afebrile Currently on Vancomycin and Cefepime recommend total of 6 weeks Patient would benefit from LTAC facility for antibiotics and wound management with hyperbaric treatment Will continue to monitor Patient discussed with Dr. Munoz
--- NOTE | 2020-05-06 14:34 | P.PN ---
Subjective Date of Service: 05/06/20 Primary Care Provider: Dr. Klein Chief Complaint: Left foot ulcer Subjective: Improving, Doing well Physical Examination - Vital Signs Temperature: 97.2 F Blood Pressure: 140/89 Pulse: 68 Respirations: 18 Pulse Ox (%): 97 - Physical Exam General: Alert HEENT: Atraumatic Neck: Supple Respiratory: Clear to auscultation bilaterally, Normal air movement Cardiovascular: Normal pulses, Regular rate/rhythm Integumentary: Other (Podiatry performing bedside debridement of eschar to the left foot.) Neurological: Normal speech - Studies Microbiology Data (last 24 hrs): 05/04/20 10:47 Wound - Left Foot Gram Stain - Final Medications List Reviewed: Yes Assessment & Plan Discharge Plan: LTAC Plan to discharge in: 24 Hours Physician Review Additional Text: Impression: 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 Patient had bedside debridement by Podiatry today. Infectious Disease recommends to continue IV vancomycin and cefepime for 6 weeks. Awaiting approval for long-term acute care facility placement. Case discussed with social work coordinator. Continue current wound care and treatment. Anticipate approval to the long-term acute care facility for wound care, hyperbaric and IV antibiotic therapy in the next 24-48 hr. HTN: Continue medication History of CVA with residual left sided weakness: Overall stable. Continue with therapy Severe protein malnutrition: Continue with dietary recommendations. Time Spent Managing Pts Care (In Minutes): 55
[2020-05-06] MEDS: TEMAZEPAM 15 MG CAP PO SCH (20:48)
[2020-05-06] MEDS: TAMSULOSIN 0.4 MG SR CAP PO SCH (20:49)
[2020-05-06] MEDS: ATORVASTATIN 40 MG TAB PO SCH (20:52)
[2020-05-06] MEDS: LEVETIRACETAM 750 MG PO SCH (20:52)
[2020-05-06] MEDS: VANCOMYCIN/NS 1 gm 1 GM/250 ML BAG IV SCH (20:53)
[2020-05-06] MEDS ORDERED: VANCOMYCIN 1.5 GM in NA CHLORIDE 0.9% 500 ML IVPB SCH (21:00)
[2020-05-07 04:45] LABS: Absolute Lymphocytes (CBC) 2.2 K/uL (0.7-4.9); Hematocrit 37.5 % (39.6-49.0); Lymphocytes % 33.6 % (15.3-44.8); MPV 9.6 fL (7.6-11.3); RBC Red Blood Cell Count 4.29 M/uL (4.33-5.43)
[2020-05-07 05:05] LABS: BUN Blood Urea Nitrogen 15 mg/dL (7-18); Bicarbonate 28 mmol/L (21-32); Glucose Level 94 mg/dL (74-106); Magnesium 2.2 mg/dL (1.8-2.4); Sodium Level 136 mmol/L (136-145)
[2020-05-07 08:14] VITALS: O2SAT 97
[2020-05-07] MEDS: COLLAGENASE 30 GM OINTMENT TOP SCH (09:00)
[2020-05-07] MEDS: CEFEPIME/SWI 1gm 10 ML IVP SCH ×2 (09:30→21:00)
[2020-05-07] MEDS: ASPIRIN EC 81 MG TAB PO SCH (09:30)
[2020-05-07] MEDS: lisinopriL 20 MG TAB PO SCH (09:30)
[2020-05-07] MEDS: CLOPIDOGREL 75 MG TABLET PO SCH (09:30)
[2020-05-07] MEDS: SENOSIDES 8.6 MG TAB PO SCH (09:30)
[2020-05-07] MEDS: ENOXAPARIN 40 MG/0.4 ML SQ SCH (09:30)
[2020-05-07] MEDS: CITALOPRAM 10 MG TABLET PO SCH (09:30)
[2020-05-07] MEDS: LEVETIRACETAM 750 MG PO SCH ×2 (09:31→20:58)
[2020-05-07] MEDS: BACLOFEN 10 MG TAB PO SCH ×3 (09:31→21:02)
[2020-05-07] MEDS: METOPROLOL TAR 50 MG TAB PO SCH ×2 (09:31→21:00)
[2020-05-07] MEDS: ENSURE ENLIVE 237 ML CAN PO SCH ×2 (09:55→21:02)
[2020-05-07] MEDS: VANCOMYCIN/NS 1 gm 1 GM/250 ML BAG IV SCH ×2 (10:53→21:03)
--- NOTE | 2020-05-07 12:10 | P.PN ---
Date of Service: 05/07/20 Subjective: Patient is a 54 year old male who presents to the ED for worsening left foot wound. Patient has been seen by the wound care center the past few weeks and was sent to the ED for further evaluation. Patient found to have chronic left foot wound and possible osteomyelitis which I have been consulted for. Patient examined at bedside. Patient had debridement of left lateral DFU 05/06. Denies nausea, diarrhea, fevers, shortness of breath. No new changes Objective: Temp Pulse Resp BP Pulse Ox 97.6 F 66 16 146/101 H 91 05/07/20 08:00 05/07/20 08:00 05/07/20 08:00 05/07/20 08:00 05/07/20 08:00 Labs: Na 136, K 4.0, BUN 15, Creat 0.62, WBC 6.5, Hgb 12.2, Hct 37.5 Foot xray 05/04: EXAM DESCRIPTION: RAD - Foot Left 3 View - 05/04/2020 11:11 am CLINICAL HISTORY: Left Foot pain FINDINGS: No fracture or dislocation is seen. Soft tissue ulceration lateral forefoot Cortical regularity involves the base of the fifth metatarsal which may indicate osteomyelitis ROS: General: Awake, pleasant, alert CV: S1,S2 RESP: Good breath sounds ABD: nontender, bowel sounds present Extremities: No edema Skin: Left lateral foot open wound s/p I&D, wound bed with granulation tissue and slough. Left anterior foot with eschar Assessment and plan: Left lateral foot diabetic foot ulcer, S/P debridement 05/06, suspect osteomyelitis Left anterior foot diabetic foot ulcer can use betadine daily Blood cultures show no growth to date Wound culture positive for enterobater cloacae and enterococcus faecalis Diabetes mellitus, monitor glycemic control No leukocytosis, afebrile Currently on Vancomycin day 2 and Cefepime day 4, recommend total of 6 weeks Patient would benefit from LTAC facility for antibiotics and wound management with hyperbaric treatment Will continue to monitor Patient discussed with Dr. Munoz
--- NOTE | 2020-05-07 14:01 | P.PN ---
Subjective Date of Service: 05/07/20 Primary Care Provider: Dr. Klein Chief Complaint: Left foot ulcer Subjective: Other (Patient stable) Physical Examination - Vital Signs Temperature: 97.8 F Blood Pressure: 101/66 Pulse: 68 Respirations: 16 Pulse Ox (%): 91 - Physical Exam General: Alert, Cooperative HEENT: Atraumatic Neck: Supple Respiratory: Clear to auscultation bilaterally, Normal air movement Integumentary: Other (Left foot bandaged) - Studies Microbiology Data (last 24 hrs): 05/04/20 10:47 Wound - Left Foot Gram Stain - Final Medications List Reviewed: Yes Assessment & Plan Discharge Plan: Other (custodial facility) Plan to discharge in: 24 Hours Physician Review Additional Text: Impression: 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 Patient had bedside debridement. Infectious Disease recommends 6 weeks of IV antibiotic therapy patient currently on vancomycin and cefepime. Patient will require continued IV antibiotic therapy with aggressive wound care. Case discussed with medical supervisor of insurance. Patient denied long-term care facility placement. director of health care marketing of insurance approved intermediate facility. Will pursue intermediate facility. Social work to help in this process. Anticipate discharge to skilled facility when approved. Pharmacy to continue to monitor and adjust medication HTN: Continue medication History of CVA with residual left sided weakness: Overall stable. Continue with therapy Severe protein malnutrition: Continue with dietary recommendations. Time Spent Managing Pts Care (In Minutes): 55
[2020-05-07] MEDS: ATORVASTATIN 40 MG TAB PO SCH (21:00)
[2020-05-07] MEDS: TAMSULOSIN 0.4 MG SR CAP PO SCH (21:00)
[2020-05-07] MEDS: TEMAZEPAM 15 MG CAP PO SCH (21:00)
[2020-05-08] MEDS: CLOPIDOGREL 75 MG TABLET PO SCH (08:40)
[2020-05-08] MEDS: LEVETIRACETAM 750 MG PO SCH (08:40)
[2020-05-08] MEDS: ASPIRIN EC 81 MG TAB PO SCH (08:41)
[2020-05-08] MEDS: BACLOFEN 10 MG TAB PO SCH ×2 (08:41→13:52)
[2020-05-08] MEDS: ENOXAPARIN 40 MG/0.4 ML SQ SCH (08:41)
[2020-05-08] MEDS: SENOSIDES 8.6 MG TAB PO SCH (08:41)
[2020-05-08] MEDS: CITALOPRAM 10 MG TABLET PO SCH (08:41)
[2020-05-08] MEDS: CEFEPIME/SWI 1gm 10 ML IVP SCH (08:42)
[2020-05-08] MEDS: lisinopriL 20 MG TAB PO SCH (08:42)
[2020-05-08] MEDS: ENSURE ENLIVE 237 ML CAN PO SCH (08:43)
[2020-05-08] MEDS: COLLAGENASE 30 GM OINTMENT TOP SCH (09:00)
[2020-05-08] MEDS: METOPROLOL TAR 50 MG TAB PO SCH (09:00)
[2020-05-08] MEDS ORDERED: NA CHLORIDE 0.9% 500 ML IV ONE (09:16)
[2020-05-08] MEDS: VANCOMYCIN/NS 1 gm 1 GM/250 ML BAG IV SCH (09:24)
--- NOTE | 2020-05-08 09:29 | P.PN ---
Date of Service: 05/08/20 Subjective: Patient is a 54 year old male who presents to the ED for worsening left foot wound. Patient has been seen by the wound care center the past few weeks and was sent to the ED for further evaluation. Patient found to have chronic left foot wound and possible osteomyelitis which I have been consulted for. Patient examined at bedside. Patient had debridement of left lateral DFU 05/06. Denies nausea, diarrhea, fevers, shortness of breath. No new changes Objective: Temp Pulse Resp BP Pulse Ox 98.0 F 82 18 91/50 L 96 05/08/20 08:00 05/08/20 08:00 05/08/20 08:00 05/08/20 08:00 05/08/20 08:00 Labs: Pending labs for 05/08 Foot xray 05/04: EXAM DESCRIPTION: RAD - Foot Left 3 View - 05/04/2020 11:11 am CLINICAL HISTORY: Left Foot pain FINDINGS: No fracture or dislocation is seen. Soft tissue ulceration lateral forefoot Cortical regularity involves the base of the fifth metatarsal which may indicate osteomyelitis ROS: General: Awake, pleasant, alert CV: S1,S2 RESP: Good breath sounds ABD: nontender, bowel sounds present Extremities: No edema Skin: Left lateral foot open wound s/p I&D, wound bed with granulation tissue and slough. Left anterior foot with eschar Assessment and plan: Left lateral foot diabetic foot ulcer, S/P debridement 05/06, suspect osteomyelitis Left anterior foot diabetic foot ulcer can use betadine daily Blood cultures show no growth to date Wound culture positive for enterobater cloacae and enterococcus faecalis, and Enterobacter Cloacae Diabetes mellitus, monitor glycemic control No leukocytosis, afebrile Currently on Vancomycin day 3 and Cefepime day 5, recommend total of 6 weeks Patient awaiting acceptance and transfer to LTAC facility for wound management and antibiotic therapy Will continue to monitor Patient discussed with Dr. Munoz
[2020-05-08 10:00] LABS: Basophils % 0.4 % (0-1.3); Hematocrit 32.9 % (39.6-49.0); Lymphocytes % 18.5 % (15.3-44.8); MPV 9.5 fL (7.6-11.3)
[2020-05-08 10:14] LABS: BUN Blood Urea Nitrogen 19 mg/dL (7-18); Bicarbonate 25 mmol/L (21-32); Glucose Level 108 mg/dL (74-106); Potassium 3.7 mmol/L (3.5-5.1); Sodium Level 139 mmol/L (136-145)
--- NOTE | 2020-05-08 11:47 | P.PN ---
Subjective Date of Service: 05/08/20 Primary Care Provider: Dr. Klein Chief Complaint: Left foot ulcer Subjective: Other (Patient with increased to take this morning. Blood pressure was slightly low. Blood pressure medication held. Bolus given. Will reassess.) Physical Examination - Vital Signs Temperature: 98.0 F Blood Pressure: 91/50 Pulse: 82 Respirations: 18 Pulse Ox (%): 96 - Physical Exam General: Alert, Other (Increased fatigue) Neck: Supple Respiratory: Clear to auscultation bilaterally, Normal air movement Cardiovascular: Normal pulses, Regular rate/rhythm Neurological: Other (Left foot bandaged. 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 Blood pressure medication held. May need to adjust medication further. Spoke with infectious disease and podiatry yesterday. Patient will require IV antibiotic therapy-vancomycin and cefepime for 6 weeks. Patient will continue with aggressive wound care. Patient accepted to skilled facility. Will reassess after lunchtime. If stable will transfer to skilled facility to continue care. HTN: Hold medication. Bolus given. Continue as above History of CVA with residual left sided weakness: Overall stable. Continue with therapy Severe protein malnutrition: Continue with dietary recommendations. Time Spent Managing Pts Care (In Minutes): 55
[2020-05-08] MEDS ORDERED: POTASSIUM 25 MEQ EFFERV TAB PO ONE (12:00)
[2020-05-08 12:02] VITALS: BP 117/63; TEMP 98.1
--- NOTE | 2020-05-08 13:20 | P.DS ---
Admission Date: 05/04/20 Discharge Date: 05/08/20 Primary Care Provider: Dr. Klein Disposition: TRANSFER TO SNF - MEDICAL Discharge Condition: GOOD Reason for Admission: Left foot ulcer Consultations: Podiatry-Dr. Wynn Infectious disease-Dr. Munoz Procedures: Foot xray: FINDINGS: No fracture or dislocation is seen. 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 He presented to the ER after he was seen by his PCP recently and sent to the wound care center to take care of his chronic left metatarsal wound. When he was seen at the wound care center he was sent to the ER for further evaluation. He denies any fever, chills, or SOB. He apparently lives at home and takes care of himself. He has not been able to take care of the wound. In the ER he was evaluated. CBC and CMP reviewed. Procal was normal. Xray showed osteomyelitis to the 5th metatarsal. He was admitted for further treatment. When I saw him, he was not septic. He appeared without pain. He is malnourished. He is a poor historian. He reports not taking any medication. Hospital Course: Patient presented with left 5th metatarsal chronic ulcer with eschar complicated with osteomyelitis. Patient was admitted and started on IV antibiotic therapy. Wound cultures obtained. Patient seen and evaluated by podiatry and infectious disease. Podiatry was able to do a bedside debridement. Infectious disease recommended long-term IV antibiotic therapy. Wound culture was positive for enterobacter, E coli and Enterococcus. Patient was evaluated for long-term acute care facility placement. This was denied by insurance. Skilled facility was recommended after that time. Patient has been accepted. At discharge patient will continue with IV antibiotic therapy-vancomycin and cefepime for a total of 6 weeks. Pharmacy to continue to monitor and adjust vancomycin. Patient will continue with wound care at the skilled facility. Patient may end up requiring long-term care thereafter. Recommend follow up with podiatry and infectious disease as an outpatient. Patient with history of CVA and residual left-sided weakness. This has remained stable. Continue with fall precautions. Patient mainly bed-bound. At discharge he will continue with aspirin 81 mg daily and Plavix 75 mg daily. Patient with hypertension. Blood pressures have remained stable. Adjustment in medication was required. Patient previously on clonidine 0.1 mg 3 times a day, lisinopril to 20 mg daily and metoprolol 50 mg 1 pill twice daily. Blood pressures were slightly low. At discharge clonidine and metoprolol have been discontinued. Patient will continue with lisinopril at a lower dose of 10 mg daily. Will need to hold medication if blood pressure less than 110 systolic. Further adjustment in medication may be required. Recommend to check blood pressure daily to further address. Patient with history of BPH. At discharge he will continue with Flomax 0.4 mg daily. Patient with history of seizures. Patient will continue with Keppra 375 mg 1 pill twice daily. Patient also takes baclofen 5 mg 1 pill twice daily. Patient with depression with anxiety. At discharge he will continue with Celexa 20 mg daily and temazepam 30 mg at bedtime for insomnia. Patient with hyperlipidemia. At discharge he will continue with Lipitor 40 mg daily. Vital Signs/Physical Exam: Temp Pulse Resp BP Pulse Ox 98.1 F 79 18 117/63 96 05/08/20 12:00 05/08/20 12:00 05/08/20 12:00 05/08/20 12:00 05/08/20 12:00 General: Alert, In no apparent distress, Cooperative, Other (Muscle wasting to the upper lower extremities.) HEENT: Atraumatic Neck: Supple Respiratory: Clear to auscultation bilaterally, Normal air movement Cardiovascular: Normal pulses, Regular rate/rhythm Gastrointestinal: Normal bowel sounds, No tenderness, No masses, No rebound, No guarding Neurological: Other (Residual left-sided weakness. Left foot bandaged.) Laboratory Data at Discharge: WBC 10.7 K/uL (4.3-10.9) D 05/08/20 09:42 Hgb 10.8 g/dL (13.6-17.9) L 05/08/20 09:42 Hct 32.9 % (39.6-49.0) L 05/08/20 09:42 Plt Count 205 K/uL (152-406) 05/08/20 09:42 Sodium 139 mmol/L (136-145) 05/08/20 09:42 Potassium 3.7 mmol/L (3.5-5.1) 05/08/20 09:42 BUN 19 mg/dL (7-18) H 05/08/20 09:42 Creatinine 0.68 mg/dL (0.55-1.3) 05/08/20 09:42 Glucose 108 mg/dL (74-106) H 05/08/20 09:42 Magnesium 2.2 mg/dL (1.8-2.4) 05/07/20 04:15 Home Medications: Aspirin [Aspirin EC 81 MG] 81 mg PO DAILY 02/22/20 Atorvastatin Calcium [Lipitor*] 40 mg PO BEDTIME 02/22/20 Baclofen 5 mg PO TID 02/22/20 Citalopram [Celexa*] 20 mg PO DAILY 02/22/20 Clopidogrel Bisulfate [Plavix*] 75 mg PO DAILY 02/22/20 Sennosides [Senna Laxative] 8.6 mg PO DAILY 02/22/20 Tamsulosin [Flomax*] 0.4 mg PO BEDTIME 02/22/20 levETIRAcetam [Levetiracetam ER] 375 mg PO BID 02/22/20 Temazepam 30 mg PO BEDTIME 05/05/20 Collagenase [Santyl Ointment*] 1 appl TOP DAILY #1 tube 05/08/20 Ensure Enlive 237 ml PO BID #60 can 05/08/20 Lisinopril [Zestril] 10 mg PO DAILY #30 tablet 05/08/20 New Medications: Ensure Enlive 237 ml PO BID #60 can Collagenase [Santyl Ointment*] 1 appl TOP DAILY #1 tube Lisinopril [Zestril] 10 mg PO DAILY #30 tablet Patient Discharge Instructions: 1. Patient be transferred to skilled facility to continue IV antibiotic therapy and wound care. 2. Patient presented with left 5th metatarsal chronic ulcer with eschar complicated with osteomyelitis. Patient was admitted and started on IV antibiotic therapy. Wound cultures obtained. Patient seen and evaluated by podiatry and infectious disease. Podiatry was able to do a bedside debridement. Infectious disease recommended long-term IV antibiotic therapy. Wound culture was positive for enterobacter, E coli and Enterococcus. Patient was evaluated for long-term acute care facility placement. This was denied by insurance. Skilled facility was recommended after that time. Patient has been accepted. At discharge patient will continue with IV antibiotic therapy-vancomycin and cefepime for a total of 6 weeks. Pharmacy to continue to monitor and adjust vancomycin. Patient will continue with wound care at the skilled facility. Patient may end up requiring long-term care thereafter. Recommend follow up with podiatry and infectious disease as an outpatient. Please go over wound care instructions as recommended by infectious disease. 3. Patient with history of CVA and residual left-sided weakness. This has remained stable. Continue with fall precautions. Patient mainly bed-bound. At discharge he will continue with aspirin 81 mg daily and Plavix 75 mg daily. 3. Patient with hypertension. Blood pressures have remained stable. Adjustment in medication was required. Patient previously on clonidine 0.1 mg 3 times a day, lisinopril to 20 mg daily and metoprolol 50 mg 1 pill twice daily. Blood pressures were slightly low. At discharge clonidine and metoprolol have been discontinued. Patient will continue with lisinopril at a lower dose of 10 mg daily. Will need to hold medication if blood pressure less than 110 systolic. Further adjustment in medication may be required. Recommend to check blood pressure daily to further address. 4. Patient with history of BPH. At discharge he will continue with Flomax 0.4 mg daily. 5. Patient with history of seizures. Patient will continue with Keppra 375 mg 1 pill twice daily. Patient also takes baclofen 5 mg 1 pill twice daily. 6. Patient with depression with anxiety. At discharge he will continue with Celexa 20 mg daily and temazepam 30 mg at bedtime for insomnia. 7. Patient with hyperlipidemia. At discharge he will continue with Lipitor 40 mg daily. Diet: AHA Activity: Fall precautions Time spent managing pt's care (in minutes): 55
== END 2020-05-08 15:43 | DRG 622 ==
LOC: ER 10:08 → ERHOLD 12:29 → 2ND 16:03
PROVIDERS: ADMIT Family Medicine; ATTEND Family Medicine
PROC: 02H633Z Insertion of Infusion Device into Right Atrium, Percutaneous Approach (ICD-10-PCS; 2020-05-05)
PROC: 0KBW0ZZ Excision of Left Foot Muscle, Open Approach (ICD-10-PCS; principal; 2020-05-06)
DX: E11.69 Type 2 diabetes mellitus with other specified complication (principal); E43 Unspecified severe protein-calorie malnutrition; I69.354 Hemiplegia and hemiparesis following cerebral infarction affecting left non-dominant side; Z68.1 Body mass index [BMI] 19.9 or less, adult; M86.8X8 Other osteomyelitis, other site; E11.621 Type 2 diabetes mellitus with foot ulcer; F41.8 Other specified anxiety disorders; E78.5 Hyperlipidemia, unspecified; L97.529 Non-pressure chronic ulcer of other part of left foot with unspecified severity; I10 Essential (primary) hypertension; Z88.8 Allergy status to other drugs, medicaments and biological substances; Z79.82 Long term (current) use of aspirin; Z79.02 Long term (current) use of antithrombotics/antiplatelets; Z79.899 Other long term (current) drug therapy; Z90.49 Acquired absence of other specified parts of digestive tract; Z60.2 Problems related to living alone; Z87.891 Personal history of nicotine dependence; Z20.828 Contact with and (suspected) exposure to other viral communicable diseases; B95.2 Enterococcus as the cause of diseases classified elsewhere; B96.89 Other specified bacterial agents as the cause of diseases classified elsewhere; B96.20 Unspecified Escherichia coli [E. coli] as the cause of diseases classified elsewhere
CPT/HCPCS: 36415; 71045; 80048; 80202; 82947; 83735; 84145; 84439; 84443; 85025; 87040; 87070; 87077; 87186; 87205; 97112; 97161; 97530; 99285; J0692; J1650; J3370; J3590; J7030; J7040; U0002